=== PATIENT | female | born 1955 | race Caucasian/White ===

== ENCOUNTER 2018-03-28 12:03 | Emergency (ER) | payer BC, MEDICARE ==
[2018-03-28] MEDS ORDERED: SODIUM CHLORIDE 0.9% 1,000 ML IV STA (12:38)
[2018-03-28] MEDS ORDERED: LORazepam 2 MG/ML INJ IV STA (12:38)
[2018-03-28] MEDS ORDERED: IPRATROPIUM-ALBUTEROL 3 ML NEB INHALATION STA (12:39)
[2018-03-28] MEDS ORDERED: DEXAMETHASONE SOD PHOSPHATE 10 MG/ML 1 ML VIAL IV STA (12:39)
--- NOTE | 2018-03-28 13:08 | ED ---
General Adult HPI - General Chief complaint: Anxiety Stated complaint: TEMO, poss panic attack Time Seen by Provider: 03/28/18 12:17 Source: patient, RN notes reviewed, old records reviewed Mode of arrival: ambulatory Limitations: no limitations - History of Present Illness Initial comments: This is a 63-year-old female for evaluation today. Patient resents ER for evaluation of shortness of breath, inability to catch her breath. Patient does her from complex medical history including DVTs heart disease. No recent travel history no. Patient has been taking medications as prescribed has been taking Xarelto as prescribed. Patient denies any fever. Denies any significant chest pain or leg pain - Related Data Home Medications Medication Instructions Recorded Confirmed metFORMIN HCL 500 mg PO BID 01/07/16 07/24/16 Lisinopril [Zestril] 10 mg PO DAILY 07/24/16 07/24/16 [place]-3 Fatty Acids [[place]-3] 1,000 mg PO DAILY 07/24/16 07/24/16 Ubidecarenone [Co Q-10] 100 mg PO DAILY 07/24/16 07/24/16 sitaGLIPtin [Januvia] 100 mg PO DAILY 07/24/16 07/24/16 Previous Rx's Medication Instructions Recorded Apixaban [Eliquis] 10 mg PO DIRECTED #60 tab 07/28/16 Allergies Allergy/AdvReac Type Severity Reaction Status Date / Time Iodinated Contrast- Oral and Allergy Rash/Hives Verified 03/28/18 12:14 IV Dye Milk Containing Products AdvReac Nausea & Verified 03/28/18 12:14 [Dairy] Vomiting Review of Systems ROS Statement: Those systems with pertinent positive or pertinent negative responses have been documented in the HPI. ROS Other: All systems not noted in ROS Statement are negative. Past Medical History Past Medical History: Asthma, Diabetes Mellitus Additional Past Medical History / Comment(s): pulmonary embolism in 12/2015 and the patient was treated with 6 moths of Eliquis, morbid obesity, DM History of Any Multi-Drug Resistant Organisms: None Reported Past Surgical History: No Surgical Hx Reported Past Anesthesia/Blood Transfusion Reactions: No Reported Reaction Past Psychological History: Anxiety, Depression Smoking Status: Never smoker Past Alcohol Use History: Occasional Past Drug Use History: Marijuana - Past Family History Mother Additional Family Medical History / Comment(s): CANCER WITH METS NOT SURE WHICH ONE Father Family Medical History: Pneumonia Additional Family Medical History / Comment(s): CANCER General Exam Limitations: no limitations General appearance: alert, in no apparent distress, anxious Head exam: Present: atraumatic, normocephalic, normal inspection Eye exam: Present: normal appearance, PERRL, EOMI. Absent: scleral icterus, conjunctival injection, periorbital swelling ENT exam: Present: normal exam, mucous membranes moist Neck exam: Present: normal inspection. Absent: tenderness, meningismus, lymphadenopathy Respiratory exam: Present: normal lung sounds bilaterally. Absent: respiratory distress, wheezes, rales, rhonchi, stridor Cardiovascular Exam: Present: regular rate, normal rhythm, normal heart sounds. Absent: systolic murmur, diastolic murmur, rubs, gallop, clicks GI/Abdominal exam: Present: soft, normal bowel sounds. Absent: distended, tenderness, guarding, rebound, rigid Extremities exam: Present: normal inspection, full ROM, normal capillary refill. Absent: tenderness, pedal edema, joint swelling, calf tenderness Back exam: Present: normal inspection Neurological exam: Present: alert, oriented X3, CN II-XII intact Psychiatric exam: Present: normal affect, normal mood Skin exam: Present: warm, dry, intact, normal color. Absent: rash Course Vital Signs 03/28/18 03/28/18 03/28/18 12:08 12:29 12:30 Temperature 98.4 F Pulse Rate 85 Respiratory 18 26 H 26 H Rate Blood Pressure 156/76 O2 Sat by Pulse 98 97 Oximetry 03/28/18 03/28/18 12:50 12:59 Temperature Pulse Rate 64 67 Respiratory Rate Blood Pressure O2 Sat by Pulse Oximetry - Reevaluation(s) Reevaluation #1: 03/28/18 14:24 Patient is asymptomatic throughout ER stay, no pain. X-rays normal, informed her results and feeling better EKG Findings - EKG Comments: EKG Findings:: EKG shows sinus rhythm rate is is, [place] 194, QRS 90, QTc 418 Medical Decision Making - Medical Decision Making 53 female the ER with mild anxiety attack. Normal oxygen throughout ER stay, patient can be discharged home - Lab Data Result diagrams: 03/28/18 13:20 03/28/18 13:20 Lab Results 08/05/18 08/05/18 08/05/18 Range/Units 13:20 13:20 13:20 WBC 7.5 (3.8-10.6) k/uL RBC 4.78 (3.80-5.40) m/uL Hgb 13.8 (11.4-16.0) gm/dL Hct 42.0 (34.0-46.0) % MCV 87.8 (80.0-100.0) fL MCH 28.9 (25.0-35.0) pg MCHC 32.9 (31.0-37.0) g/dL RDW 13.2 (11.5-15.5) % Plt Count 136 L (150-450) k/uL Neutrophils % 64 % Lymphocytes % 27 % Monocytes % 5 % Eosinophils % 2 % Basophils % 0 % Neutrophils # 4.9 (1.3-7.7) k/uL Lymphocytes # 2.0 (1.0-4.8) k/uL Monocytes # 0.4 (0-1.0) k/uL Eosinophils # 0.2 (0-0.7) k/uL Basophils # 0.0 (0-0.2) k/uL PT (9.0-12.0) sec INR (<1.2) APTT (22.0-30.0) sec Sodium 140 (137-145) mmol/L Potassium 4.9 (3.5-5.1) mmol/L Chloride 110 H (98-107) mmol/L Carbon Dioxide 19 L (22-30) mmol/L Anion Gap 11 mmol/L BUN 18 H (7-17) mg/dL Creatinine 0.75 (0.52-1.04) mg/dL Est GFR (CKD-EPI)AfAm >90 (>60 ml/min/1.73 sqM) Est GFR (CKD-EPI)NonAf 84 (>60 ml/min/1.73 sqM) Glucose 225 H (74-99) mg/dL Calcium 9.7 (8.4-10.2) mg/dL Magnesium 1.5 L (1.6-2.3) mg/dL Total Bilirubin 0.6 (0.2-1.3) mg/dL AST 21 (14-36) U/L ALT 32 (9-52) U/L Alkaline Phosphatase 87 (38-126) U/L Total Creatine Kinase 75 (30-135) U/L CK-MB (CK-2) 0.7 (0.0-2.4) ng/mL CK-MB (CK-2) Rel Index 0.9 Troponin I <0.012 (0.000-0.034) ng/mL NT-Pro-B Natriuret Pep pg/mL Total Protein 6.9 (6.3-8.2) g/dL Albumin 4.1 (3.5-5.0) g/dL 03/28/18 03/28/18 Range/Units 13:20 13:20 WBC (3.8-10.6) k/uL RBC (3.80-5.40) m/uL Hgb (11.4-16.0) gm/dL Hct (34.0-46.0) % MCV (80.0-100.0) fL MCH (25.0-35.0) pg MCHC (31.0-37.0) g/dL RDW (11.5-15.5) % Plt Count (150-450) k/uL Neutrophils % % Lymphocytes % % Monocytes % % Eosinophils % % Basophils % % Neutrophils # (1.3-7.7) k/uL Lymphocytes # (1.0-4.8) k/uL Monocytes # (0-1.0) k/uL Eosinophils # (0-0.7) k/uL Basophils # (0-0.2) k/uL PT 10.2 (9.0-12.0) sec INR 1.0 (<1.2) APTT 23.4 (22.0-30.0) sec Sodium (137-145) mmol/L Potassium (3.5-5.1) mmol/L Chloride (98-107) mmol/L Carbon Dioxide (22-30) mmol/L Anion Gap mmol/L BUN (7-17) mg/dL Creatinine (0.52-1.04) mg/dL Est GFR (CKD-EPI)AfAm (>60 ml/min/1.73 sqM) Est GFR (CKD-EPI)NonAf (>60 ml/min/1.73 sqM) Glucose (74-99) mg/dL Calcium (8.4-10.2) mg/dL Magnesium (1.6-2.3) mg/dL Total Bilirubin (0.2-1.3) mg/dL AST (14-36) U/L ALT (9-52) U/L Alkaline Phosphatase (38-126) U/L Total Creatine Kinase (30-135) U/L CK-MB (CK-2) (0.0-2.4) ng/mL CK-MB (CK-2) Rel Index Troponin I (0.000-0.034) ng/mL NT-Pro-B Natriuret Pep 69 pg/mL Total Protein (6.3-8.2) g/dL Albumin (3.5-5.0) g/dL - Radiology Data Radiology results: report reviewed (Chest x-rays negative for acute disease), image reviewed Disposition Clinical Impression: Acute anxiety, Panic attack, Shortness of breath Disposition: HOME SELF-CARE Instructions: Generalized Anxiety Disorder (ED) Is patient prescribed a controlled substance at d/c from ED?: No Referrals: Jaclyn Renteria DO [Primary Care Provider] - 1-2 days
[2018-03-28 13:36] LABS: Basophils % (A) 0 %; Eosinophils # (A) 0.2 k/uL (0-0.7); Eosinophils % (A) 2 %; HGB 13.8 gm/dL (11.4-16.0); Lymphocytes % (A) 27 %; MCH 28.9 pg (25.0-35.0); MCHC 32.9 g/dL (31.0-37.0); MCV 87.8 fL (80.0-100.0); Mean Platelet Volume 8.3; Monocytes # (A) 0.4 k/uL (0-1.0); Monocytes % (A) 5 %; Neutrophils # (A) 4.9 k/uL (1.3-7.7); Neutrophils % (A) 64 %; Platelet Count 136 k/uL (150-450); RBC 4.78 m/uL (3.80-5.40); RDW 13.2 % (11.5-15.5); WBC 7.5 k/uL (3.8-10.6)
[2018-03-28 13:45] LABS: ALT 32 U/L (9-52); AST 21 U/L (14-36); Albumin 4.1 g/dL (3.5-5.0); Alkaline Phosphatase 87 U/L (38-126); Anion Gap 11 mmol/L; Blood Urea Nitrogen 18 mg/dL (7-17); Calcium 9.7 mg/dL (8.4-10.2); Carbon Dioxide 19 mmol/L (22-30); Chloride 110 mmol/L (98-107); Glucose 225 mg/dL (74-99); Magnesium 1.5 mg/dL (1.6-2.3); Partial Thromboplastin Time 23.4 sec (22.0-30.0); Potassium 4.9 mmol/L (3.5-5.1); Prothrombin Time 10.2 sec (9.0-12.0); Sodium 140 mmol/L (137-145); Total Bilirubin 0.6 mg/dL (0.2-1.3); Total Protein 6.9 g/dL (6.3-8.2)
[2018-03-28 14:00] LABS: Creatine Kinase 75 U/L (30-135)
[2018-03-28 14:13] LABS: Creatine Kinase MB 0.7 ng/mL (0.0-2.4); Troponin I <0.012 ng/mL (0.000-0.034)
--- NOTE | 2018-03-28 14:17 | XR ---
EXAMINATION TYPE: XR chest 2V DATE OF EXAM: 03/28/2018 COMPARISON: 07/24/2016 HISTORY: 63-year-old female with chest pain TECHNIQUE: PA and lateral views FINDINGS: Heart is normal size. Aorta and pulmonary vasculature within normal limits. There is mild to moderate diffuse interstitial prominence. No consolidation or pleural effusion. IMPRESSION: Chronic changes, possible underlying bronchitis or chronic asthma. No focal infiltrate.
[2018-03-28] MEDS ORDERED: MAGNESIUM OXIDE 400 MG TAB PO STA (14:23)
[2018-03-28 14:41] VITALS: BP 140/61; PULSE 62; RESP 20; TEMP 97.8
== END 2018-03-28 14:35 | disposition home or self-care (01) ==
LOC: EC 12:03
DX: F41.0 Panic disorder [episodic paroxysmal anxiety] (principal); R06.02 Shortness of breath; E11.9 Type 2 diabetes mellitus without complications; E66.01 Morbid (severe) obesity due to excess calories; Z68.43 Body mass index [BMI] 50.0-59.9, adult; Z86.711 Personal history of pulmonary embolism; Z86.718 Personal history of other venous thrombosis and embolism; Z79.84 Long term (current) use of oral hypoglycemic drugs; Z79.899 Other long term (current) drug therapy; Z91.011 Allergy to milk products; Z91.041 Radiographic dye allergy status
CPT/HCPCS: 36415; 94640; 93005; 83880; 80053; 82550; 82553; 83735; 84484; 85025; 85610; 85730; 71046; 99284; 96374; 96375; 96361; J2060; J1100

== ENCOUNTER 2018-12-26 14:49 | Inpatient (IN) | payer MEDICARE ==
[2018-12-26] MEDS ORDERED: ASPIRIN 81 MG PO STA (15:02)
[2018-12-26] MEDS ORDERED: NITROGLYCERIN SL TABS 0.4 MG TAB SUBLINGUAL STA (15:02)
[2018-12-26] MEDS ORDERED: NITROGLYCERIN OINT 1 INCH/GM PACKET TOPICAL STA (15:02)
--- NOTE | 2018-12-26 15:05 | ED ---
General Adult HPI - General Chief complaint: Chest Pain Stated complaint: Chest pressure Time Seen by Provider: 12/26/18 14:50 Source: patient, RN notes reviewed Mode of arrival: ambulatory Limitations: no limitations - History of Present Illness Initial comments: This is a 63-year-old female who presents emergency department with past medical history significant for diabetes. Patient states about 1:00 she started experiencing some chest pain she states radiates up into her jaw and into her back. Patient states she had this once before but it resolved after 6 hours and it wasn't as significant as it was today. Patient states she also was very n auseated with these pains. Patient states the pain continues currently. Patient states she has had a stress test but can't member when it was. Patient denies ever having a catheterization patient denies any recent fever chills or cough. Patient denies any abdominal pain. Patient denies any vomiting diarrhea per patient denies being lightheaded or dizzy. Patient denies any palpitations. Patient denies any swelling to the legs or calf tenderness. - Related Data Home Medications Medication Instructions Recorded Confirmed metFORMIN HCL 500 mg PO BID 01/07/16 12/26/18 Lisinopril [Zestril] 10 mg PO DAILY 07/24/16 12/26/18 sitaGLIPtin [Januvia] 100 mg PO DAILY 07/24/16 12/26/18 Apixaban [Eliquis] 5 mg PO BID 12/26/18 12/26/18 Magnesium Oxide [Mag-Ox] 400 mg PO DAILY 12/26/18 12/26/18 Allergies Allergy/AdvReac Type Severity Reaction Status Date / Time Iodinated Contrast- Oral and Allergy Rash/Hives Verified 03/28/18 12:14 IV Dye Milk Containing Products AdvReac Nausea & Verified 03/28/18 12:14 [Dairy] Vomiting nickel AdvReac Rash/Hives Verified 12/26/18 15:57 Review of Systems ROS Statement: Those systems with pertinent positive or pertinent negative responses have been documented in the HPI. ROS Other: All systems not noted in ROS Statement are negative. Past Medical History Past Medical History: Asthma, Diabetes Mellitus Additional Past Medical History / Comment(s): pulmonary embolism in 12/2015 and the patient was treated with 6 moths of Eliquis, morbid obesity, DM History of Any Multi-Drug Resistant Organisms: None Reported Past Surgical History: No Surgical Hx Reported Past Anesthesia/Blood Transfusion Reactions: No Reported Reaction Past Psychological History: Anxiety, Depression Smoking Status: Never smoker Past Alcohol Use History: Occasional Past Drug Use History: Marijuana - Past Family History Mother Additional Family Medical History / Comment(s): CANCER WITH METS NOT SURE WHICH ONE Father Family Medical History: Pneumonia Additional Family Medical History / Comment(s): CANCER General Exam - General Exam Comments Initial Comments: GENERAL: Patient is well-developed and well-nourished. Patient is nontoxic and well- hydrated and is in mild distress. ENT: Neck is soft and supple. No significant lymphadenopathy is noted. Oropharynx is clear. Moist mucous membranes. Neck has full range of motion without eliciting any pain. EYES: The sclera were anicteric and conjunctiva were pink and moist. Extraocular movements were intact and pupils were equal round and reactive to light. Eyelids were unremarkable. PULMONARY: Unlabored respirations. Good breath sounds bilaterally. No audible rales rhonchi or wheezing was noted. CARDIOVASCULAR: There is a regular rate and rhythm without any murmurs gallops or rubs. ABDOMEN: Soft and nontender with normal bowel sounds. No palpable organomegaly was noted. There is no palpable pulsatile mass. SKIN: Skin is clear with no lesions or rashes and otherwise unremarkable. NEUROLOGIC: Patient is alert and oriented x3. Cranial nerves II through XII are grossly intact. Motor and sensory are also intact. Normal speech, volume and content. Symmetrical smile. Cerebellar exam grossly intact. MUSCULOSKELETAL: Normal extremities with adequate strength and full range of motion. No lower extremity swelling or edema. No calf tenderness. LYMPHATICS: No significant lymphadenopathy is noted PSYCHIATRIC: Normal psychiatric evaluation. Limitations: no limitations Course Vital Signs 12/26/18 12/26/18 14:50 16:00 Temperature 98.3 F Pulse Rate 76 56 L Respiratory 18 18 Rate Blood Pressure 199/87 168/61 O2 Sat by Pulse 97 99 Oximetry Medical Decision Making - Medical Decision Making EKG shows normal sinus rhythm at 62 bpm WA interval 288 QRSs 84 QT interval 412 QTC is 418. Patient's EKG shows no ST segment elevation or depression. Chest x-ray shows no acute abnormality Patient had elevated once it started the patient heparin. An image the patient unstable angina. I spoke with his physician they agree to admit the patient admitted the patient I consulted cardiology. I also continued heparin and aspirin and Nitropaste on the floor. - Lab Data Result diagrams: 12/26/18 15:41 12/26/18 15:41 Lab Results 12/26/18 12/26/18 12/26/18 Range/Units 15:41 15:41 15:41 WBC 5.7 (3.8-10.6) k/uL RBC 4.57 (3.80-5.40) m/uL Hgb 13.2 (11.4-16.0) gm/dL Hct 40.5 (34.0-46.0) % MCV 88.6 (80.0-100.0) fL MCH 28.8 (25.0-35.0) pg MCHC 32.5 (31.0-37.0) g/dL RDW 13.9 (11.5-15.5) % Plt Count 137 L (150-450) k/uL Neutrophils % 72 % Lymphocytes % 20 % Monocytes % 4 % Eosinophils % 2 % Basophils % 1 % Neutrophils # 4.1 (1.3-7.7) k/uL Lymphocytes # 1.1 (1.0-4.8) k/uL Monocytes # 0.2 (0-1.0) k/uL Eosinophils # 0.1 (0-0.7) k/uL Basophils # 0.0 (0-0.2) k/uL PT (9.0-12.0) sec INR (<1.2) APTT (22.0-30.0) sec Sodium 138 (137-145) mmol/L Potassium 4.9 (3.5-5.1) mmol/L Chloride 107 (98-107) mmol/L Carbon Dioxide 25 (22-30) mmol/L Anion Gap 6 mmol/L BUN 16 (7-17) mg/dL Creatinine 0.79 (0.52-1.04) mg/dL Est GFR (CKD-EPI)AfAm >90 (>60 ml/min/1.73 sqM) Est GFR (CKD-EPI)NonAf 80 (>60 ml/min/1.73 sqM) Glucose 251 H (74-99) mg/dL Calcium 9.3 (8.4-10.2) mg/dL Magnesium 1.4 L (1.6-2.3) mg/dL Total Bilirubin 0.8 (0.2-1.3) mg/dL AST 28 (14-36) U/L ALT 42 (9-52) U/L Alkaline Phosphatase 72 (38-126) U/L Troponin I (0.000-0.034) ng/mL NT-Pro-B Natriuret Pep 241 pg/mL Total Protein 6.4 (6.3-8.2) g/dL Albumin 3.7 (3.5-5.0) g/dL 12/26/18 12/26/18 Range/Units 15:41 15:41 WBC (3.8-10.6) k/uL RBC (3.80-5.40) m/uL Hgb (11.4-16.0) gm/dL Hct (34.0-46.0) % MCV (80.0-100.0) fL MCH (25.0-35.0) pg MCHC (31.0-37.0) g/dL RDW (11.5-15.5) % Plt Count (150-450) k/uL Neutrophils % % Lymphocytes % % Monocytes % % Eosinophils % % Basophils % % Neutrophils # (1.3-7.7) k/uL Lymphocytes # (1.0-4.8) k/uL Monocytes # (0-1.0) k/uL Eosinophils # (0-0.7) k/uL Basophils # (0-0.2) k/uL PT 10.2 (9.0-12.0) sec INR 0.9 (<1.2) APTT 24.1 (22.0-30.0) sec Sodium (137-145) mmol/L Potassium (3.5-5.1) mmol/L Chloride (98-107) mmol/L Carbon Dioxide (22-30) mmol/L Anion Gap mmol/L BUN (7-17) mg/dL Creatinine (0.52-1.04) mg/dL Est GFR (CKD-EPI)AfAm (>60 ml/min/1.73 sqM) Est GFR (CKD-EPI)NonAf (>60 ml/min/1.73 sqM) Glucose (74-99) mg/dL Calcium (8.4-10.2) mg/dL Magnesium (1.6-2.3) mg/dL Total Bilirubin (0.2-1.3) mg/dL AST (14-36) U/L ALT (9-52) U/L Alkaline Phosphatase (38-126) U/L Troponin I 0.063 H* (0.000-0.034) ng/mL NT-Pro-B Natriuret Pep pg/mL Total Protein (6.3-8.2) g/dL Albumin (3.5-5.0) g/dL Critical Care Time Critical Care Time: Yes Total Critical Care Time: 35 Disposition Clinical Impression: Unstable angina pectoris Disposition: ADMITTED IP TO THIS HOSP Referrals: None,Stated [Primary Care Provider] - 1-2 days Time of Disposition: 16:51
[2018-12-26 16:03] LABS: Basophils % (A) 1 %; Eosinophils # (A) 0.1 k/uL (0-0.7); Eosinophils % (A) 2 %; HCT 40.5 % (34.0-46.0); HGB 13.2 gm/dL (11.4-16.0); Lymphocytes # (A) 1.1 k/uL (1.0-4.8); Lymphocytes % (A) 20 %; MCH 28.8 pg (25.0-35.0); MCHC 32.5 g/dL (31.0-37.0); MCV 88.6 fL (80.0-100.0); Mean Platelet Volume 9.2; Monocytes # (A) 0.2 k/uL (0-1.0); Monocytes % (A) 4 %; Neutrophils # (A) 4.1 k/uL (1.3-7.7); Neutrophils % (A) 72 %; Platelet Count 137 k/uL (150-450); RBC 4.57 m/uL (3.80-5.40); RDW 13.9 % (11.5-15.5); WBC 5.7 k/uL (3.8-10.6)
[2018-12-26 16:12] LABS: ALT 42 U/L (9-52); AST 28 U/L (14-36); Albumin 3.7 g/dL (3.5-5.0); Alkaline Phosphatase 72 U/L (38-126); Anion Gap 6 mmol/L; Blood Urea Nitrogen 16 mg/dL (7-17); Calcium 9.3 mg/dL (8.4-10.2); Carbon Dioxide 25 mmol/L (22-30); Chloride 107 mmol/L (98-107); Glucose 251 mg/dL (74-99); INR 0.9 (<1.2); Magnesium 1.4 mg/dL (1.6-2.3); Partial Thromboplastin Time 24.1 sec (22.0-30.0); Potassium 4.9 mmol/L (3.5-5.1); Prothrombin Time 10.2 sec (9.0-12.0); Sodium 138 mmol/L (137-145); Total Bilirubin 0.8 mg/dL (0.2-1.3); Total Protein 6.4 g/dL (6.3-8.2)
--- NOTE | 2018-12-26 16:17 | XR ---
EXAMINATION TYPE: XR chest 2V DATE OF EXAM: 12/26/2018 COMPARISON: 03/28/2018 HISTORY: Chest pressure TECHNIQUE: Frontal and lateral views of the chest are obtained. FINDINGS: Heart and mediastinum are normal. Lungs are clear. Diaphragm is normal. Bony thorax is int act. IMPRESSION: Normal chest. No change.
[2018-12-26] MEDS ORDERED: HEPARIN SODIUM,PORCINE 5,000 UNIT/ML 1 ML VIAL IV ONE ×2 (16:50→23:30)
[2018-12-26] MEDS ORDERED: NITROGLYCERIN SL TABS 0.4 MG TAB SUBLINGUAL PRN (16:52)
[2018-12-26] MEDS ORDERED: HEPARIN SOD,PORK IN 0.45% NACL 25,000 UNIT in 0.45% NACL 1 250ML.BAG IV SCH (17:00)
--- NOTE | 2018-12-26 18:01 | P.HPIM ---
History of Present Illness H&P Date: 12/26/18 Patient is a 63-year-old male with a past medical history of diabetes mellitus, asthma, and history of multiple PEs (on Eliquis) presents to the ED for chest and back pain. The pain started at 1 pm today as she was working in her garage. She reports it started suddenly in her back, pressure-like, 7/10, w/ no alleviating or exacerbating factors. The pain radiated to her chest and jaw which she described as a deep pressure/throbbing sensation. She had associated SOB, nausea, and diaphoresis. Denied vomiting. She notes she has never had pain like this before. She further denied fever, chills, cough, abdominal pain, or diarrhea. She further denied leg pain, or swelling. The patient notes that she previously had an episode similar to this though it resolved after 6 hours. She underwent an extensive evaluation in the ED with troponin elevated at 0.063, EKG showing normal sinus rhythm at 62 bpm, with T-wave inversion in leads III and V1, platelets 137, BNP 241, chest x-ray unremarkable, and creatinine 0.79. The patient subsequently being admitted to the medicine service for further odalis gement. Review of Systems Pertinent positives and negatives as discussed in HPI, a complete review of systems was performed and all other systems are negative. Past Medical History Past Medical History: Asthma, Diabetes Mellitus Additional Past Medical History / Comment(s): pulmonary embolism in 12/2015 and the patient was treated with 6 moths of Eliquis, morbid obesity, DM History of Any Multi-Drug Resistant Organisms: None Reported Past Surgical History: No Surgical Hx Reported Past Anesthesia/Blood Transfusion Reactions: No Reported Reaction Past Psychological History: Anxiety, Depression Smoking Status: Never smoker Past Alcohol Use History: Occasional Past Drug Use History: Marijuana - Past Family History Mother Additional Family Medical History / Comment(s): CANCER WITH METS NOT SURE WHICH ONE Father Family Medical History: Pneumonia Additional Family Medical History / Comment(s): CANCER Medications and Allergies Home Medications Medication Instructions Recorded Confirmed Type metFORMIN HCL 500 mg PO BID 01/07/16 12/26/18 History Lisinopril [Zestril] 10 mg PO DAILY 07/24/16 12/26/18 History sitaGLIPtin [Januvia] 100 mg PO DAILY 07/24/16 12/26/18 History Apixaban [Eliquis] 5 mg PO BID 12/26/18 12/26/18 History Magnesium Oxide [Mag-Ox] 400 mg PO DAILY 12/26/18 12/26/18 History Allergies Allergy/AdvReac Type Severity Reaction Status Date / Time Iodinated Contrast- Oral and Allergy Rash/Hives Verified 03/28/18 12:14 IV Dye Milk Containing Products AdvReac Nausea & Verified 03/28/18 12:14 [Dairy] Vomiting nickel AdvReac Rash/Hives Verified 12/26/18 15:57 Physical Exam Vitals: Vital Signs Temp Pulse Resp BP Pulse Ox 12/26/18 17:00 98.0 F 62 18 164/82 99 12/26/18 16:00 56 L 18 168/61 99 12/26/18 14:50 98.3 F 76 18 199/87 97 Intake and Output 12/26/18 12/26/18 12/26/18 06:59 14:59 22:59 Other: Weight 140.614 kg General: non toxic, no distress, appears at stated age, morbidly obese Derm: no unusual rashes/lesions no unusual ecchymoses, warm, dry Head: atraumatic, normocephalic, symmetric Eyes: EOMI, no lid lag, anicteric sclera, pupils equal round reactive to light ENT: Nose and ears atraumatic, no thrush, no pharyngeal erythema Neck: No thyromegaly, no cervical lymphadenopathy, trachea midline, supple Mouth: no lip lesion, mucus membranes moist Cardiovascular: S1S2 reg, no murmur, positive posterior tibial pulse bilateral, no edema, capillary refill less than 2 seconds Lungs: CTA bilateral, no rhonchi, no rales , no accessory muscle use Abdominal: soft, nontender to palpation, no guarding, no appreciable organomegaly, normal bowel sounds Ext: no gross muscle atrophy, muscle strength 5 out of 5 in all 4 extremities grossly, no contractures, Neuro: CN II-XI grossly intact, light touch intact all 4 extremities, finger to nose within normal limits, Psych: Alert, oriented, appropriate affect Results CBC & Chem 7: 12/26/18 15:41 12/26/18 15:41 Labs: Abnormal Lab Results - Last 24 Hours (Table) 05/05/19 05/05/19 05/05/19 Range/Units 15:41 15:41 15:41 Plt Count 137 L (150-450) k/uL Glucose 251 H (74-99) mg/dL Magnesium 1.4 L (1.6-2.3) mg/dL Troponin I 0.063 H* (0.000-0.034) ng/mL Assessment and Plan Plan: NSTEMI -Cardiology consult -Obtain CT angiogram of chest to rule out dissection prior to heparin infusion -Cardiac monitoring -Trend troponins and EKG -Nitro paste when necessary -Obtain lipid panel -Supplemental oxygen Thrombocythemia -Monitor CBC for now Diabetes mellitus -Insulin sliding scale with blood glucose monitoring Hypertension -Resume home medications History of PEs -Hold Eliquis while patient is on the heparin infusion DVT prophylaxis -Heparin infusion The patient is admitted with an anticipated less than 2 midnight stay for evaluation of chest pain. CODE STATUS: Full Code Discussed with: Patient Anticipated discharge date: 12/27/[address]: Home A total of 35 minutes was spent on the care of this complex patient more than 50% of the time was spent in counseling and care coordination.
[2018-12-26 18:28] LABS: Glucose,Whole Blood 235 mg/dL (75-99)
[2018-12-26] MEDS ORDERED: LISINOPRIL 10 MG TAB PO STA (18:44)
[2018-12-26] MEDS ORDERED: LABETALOL 200 MG TAB PO STA (18:51)
[2018-12-26] MEDS ORDERED: methylPREDNISolone SOD SUCCI 125 MG/2 ML VIAL IV STA (18:55)
[2018-12-26] MEDS ORDERED: diphenhydrAMINE 50 MG/ML 1 ML VIAL IVP STA (18:55)
[2018-12-26] MEDS ORDERED: FAMOTIDINE 20 MG TAB PO STA (18:55)
[2018-12-26] MEDS: MAGNESIUM SULFATE-D5W PMX 1 GM in DEXTROSE/WATER 1 100ML.BAG IVPB SCH ×3 (19:09→22:24)
[2018-12-26] MEDS: NITROGLYCERIN OINT 1 INCH/GM PACKET TOPICAL SCH (19:10)
[2018-12-26] MEDS: ATORVASTATIN 80 MG TAB PO SCH (19:11)
[2018-12-26 20:06] LABS: Glucose,Whole Blood 205 mg/dL (75-99)
--- NOTE | 2018-12-26 20:44 | CT ---
EXAMINATION TYPE: CT angio chest DATE OF EXAM: 12/26/2018 8:37 PM COMPARISON: July 25, 2016 HISTORY: CHEST/BACK PAIN CT DLP: 852.5 mGycm Automated exposure control for dose reduction was used. CONTRAST: CTA scan of the thorax is performed with IV Contrast, patient injected with 100 mL of Isovue 370, pul monary embolism protocol. There are 3-D post processed images.. FINDINGS: The lungs are clear of infiltrate. There is no pleural effusion or pneumothorax. Heart appears normal . There is no pericardial effusion. There is some fatty infiltration of the liver. There are no hilar masses. There is no mediastinal adenopathy. There is normal contrast opacification of the pulmonary arteries. There are no filling defects. The bony thorax is intact. IMPRESSION: NEGATIVE EXAM. NO EVIDENCE OF PULMONARY EMBOLISM. THERE IS CLEARING OF THE MULTIPLE BILATERAL PULMONA RY EMBOLI COMPARED TO OLD EXAM.
[2018-12-26] MEDS: INSULIN ASPART (NovoLOG) 100 UNIT/ML VIAL SQ SCH (21:00)
[2018-12-26] MEDS ORDERED: HEPARIN SODIUM,PORCINE 5,000 UNIT/ML 1 ML VIAL IV PRN (23:30)
[2018-12-27] MEDS: NITROGLYCERIN OINT 1 INCH/GM PACKET TOPICAL SCH ×4 (00:17→17:34)
[2018-12-27] MEDS: HEPARIN SOD,PORK IN 0.45% NACL 25,000 UNIT in 0.45% NACL 1 250ML.BAG IV SCH (00:37)
[2018-12-27 06:25] LABS: Glucose,Whole Blood 391 mg/dL (75-99)
[2018-12-27] MEDS: INSULIN ASPART (NovoLOG) 100 UNIT/ML VIAL SQ SCH ×4 (06:33→22:18)
[2018-12-27 07:50] LABS: HGB 13.5 gm/dL (11.4-16.0); MCH 28.8 pg (25.0-35.0); MCHC 31.4 g/dL (31.0-37.0); MCV 91.5 fL (80.0-100.0); Mean Platelet Volume 9.1; Platelet Count 127 k/uL (150-450); RDW 13.3 % (11.5-15.5); WBC 5.6 k/uL (3.8-10.6)
--- NOTE | 2018-12-27 08:24 | P.CRDCN ---
History of Present Illness Consult date: 12/27/18 Requesting physician: Bashir Palacios Consult reason: chest pain Chief complaint: Chest pain History of present illness: Is a 63-year-old female with history of hypertension, diabetes, border line hyperlipidemia, although she is diabetic she is untreated for her cholesterol, she also has history of pulmonary embolism on 2 different occasions, she takes Eliquis 5 mg one tablet by mouth twice a day. She is a nonsmoker, no family history of premature coronary artery disease, she is significantly overweight. Patient presents to the hospital on this occasion with symptoms of pressure between her shoulder blades that radiated through to her chest, positive associated mild diaphoresis and nausea. She had 1 episode about a week and a half ago, and just prior to coming to the hospital on this occasion she again had another episode. Her blood pressure on arrival here was 199/87 with a heart rate in the 70s, 97% on room air. Blood pressure this morning 155/70 with a heart rate in the 60s, 95% on room air. White blood cell count 5.6, hemoglobin 13.5, platelet count 127. Sodium 138, potassium 4.9, BUN 16 and creatinine 0.7. Initial troponin 0.063, subsequent troponin 3.3 and 4.3. Chest x-ray on admission normal. EKG shows normal sinus rhythm with nonspecific ST-T wave changes noted in the inferior leads. Subsequent EKG performed this morning showed normal sinus rhythm with progression of changes in the inferior leads. At the time of my examination this morning she is currently chest pain-free. Past Medical History Past Medical History: Asthma, Diabetes Mellitus, Renal Disease Additional Past Medical History / Comment(s): pulmonary embolism in 12/2015 and the patient was treated with 6 moths of Eliquis, morbid obesity, DM History of Any Multi-Drug Resistant Organisms: None Reported Past Surgical History: No Surgical Hx Reported Additional Past Surgical History / Comment(s): basal cell carcinoma removed from face and a polyp removed from rectum Past Anesthesia/Blood Transfusion Reactions: No Reported Reaction Past Psychological History: Anxiety, Depression Smoking Status: Never smoker Past Alcohol Use History: Occasional Past Drug Use History: Marijuana Additional Drug Use History / Comment(s): has been over a year since the pt has used marijuana - Past Family History Mother Additional Family Medical History / Comment(s): CANCER WITH METS NOT SURE WHICH ONE Father Family Medical History: Pneumonia Additional Family Medical History / Comment(s): CANCER Medications and Allergies Home Medications Medication Instructions Recorded Confirmed Type metFORMIN HCL 500 mg PO BID 01/07/16 12/26/18 History Lisinopril [Zestril] 10 mg PO DAILY 07/24/16 12/26/18 History sitaGLIPtin [Januvia] 100 mg PO DAILY 07/24/16 12/26/18 History Apixaban [Eliquis] 5 mg PO BID 12/26/18 12/26/18 History Magnesium Oxide [Mag-Ox] 400 mg PO DAILY 12/26/18 12/26/18 History Allergies Allergy/AdvReac Type Severity Reaction Status Date / Time Iodinated Contrast- Oral and Allergy Rash/Hives Verified 03/28/18 12:14 IV Dye Milk Containing Products AdvReac Nausea & Verified 03/28/18 12:14 [Dairy] Vomiting nickel AdvReac Rash/Hives Verified 12/26/18 15:57 Physical Exam Vitals: Vital Signs Temp Pulse Pulse Resp BP BP Pulse Ox 12/27/18 03:05 98.0 F 65 16 157/70 95 12/26/18 23:40 98.3 F 61 16 143/66 95 12/26/18 20:50 98.3 F 62 16 160/70 99 12/26/18 18:30 98.1 F 63 16 196/97 99 12/26/18 17:00 98.0 F 62 18 164/82 99 12/26/18 16:00 56 L 18 168/61 99 12/26/18 14:50 98.3 F 76 18 199/87 97 Intake and Output 12/26/18 12/27/18 12/27/18 22:59 06:59 14:59 Other: Voiding Method Toilet # Voids 1 1 Weight 136 kg PHYSICAL EXAMINATION: GENERAL: 63-year-old female in no acute distress at the time of my examination HEENT: Head is atraumatic, normocephalic. Pupils equal, round. Sclera anicteric. Conjunctiva are clear. Mucous membranes of the mouth are moist. Neck is supple. There is no elevated jugular venous pressure. No Carotid bruit is heard. HEART EXAMINATION: Heart S1, S2 normal. No murmur or gallop heard. CHEST EXAMINATION: Lungs are clear to auscultation and precussion. No chest wall tenderness is noted on palpation or with deep breathing. ABDOMEN: Soft, obese, nontender. Bowel sounds are heard. No organomegaly noted. EXTREMITIES: 2+ peripheral pulses with no evidence of peripheral edema and no calf tenderness noted. NEUROLOGIC patient is awake, alert and oriented X 3 . . Results 12/27/18 07:10 12/26/18 15:41 Cardiac Enzymes 12/26/18 12/26/18 12/26/18 Range/Units 15:41 15:41 21:57 AST 28 (14-36) U/L Troponin I 0.063 H* 3.330 H* (0.000-0.034) ng/mL 12/27/18 Range/Units 03:50 AST (14-36) U/L Troponin I 4.380 H* (0.000-0.034) ng/mL Coagulation 12/26/18 12/27/18 Range/Units 15:41 07:10 PT 10.2 (9.0-12.0) sec APTT 24.1 48.9 H (22.0-30.0) sec CBC 12/26/18 12/27/18 Range/Units 15:41 07:10 WBC 5.7 5.6 (3.8-10.6) k/uL RBC 4.57 4.70 (3.80-5.40) m/uL Hgb 13.2 13.5 (11.4-16.0) gm/dL Hct 40.5 43.0 (34.0-46.0) % Plt Count 137 L 127 L (150-450) k/uL Comprehensive Metabolic Panel 12/26/18 Range/Units 15:41 Sodium 138 (137-145) mmol/L Potassium 4.9 (3.5-5.1) mmol/L Chloride 107 (98-107) mmol/L Carbon Dioxide 25 (22-30) mmol/L BUN 16 (7-17) mg/dL Creatinine 0.79 (0.52-1.04) mg/dL Glucose 251 H (74-99) mg/dL Calcium 9.3 (8.4-10.2) mg/dL AST 28 (14-36) U/L ALT 42 (9-52) U/L Alkaline Phosphatase 72 (38-126) U/L Total Protein 6.4 (6.3-8.2) g/dL Albumin 3.7 (3.5-5.0) g/dL Current Medications Generic Name Dose Route Start Last Admin Trade Name Aga PRN Reason Stop Dose Admin Aspirin 325 mg 12/27/18 09:00 Aspirin PO DAILY [facility] Atorvastatin Calcium 80 mg 12/26/18 18:15 12/26/18 19:11 Lipitor PO 80 mg DAILY OZZY Administration Heparin Sodium (Porcine) 0 unit 12/26/18 23:30 Heparin IV PER PROTOCOL PRN Low PTT Protocol Heparin Sodium/Sodium Chloride 250 mls @ 10 mls/hr 12/26/18 23:30 12/27/18 00:37 25,000 unit/ Sodium Chloride IV 1,000 units/hr .Q24H OZZY 10 mls/hr Administration Protocol Insulin Aspart 0 unit 12/26/18 21:00 12/27/18 06:33 Novolog SQ 7 unit ACHS OZZY Administration Protocol Lisinopril 10 mg 12/27/18 09:00 Zestril PO DAILY [facility] Nitroglycerin 1 inch 12/26/18 18:00 12/27/18 06:33 Nitro-Bid Oint TOPICAL 1 inch Q6HR OZZY Administration Nitroglycerin 0.4 mg 12/26/18 16:52 Nitrostat SUBLINGUAL Q5M PRN Chest Pain Intake and Output 12/26/18 12/27/18 12/27/18 22:59 06:59 14:59 Other: Voiding Method Toilet # Voids 1 1 Weight 136 kg 12/27/18 07:10 12/26/18 15:41 EKG Interpretations (text) EKG shows normal sinus rhythm with nonspecific ST-T wave changes noted in the inferior leads Assessment and Plan Plan: Assessment and plan #1 symptoms of scapula discomfort radiating through the chest with associated diaphoresis and nausea. EKG shows normal sinus rhythm with nonspecific ST-T wave changes noted in the inferior leads, troponin 0.06, 3.3, 4.3. Clinical picture suggestive of non-Q-wave AK. CTA of the chest negative for pulmonary embolism. #2 hypertension #3 hyperlipidemia untreated #4 diabetes #5 history of PE Plan We will obtain an echo cardiogram with Doppler study. Continue aspirin, Lipitor 80, IV heparin, lisinopril, Nitropaste, patient is been advised to undergo cardiac catheterization, the risks and benefits were explained to the patient in detail and she is willing to proceed. Patient does have an ALLERGY to IVP dye. Further recommendations will be based on these findings and patient's clinical course. DNP note has been reviewed, I agree with a documented findings and plan of care. Patient was seen and examined.
[2018-12-27 09:05] LABS: Anion Gap 8 mmol/L; Blood Urea Nitrogen 18 mg/dL (7-17); Calcium 9.5 mg/dL (8.4-10.2); Carbon Dioxide 21 mmol/L (22-30); Chloride 110 mmol/L (98-107); Cholesterol 226 mg/dL (<200); Glucose 364 mg/dL (74-99); HDL Cholesterol 78 mg/dL (40-60); LDL Cholesterol,Calculated 133 mg/dL (0-99); Potassium 5.2 mmol/L (3.5-5.1); Sodium 139 mmol/L (137-145); Triglycerides 77 mg/dL (<150)
[2018-12-27] MEDS: ATORVASTATIN 80 MG TAB PO SCH (09:09)
[2018-12-27] MEDS: ASPIRIN 325 MG TAB PO SCH (09:09)
[2018-12-27] MEDS: LISINOPRIL 10 MG TAB PO SCH (09:10)
[2018-12-27] MEDS ORDERED: NITROGLYCERIN SL TABS 0.4 MG TAB SUBLINGUAL PRN (10:46)
[2018-12-27] MEDS ORDERED: ASPIRIN 325 MG TAB PO STA (10:46)
[2018-12-27] MEDS ORDERED: ALPRAZolam 0.5 MG TAB PO PRN (10:46)
[2018-12-27] MEDS ORDERED: ATORVASTATIN 80 MG TAB PO STA (10:46)
[2018-12-27] MEDS ORDERED: ALPRAZolam 0.25 MG TAB PO PRN (10:46)
[2018-12-27] MEDS ORDERED: SODIUM CHLORIDE 0.9% 1,000 ML in EMPTY BAG 1 BAG IV ONE (10:46)
[2018-12-27] MEDS ORDERED: SODIUM POLYSTYRENE SULFONATE 15 GM/60 ML BOTTLE PO STA (10:47)
--- NOTE | 2018-12-27 10:54 | P.PN ---
Subjective Progress Note Date: 12/27/18 Patient is a 63-year-old male with a past medical history of diabetes mellitus, asthma, and history of multiple PEs (on Eliquis) presented to the ED for chest and back pain. The pain started at 1 pm on day of presentation as she was working in her garage. She reported it started suddenly in her back, pressure- like, 7/10, w/ no alleviating or exacerbating factors. The pain radiated to her chest and jaw which she described as a deep pressure/throbbing sensation. She had associated SOB, nausea, and diaphoresis. Denied vomiting. She notes she had never had pain like this before. She further denied fever, chills, cough, abdominal pain, or diarrhea. She further denied leg pain, or swelling. She underwent an extensive evaluation in the ED with troponin elevated at 0.063, EKG showing normal sinus rhythm at 62 bpm, with T-wave inversion in leads III and V1, platelets 137, BNP 241, chest x-ray unremarkable, and creatinine 0.79. The patient subsequently being admitted to the medicine service for further management. She underwent a Chest CTA which was negative for dissection or PE. The patient's subsequent troponins were 3.330 and 4.380. Cardiology was consulted and recommended a cardiac catheterization. She was seen and examined at the bedside on 12/27/2018. She notes that her chest and back pain have resolved overnight and she feels as though she is back to her baseline. She is denying any additional complaints. Denying shortness of breath, nausea, diaphoresis, fever, chills, cough. Objective - Vital Signs Vital signs: Vital Signs Temp 98.3 F 12/27/18 08:00 Pulse 61 12/27/18 08:00 Resp 18 12/27/18 08:00 BP 155/69 12/27/18 08:00 Pulse Ox 95 12/27/18 08:00 Intake & Output 12/26/18 12/27/18 12/27/18 18:59 06:59 18:59 Weight 140.614 kg 136 kg Other: Voiding Method Toilet # Voids 1 - Exam General: Non-toxic, in no acute distress, appears stated age, morbidly obese HEENT: NC/AT, anicteric sclerae, moist conjunctiva, no lid-lag, PERRLA Cardiovascular: S1/S2 wnl, no murmurs, rubs, or gallops Lungs: Clear to auscultation, normal respiratory effort, no accessory muscle use Abdominal: Soft, non-tender, non-distended, no guarding, rebound, or rigidity Skin: Warm, dry Extremities: No edema or contractures Psychiatric: Alert and oriented to person, place and time, appropriate affect Neuro: CN II-XII grossly intact, Strength 5/5 in all 4 extremities, Speech intact, Sensation to light touch grossly intact throughout - Labs CBC & Chem 7: 12/27/18 07:10 12/27/18 07:10 Labs: Abnormal Lab Results - Last 24 Hours (Table) 12/26/18 12/26/18 12/26/18 Range/Units 15:41 15:41 15:41 Plt Count 137 L (150-450) k/uL APTT (22.0-30.0) sec Potassium (3.5-5.1) mmol/L Chloride (98-107) mmol/L Carbon Dioxide (22-30) mmol/L BUN (7-17) mg/dL Glucose 251 H (74-99) mg/dL POC Glucose (mg/dL) (75-99) mg/dL Magnesium 1.4 L (1.6-2.3) mg/dL Troponin I 0.063 H* (0.000-0.034) ng/mL Cholesterol (<200) mg/dL LDL Cholesterol, Calc (0-99) mg/dL HDL Cholesterol (40-60) mg/dL 12/26/18 12/26/18 12/26/18 Range/Units 18:27 20:04 21:57 Plt Count (150-450) k/uL APTT (22.0-30.0) sec Potassium (3.5-5.1) mmol/L Chloride (98-107) mmol/L Carbon Dioxide (22-30) mmol/L BUN (7-17) mg/dL Glucose (74-99) mg/dL POC Glucose (mg/dL) 235 H 205 H (75-99) mg/dL Magnesium (1.6-2.3) mg/dL Troponin I 3.330 H* (0.000-0.034) ng/mL Cholesterol (<200) mg/dL LDL Cholesterol, Calc (0-99) mg/dL HDL Cholesterol (40-60) mg/dL 12/27/18 12/27/18 12/27/18 Range/Units 03:50 06:24 07:10 Plt Count (150-450) k/uL APTT (22.0-30.0) sec Potassium 5.2 H (3.5-5.1) mmol/L Chloride 110 H (98-107) mmol/L Carbon Dioxide 21 L (22-30) mmol/L BUN 18 H (7-17) mg/dL Glucose 364 H (74-99) mg/dL POC Glucose (mg/dL) 391 H (75-99) mg/dL Magnesium (1.6-2.3) mg/dL Troponin I 4.380 H* (0.000-0.034) ng/mL Cholesterol 226 H (<200) mg/dL LDL Cholesterol, Calc 133 H (0-99) mg/dL HDL Cholesterol 78 H (40-60) mg/dL 12/27/18 12/27/18 Range/Units 07:10 07:10 Plt Count 127 L (150-450) k/uL APTT 48.9 H (22.0-30.0) sec Potassium (3.5-5.1) mmol/L Chloride (98-107) mmol/L Carbon Dioxide (22-30) mmol/L BUN (7-17) mg/dL Glucose (74-99) mg/dL POC Glucose (mg/dL) (75-99) mg/dL Magnesium (1.6-2.3) mg/dL Troponin I (0.000-0.034) ng/mL Cholesterol (<200) mg/dL LDL Cholesterol, Calc (0-99) mg/dL HDL Cholesterol (40-60) mg/dL Assessment and Plan Plan: NSTEMI -Cardiology recommendations appreciated -Cardiac monitoring -Patient will likely be scheduled for cardiac catheterization -Nitro paste when necessary -Supplemental oxygen -Heparin infusion -Continue with Lipitor and aspirin -Echocardiogram pending Thrombocytopenia -Monitor CBC for now Hyperkalemia -Administer kayexalate and Calcium gluconate -Monitor BMP Diabetes mellitus -Insulin sliding scale with blood glucose monitoring Hypertension -Resume home medications History of PEs -Hold Eliquis while patient is on the heparin infusion DVT prophylaxis -Heparin Infusion Discussed with: Patient Anticipated discharge date: 12/28/[address]: Home A total of 30 minutes was spent on the care of this complex patient more than 50% of the time was spent in counseling and care coordination.
[2018-12-27] MEDS ORDERED: CALCIUM GLUCONATE 1 GM in SODIUM CHLORIDE 0.9% 100 ML IVPB ONE (11:30)
[2018-12-27 11:34] LABS: Glucose,Whole Blood 441 mg/dL (75-99)
[2018-12-27] MEDS ORDERED: VERAPAMIL 2.5 MG/ML 2 ML AMP ONE (12:25)
[2018-12-27] MEDS ORDERED: diphenhydrAMINE 50 MG/ML 1 ML VIAL ONE (12:25)
[2018-12-27] MEDS ORDERED: LIDOCAINE 1% INJ 10MG/ML (20 ML MDV) ONE (12:25)
[2018-12-27] MEDS ORDERED: methylPREDNISolone SOD SUCCI 125 MG/2 ML VIAL ONE (12:25)
[2018-12-27] MEDS ORDERED: methylPREDNISolone SOD SUCCI 125 MG/2 ML VIAL IV STA (12:35)
--- NOTE | 2018-12-27 12:38 | ECHOF ---
Referral Reason:chest pain MEASUREMENTS -------- HEIGHT: 162.6 cm WEIGHT: 136.1 kg BP: IVSd: 1.3 cm (0.6 - 1.1) LVIDd: 4.2 cm (3.9 - 5.3) LVPWd: 1.1 cm (0.6 - 1.1) IVSs: 1.8 cm LVIDs: 2.5 cm LVPWs: 1.6 cm LA Diam: 4.0 cm (2.7 - 3.8) RVIDd: 2.7 cm (< 3.3) LAESV Index (A-L): 22.68 ml/m Ao Diam: 3.0 cm (2.0 - 3.7) LA Diam: 4.6 cm (2.7 - 3.8) AV Cusp: 1.6 cm (1.5 - 2.6) EPSS: 0.3 cm MV E Austyn: 0.54 m/s MV DecT: 247 ms MV A Austyn: 0.73 m/s MV E/A Ratio: 0.75 RAP: 5.00 mmHg RVSP: 11.25 mmHg MV EF SLOPE: 62.53 mm/s (70 - 150) MV EXCURSION: 17.72 mm (> 18.000) FINDINGS -------- Sinus rhythm. This was a techncally difficult study with suboptimal views, , Lumason utilized for enhancement of im ages. The left ventricular size is normal. There is mild concentric left ventricular hypertrophy. Overa ll left ventricular systolic function is low-normal with, an EF between 50 - 55 %. The right ventricle is normal in size. The left atrial size is normal. The right atrial size is normal. 5.0mg OF Lumason UTLIZED: 2 OR MORE WALL SEGMENTS NOT VISUALIZED. The aortic valve is trileaflet, and appears structurally normal. No aortic stenosis or regurgitation. Mild mitral annular calcification present. Mild mitral regurgitation is present. Mild tricuspid regurgitation present. There is no evidence of pulmonary hypertension. The right v entricular systolic pressure, as measured by Doppler, is 11.25mmHg. There is no pulmonic regurgitation present. The aortic root size is normal. IVC Not well visulized. There is no pericardial effusion. CONCLUSIONS -------- 1. This was a techncally difficult study with suboptimal views, , Lumason utilized for enhancement of images. 2. The left ventricular size is normal. 3. There is mild concentric left ventricular hypertrophy. 4. Overall left ventricular systolic function is low-normal with, an EF between 50 - 55 %. 5. The right ventricle is normal in size. 6. The left atrial size is normal. 7. The right atrial size is normal. 8. 5.0mg OF Lumason UTLIZED: 2 OR MORE WALL SEGMENTS NOT VISUALIZED. 9. Interatrial Septum not well visulized. 10. The aortic valve is trileaflet, and appears structurally normal. No aortic stenosis or regurgitat ion. 11. Mild mitral annular calcification present. 12. Mild mitral regurgitation is present. 13. Mild tricuspid regurgitation present. 14. There is no evidence of pulmonary hypertension. 15. The right ventricular systolic pressure, as measured by Doppler, is 11.25mmHg. 16. There is no pulmonic regurgitation present. 17. The aortic root size is normal. 18. IVC Not well visulized. 19. There is no pericardial effusion. [employer]: Sybil Chavez RDCS
[2018-12-27] MEDS ORDERED: IV FLUID CONTINUATION 1,000 ML IV ONE (12:40)
[2018-12-27] MEDS ORDERED: methylPREDNISolone SOD SUCCI 125 MG/2 ML VIAL IV ONE (12:52)
[2018-12-27] MEDS ORDERED: diphenhydrAMINE 50 MG/ML 1 ML VIAL IVP ONE (12:52)
[2018-12-27] MEDS ORDERED: MIDAZOLAM (PF) 2 MG/2 ML VIAL IV ONE (13:05)
[2018-12-27] MEDS ORDERED: LIDOCAINE 1% INJ 10MG/ML (20 ML MDV) SQ ONE (13:07)
[2018-12-27] MEDS ORDERED: HEPARIN SODIUM 1,000 UN/ML (10ML VL) ONE (13:08)
[2018-12-27] MEDS: VERAPAMIL SYRINGE (5 MG/10 ML) INTRAARTER ONE ×2 (13:08→13:23)
[2018-12-27] MEDS ORDERED: HEPARIN SODIUM 1,000 UN/ML (10ML VL) IV ONE (13:10)
[2018-12-27] MEDS ORDERED: fentaNYL (PF) 50 MCG/ML 2 ML AMP ONE (13:14)
[2018-12-27] MEDS ORDERED: fentaNYL (PF) 50 MCG/ML 2 ML AMP IV ONE (13:15)
[2018-12-27] MEDS ORDERED: IOPAMIDOL-370 125ML BTL INJ ONE (13:28)
[2018-12-27] MEDS ORDERED: RX INFO: IV CONTRAST WAS GIVEN 1 EACH MISC MISCELLANE PRN (13:35)
[2018-12-27] MEDS ORDERED: SODIUM CHLORIDE 0.9% 1,000 ML IV SCH (13:45)
--- NOTE | 2018-12-27 14:08 | CC ---
CARDIAC CATHETERIZATION REPORT DATE OF SERVICE: 12/27/2018. PERFORMING PHYSICIAN: Luis Greer MD, Roller Operator. PROCEDURE PERFORMED: 1. Selective right and left coronary angiogram. 2. Left heart catheterization. INDICATION: This is a pleasant 63-year-old female patient with a past medical history significant for history of DVT, as well as diabetes, hypertension, and dyslipidemia, who presented to the hospital with chest discomfort and ruled in for acute non ST elevation myocardial infarction. Because of that, a heart catheterization was advised. APPROACH: Right radial artery. COMPLICATION: None. LEVEL OF SEDATION: Moderate with sedation length of 18 minutes. PROCEDURE DESCRIPTION: After obtaining an informed consent, the patient was brought to the cardiac laborer egg producing farm. The right radial artery was cannulated using micropuncture technique and a micropuncture wire passed easily. Then I placed a 6-Turkmen sheath in the right radial artery. After that, I did selective right and left coronary angiogram using JR4 and JL3.5 catheters. Left heart catheterization was performed using the JR4 catheter which flipped into the LV then I did pullback across the aortic valve. The procedure was completed without any complication. SELECTIVE CORONARY ANGIOGRAM: 1. The right coronary artery is a large caliber vessel and it is a dominant vessel. The ostial right has disease appeared to be in the range of 30%. The mid right has a long tubular lesion up to about 70%. The right coronary artery distally bifurcates into PDA and PLV branch. The PLV branch, which is a large caliber vessel, has a lesion appeared to be in the range of 70% to 80%. 2. The left main is calcified left main with distal lesion, appears to be in the range of 50%. The left main bifurcates into the left circumflex and left anterior descending artery. 3. The left circumflex is a medium to large caliber vessel. It is a nondominant vessel. The proximal circumflex has a hazy lesion, appeared to be in the range of 80%. This is by the bifurcation of medium-size obtuse marginal branch which has a lesion appeared to be in the range of 50% in its ostium. 4. The LAD, the proximal LAD appeared to have a lesion in the range of 80%. The LAD proximally gives rise into the first diagonal branch which is a medium caliber vessel with severe disease in the proximal portion. The mid LAD has another lesion, appeared to be in the range of 50%. The LAD distally appeared to be angiographically normal. HEMODYNAMICS: The left ventricular end-diastolic pressure was about 16 mmHg without gradient across the aortic valve. CONCLUSION: 1. Calcified right and left coronary systems. 2. Severe triple-vessel coronary artery disease as described above. POSTPROCEDURE MANAGEMENT: Giving the above anatomy with a long tubular lesion as well as lesion involving the left main as well as a history of diabetes, I did recommend to evaluate the patient for surgical revascularization with coronary artery bypass grafting. Having say that common point consult surgeon to see and evaluate the patient for that. Meanwhile, we will follow up on the echocardiogram which was performed earlier today. We will follow up with her carotid duplex study as well. MMODL / IJN: [id number] /
[2018-12-27] MEDS: diphenhydrAMINE 25 MG CAP PO SCH ×3 (14:42→22:16)
[2018-12-27 16:43] LABS: Glucose,Whole Blood 413 mg/dL (75-99)
[2018-12-27] MEDS: predniSONE 10 MG TAB PO SCH ×2 (17:34→22:16)
--- NOTE | 2018-12-27 18:24 | US ---
EXAMINATION TYPE: US carotid duplex BILAT DATE OF EXAM: 12/27/2018 COMPARISON: NONE CLINICAL HISTORY: 63-year-old female preop CABG. Diabetes. TECHNIQUE: Carotid duplex ultrasound examination. Indirect Doppler criteria was utilized. FINDINGS: EXAM MEASUREMENTS: RIGHT: Peak Systolic Velocity (PSV) cm/sec ----- Right CCA: 77.3 ----- Right ICA: 112.4 ----- Right ECA: 118.5 ICA/CCA ratio: 1.5 RIGHT: End Diastole cm/sec ----- Right CCA: 9.2 ----- Right ICA: 17.1 ----- Right ECA: 2.1 LEFT: Peak Systolic Velocity (PSV) cm/sec ----- Left CCA: 71.2 ----- Left ICA: 91.9 ----- Left ECA: 162.8 ICA/CCA ratio: 1.3 LEFT: End Diastole cm/sec ----- Left CCA: 9.2 ----- Left ICA: 22.6 ----- Left ECA: 0.0 VERTEBRALS (direction of flow): Right Vertebral: Antegrade Left Vertebral: Antegrade Rhythm: Normal Activity Assistant notes: Intimal thickening seen bilaterally. Elevated velocity obtained left ECA. No signi ficant stenosis seen. IMPRESSION: No hemodynamically significant stenosis appreciated in either internal carotid artery. Criteria for Assigning % of Stenosis / Diameter reduction (Estimation based on the indirect measurements of the internal carotid artery velocities (ICA PSV). 1. Normal (no stenosis)=ICA PSV < 125 cm/s: ratio < 2.0: ICA EDV<40 cm/s. 2. Less than 50% stenosis=ICA PSV < 125 cm/s: ratio < 2.0: ICA EDV<40 cm/s. 3. 50 to 69% stenosis=ICA PSV of 125 to 230 cm/s: ration 2.0 ? 4.0: ICA EDV 40-100 cm/s. 4. Greater than 70% stenosis to near occlusion= ICA PSV > 230 cm/s: ratio > 4.0: ICA EDV > 100 cm/s. 5. Near occlusion= ICA PSV velocities may be low or undetectable: variable ratio and ICA EDV. 6. Total occlusion=unable to detect flow.
[2018-12-27 18:40] LABS: Hemoglobin A1C 9.1 % (4.0-6.0)
[2018-12-27 19:59] LABS: Appearance,Urine Clear (Clear); Bilirubin,Urine Negative (Negative); Blood,Urine Negative (Negative); Color,Urine Light Yellow; Glucose,Urine (UA) 4+ (Negative); Ketones,Urine Negative (Negative); Leukocyte Esterase,Urine Negative (Negative); Nitrite,Urine Negative (Negative); PH, Urine 5.5 (5.0-8.0); Protein,Urine Negative (Negative); Urobilinogen,Urine <2.0 mg/dL (<2.0)
[2018-12-27 20:05] LABS: Specific Gravity,Urine 1.048 (1.001-1.035)
[2018-12-27 20:49] LABS: Glucose,Whole Blood 404 mg/dL (75-99)
[2018-12-27] MEDS ORDERED: INSULIN ASPART (NovoLOG) 100 UNIT/ML VIAL SQ ONE (21:15)
[2018-12-27] MEDS ORDERED: INSULIN DETEMIR (LEVEMIR) 100 UNIT/ML SYR SQ SCH (22:00)
[2018-12-27] MEDS: METOPROLOL TARTRATE 12.5 MG TAB PO SCH (22:16)
[2018-12-27 22:17] LABS: Glucose,Whole Blood 358 mg/dL (75-99)
[2018-12-28] MEDS: NITROGLYCERIN OINT 1 INCH/GM PACKET TOPICAL SCH ×5 (00:35→23:08)
[2018-12-28 00:37] LABS: Glucose,Whole Blood 378 mg/dL (75-99)
[2018-12-28 03:34] LABS: Glucose,Whole Blood 323 mg/dL (75-99)
[2018-12-28] MEDS ORDERED: INSULIN ASPART (NovoLOG) 100 UNIT/ML VIAL SQ ONE (03:38)
[2018-12-28 05:59] LABS: Glucose,Whole Blood 281 mg/dL (75-99)
[2018-12-28] MEDS: INSULIN ASPART (NovoLOG) 100 UNIT/ML VIAL SQ SCH ×2 (06:31→12:31)
[2018-12-28 06:38] LABS: HCT 37.7 % (34.0-46.0); HGB 11.9 gm/dL (11.4-16.0); MCH 28.2 pg (25.0-35.0); MCHC 31.5 g/dL (31.0-37.0); MCV 89.7 fL (80.0-100.0); Mean Platelet Volume 9.4; Platelet Count 141 k/uL (150-450); RDW 13.8 % (11.5-15.5); WBC 11.5 k/uL (3.8-10.6)
[2018-12-28 07:08] LABS: Calcium 9.2 mg/dL (8.4-10.2)
[2018-12-28] MEDS: HEPARIN SOD,PORK IN 0.45% NACL 25,000 UNIT in 0.45% NACL 1 250ML.BAG IV SCH ×2 (09:18→09:48)
[2018-12-28] MEDS: METOPROLOL TARTRATE 12.5 MG TAB PO SCH ×2 (09:45→20:49)
[2018-12-28] MEDS: LISINOPRIL 10 MG TAB PO SCH (09:46)
[2018-12-28] MEDS: ASPIRIN 325 MG TAB PO SCH (09:46)
[2018-12-28] MEDS: ATORVASTATIN 80 MG TAB PO SCH (09:46)
[2018-12-28] MEDS: predniSONE 10 MG TAB PO SCH ×3 (09:46→20:50)
[2018-12-28] MEDS: diphenhydrAMINE 25 MG CAP PO SCH ×3 (09:46→20:50)
--- NOTE | 2018-12-28 10:59 | P.PN ---
Subjective Progress Note Date: 12/28/18 Patient is a 63-year-old male with a past medical history of diabetes mellitus, asthma, and history of multiple PEs (on Eliquis) presented to the ED for chest and back pain. The pain started at 1 pm on day of presentation as she was working in her garage. She reported it started suddenly in her back, pressure- like, 7/10, w/ no alleviating or exacerbating factors. The pain radiated to her chest and jaw which she described as a deep pressure/throbbing sensation. She had associated SOB, nausea, and diaphoresis. Denied vomiting. She notes she had never had pain like this before. She further denied fever, chills, cough, abdominal pain, or diarrhea. She further denied leg pain, or swelling. She underwent an extensive evaluation in the ED with troponin elevated at 0.063, EKG showing normal sinus rhythm at 62 bpm, with T-wave inversion in leads III and V1, platelets 137, BNP 241, chest x-ray unremarkable, and creatinine 0.79. The patient subsequently being admitted to the medicine service for further management. She underwent a Chest CTA which was negative for dissection or PE. The patient's subsequent troponins were 3.330 and 4.380. Cardiology was consulted and recommended a cardiac catheterization which revealed severe triple-vessel coronary artery disease. The patient was recommended for surgical revascularization. She was seen and examined at the bedside on 12/28/2018. She continues to be chest pain free and asymptomatic. She spoke with the Cardiothoracic surgeon and will move forward with the CABG. She is otherwise denying any active complaints including chest pain, fever, chills, cough, nausea, vomiting, or abdominal pain. Objective - Vital Signs Vital signs: Vital Signs Temp 98.3 F 12/28/18 08:45 Pulse 55 L 12/28/18 08:45 Resp 16 12/28/18 08:45 BP 154/67 12/28/18 08:45 Pulse Ox 97 12/28/18 08:45 Intake & Output 12/27/18 12/28/18 12/28/18 18:59 06:59 18:59 Intake Total 510 250 240 Balance 510 250 240 Weight 134.5 kg 134.5 kg Intake: IV 150 Intake, IV Titration 250 Amount Heparin Sod,Pork in 0.45% 250 NaCl 25,000 unit In 0.45 % NaCl 1 250ml.bag @ 10 mls/hr IV .Q24H OZZY Rx#: [id number] Oral 360 240 Other: # Voids 1 1 - Exam General: Non-toxic, in no acute distress, appears stated age, morbidly obese HEENT: NC/AT, anicteric sclerae, moist conjunctiva, no lid-lag, PERRLA, oropharynx clear Cardiovascular: S1/S2 wnl, no murmurs, rubs, or gallops Lungs: Clear to auscultation, normal respiratory effort, no accessory muscle use Abdominal: Soft, non-tender, non-distended, no guarding, rebound, or rigidity Skin: Warm, dry Extremities: No edema or contractures Psychiatric: Alert and oriented to person, place and time, appropriate affect Neuro: CN II-XII grossly intact, Strength 5/5 in all 4 extremities, Speech intact, Sensation to light touch grossly intact throughout - Labs CBC & Chem 7: 12/28/18 06:18 12/28/18 06:18 Labs: Abnormal Lab Results - Last 24 Hours (Table) 12/27/18 12/27/18 12/27/18 Range/Units 07:10 11:32 16:41 WBC (3.8-10.6) k/uL Plt Count (150-450) k/uL Chloride (98-107) mmol/L BUN (7-17) mg/dL Glucose (74-99) mg/dL POC Glucose (mg/dL) 441 H 413 H (75-99) mg/dL Hemoglobin A1c 9.1 H (4.0-6.0) % Ur Specific [place] (1.001-1.035) Urine Glucose (UA) (Negative) 12/27/18 12/27/18 12/27/18 Range/Units 17:50 20:28 22:15 WBC (3.8-10.6) k/uL Plt Count (150-450) k/uL Chloride (98-107) mmol/L BUN (7-17) mg/dL Glucose (74-99) mg/dL POC Glucose (mg/dL) 404 H 358 H (75-99) mg/dL Hemoglobin A1c (4.0-6.0) % Ur Specific [place] 1.048 H (1.001-1.035) Urine Glucose (UA) 4+ H (Negative) 12/28/18 12/28/18 12/28/18 Range/Units 00:36 03:31 05:58 WBC (3.8-10.6) k/uL Plt Count (150-450) k/uL Chloride (98-107) mmol/L BUN (7-17) mg/dL Glucose (74-99) mg/dL POC Glucose (mg/dL) 378 H 323 H 281 H (75-99) mg/dL Hemoglobin A1c (4.0-6.0) % Ur Specific [place] (1.001-1.035) Urine Glucose (UA) (Negative) 12/28/18 12/28/18 Range/Units 06:18 06:18 WBC 11.5 H (3.8-10.6) k/uL Plt Count 141 L (150-450) k/uL Chloride 109 H (98-107) mmol/L BUN 22 H (7-17) mg/dL Glucose 267 H (74-99) mg/dL POC Glucose (mg/dL) (75-99) mg/dL Hemoglobin A1c (4.0-6.0) % Ur Specific [place] (1.001-1.035) Urine Glucose (UA) (Negative) Microbiology - Last 24 Hours (Table) 12/27/18 17:50 Urine Culture - Preliminary Urine,Clean Catch 12/27/18 16:24 Nasal Screen MRSA/MSSA - Preliminary Nasal Swab Assessment and Plan Plan: NSTEMI s/p cardiac cath showing severe triple vessel disease -Cardiology recommendations appreciated -Patient will be scheduled for CABG -Nitro paste when necessary -Supplemental oxygen -Heparin infusion -Continue with Lipitor and aspirin Thrombocytopenia, stable -Monitor CBC for now Hyperkalemia, resolved Hypomagnasemia, resolved Diabetes mellitus -Insulin sliding scale with blood glucose monitoring Hypertension -Resume home medications History of PEs -Hold Eliquis while patient is on the heparin infusion DVT prophylaxis -Heparin Infusion Discussed with: Patient Anticipated discharge date: 01/04/[address]: Home A total of 30 minutes was spent on the care of this complex patient more than 50% of the time was spent in counseling and care coordination.
[2018-12-28 12:25] LABS: Glucose,Whole Blood 309 mg/dL (75-99)
--- NOTE | 2018-12-28 12:30 | P.PN ---
Subjective Progress Note Date: 12/28/18 This is a 63-year-old female with history of hypertension, diabetes, borderline hyperlipidemia, although she is diabetic she is untreated for her cholesterol, she also has history of pulmonary embolism on 2 different occasions, she takes Eliquis 5 mg one tablet by mouth twice a day. She is a no nsmoker, no family history of premature coronary artery disease, she is significantly overweight. Patient presents to the hospital on this occasion with symptoms of pressure between her shoulder blades that radiated through to her chest, positive associated mild diaphoresis and nausea. She had 1 episode about a week and a half ago, and just prior to coming to the hospital on this occasion she again had another episode. Her blood pressure on arrival here was 199/87 with a heart rate in the 70s, 97% on room air. Blood pressure this morning 155/70 with a heart rate in the 60s, 95% on room air. White blood cell count 5.6, hemoglobin 13.5, platelet count 127. Sodium 138, potassium 4.9, BUN 16 and creatinine 0.7. Initial troponin 0.063, subsequent troponin 3.3 and 4.3. Chest x-ray on admission normal. EKG shows normal sinus rhythm with nonspecific ST-T wave changes noted in the inferior leads. Subsequent EKG performed this morning showed normal sinus rhythm with progression of changes in the inferior leads. At the time of my examination this morning she is currently chest pain-free. 12/28/2018 Patient did undergo a cardiac catheterization yesterday which revealed heavily calcified right and left coronary systems, severe triple-vessel coronary artery disease. Patient was referred for coronary artery bypass grafting surgery. She was seen and examined this morning, feels well, denies any further episodes of chest discomfort. Blood pressure this morning 150/60 with a heart rate in the 50s, 97% on room air. White blood cell count 11.5, hemoglobin 11.9, platelet count 141. TSH is normal magnesium 2.0, sodium 140, potassium 4.0, BUN 22 and creatinine 0.8. Objective - Vital Signs Vital signs: Vital Signs Temp 98.3 F 12/28/18 08:45 Pulse 55 L 12/28/18 08:45 Resp 16 12/28/18 08:45 BP 154/67 12/28/18 08:45 Pulse Ox 97 05/07/19 08:45 Intake & Output 12/27/18 12/28/18 12/28/18 18:59 06:59 18:59 Intake Total 510 250 240 Balance 510 250 240 Weight 134.5 kg 134.5 kg Intake: IV 150 Intake, IV Titration 250 Amount Heparin Sod,Pork in 0.45% 250 NaCl 25,000 unit In 0.45 % NaCl 1 250ml.bag @ 10 mls/hr IV .Q24H OZZY Rx#: [id number] Oral 360 240 Other: # Voids 1 1 - Exam PHYSICAL EXAMINATION: GENERAL: 63-year-old female in no acute distress at the time of my examination HEENT: Head is atraumatic, normocephalic. Pupils equal, round. Sclera anicteric. Conjunctiva are clear. Mucous membranes of the mouth are moist. Neck is supple. There is no elevated jugular venous pressure. No Carotid bruit is heard. HEART EXAMINATION: Heart S1, S2 normal. No murmur or gallop heard. CHEST EXAMINATION: Lungs are clear to auscultation and precussion. No chest wall tenderness is noted on palpation or with deep breathing. ABDOMEN: Soft, obese, nontender. Bowel sounds are heard. No organomegaly noted. EXTREMITIES: 2+ peripheral pulses with no evidence of peripheral edema and no calf tenderness noted. Right radial site clean and dry, no evidence of hematoma, good distal pulse, small amount of ecchymosis NEUROLOGIC patient is awake, alert and oriented X 3 . - Labs CBC & Chem 7: 12/28/18 06:18 12/28/18 06:18 Labs: Abnormal Lab Results - Last 24 Hours (Table) 12/27/18 12/27/18 12/27/18 Range/Units 07:10 16:41 17:50 WBC (3.8-10.6) k/uL Plt Count (150-450) k/uL Chloride (98-107) mmol/L BUN (7-17) mg/dL Glucose (74-99) mg/dL POC Glucose (mg/dL) 413 H (75-99) mg/dL Hemoglobin A1c 9.1 H (4.0-6.0) % Ur Specific [place] 1.048 H (1.001-1.035) Urine Glucose (UA) 4+ H (Negative) 12/27/18 12/27/18 12/28/18 Range/Units 20:28 22:15 00:36 WBC (3.8-10.6) k/uL Plt Count (150-450) k/uL Chloride (98-107) mmol/L BUN (7-17) mg/dL Glucose (74-99) mg/dL POC Glucose (mg/dL) 404 H 358 H 378 H (75-99) mg/dL Hemoglobin A1c (4.0-6.0) % Ur Specific [place] (1.001-1.035) Urine Glucose (UA) (Negative) 12/28/18 12/28/18 12/28/18 Range/Units 03:31 05:58 06:18 WBC 11.5 H (3.8-10.6) k/uL Plt Count 141 L (150-450) k/uL Chloride (98-107) mmol/L BUN (7-17) mg/dL Glucose (74-99) mg/dL POC Glucose (mg/dL) 323 H 281 H (75-99) mg/dL Hemoglobin A1c (4.0-6.0) % Ur Specific [place] (1.001-1.035) Urine Glucose (UA) (Negative) 12/28/18 12/28/18 Range/Units 06:18 12:19 WBC (3.8-10.6) k/uL Plt Count (150-450) k/uL Chloride 109 H (98-107) mmol/L BUN 22 H (7-17) mg/dL Glucose 267 H (74-99) mg/dL POC Glucose (mg/dL) 309 H (75-99) mg/dL Hemoglobin A1c (4.0-6.0) % Ur Specific [place] (1.001-1.035) Urine Glucose (UA) (Negative) Microbiology - Last 24 Hours (Table) 12/27/18 17:50 Urine Culture - Preliminary Urine,Clean Catch 12/27/18 16:24 Nasal Screen MRSA/MSSA - Preliminary Nasal Swab Assessment and Plan Plan: Assessment and plan #1 symptoms of scapula discomfort radiating through the chest with associated diaphoresis and nausea. EKG shows normal sinus rhythm with nonspecific ST-T wave changes noted in the inferior leads, troponin 0.06, 3.3, 4.3. Clinical picture suggestive of non-Q-wave CA. CTA of the chest negative for pulmonary embolism. #2 hypertension #3 hyperlipidemia untreated #4 diabetes #5 history of PE Plan Patient did undergo cardiac catheterization which revealed severe triple-vessel coronary artery disease and she is recommended to undergo coronary artery bypass grafting surgery. An echocardiogram with Doppler study was performed which revealed an ejection fraction of 50-55%. We will start the patient on IV heparin today. Patient will be seen by cardiothoracic surgery and scheduled for bypass surgery. Further recommendations to follow. DNP note has been reviewed, I agree with a documented findings and plan of care. Patient was seen and examined.
[2018-12-28] MEDS ORDERED: INSULIN REGULAR BOLUS (FROM DRIP BAG) IV ONE (13:23)
--- NOTE | 2018-12-28 13:41 | P.GSCN ---
History of Present Illness Consult date: 12/28/18 Reason for Consult: Symptomatic severe triple-vessel coronary artery disease. Requesting physician: Luis Greer History of present illness: This is a 63-year-old female patient who is followed on an outpatient basis by Dr. Jaclyn Renteria. She has a past medical history significant for bilateral pulmonary embolism and is on Eliquis, hyperlipidemia untreated, asthma, diabetes mellitus type 2, history of urinary stress incontinence, skin cancer, osteoarthritis, anxiety, gastroesophageal reflux disease, and morbid obesity with a BMI of 50.9 kg/m. Recently, the patient has had complaints of shortness of breath, chest pain radiating to her jaw, nausea and diaphoresis. Yesterday while moving some boxes around the house she developed the above-mentioned symptoms and presented to the emergency department here at [facility]. She denies any emesis, fever, chills, presyncope, syncope or palpitations. The patient also reports that she has been having these type of symptoms on and off for the last couple of months. In the emergency department her labs demonstrated a platelet count of 137, random blood glucose 251, magnesium 1.4, and elevated troponins as high as 4.380. A chest CTA was complet ed which demonstrated no evidence of pulmonary embolism. A 12-lead EKG was completed which showed normal sinus rhythm with a nonspecific ST abnormality and a heart rate of 62 BPM. Due to the patient's presenting symptoms and elevated troponins Dr. Greer from [facility] was consulted. A 2-D echocardiogram was completed which showed her to have an overall left ventricular systolic function low normal with an ejection fraction between 50 and 55%, mild mitral valve regurgitation and mild tricuspid valve regurgitation. For further evaluation the patient underwent a cardiac catheterization which demonstrated her right coronary artery to be a large dominant vessel, a 30% right ostial stenosis, a 70-80% stenosis to her PLV branch, a 50% stenosis to her left main coronary artery, and 80% stenosis to her proximal circumflex coronary artery a 50% stenosis to her obtuse marginal coronary artery, and 80% stenosis to her proximal left anterior descending coronary artery and a 50% stenosis to her mid left anterior descending coronary artery. Post cardiac catheterization a consult was placed to Dr. William Bowers from cardiothoracic surgery to evaluate the patient and give recommendations on myocardial revascularization surgery. Review of Systems A 14 point review of systems was completed and was negative except as mentioned in HPI. Past Medical History Past Medical History: Asthma, Cancer (Basal cell carcinoma to her left face), Diabetes Mellitus, Hyperlipidemia, Osteoarthritis (OA), Pulmonary Embolus (PE), Renal Disease Additional Past Medical History / Comment(s): pulmonary embolism in 12/2015 and the patient was treated with 6 moths of Eliquis, morbid obesity, DM History of Any Multi-Drug Resistant Organisms: None Reported Additional Past Surgical History / Comment(s): basal cell carcinoma removed from face and a polyp removed from rectum Past Anesthesia/Blood Transfusion Reactions: No Reported Reaction Past Psychological History: Anxiety, Depression Smoking Status: Never smoker Past Alcohol Use History: Occasional Past Drug Use History: Marijuana Additional Drug Use History / Comment(s): has been over a year since the pt has used marijuana - Past Family History Mother Additional Family Medical History / Comment(s): CANCER WITH METS NOT SURE WHICH ONE Father Family Medical History: Cancer (Lung cancer), Pneumonia Additional Family Medical History / Comment(s): CANCER Medications and Allergies Home Medications Medication Instructions Recorded Confirmed Type metFORMIN HCL 500 mg PO BID 01/07/16 12/26/18 History Lisinopril [Zestril] 10 mg PO DAILY 07/24/16 12/26/18 History sitaGLIPtin [Januvia] 100 mg PO DAILY 07/24/16 12/26/18 History Apixaban [Eliquis] 5 mg PO BID 12/26/18 12/26/18 History Magnesium Oxide [Mag-Ox] 400 mg PO DAILY 12/26/18 12/26/18 History Allergies Allergy/AdvReac Type Severity Reaction Status Date / Time Iodinated Contrast- Oral and Allergy Rash/Hives Verified 03/28/18 12:14 IV Dye Milk Containing Products AdvReac Nausea & Verified 03/28/18 12:14 [Dairy] Vomiting nickel AdvReac Rash/Hives Verified 12/26/18 15:57 Surgical - Exam Vital Signs Temp Pulse Resp BP Pulse Ox 98.3 F 76 18 199/87 97 12/26/18 14:50 12/26/18 14:50 12/26/18 14:50 12/26/18 14:50 12/26/18 14:50 - General well developed, well nourished, no distress, no pain, obese - Eyes PERRL, normal ocular movement - ENT normal pinna, normal nares, normal mucosa, no hearing loss, no congestion, poor skilled nursing - Neck Neck is supple, no lymphadenopathy. no masses, no bruits, trachea midline, no venous distension - Respiratory Lung sounds essentially clear throughout. Respirations are symmetrical and nonlabored. Oxygen saturation is 95% on room air. No wheezing or rhonchi. - Cardiovascular Regular rhythm and rate. S1 and S2 present, negative for S3, gallop or murmur. No edema present. - Abdomen Abdomen is soft, nontender and nondistended. Active bowel sounds all 4 abdominal quadrants. No guarding or rigidity. No organomegaly. Obese. - Genitourinary deferred - Rectum Deferred - Integumentary no rash, no growths, no abnormal pigmentation - Neurologic normal coordination, normal sensation - Musculoskeletal normal gait, normal posture - Psychiatric oriented to time, oriented to person, oriented to place, speech is normal, memory intact Results - Labs 12/28/18 06:18 12/28/18 06:18 Abnormal Lab Results - Last 24 Hours (Table) 12/27/18 12/27/18 12/27/18 Range/Units 07:10 07:10 07:10 WBC (3.8-10.6) k/uL Plt Count 127 L (150-450) k/uL APTT (22.0-30.0) sec Potassium 5.2 H (3.5-5.1) mmol/L Chloride 110 H (98-107) mmol/L Carbon Dioxide 21 L (22-30) mmol/L BUN 18 H (7-17) mg/dL Glucose 364 H (74-99) mg/dL POC Glucose (mg/dL) (75-99) mg/dL Hemoglobin A1c 9.1 H (4.0-6.0) % Cholesterol 226 H (<200) mg/dL LDL Cholesterol, Calc 133 H (0-99) mg/dL HDL Cholesterol 78 H (40-60) mg/dL Ur Specific [place] (1.001-1.035) Urine Glucose (UA) (Negative) 12/27/18 12/27/18 12/27/18 Range/Units 07:10 11:32 16:41 WBC (3.8-10.6) k/uL Plt Count (150-450) k/uL APTT 48.9 H (22.0-30.0) sec Potassium (3.5-5.1) mmol/L Chloride (98-107) mmol/L Carbon Dioxide (22-30) mmol/L BUN (7-17) mg/dL Glucose (74-99) mg/dL POC Glucose (mg/dL) 441 H 413 H (75-99) mg/dL Hemoglobin A1c (4.0-6.0) % Cholesterol (<200) mg/dL LDL Cholesterol, Calc (0-99) mg/dL HDL Cholesterol (40-60) mg/dL Ur Specific [place] (1.001-1.035) Urine Glucose (UA) (Negative) 12/27/18 12/27/18 12/27/18 Range/Units 17:50 20:28 22:15 WBC (3.8-10.6) k/uL Plt Count (150-450) k/uL APTT (22.0-30.0) sec Potassium (3.5-5.1) mmol/L Chloride (98-107) mmol/L Carbon Dioxide (22-30) mmol/L BUN (7-17) mg/dL Glucose (74-99) mg/dL POC Glucose (mg/dL) 404 H 358 H (75-99) mg/dL Hemoglobin A1c (4.0-6.0) % Cholesterol (<200) mg/dL LDL Cholesterol, Calc (0-99) mg/dL HDL Cholesterol (40-60) mg/dL Ur Specific [place] 1.048 H (1.001-1.035) Urine Glucose (UA) 4+ H (Negative) 12/28/18 12/28/18 12/28/18 Range/Units 00:36 03:31 05:58 WBC (3.8-10.6) k/uL Plt Count (150-450) k/uL APTT (22.0-30.0) sec Potassium (3.5-5.1) mmol/L Chloride (98-107) mmol/L Carbon Dioxide (22-30) mmol/L BUN (7-17) mg/dL Glucose (74-99) mg/dL POC Glucose (mg/dL) 378 H 323 H 281 H (75-99) mg/dL Hemoglobin A1c (4.0-6.0) % Cholesterol (<200) mg/dL LDL Cholesterol, Calc (0-99) mg/dL HDL Cholesterol (40-60) mg/dL Ur Specific [place] (1.001-1.035) Urine Glucose (UA) (Negative) 12/28/18 Range/Units 06:18 WBC 11.5 H (3.8-10.6) k/uL Plt Count 141 L (150-450) k/uL APTT (22.0-30.0) sec Potassium (3.5-5.1) mmol/L Chloride (98-107) mmol/L Carbon Dioxide (22-30) mmol/L BUN (7-17) mg/dL Glucose (74-99) mg/dL POC Glucose (mg/dL) (75-99) mg/dL Hemoglobin A1c (4.0-6.0) % Cholesterol (<200) mg/dL LDL Cholesterol, Calc (0-99) mg/dL HDL Cholesterol (40-60) mg/dL Ur Specific [place] (1.001-1.035) Urine Glucose (UA) (Negative) Microbiology - Last 24 Hours (Table) 12/27/18 17:50 Urine Culture - Preliminary Urine,Clean Catch 12/27/18 16:24 Nasal Screen MRSA/MSSA - Preliminary Nasal Swab Diabetes panel 12/27/18 12/27/18 Range/Units 07:10 07:10 Sodium 139 (137-145) mmol/L Potassium 5.2 H (3.5-5.1) mmol/L Chloride 110 H (98-107) mmol/L Carbon Dioxide 21 L (22-30) mmol/L BUN 18 H (7-17) mg/dL Creatinine 0.77 (0.52-1.04) mg/dL Glucose 364 H (74-99) mg/dL Hemoglobin A1c 9.1 H (4.0-6.0) % Calcium 9.5 (8.4-10.2) mg/dL Triglycerides 77 (<150) mg/dL HDL Cholesterol 78 H (40-60) mg/dL Calcium panel 12/27/18 Range/Units 07:10 Calcium 9.5 (8.4-10.2) mg/dL Pituitary panel 12/27/18 Range/Units 07:10 Sodium 139 (137-145) mmol/L Potassium 5.2 H (3.5-5.1) mmol/L Chloride 110 H (98-107) mmol/L Carbon Dioxide 21 L (22-30) mmol/L BUN 18 H (7-17) mg/dL Creatinine 0.77 (0.52-1.04) mg/dL Glucose 364 H (74-99) mg/dL Calcium 9.5 (8.4-10.2) mg/dL Adrenal panel 12/27/18 Range/Units 07:10 Sodium 139 (137-145) mmol/L Potassium 5.2 H (3.5-5.1) mmol/L Chloride 110 H (98-107) mmol/L Carbon Dioxide 21 L (22-30) mmol/L BUN 18 H (7-17) mg/dL Creatinine 0.77 (0.52-1.04) mg/dL Glucose 364 H (74-99) mg/dL Calcium 9.5 (8.4-10.2) mg/dL - Imaging Chest x-ray: report reviewed, image reviewed CT scan - chest: report reviewed, image reviewed (CTA of the chest results reviewed) Additional studies: Heart catheterization results and 2-D echocardiogram results reviewed. Assessment and Plan Assessment: 1. Non-Q-wave myocardial infarction this admission. 2. Severe triple-vessel coronary artery disease. 3. Hyperlipidemia untreated. 4. Hypertension 5. History of bilateral pulmonary embolism on [facility], last PE 2 years ago 6. Uncontrolled diabetes mellitus type 2 with preop Hgb A1c 9.1%. 7. Osteoarthritis 8. History of basal cell skin cancer to her left face.. 9. Gastroesophageal reflux disease. 10. History of urinary stress incontinence. 11. Asthma. 12. Morbid obesity. 13. Anxiety. Plan: The patient was seen and examined. Her chart and diagnostics were reviewed. Our recommendation is for coronary artery bypass graft surgery this admission. The usual perioperative course was discussed in detail with the patient, risks and benefits were reviewed, all questions were answered and the patient consented to surgery. Preoperative testing was initiated. Timing of surgery to be determined based on testing results. We will perform a 5 minute walk test and calculate her STS risk score once all of her preoperative testing has been obtained. Continue to maximize her medical therapy with aspirin, statin, ALIZA inhibitor and beta kaycee. Medical management of her other comorbidities per primary care service and cardiology. More recommendations to follow based on her clinical course. Thank you Dr. Greer for this consult and we look forward to working with him in the care of your patient. Time with Patient: Greater than 30
[2018-12-28] MEDS: INSULIN REGULAR 100 UNIT in SODIUM CHLORIDE 0.9% 100 ML IV SCH ×2 (14:15→23:15)
[2018-12-28 14:51] LABS: Glucose,Whole Blood 302 mg/dL (75-99)
[2018-12-28 15:27] LABS: Glucose,Whole Blood 226 mg/dL (75-99)
[2018-12-28 17:10] LABS: Glucose,Whole Blood 138 mg/dL (75-99)
[2018-12-28] MEDS ORDERED: INSULIN ASPART (NovoLOG) 100 UNIT/ML VIAL SQ SCH (17:30)
[2018-12-28 19:33] LABS: Glucose,Whole Blood 197 mg/dL (75-99)
[2018-12-28 21:23] LABS: Glucose,Whole Blood 155 mg/dL (75-99)
[2018-12-28 23:13] LABS: Glucose,Whole Blood 266 mg/dL (75-99)
[2018-12-29 01:33] LABS: Glucose,Whole Blood 106 mg/dL (75-99)
[2018-12-29 02:29] LABS: Glucose,Whole Blood 107 mg/dL (75-99)
[2018-12-29 03:39] LABS: Glucose,Whole Blood 127 mg/dL (75-99)
[2018-12-29 04:39] LABS: Glucose,Whole Blood 154 mg/dL (75-99)
[2018-12-29] MEDS: NITROGLYCERIN OINT 1 INCH/GM PACKET TOPICAL SCH ×4 (06:03→23:54)
[2018-12-29 06:20] LABS: Glucose,Whole Blood 144 mg/dL (75-99)
[2018-12-29] MEDS ORDERED: INSULIN ASPART (NovoLOG) 100 UNIT/ML VIAL SQ SCH (07:30)
[2018-12-29] MEDS: ASPIRIN 325 MG TAB PO SCH (07:59)
[2018-12-29] MEDS: diphenhydrAMINE 25 MG CAP PO SCH ×3 (07:59→21:41)
[2018-12-29] MEDS: predniSONE 10 MG TAB PO SCH ×3 (07:59→21:41)
[2018-12-29] MEDS: ATORVASTATIN 80 MG TAB PO SCH (07:59)
[2018-12-29] MEDS: METOPROLOL TARTRATE 12.5 MG TAB PO SCH ×2 (07:59→21:41)
[2018-12-29] MEDS: LISINOPRIL 10 MG TAB PO SCH (07:59)
--- NOTE | 2018-12-29 08:40 | P.PN ---
Subjective Progress Note Date: 12/29/18 Patient is a 63-year-old male with a past medical history of diabetes mellitus, asthma, and history of multiple PEs (on Eliquis) presented to the ED for chest and back pain. The pain started at 1 pm on day of presentation as she was working in her garage. She reported it started suddenly in her back, pressure- like, 7/10, w/ no alleviating or exacerbating factors. The pain radiated to her chest and jaw which she described as a deep pressure/throbbing sensation. She had associated SOB, nausea, and diaphoresis. Denied vomiting. She notes she had never had pain like this before. She further denied fever, chills, cough, abdominal pain, or diarrhea. She further denied leg pain, or swelling. She underwent an extensive evaluation in the ED with troponin elevated at 0.063, EKG showing normal sinus rhythm at 62 bpm, with T-wave inversion in leads III and V1, platelets 137, BNP 241, chest x-ray unremarkable, and creatinine 0.79. The patient subsequently being admitted to the medicine service for further management. She underwent a Chest CTA which was negative for dissection or PE. The patient's subsequent troponins were 3.330 and 4.380. Cardiology was consulted and recommended a cardiac catheterization which revealed severe triple-vessel coronary artery disease. The patient was recommended for surgical revascularization. She was seen and examined at the bedside on 12/29. She continues to be asymptomatic. Denied chest pain, SOB, nausea, vomiting, diarphoresis, fever, chills, or cough. Objective - Vital Signs Vital signs: Vital Signs Temp 97.6 F 12/29/18 04:00 Pulse 55 L 12/29/18 04:00 Resp 18 12/29/18 04:00 BP 145/64 12/29/18 04:00 Pulse Ox 97 12/29/18 04:00 Intake & Output 12/28/18 12/29/18 12/29/18 18:59 06:59 18:59 Intake Total 1035.138 130.980 Balance 1035.138 130.980 Weight 134.5 kg 137.6 kg Intake: IV 80 0.9 80 Intake, IV Titration 315.138 50.980 Amount Heparin Sod,Pork in 0.45% 68.667 NaCl 25,000 unit In 0.45 % NaCl 1 250ml.bag @ 10 mls/hr IV .Q24H [facility] Rx#: [id number] Heparin Sod,Pork in 0.45% 40 NaCl 25,000 unit In 0.45 % NaCl 1 250ml.bag @ 7.11 UNITS/KG/HR 9.998 mls/hr IV .Q24H [facility] Rx#: [id number] Insulin Regular 100 unit 56.471 50.980 In Sodium Chloride 0.9% 100 ml @ Titrate IV .Q0M [facility] Rx#:[id number] Sodium Chloride 0.9% 1, 150 000 ml @ 75 mls/hr IV . [id number] [facility] Rx#:[id number] Oral 720 Other: Voiding Method Toilet # Voids 1 1 # Bowel Movements 0 - Exam General: Non-toxic, in no acute distress, appears stated age, morbidly obese HEENT: NC/AT, anicteric sclerae, moist conjunctiva, no lid-lag, PERRLA, oropharynx clear Cardiovascular: S1/S2 wnl, no murmurs, rubs, or gallops Lungs: Clear to auscultation, normal respiratory effort, no accessory muscle use Abdominal: Soft, non-tender, non-distended, no guarding, rebound, or rigidity Skin: Warm, dry Extremities: No edema or contractures Psychiatric: Alert and oriented to person, place and time, appropriate affect Neuro: CN II-XII grossly intact, Strength 5/5 in all 4 extremities, Speech intact, Sensation to light touch grossly intact throughout - Labs CBC & Chem 7: 12/28/18 06:18 12/28/18 06:18 Labs: Abnormal Lab Results - Last 24 Hours (Table) 12/28/18 12/28/18 12/28/18 Range/Units 12:19 14:49 15:25 APTT (22.0-30.0) sec POC Glucose (mg/dL) 309 H 302 H 226 H (75-99) mg/dL 12/28/18 12/28/18 12/28/18 Range/Units 17:06 19:30 21:22 APTT (22.0-30.0) sec POC Glucose (mg/dL) 138 H 197 H 155 H (75-99) mg/dL 05/07/19 05/07/19 05/08/19 Range/Units 22:52 23:11 01:31 APTT 61.0 H (22.0-30.0) sec POC Glucose (mg/dL) 266 H 106 H (75-99) mg/dL 12/29/18 12/29/18 12/29/18 Range/Units 02:27 03:37 04:28 APTT (22.0-30.0) sec POC Glucose (mg/dL) 107 H 127 H 154 H (75-99) mg/dL 12/29/18 12/29/18 Range/Units 06:15 06:19 APTT 62.6 H (22.0-30.0) sec POC Glucose (mg/dL) 144 H (75-99) mg/dL Microbiology - Last 24 Hours (Table) 12/27/18 16:24 Nasal Screen MRSA/MSSA - Final Nasal Swab 12/27/18 17:50 Urine Culture - Preliminary Urine,Clean Catch Assessment and Plan Plan: NSTEMI s/p cardiac cath showing severe triple vessel disease -Cardiology recommendations appreciated -Patient will be scheduled for CABG -Nitro paste when necessary -Supplemental oxygen -Heparin infusion -Continue with Lipitor and aspirin Thrombocytopenia, stable -Monitor CBC for now Hyperkalemia, resolved Hypomagnasemia, resolved Diabetes mellitus -Insulin sliding scale with blood glucose monitoring -Insulin drip discontinued Hypertension -Resume home medications History of PEs -Hold Eliquis while patient is on the heparin infusion DVT prophylaxis -Heparin Infusion Discussed with: Patient Anticipated discharge date: 01/04/[address]: Home A total of 30 minutes was spent on the care of this complex patient more than 50% of the time was spent in counseling and care coordination.
--- NOTE | 2018-12-29 08:57 | P.PN ---
Subjective Progress Note Date: 12/29/18 Principal diagnosis: Non-Q-wave myocardial infarction this admission, severe triple-vessel coronary artery disease, hyperlipidemia untreated, hypertension, history of bilateral pul monary embolism on Eliquis, uncontrolled diabetes mellitus type 2 with a preoperative hemoglobin A1c of 9.1%, osteoarthritis, history of basal cell skin cancer to her left face, GERD, history of urinary stress incontinence, asthma, morbid obesity and anxiety. This is a 63-year-old female patient who presented to the emergency department here at [facility] after having complaints of shortness of breath, chest pain radiating to her jaw, nausea and diaphoresis. She was noted to have elevated troponins as high as 4.380 and was subsequently seen by Dr. Greer from cardiology associates. A 2-D echocardiogram was completed which showed her to have an overall left ventricular systolic function low normal with an ejection fraction between 50 and 55%, mild mitral valve regurgitation and mild tricuspid valve regurgitation. For further evaluation the patient underwent a cardiac catheterization which demonstrated her right coronary artery to be a large dominant vessel, a 30% right ostial stenosis, a 70-80% stenosis to her PLV branch, a 50% stenosis to her left main coronary artery, and 80% stenosis to her proximal circumflex coronary artery a 50% stenosis to her obtuse marginal coronary artery, and 80% stenosis to her proximal left anterior descending coronary artery and a 50% stenosis to her mid left anterior descending coronary artery. Post cardiac catheterization a consult was placed to Dr. William Bowers from cardiothoracic surgery to evaluate the patient and give recommendations on myocardial revascularization surgery. Currently the patient is laying in bed eating her breakfast. She denies any further complaints of shortness of breath or chest pain. Denies any nausea. She remains on heparin drip. Preoperative teaching was reinforced with the patient. Remote telemetry showing normal sinus rhythm heart rate 73. A bedside FEV1 was completed which demonstrated a predicted value of 87%. She is achieving 1500 mL on her incentive spirometry. Objective - Vital Signs Vital signs: Vital Signs Temp 97.6 F 12/29/18 04:00 Pulse 55 L 12/29/18 04:00 Resp 18 12/29/18 04:00 BP 145/64 12/29/18 04:00 Pulse Ox 97 12/29/18 04:00 Intake & Output 12/28/18 12/29/18 12/29/18 18:59 06:59 18:59 Intake Total 1035.138 130.980 Balance 1035.138 130.980 Weight 134.5 kg 137.6 kg Intake: IV 80 0.9 80 Intake, IV Titration 315.138 50.980 Amount Heparin Sod,Pork in 0.45% 68.667 NaCl 25,000 unit In 0.45 % NaCl 1 250ml.bag @ 10 mls/hr IV .Q24H [facility] Rx#: [id number] Heparin Sod,Pork in 0.45% 40 NaCl 25,000 unit In 0.45 % NaCl 1 250ml.bag @ 7.11 UNITS/KG/HR 9.998 mls/hr IV .Q24H [facility] Rx#: [id number] Insulin Regular 100 unit 56.471 50.980 In Sodium Chloride 0.9% 100 ml @ Titrate IV .Q0M [facility] Rx#:[id number] Sodium Chloride 0.9% 1, 150 000 ml @ 75 mls/hr IV . [id number] [facility] Rx#:[id number] Oral 720 Other: Voiding Method Toilet # Voids 1 1 # Bowel Movements 0 - Constitutional General appearance: Present: cooperative, morbidly obese, no acute distress - Respiratory Details: Lung sounds essentially clear throughout. Respirations are symmetrical and nonlabored. Oxygen saturation are 98% on room air. Achieving 1500 mL on her incentive spirometry. A bedside FEV1 was completed which showed a predicted value of 87%. - Cardiovascular Details: Regular rhythm and rate. S1 and S2 present, negative for S3, gallop or murmur. Remote telemetry showing normal sinus rhythm heart rate 62. No edema present. Sequential compression devices in place for bilateral lower extremities. Heparin drip remains in place per protocol. - Gastrointestinal Gastrointestinal Comment(s): Abdomen is soft, nontender and nondistended. Active bowel sounds all 4 abdominal quadrants. Obese. No guarding or rigidity. Tolerating oral intake. - Genitourinary Genitourinary Comment(s): Voiding clear arturo urine. - Integumentary Integumentary Comment(s): Skin is warm and dry. No clubbing or cyanosis is present. No rash or abnormal pigmentation is present. - Neurologic Neurologic: Present: CNII-XII intact - Musculoskeletal Musculoskeletal: Present: gait normal, strength equal bilaterally - Psychiatric Psychiatric: Present: A&O x's 3, appropriate affect, intact judgment & insight - Allied health notes Allied health notes reviewed: nursing - Labs CBC & Chem 7: 12/28/18 06:18 12/28/18 06:18 Labs: Abnormal Lab Results - Last 24 Hours (Table) 12/28/18 12/28/18 12/28/18 Range/Units 12:19 14:49 15:25 APTT (22.0-30.0) sec POC Glucose (mg/dL) 309 H 302 H 226 H (75-99) mg/dL 12/28/18 12/28/18 12/28/18 Range/Units 17:06 19:30 21:22 APTT (22.0-30.0) sec POC Glucose (mg/dL) 138 H 197 H 155 H (75-99) mg/dL 12/28/18 12/28/18 12/29/18 Range/Units 22:52 23:11 01:31 APTT 61.0 H (22.0-30.0) sec POC Glucose (mg/dL) 266 H 106 H (75-99) mg/dL 12/29/18 12/29/18 12/29/18 Range/Units 02:27 03:37 04:28 APTT (22.0-30.0) sec POC Glucose (mg/dL) 107 H 127 H 154 H (75-99) mg/dL 12/29/18 12/29/18 Range/Units 06:15 06:19 APTT 62.6 H (22.0-30.0) sec POC Glucose (mg/dL) 144 H (75-99) mg/dL Microbiology - Last 24 Hours (Table) 12/27/18 16:24 Nasal Screen MRSA/MSSA - Final Nasal Swab 12/27/18 17:50 Urine Culture - Preliminary Urine,Clean Catch Assessment and Plan Assessment: 1. Non-Q-wave myocardial infarction this admission. 2. Severe triple-vessel coronary artery disease. 3. Hyperlipidemia untreated. 4. Hypertension 5. History of bilateral pulmonary embolism on Eliquis, last PE 2 years ago 6. Uncontrolled diabetes mellitus type 2 with preop Hgb A1c 9.1%. 7. Osteoarthritis 8. History of basal cell skin cancer to her left face.. 9. Gastroesophageal reflux disease. 10. History of urinary stress incontinence. 11. Asthma. 12. Morbid obesity. 13. Anxiety. Plan: 1. Continue aspirin, statin, lisinopril, and beta kaycee. 2. She is scheduled for urgent myocardial revascularization with left internal mammary artery, endovascular vein harvest, possible left radial artery harvest, sternal plating, intraoperative transesophageal echocardiogram and epi-aortic ultrasound to be completed by Dr. Bowers on 01/03/2019. This was discussed with Dr. Greer and with the patient and all are in agreement. 3. Encourage incentive spirometry use every hour while awake. 4. Will continue to monitor labs. 5. Continue supportive care. Continue preoperative teaching. 6. Medical management per Dr. Greer, Dr. Palacios. 7. We will obtain a 5 m walk test and calculate a STS risk score. 8. More recommendations to follow based on patient's clinical course. Time with Patient: Greater than 30
[2018-12-29 10:11] LABS: HCT 40.6 % (34.0-46.0); HGB 13.1 gm/dL (11.4-16.0); MCH 28.9 pg (25.0-35.0); MCHC 32.2 g/dL (31.0-37.0); MCV 89.8 fL (80.0-100.0); Mean Platelet Volume 9.7; Platelet Count 182 k/uL (150-450); RBC 4.53 m/uL (3.80-5.40); RDW 13.7 % (11.5-15.5); WBC 17.8 k/uL (3.8-10.6)
[2018-12-29 11:51] LABS: Glucose,Whole Blood 284 mg/dL (75-99)
[2018-12-29] MEDS ORDERED: INSULIN REGULAR BOLUS (FROM DRIP BAG) IV ONE (12:59)
--- NOTE | 2018-12-29 13:06 | P.PN ---
Subjective Progress Note Date: 12/29/18 This is a 63-year-old female with history of hypertension, diabetes, borderline hyperlipidemia, although she is diabetic she is untreated for her cholesterol, she also has history of pulmonary embolism on 2 different occasions, she takes Eliquis 5 mg one tablet by mouth twice a day. She is a no nsmoker, no family history of premature coronary artery disease, she is significantly overweight. Patient presents to the hospital on this occasion with symptoms of pressure between her shoulder blades that radiated through to her chest, positive associated mild diaphoresis and nausea. She had 1 episode about a week and a half ago, and just prior to coming to the hospital on this occasion she again had another episode. Her blood pressure on arrival here was 199/87 with a heart rate in the 70s, 97% on room air. Blood pressure this morning 155/70 with a heart rate in the 60s, 95% on room air. White blood cell count 5.6, hemoglobin 13.5, platelet count 127. Sodium 138, potassium 4.9, BUN 16 and creatinine 0.7. Initial troponin 0.063, subsequent troponin 3.3 and 4.3. Chest x-ray on admission normal. EKG shows normal sinus rhythm with nonspecific ST-T wave changes noted in the inferior leads. Subsequent EKG performed this morning showed normal sinus rhythm with progression of changes in the inferior leads. At the time of my examination this morning she is currently chest pain-free. 12/28/2018 Patient did undergo a cardiac catheterization yesterday which revealed heavily calcified right and left coronary systems, severe triple-vessel coronary artery disease. Patient was referred for coronary artery bypass grafting surgery. She was seen and examined this morning, feels well, denies any further episodes of chest discomfort. Blood pressure this morning 150/60 with a heart rate in the 50s, 97% on room air. White blood cell count 11.5, hemoglobin 11.9, platelet count 141. TSH is normal magnesium 2.0, sodium 140, potassium 4.0, BUN 22 and creatinine 0.8. 12/29/2018 Patient was seen and examined this morning, she's been up ambulating in the hallway, denies any shortness of breath, no chest discomfort. Blood pressure 126/70 with a heart rate of 50, 96% on room air. Objective - Vital Signs Vital signs: Vital Signs Temp 97.7 F 12/29/18 11:26 Pulse 50 L 12/29/18 11:26 Resp 18 12/29/18 11:26 BP 144/71 12/29/18 11:26 Pulse Ox 96 12/29/18 11:26 Intake & Output 12/28/18 12/29/18 12/29/18 18:59 06:59 18:59 Intake Total 1035.138 130.980 240 Balance 1035.138 130.980 240 Weight 134.5 kg 137.6 kg Intake: IV 80 0.9 80 Intake, IV Titration 315.138 50.980 Amount Heparin Sod,Pork in 0.45% 68.667 NaCl 25,000 unit In 0.45 % NaCl 1 250ml.bag @ 10 mls/hr IV .Q24H [facility] Rx#: [id number] Heparin Sod,Pork in 0.45% 40 NaCl 25,000 unit In 0.45 % NaCl 1 250ml.bag @ 7.11 UNITS/KG/HR 9.998 mls/hr IV .Q24H [facility] Rx#: [id number] Insulin Regular 100 unit 56.471 50.980 In Sodium Chloride 0.9% 100 ml @ Titrate IV .Q0M [facility] Rx#:[id number] Sodium Chloride 0.9% 1, 150 000 ml @ 75 mls/hr IV . [id number] [facility] Rx#:[id number] Oral 720 240 Other: Voiding Method Toilet # Voids 1 1 # Bowel Movements 0 - Exam PHYSICAL EXAMINATION: GENERAL: 63-year-old female in no acute distress at the time of my examination HEENT: Head is atraumatic, normocephalic. Pupils equal, round. Sclera anicteric. Conjunctiva are clear. Mucous membranes of the mouth are moist. Neck is supple. There is no elevated jugular venous pressure. No Carotid bruit is heard. HEART EXAMINATION: Heart S1, S2 normal. No murmur or gallop heard. CHEST EXAMINATION: Lungs are clear to auscultation and precussion. No chest wall tenderness is noted on palpation or with deep breathing. ABDOMEN: Soft, obese, nontender. Bowel sounds are heard. No organomegaly noted. EXTREMITIES: 2+ peripheral pulses with no evidence of peripheral edema and no calf tenderness noted. Right radial site clean and dry, no evidence of hematoma, good distal pulse, small amount of ecchymosis NEUROLOGIC patient is awake, alert and oriented X 3 . - Labs CBC & Chem 7: 12/29/18 09:28 12/28/18 06:18 Labs: Abnormal Lab Results - Last 24 Hours (Table) 12/28/18 12/28/18 12/28/18 Range/Units 14:49 15:25 17:06 WBC (3.8-10.6) k/uL APTT (22.0-30.0) sec POC Glucose (mg/dL) 302 H 226 H 138 H (75-99) mg/dL 12/28/18 12/28/18 12/28/18 Range/Units 19:30 21:22 22:52 WBC (3.8-10.6) k/uL APTT 61.0 H (22.0-30.0) sec POC Glucose (mg/dL) 197 H 155 H (75-99) mg/dL 12/28/18 12/29/18 12/29/18 Range/Units 23:11 01:31 02:27 WBC (3.8-10.6) k/uL APTT (22.0-30.0) sec POC Glucose (mg/dL) 266 H 106 H 107 H (75-99) mg/dL 12/29/18 12/29/18 12/29/18 Range/Units 03:37 04:28 06:15 WBC (3.8-10.6) k/uL APTT 62.6 H (22.0-30.0) sec POC Glucose (mg/dL) 127 H 154 H (75-99) mg/dL 12/29/18 12/29/18 12/29/18 Range/Units 06:19 09:28 11:50 WBC 17.8 H (3.8-10.6) k/uL APTT (22.0-30.0) sec POC Glucose (mg/dL) 144 H 284 H (75-99) mg/dL Microbiology - Last 24 Hours (Table) 12/27/18 17:50 Urine Culture - Final Urine,Clean Catch 12/27/18 16:24 Nasal Screen MRSA/MSSA - Final Nasal Swab Assessment and Plan Plan: Assessment and plan #1 symptoms of scapula discomfort radiating through the chest with associated diaphoresis and nausea. EKG shows normal sinus rhythm with nonspecific ST-T wave changes noted in the inferior leads, troponin 0.06, 3.3, 4.3. Clinical picture suggestive of non-Q-wave AK. CTA of the chest negative for pulmonary embolism. #2 hypertension #3 hyperlipidemia untreated #4 diabetes #5 history of PE Plan Patient did undergo cardiac catheterization which revealed severe triple-vessel coronary artery disease and she is recommended to undergo coronary artery bypass grafting surgery. An echocardiogram with Doppler study was performed which revealed an ejection fraction of 50-55%. We will continue the patient on her IV heparin. She is tentatively scheduled for coronary artery bypass grafting surgery on Thursday. DNP note has been reviewed, I agree with a documented findings and plan of care. Patient was seen and examined.
[2018-12-29] MEDS: INSULIN REGULAR 100 UNIT in SODIUM CHLORIDE 0.9% 100 ML IV SCH ×2 (13:22→21:46)
--- NOTE | 2018-12-29 13:23 | P.VSCSTY ---
Greater Saphenous Vein Mapping This is bilateral lower extremity greater saphenous vein mapping. Date of service 12/27/2018 Vein quality and ultrasound appearance no endoluminal thrombus or wall changes are seen. The right leg from below mid thigh down is mostly too small to use.. Vein size groin right 11.9 x 9.3 groin left 9.4 x 8.5 High thigh right 5.4 x 4.6 high thigh left 6.8 x 6.7 Mid thigh right 2.7 x 3.4 mid thigh left 4.8 x 4.2 Above-knee right 1.7 x 2.1 above- knee left 6.5 x 6.5 Below knee right small below- knee left 4.2 x 4.0 Mid calf right 2.1 x 2.1 mid calf left 1.9 x 1.9 Ankle right 2.6 x 1.8 ankle left 3.2 x 2.6 Impression some usable greater saphenous vein on the right thigh and most of the left leg is usable..
[2018-12-29 14:21] LABS: Glucose,Whole Blood 301 mg/dL (75-99)
[2018-12-29 14:56] LABS: Glucose,Whole Blood 292 mg/dL (75-99)
[2018-12-29 15:32] LABS: Glucose,Whole Blood 254 mg/dL (75-99)
[2018-12-29 16:00] LABS: Glucose,Whole Blood 204 mg/dL (75-99)
[2018-12-29] MEDS: INSULIN ASPART (NovoLOG) 100 UNIT/ML VIAL SQ SCH (17:23)
[2018-12-29 18:07] LABS: Glucose,Whole Blood 133 mg/dL (75-99)
[2018-12-29 19:52] LABS: Glucose,Whole Blood 226 mg/dL (75-99)
[2018-12-29 21:23] LABS: Glucose,Whole Blood 216 mg/dL (75-99)
[2018-12-30 00:02] LABS: Glucose,Whole Blood 132 mg/dL (75-99)
[2018-12-30] MEDS: HEPARIN SOD,PORK IN 0.45% NACL 25,000 UNIT in 0.45% NACL 1 250ML.BAG IV SCH ×2 (01:40→07:21)
[2018-12-30 01:59] LABS: Glucose,Whole Blood 160 mg/dL (75-99)
[2018-12-30 04:11] LABS: Glucose,Whole Blood 135 mg/dL (75-99)
[2018-12-30] MEDS: NITROGLYCERIN OINT 1 INCH/GM PACKET TOPICAL SCH ×4 (06:06→22:55)
[2018-12-30 06:11] LABS: Glucose,Whole Blood 152 mg/dL (75-99)
[2018-12-30] MEDS: INSULIN ASPART (NovoLOG) 100 UNIT/ML VIAL SQ SCH ×5 (07:21→21:48)
[2018-12-30 08:01] LABS: Glucose,Whole Blood 157 mg/dL (75-99)
[2018-12-30 09:05] LABS: Glucose,Whole Blood 187 mg/dL (75-99)
[2018-12-30] MEDS: LISINOPRIL 10 MG TAB PO SCH (09:19)
[2018-12-30] MEDS: ASPIRIN 325 MG TAB PO SCH (09:19)
[2018-12-30] MEDS: METOPROLOL TARTRATE 12.5 MG TAB PO SCH ×2 (09:19→20:05)
[2018-12-30] MEDS: ATORVASTATIN 80 MG TAB PO SCH (09:19)
[2018-12-30] MEDS: diphenhydrAMINE 25 MG CAP PO SCH ×3 (09:19→21:48)
[2018-12-30 10:31] LABS: Glucose,Whole Blood 148 mg/dL (75-99)
[2018-12-30 11:47] LABS: Glucose,Whole Blood 109 mg/dL (75-99)
[2018-12-30 12:12] LABS: Anion Gap 4 mmol/L; Blood Urea Nitrogen 20 mg/dL (7-17); Calcium 8.8 mg/dL (8.4-10.2); Carbon Dioxide 24 mmol/L (22-30); Chloride 112 mmol/L (98-107); Glucose 141 mg/dL (74-99); Potassium 4.2 mmol/L (3.5-5.1); Sodium 140 mmol/L (137-145)
--- NOTE | 2018-12-30 12:42 | P.PN ---
Subjective Progress Note Date: 12/30/18 Principal diagnosis: Non-ST elevation PR Patient is a 63-year-old male with a past medical history of diabetes mellitus, asthma, and history of multiple PEs (on Eliquis) presented to the ED for chest and back pain. The pain started at 1 pm on day of presentation as she was worki ng in her garage. She reported it started suddenly in her back, pressure-like, 7/10, w/ no alleviating or exacerbating factors. The pain radiated to her chest and jaw which she described as a deep pressure/throbbing sensation. She had associated SOB, nausea, and diaphoresis. Denied vomiting. She notes she had never had pain like this before. She further denied fever, chills, cough, abdominal pain, or diarrhea. She further denied leg pain, or swelling. She underwent an extensive evaluation in the ED with troponin elevated at 0.063, EKG showing normal sinus rhythm at 62 bpm, with T-wave inversion in leads III and V1, platelets 137, BNP 241, chest x-ray unremarkable, and creatinine 0.79. The patient subsequently being admitted to the medicine service for further management. She underwent a Chest CTA which was negative for dissection or PE. The patient's subsequent troponins were 3.330 and 4.380. Cardiology was consulted and recommended a cardiac catheterization which revealed severe tr iple-vessel coronary artery disease. The patient was recommended for CABG tentatively scheduled for Thursday. Patient was seen and examined. No acute events overnight. Continues to be on a heparin drip. Patient with no complaints this morning. She denies any chest pain, shortness of breath or palpitations. No nausea or vomiting. No fever or chills. Objective - Vital Signs Vital signs: Vital Signs Temp 98 F 12/30/18 08:00 Pulse 55 L 12/30/18 08:00 Resp 16 12/30/18 08:00 BP 152/82 12/30/18 08:00 Pulse Ox 97 12/30/18 08:00 Intake & Output 12/29/18 12/30/18 12/30/18 18:59 06:59 18:59 Intake Total 770.992 44.109 197.825 Balance 770.992 44.109 197.825 Weight 139.7 kg Intake: Intake, IV Titration 50.992 44.109 17.825 Amount Insulin Regular 100 unit 50.992 44.109 17.825 In Sodium Chloride 0.9% 100 ml @ Titrate IV .Q0M [facility] Rx#:[id number] Oral 720 180 Other: Voiding Method Toilet # Voids 1 3 0 # Bowel Movements 0 - Exam General: [non toxic], [morbid obesity], [appears at stated age] Derm: [warm], [dry] Head: [atraumatic], [normocephalic], [symmetric] Eyes: [EOMI], [no lid lag], [anicteric sclera] Mouth: [no lip lesion], [mucus membranes moist] Cardiovascular: [S1S2 reg], [no murmur], [positive posterior tibial pulse bilateral], Lungs: [CTA bilateral], [no rhonchi, no rales] , [no accessory muscle use] Abdominal: [soft], [ nontender to palpation], [no guarding], [no appreciable organomegaly] Ext: [no gross muscle atrophy], [no edema], [no contractures] Neuro: [no focal neuro deficits] Psych: [Alert], [oriented], [appropriate affect] - Labs CBC & Chem 7: 12/29/18 09:28 12/30/18 05:53 Labs: Abnormal Lab Results - Last 24 Hours (Table) 12/29/18 12/29/18 12/29/18 Range/Units 11:50 14:19 14:54 APTT (22.0-30.0) sec POC Glucose (mg/dL) 284 H 301 H 292 H (75-99) mg/dL Troponin I (0.000-0.034) ng/mL 12/29/18 12/29/18 12/29/18 Range/Units 15:29 15:59 18:05 APTT (22.0-30.0) sec POC Glucose (mg/dL) 254 H 204 H 133 H (75-99) mg/dL Troponin I (0.000-0.034) ng/mL 12/29/18 12/29/18 12/29/18 Range/Units 19:51 21:21 23:59 APTT (22.0-30.0) sec POC Glucose (mg/dL) 226 H 216 H 132 H (75-99) mg/dL Troponin I (0.000-0.034) ng/mL 12/30/18 12/30/18 12/30/18 Range/Units 01:57 04:09 05:53 APTT 65.0 H (22.0-30.0) sec POC Glucose (mg/dL) 160 H 135 H (75-99) mg/dL Troponin I (0.000-0.034) ng/mL 12/30/18 12/30/18 12/30/18 Range/Units 05:53 06:00 07:42 APTT (22.0-30.0) sec POC Glucose (mg/dL) 152 H 157 H (75-99) mg/dL Troponin I 0.641 H* (0.000-0.034) ng/mL 12/30/18 12/30/18 Range/Units 09:03 10:29 APTT (22.0-30.0) sec POC Glucose (mg/dL) 187 H 148 H (75-99) mg/dL Troponin I (0.000-0.034) ng/mL Microbiology - Last 24 Hours (Table) 12/27/18 17:50 Urine Culture - Final Urine,Clean Catch Assessment and Plan Assessment: Assessment and Plan Non-ST elevation PR Hypertension Hyperlipidemia Diabetes mellitus Morbid obesity History PE Troponin 0.063, 3.33, 4.38, 0.641 with EKG showing normal sinus rhythm. Chest x -ray negative. Chest CT shows no PE. Echocardiogram shows EF 50-55% with mild LVH. Cardiac catheterization shows mid RCA 70%, PLV 70-80%, left main 50%, circumflex 80%, LAD 80%. Plan: Plans for CABG tentatively on Thursday. Continue aspirin and Lipitor. Continue heparin drip. Continue metoprolol. Nitrostat as needed for chest pain. Telemetry monitoring. Follow cardiology and CT surgery recommendations. BP 152/82. Plan: Continue lisinopril and metoprolol. Monitor vitals, adjust medications as necessary. Lipid panel shows total cholesterol 226, LDL 133. Plan: Continue Lipitor. Rxoqx-ud-hoai glucose 148. A1c 9.1. Plan: NovoLog 13 units 3 times a day. Discontinue insulin drip and start sliding scale. Regular Accu-Cheks. Hypoglycemic precautions. BMI 52.9. His risk factor for CAD. Plan: Structured weight loss program. Not seen on CTA chest. Plan: Continue heparin drip. Patient admitted for non-ST elevation PR. Cardiology and cardiothoracic surgery on board. Plans for CABG possibly on Thursday.
--- NOTE | 2018-12-30 14:24 | P.PN ---
Subjective Progress Note Date: 12/30/18 Principal diagnosis: Severe triple vessel coronary artery disease with 50% left main coronary artery stenosis, non-STEMI. Previous medical history of hypertension, hyperlipidemia, bilateral pulmonary embolism on chronic Eliquis for anticoagulation, uncontrolled type 2 diabetes mellitus with preoperative hemoglobin A1c 9.1%, morbid obesity, osteoarthritis, basal cell skin cancer, GERD, asthma with preoperative FEV1 87% of predicted, anxiety. The patient is currently sitting up in bed in no acute distress. Denies any chest pain. Remains on IV heparin. No new questions at this time. Objective - Vital Signs Vital signs: Vital Signs Temp 97.7 F 12/30/18 12:00 Pulse 50 L 12/30/18 12:00 Resp 20 12/30/18 12:00 BP 145/73 12/30/18 12:00 Pulse Ox 98 12/30/18 12:00 Intake & Output 12/29/18 12/30/18 12/30/18 18:59 06:59 18:59 Intake Total 770.992 44.109 202.575 Balance 770.992 44.109 202.575 Weight 139.7 kg Intake: Intake, IV Titration 50.992 44.109 22.575 Amount Insulin Regular 100 unit 50.992 44.109 22.575 In Sodium Chloride 0.9% 100 ml @ Titrate IV .Q0M OZZY Rx#:[id number] Oral 720 180 Other: Voiding Method Toilet Toilet # Voids 1 3 0 # Bowel Movements 0 - Constitutional General appearance: Present: cooperative, morbidly obese, no acute distress - Respiratory Details: Lungs sounds clear but diminished bilaterally. Respirations even, nonlabored. Currently on room air with oxygen saturation 98%. Able to achieve 1500 mL on her incentive spirometry. Strong cough. - Cardiovascular Details: S1, S2 present. Slow but regular rate and rhythm, sinus bradycardia on telemetry. Palpable peripheral pulses bilaterally. No edema present. No calf pain or tenderness noted. SCDs present. - Gastrointestinal Gastrointestinal Comment(s): Abdomen soft, nontender, nondistended, obese. Active bowel sounds 4 quadrants. Tolerating diet. - Genitourinary Genitourinary Comment(s): Continues to void clear, yellow urine. - Integumentary Integumentary Comment(s): Skin is warm and dry with evidence of good perfusion. - Neurologic Neurologic: Present: CNII-XII intact - Musculoskeletal Musculoskeletal: Present: gait normal, strength equal bilaterally - Psychiatric Psychiatric: Present: A&O x's 3, appropriate affect, intact judgment & insight - Allied health notes Allied health notes reviewed: nursing - Labs CBC & Chem 7: 12/29/18 09:28 12/30/18 05:53 Labs: Abnormal Lab Results - Last 24 Hours (Table) 12/29/18 12/29/18 12/29/18 Range/Units 14:19 14:54 15:29 APTT (22.0-30.0) sec Chloride (98-107) mmol/L BUN (7-17) mg/dL Glucose (74-99) mg/dL POC Glucose (mg/dL) 301 H 292 H 254 H (75-99) mg/dL Troponin I (0.000-0.034) ng/mL 12/29/18 12/29/18 12/29/18 Range/Units 15:59 18:05 19:51 APTT (22.0-30.0) sec Chloride (98-107) mmol/L BUN (7-17) mg/dL Glucose (74-99) mg/dL POC Glucose (mg/dL) 204 H 133 H 226 H (75-99) mg/dL Troponin I (0.000-0.034) ng/mL 12/29/18 12/29/18 12/30/18 Range/Units 21:21 23:59 01:57 APTT (22.0-30.0) sec Chloride (98-107) mmol/L BUN (7-17) mg/dL Glucose (74-99) mg/dL POC Glucose (mg/dL) 216 H 132 H 160 H (75-99) mg/dL Troponin I (0.000-0.034) ng/mL 12/30/18 12/30/18 12/30/18 Range/Units 04:09 05:53 05:53 APTT 65.0 H (22.0-30.0) sec Chloride (98-107) mmol/L BUN (7-17) mg/dL Glucose (74-99) mg/dL POC Glucose (mg/dL) 135 H (75-99) mg/dL Troponin I 0.641 H* (0.000-0.034) ng/mL 12/30/18 12/30/18 12/30/18 Range/Units 05:53 06:00 07:42 APTT (22.0-30.0) sec Chloride 112 H (98-107) mmol/L BUN 20 H (7-17) mg/dL Glucose 141 H (74-99) mg/dL POC Glucose (mg/dL) 152 H 157 H (75-99) mg/dL Troponin I (0.000-0.034) ng/mL 12/30/18 12/30/18 12/30/18 Range/Units 09:03 10:29 11:47 APTT (22.0-30.0) sec Chloride (98-107) mmol/L BUN (7-17) mg/dL Glucose (74-99) mg/dL POC Glucose (mg/dL) 187 H 148 H 109 H (75-99) mg/dL Troponin I (0.000-0.034) ng/mL Microbiology - Last 24 Hours (Table) 12/27/18 17:50 Urine Culture - Final Urine,Clean Catch - Imaging and Cardiology Chest x-ray: report reviewed, image reviewed Carotid duplex, vein mapping, radial artery mapping reviewed Assessment and Plan Assessment: 1. Severe triple-vessel coronary artery disease with 50% left main stenosis 2. Non-STEMI 3. Hypertension 4. Hyperlipidemia 5. Uncontrolled type 2 diabetes mellitus with preoperative hemoglobin A1c 9.1%. 6. History of bilateral pulmonary embolisms on chronic Eliquis for anticoagulation, last PE 2 years ago 7. Morbid obesity 8. Osteoarthritis 9. Basal cell skin cancer 10. GERD 11. Asthma with preoperative FEV1 87% of predicted 12. Anxiety Plan: 1. Continue aspirin, statin, ALIZA inhibitor, beta kaycee therapy. 2. Continue IV heparin, nitro ointment. 3. Discontinue prednisone. Insulin management per primary care service. 4. Increase activity ambulate as tolerated. 5. Encourage incentive spirometry use. 6. Our plan is for urgent coronary artery bypass surgery with the left internal mammary artery, endovascular vein harvest, possible left radial artery harvest, sternal plating, and intraoperative transesophageal echocardiogram by Dr. Bowers on 01/03/2019. 7. Continue preoperative teaching, continue supportive care. 8. Her recommendations to follow. Time with Patient: Greater than 30
--- NOTE | 2018-12-30 14:35 | P.PN ---
Subjective Progress Note Date: 12/30/18 This is a 63-year-old female with history of hypertension, diabetes, borderline hyperlipidemia, although she is diabetic she is untreated for her cholesterol, she also has history of pulmonary embolism on 2 different occasions, she takes Eliquis 5 mg one tablet by mouth twice a day. She is a no nsmoker, no family history of premature coronary artery disease, she is significantly overweight. Patient presents to the hospital on this occasion with symptoms of pressure between her shoulder blades that radiated through to her chest, positive associated mild diaphoresis and nausea. She had 1 episode about a week and a half ago, and just prior to coming to the hospital on this occasion she again had another episode. Her blood pressure on arrival here was 199/87 with a heart rate in the 70s, 97% on room air. Blood pressure this morning 155/70 with a heart rate in the 60s, 95% on room air. White blood cell count 5.6, hemoglobin 13.5, platelet count 127. Sodium 138, potassium 4.9, BUN 16 and creatinine 0.7. Initial troponin 0.063, subsequent troponin 3.3 and 4.3. Chest x-ray on admission normal. EKG shows normal sinus rhythm with nonspecific ST-T wave changes noted in the inferior leads. Subsequent EKG performed this morning showed normal sinus rhythm with progression of changes in the inferior leads. At the time of my examination this morning she is currently chest pain-free. 12/28/2018 Patient did undergo a cardiac catheterization yesterday which revealed heavily calcified right and left coronary systems, severe triple-vessel coronary artery disease. Patient was referred for coronary artery bypass grafting surgery. She was seen and examined this morning, feels well, denies any further episodes of chest discomfort. Blood pressure this morning 150/60 with a heart rate in the 50s, 97% on room air. White blood cell count 11.5, hemoglobin 11.9, platelet count 141. TSH is normal magnesium 2.0, sodium 140, potassium 4.0, BUN 22 and creatinine 0.8. 12/29/2018 Patient was seen and examined this morning, she's been up ambulating in the hallway, denies any shortness of breath, no chest discomfort. Blood pressure 126/70 with a heart rate of 50, 96% on room air. 12/30/2018 Patient was seen and examined this morning, up ambulating in the hallway without any difficulty. Breathing is stable, no chest discomfort. Hemodynamically she is stable. At this point in time she is scheduled to undergo coronary bypass grafting surgery on Thursday. Objective - Vital Signs Vital signs: Vital Signs Temp 97.7 F 12/30/18 12:00 Pulse 50 L 12/30/18 12:00 Resp 20 12/30/18 12:00 BP 145/73 12/30/18 12:00 Pulse Ox 98 12/30/18 12:00 Intake & Output 12/29/18 12/30/18 12/30/18 18:59 06:59 18:59 Intake Total 770.992 44.109 202.575 Balance 770.992 44.109 202.575 Weight 139.7 kg Intake: Intake, IV Titration 50.992 44.109 22.575 Amount Insulin Regular 100 unit 50.992 44.109 22.575 In Sodium Chloride 0.9% 100 ml @ Titrate IV .Q0M OZZY Rx#:[id number] Oral 720 180 Other: Voiding Method Toilet Toilet # Voids 1 3 0 # Bowel Movements 0 - Exam PHYSICAL EXAMINATION: GENERAL: 63-year-old female in no acute distress at the time of my examination HEENT: Head is atraumatic, normocephalic. Pupils equal, round. Sclera anicteric. Conjunctiva are clear. Mucous membranes of the mouth are moist. Neck is supple. There is no elevated jugular venous pressure. No Carotid bruit is heard. HEART EXAMINATION: Heart S1, S2 normal. No murmur or gallop heard. CHEST EXAMINATION: Lungs are clear to auscultation and precussion. No chest wall tenderness is noted on palpation or with deep breathing. ABDOMEN: Soft, obese, nontender. Bowel sounds are heard. No organomegaly noted. EXTREMITIES: 2+ peripheral pulses with no evidence of peripheral edema and no calf tenderness noted. Right radial site clean and dry, no evidence of hematoma, good distal pulse, small amount of ecchymosis NEUROLOGIC patient is awake, alert and oriented X 3 . - Labs CBC & Chem 7: 12/29/18 09:28 12/30/18 05:53 Labs: Abnormal Lab Results - Last 24 Hours (Table) 12/29/18 12/29/18 12/29/18 Range/Units 14:54 15:29 15:59 APTT (22.0-30.0) sec Chloride (98-107) mmol/L BUN (7-17) mg/dL Glucose (74-99) mg/dL POC Glucose (mg/dL) 292 H 254 H 204 H (75-99) mg/dL Troponin I (0.000-0.034) ng/mL 12/29/18 12/29/18 12/29/18 Range/Units 18:05 19:51 21:21 APTT (22.0-30.0) sec Chloride (98-107) mmol/L BUN (7-17) mg/dL Glucose (74-99) mg/dL POC Glucose (mg/dL) 133 H 226 H 216 H (75-99) mg/dL Troponin I (0.000-0.034) ng/mL 12/29/18 12/30/18 12/30/18 Range/Units 23:59 01:57 04:09 APTT (22.0-30.0) sec Chloride (98-107) mmol/L BUN (7-17) mg/dL Glucose (74-99) mg/dL POC Glucose (mg/dL) 132 H 160 H 135 H (75-99) mg/dL Troponin I (0.000-0.034) ng/mL 12/30/18 12/30/18 12/30/18 Range/Units 05:53 05:53 05:53 APTT 65.0 H (22.0-30.0) sec Chloride 112 H (98-107) mmol/L BUN 20 H (7-17) mg/dL Glucose 141 H (74-99) mg/dL POC Glucose (mg/dL) (75-99) mg/dL Troponin I 0.641 H* (0.000-0.034) ng/mL 12/30/18 12/30/18 12/30/18 Range/Units 06:00 07:42 09:03 APTT (22.0-30.0) sec Chloride (98-107) mmol/L BUN (7-17) mg/dL Glucose (74-99) mg/dL POC Glucose (mg/dL) 152 H 157 H 187 H (75-99) mg/dL Troponin I (0.000-0.034) ng/mL 12/30/18 12/30/18 Range/Units 10:29 11:47 APTT (22.0-30.0) sec Chloride (98-107) mmol/L BUN (7-17) mg/dL Glucose (74-99) mg/dL POC Glucose (mg/dL) 148 H 109 H (75-99) mg/dL Troponin I (0.000-0.034) ng/mL Microbiology - Last 24 Hours (Table) 12/27/18 17:50 Urine Culture - Final Urine,Clean Catch Assessment and Plan Plan: Assessment and plan #1 symptoms of scapula discomfort radiating through the chest with associated diaphoresis and nausea. EKG shows normal sinus rhythm with nonspecific ST-T wave changes noted in the inferior leads, troponin 0.06, 3.3, 4.3. Clinical picture suggestive of non-Q-wave NV. CTA of the chest negative for pulmonary embolism. #2 hypertension #3 hyperlipidemia untreated #4 diabetes #5 history of PE Plan Patient did undergo cardiac catheterization which revealed severe triple-vessel coronary artery disease and she is recommended to undergo coronary artery bypass grafting surgery. An echocardiogram with Doppler study was performed which revealed an ejection fraction of 50-55%. We will continue the patient on her IV heparin. She is tentatively scheduled for coronary artery bypass grafting surgery on Thursday. DNP note has been reviewed, I agree with a documented findings and plan of care. Patient was seen and examined.
[2018-12-30 16:56] LABS: Glucose,Whole Blood 184 mg/dL (75-99)
[2018-12-30 17:59] LABS: Basophils % (A) 0 %; Eosinophils # (A) 0.1 k/uL (0-0.7); Eosinophils % (A) 1 %; HCT 37.8 % (34.0-46.0); Lymphocytes # (A) 1.2 k/uL (1.0-4.8); Lymphocytes % (A) 14 %; MCH 29.4 pg (25.0-35.0); MCHC 31.7 g/dL (31.0-37.0); MCV 92.8 fL (80.0-100.0); Mean Platelet Volume 11.7; Monocytes # (A) 0.4 k/uL (0-1.0); Monocytes % (A) 5 %; Neutrophils # (A) 6.6 k/uL (1.3-7.7); Neutrophils % (A) 79 %; Platelet Count 106 k/uL (150-450); RBC 4.07 m/uL (3.80-5.40); RDW 13.9 % (11.5-15.5); WBC 8.3 k/uL (3.8-10.6)
[2018-12-30 20:30] LABS: Glucose,Whole Blood 133 mg/dL (75-99)
[2018-12-31] MEDS: HEPARIN SOD,PORK IN 0.45% NACL 25,000 UNIT in 0.45% NACL 1 250ML.BAG IV SCH ×2 (00:42→19:40)
[2018-12-31 06:22] LABS: Glucose,Whole Blood 107 mg/dL (75-99)
[2018-12-31] MEDS: INSULIN ASPART (NovoLOG) 100 UNIT/ML VIAL SQ SCH ×7 (06:23→21:39)
[2018-12-31] MEDS: NITROGLYCERIN OINT 1 INCH/GM PACKET TOPICAL SCH ×4 (06:33→23:33)
[2018-12-31 07:53] LABS: Basophils % (A) 0 %; Eosinophils # (A) 0.2 k/uL (0-0.7); Eosinophils % (A) 2 %; HCT 40.8 % (34.0-46.0); HGB 12.9 gm/dL (11.4-16.0); Lymphocytes % (A) 36 %; MCH 29.2 pg (25.0-35.0); MCHC 31.6 g/dL (31.0-37.0); MCV 92.3 fL (80.0-100.0); Mean Platelet Volume 9.3; Monocytes # (A) 0.4 k/uL (0-1.0); Monocytes % (A) 5 %; Neutrophils # (A) 4.7 k/uL (1.3-7.7); Neutrophils % (A) 56 %; Platelet Count 123 k/uL (150-450); RBC 4.42 m/uL (3.80-5.40); RDW 13.8 % (11.5-15.5); WBC 8.3 k/uL (3.8-10.6)
[2018-12-31 08:21] LABS: Calcium 8.7 mg/dL (8.4-10.2); Potassium 3.9 mmol/L (3.5-5.1)
[2018-12-31] MEDS: ATORVASTATIN 80 MG TAB PO SCH (09:10)
[2018-12-31] MEDS: diphenhydrAMINE 25 MG CAP PO SCH ×3 (09:10→21:39)
[2018-12-31] MEDS: LISINOPRIL 10 MG TAB PO SCH (09:10)
[2018-12-31] MEDS: ASPIRIN 325 MG TAB PO SCH (09:10)
[2018-12-31] MEDS: METOPROLOL TARTRATE 12.5 MG TAB PO SCH ×2 (09:10→21:39)
[2018-12-31 11:20] LABS: Glucose,Whole Blood 162 mg/dL (75-99)
[2018-12-31] MEDS ORDERED: MD COMMUNICATION TO PHARMACY 1 EACH MISC PO ONE (12:05)
--- NOTE | 2018-12-31 13:45 | P.PN ---
Subjective Progress Note Date: 12/31/18 Principal diagnosis: Severe coronary artery disease This is a pleasant 63-year-old female patient with diabetes, hypertension, dyslipidemia, who presented to the hospital with chest discomfort and ruled in for acute non-ST patient myocardial infarction. She underwent a heart ca theterization which revealed severe triple-vessel coronary artery disease. The plan is to proceed with coronary artery that is grafting this coming Thursday. On follow-up with the patient today, 12/31/2018, she is asymptomatic from the cardiovascular standpoint of view. Hemodynamically she is stable beside uncontrolled blood pressure. Objective - Vital Signs Vital signs: Vital Signs Temp 97.8 F 12/31/18 12:00 Pulse 56 L 12/31/18 12:00 Resp 17 12/31/18 12:00 BP 165/74 12/31/18 12:00 Pulse Ox 98 12/31/18 12:00 Intake & Output 12/30/18 12/31/18 12/31/18 18:59 06:59 18:59 Intake Total 267.819 3820.421 220 Output Total 0 Balance 824.539 2745.421 220 Weight 132.8 kg Intake: IV 110 0.9 110 Intake, IV Titration 22.575 243.421 Amount Heparin Sod,Pork in 0.45% 243.421 NaCl 25,000 unit In 0.45 % NaCl 1 250ml.bag @ 10 mls/hr IV .Q24H OZZY Rx#: [id number] Insulin Regular 100 unit 22.575 In Sodium Chloride 0.9% 100 ml @ Titrate IV .Q0M OZZY Rx#:[id number] Oral 360 1000 220 Output: Stool 0 Other: Voiding Method Toilet Toilet # Voids 0 2 # Bowel Movements 0 - Constitutional General appearance: Present: no acute distress - Respiratory Respiratory: bilateral: CTA - Cardiovascular Rhythm: regular Heart sounds: normal: S1, S2 - Labs CBC & Chem 7: 12/31/18 07:23 12/31/18 07:23 Labs: Abnormal Lab Results - Last 24 Hours (Table) 12/30/18 12/30/18 12/30/18 Range/Units 05:53 16:52 20:29 Plt Count 106 L (150-450) k/uL APTT (22.0-30.0) sec Chloride (98-107) mmol/L Carbon Dioxide (22-30) mmol/L BUN (7-17) mg/dL Glucose (74-99) mg/dL POC Glucose (mg/dL) 184 H 133 H (75-99) mg/dL 12/31/18 12/31/18 12/31/18 Range/Units 06:21 07:23 07:23 Plt Count 123 L (150-450) k/uL APTT (22.0-30.0) sec Chloride 113 H (98-107) mmol/L Carbon Dioxide 21 L (22-30) mmol/L BUN 20 H (7-17) mg/dL Glucose 117 H (74-99) mg/dL POC Glucose (mg/dL) 107 H (75-99) mg/dL 12/31/18 12/31/18 Range/Units 07:23 11:19 Plt Count (150-450) k/uL APTT 70.6 H (22.0-30.0) sec Chloride (98-107) mmol/L Carbon Dioxide (22-30) mmol/L BUN (7-17) mg/dL Glucose (74-99) mg/dL POC Glucose (mg/dL) 162 H (75-99) mg/dL Assessment and Plan Assessment: Assessment #1 acute non-ST elevation myocardial infarction #2 severe triple-vessel coronary artery disease Plan #1 the patient is going to undergo coronary artery bypass grafting this coming Thursday #2 follow-up with the patient
--- NOTE | 2018-12-31 15:51 | P.PN ---
Subjective Progress Note Date: 12/31/18 Principal diagnosis: Non-ST elevation HI, hypertension 63-year-old female with diabetes type 2, asthma, multiple PEs on [place] prior to admission presented with chest pain the patient was noted to have a non-ST elevation HI G status post cardiac catheterization which revealed severe triple- vessel coronary artery disease awaiting CABG Seen by me 12/31/18 denies chest pain or shortness of breath Objective - Vital Signs Vital signs: Vital Signs Temp 97.8 F 12/31/18 12:00 Pulse 56 L 12/31/18 12:00 Resp 17 12/31/18 12:00 BP 165/74 12/31/18 12:00 Pulse Ox 98 12/31/18 12:00 Intake & Output 12/30/18 12/31/18 12/31/18 18:59 06:59 18:59 Intake Total 513.083 2756.421 580 Output Total 0 Balance 673.755 8766.421 580 Weight 132.8 kg Intake: IV 110 0.9 110 Intake, IV Titration 22.575 243.421 Amount Heparin Sod,Pork in 0.45% 243.421 NaCl 25,000 unit In 0.45 % NaCl 1 250ml.bag @ 10 mls/hr IV .Q24H OZZY Rx#: [id number] Insulin Regular 100 unit 22.575 In Sodium Chloride 0.9% 100 ml @ Titrate IV .Q0M OZZY Rx#:[id number] Oral 360 1000 580 Output: Stool 0 Other: Voiding Method Toilet Toilet # Voids 0 2 # Bowel Movements 0 - Constitutional General appearance: Present: no acute distress - EENT Eyes: Present: PERRLA - Respiratory Respiratory: bilateral: CTA - Cardiovascular Rhythm: regular - Gastrointestinal General gastrointestinal: Present: normal bowel sounds, soft - Neurologic Neurologic: Present: CNII-XII intact - Musculoskeletal Musculoskeletal: Present: strength equal bilaterally - Psychiatric Psychiatric: Present: A&O x's 3 - Labs CBC & Chem 7: 12/31/18 07:23 12/31/18 07:23 Labs: Abnormal Lab Results - Last 24 Hours (Table) 12/30/18 12/30/18 12/30/18 Range/Units 05:53 16:52 20:29 Plt Count 106 L (150-450) k/uL APTT (22.0-30.0) sec Chloride (98-107) mmol/L Carbon Dioxide (22-30) mmol/L BUN (7-17) mg/dL Glucose (74-99) mg/dL POC Glucose (mg/dL) 184 H 133 H (75-99) mg/dL 12/31/18 12/31/18 12/31/18 Range/Units 06:21 07:23 07:23 Plt Count 123 L (150-450) k/uL APTT (22.0-30.0) sec Chloride 113 H (98-107) mmol/L Carbon Dioxide 21 L (22-30) mmol/L BUN 20 H (7-17) mg/dL Glucose 117 H (74-99) mg/dL POC Glucose (mg/dL) 107 H (75-99) mg/dL 12/31/18 12/31/18 Range/Units 07:23 11:19 Plt Count (150-450) k/uL APTT 70.6 H (22.0-30.0) sec Chloride (98-107) mmol/L Carbon Dioxide (22-30) mmol/L BUN (7-17) mg/dL Glucose (74-99) mg/dL POC Glucose (mg/dL) 162 H (75-99) mg/dL Assessment and Plan Assessment: Severe triple vessel disease Uncontrolled hypertension Non-ST elevation HI Multiple PTTs Plan: Continue heparin drip CABG likely Thursday Optimize blood pressure control We'll need to resume and requested discharge Optimize blood sugar control A1c 9.1 at admission
[2018-12-31 16:22] LABS: Glucose,Whole Blood 114 mg/dL (75-99)
--- NOTE | 2018-12-31 17:19 | P.CNPUL ---
History of Present Illness Consult date: 12/31/18 Requesting physician: William Bowers Reason for consult: dyspnea Chief complaint: Severe triple-vessel coronary artery disease History of present illness: This is a 63-year-old white female patient with past medical history significant for diabetes mellitus type 2, morbid obesity, hypertension, h yperlipidemia, previous history of pulmonary embolisms for which patient is on Eliquis, anxiety, depression, lifetime nonsmoker, who came into the hospital on 12/26/2018 with complaints of chest pain radiating into her jaw and into her back, associated with nausea. EKG showed normal sinus rhythm with nonspecific ST abnormality. CT chest showed no evidence of PE, with clearing of the multiple bilateral pulmonary emboli compared to old exam. Patient had elevation of troponins, rising from 0.063, to 0.330, to 4.380, and down to 0.641. Chest x-ray showed normal chest. Patient underwent heart catheterization on 12/27/2018 showing severe triple-vessel coronary artery disease with mid RCA lesion of 70%, [place] of 70-80%, left main of 50%, LAD had a lesion of 80% in the proximal portion. Echocardiogram showed mild concentric left ventricular hypertrophy with low normal EF of 50-55%, no aortic stenosis or regurgitation, mild mitral regurgitation, mild tricuspid regurgitation, right ventricular systolic pressure of 11.25 mmHg. Carotid Doppler showed no hemodynamically significant stenosis. Patient was evaluated by cardiothoracic surgery and coronary artery bypass surgery was recommended. Patient is a lifetime nonsmoker, does have history of bronchial asthma, not on any maintenance inhalers. Preop FEV1 was 87% of predicted, and were consulted in regards to pulmonary management for the upcoming bypass surgery Review of Systems All systems: negative Constitutional: Denies chills, Denies fever Eyes: denies blurred vision, denies pain Ears, nose, mouth and throat: Denies headache, Denies sore throat Cardiovascular: Reports chest pain, Denies shortness of breath Respiratory: Denies cough Gastrointestinal: Denies abdominal pain, Denies diarrhea, Denies nausea, Denies vomiting Genitourinary: Denies dysuria, Denies hematuria Musculoskeletal: Denies myalgias Integumentary: Denies pruritus, Denies rash Neurological: Denies numbness, Denies weakness Psychiatric: Denies anxiety, Denies depression Endocrine: Denies fatigue, Denies weight change Past Medical History Past Medical History: Asthma, Cancer (Basal cell carcinoma to her left face), Diabetes Mellitus, Hyperlipidemia, Osteoarthritis (OA), Pulmonary Embolus (PE), Renal Disease Additional Past Medical History / Comment(s): pulmonary embolism in 12/2015 and the patient was treated with 6 moths of Eliquis, morbid obesity, DM History of Any Multi-Drug Resistant Organisms: None Reported Past Surgical History: No Surgical Hx Reported Additional Past Surgical History / Comment(s): basal cell carcinoma removed from face and a polyp removed from rectum Past Anesthesia/Blood Transfusion Reactions: No Reported Reaction Past Psychological History: Anxiety, Depression Smoking Status: Never smoker Past Alcohol Use History: Occasional Past Drug Use History: Marijuana Additional Drug Use History / Comment(s): has been over a year since the pt has used marijuana - Past Family History Mother Additional Family Medical History / Comment(s): CANCER WITH METS NOT SURE WHICH ONE Father Family Medical History: Cancer (Lung cancer), Pneumonia Additional Family Medical History / Comment(s): CANCER Medications and Allergies Home Medications Medication Instructions Recorded Confirmed Type metFORMIN HCL 500 mg PO BID 01/07/16 12/26/18 History Lisinopril [Zestril] 10 mg PO DAILY 07/24/16 12/26/18 History sitaGLIPtin [Januvia] 100 mg PO DAILY 07/24/16 12/26/18 History Apixaban [Eliquis] 5 mg PO BID 12/26/18 12/26/18 History Magnesium Oxide [Mag-Ox] 400 mg PO DAILY 12/26/18 12/26/18 History Allergies Allergy/AdvReac Type Severity Reaction Status Date / Time Iodinated Contrast- Oral and Allergy Rash/Hives Verified 03/28/18 12:14 IV Dye Milk Containing Products AdvReac Nausea & Verified 03/28/18 12:14 [Dairy] Vomiting nickel AdvReac Rash/Hives Verified 12/26/18 15:57 Physical Exam Vitals: Vital Signs Temp Pulse Resp BP Pulse Ox 12/31/18 12:00 97.8 F 56 L 17 165/74 98 12/31/18 08:00 97.9 F 57 L 18 146/65 98 12/31/18 04:00 98.3 F 65 17 169/59 98 12/30/18 23:18 60 17 12/30/18 23:14 98 F 60 17 149/59 95 12/30/18 20:00 97.7 F 60 17 149/67 98 12/30/18 16:00 16 12/30/18 15:48 98.1 F 56 L 16 136/57 97 Intake and Output 12/31/18 12/31/18 12/31/18 06:59 14:59 22:59 Intake Total 1353.421 580 Balance 1353.421 580 Intake: IV 110 0.9 110 Intake, IV Titration 243.421 Amount Heparin Sod,Pork in 0.45% 243.421 NaCl 25,000 unit In 0.45 % NaCl 1 250ml.bag @ 10 mls/hr IV .Q24H [facility] Rx#: [id number] Oral 1000 580 Other: Voiding Method Toilet # Voids 2 Weight 132.8 kg GENERAL EXAM: Alert, pleasant, 63-year-old all obese white female, comfortable in no apparent distress. HEAD: Normocephalic/atraumatic. EYES: Normal reaction of pupils, equal size. Conjunctiva pink, sclera white. NOSE: Clear with pink turbinates. THROAT: No erythema or exudates. NECK: No masses, no JVD, no thyroid enlargement, no adenopathy. CHEST: No chest wall deformity. Symmetrical expansion. LUNGS: Equal air entry with no crackles, wheeze, rhonchi or dullness. Diminished breath sounds at the bases CVS: Regular rate and rhythm, normal S1 and S2, no gallops, no murmurs, no rubs ABDOMEN: Soft, nontender. No hepatosplenomegaly, normal bowel sounds, no guarding or rigidity. EXTREMITIES: No clubbing, no edema, no cyanosis, 2+ pulses and upper and lower extremities. MUSCULOSKELETAL: Muscle strength and tone normal. SPINE: No scoliosis or deformity SKIN: No rashes CENTRAL NERVOUS SYSTEM: Alert and oriented -3. No focal deficits, tone is normal in all 4 extremities. PSYCHIATRIC: Alert and oriented -3. Appropriate affect. Intact judgment and insight. Results - Laboratory Findings CBC and BMP: 12/31/18 07:23 12/31/18 07:23 PT/INR, D-dimer PT 10.2 sec (9.0-12.0) 12/26/18 15:41 INR 0.9 (<1.2) 12/26/18 15:41 Abnormal lab findings: Abnormal Labs 12/26/18 12/26/18 12/26/18 15:41 15:41 15:41 WBC Plt Count 137 L APTT Potassium Chloride Carbon Dioxide BUN Glucose 251 H POC Glucose (mg/dL) Hemoglobin A1c Magnesium 1.4 L Troponin I 0.063 H* Cholesterol LDL Cholesterol, Calc HDL Cholesterol Ur Specific Regan Urine Glucose (UA) 12/26/18 12/26/18 12/26/18 18:27 20:04 21:57 WBC Plt Count APTT Potassium Chloride Carbon Dioxide BUN Glucose POC Glucose (mg/dL) 235 H 205 H Hemoglobin A1c Magnesium Troponin I 3.330 H* Cholesterol LDL Cholesterol, Calc HDL Cholesterol Ur Specific Regan Urine Glucose (UA) 12/27/18 12/27/18 12/27/18 03:50 06:24 07:10 WBC Plt Count APTT Potassium 5.2 H Chloride 110 H Carbon Dioxide 21 L BUN 18 H Glucose 364 H POC Glucose (mg/dL) 391 H Hemoglobin A1c Magnesium Troponin I 4.380 H* Cholesterol 226 H LDL Cholesterol, Calc 133 H HDL Cholesterol 78 H Ur Specific Regan Urine Glucose (UA) 12/27/18 12/27/18 12/27/18 07:10 07:10 07:10 WBC Plt Count 127 L APTT 48.9 H Potassium Chloride Carbon Dioxide BUN Glucose POC Glucose (mg/dL) Hemoglobin A1c 9.1 H Magnesium Troponin I Cholesterol LDL Cholesterol, Calc HDL Cholesterol Ur Specific Regan Urine Glucose (UA) 12/27/18 12/27/18 12/27/18 11:32 16:41 17:50 WBC Plt Count APTT Potassium Chloride Carbon Dioxide BUN Glucose POC Glucose (mg/dL) 441 H 413 H Hemoglobin A1c Magnesium Troponin I Cholesterol LDL Cholesterol, Calc HDL Cholesterol Ur Specific Regan 1.048 H Urine Glucose (UA) 4+ H 12/27/18 12/27/18 12/28/18 20:28 22:15 00:36 WBC Plt Count APTT Potassium Chloride Carbon Dioxide BUN Glucose POC Glucose (mg/dL) 404 H 358 H 378 H Hemoglobin A1c Magnesium Troponin I Cholesterol LDL Cholesterol, Calc HDL Cholesterol Ur Specific [place] Urine Glucose (UA) 12/28/18 12/28/18 12/28/18 03:31 05:58 06:18 WBC 11.5 H Plt Count 141 L APTT Potassium Chloride Carbon Dioxide BUN Glucose POC Glucose (mg/dL) 323 H 281 H Hemoglobin A1c Magnesium Troponin I Cholesterol LDL Cholesterol, Calc HDL Cholesterol Ur Specific Reg[place] Urine Glucose (UA) 12/28/18 12/28/18 12/28/18 06:18 12:19 14:49 WBC Plt Count APTT Potassium Chloride 109 H Carbon Dioxide BUN 22 H Glucose 267 H POC Glucose (mg/dL) 309 H 302 H Hemoglobin A1c Magnesium Troponin I Cholesterol LDL Cholesterol, Calc HDL Cholesterol Ur Specific Reg[place] Urine Glucose (UA) 12/28/18 12/28/18 12/28/18 15:25 17:06 19:30 WBC Plt Count APTT Potassium Chloride Carbon Dioxide BUN Glucose POC Glucose (mg/dL) 226 H 138 H 197 H Hemoglobin A1c Magnesium Troponin I Cholesterol LDL Cholesterol, Calc HDL Cholesterol Ur Specific Reg[place] Urine Glucose (UA) 12/28/18 12/28/18 12/28/18 21:22 22:52 23:11 WBC Plt Count APTT 61.0 H Potassium Chloride Carbon Dioxide BUN Glucose POC Glucose (mg/dL) 155 H 266 H Hemoglobin A1c Magnesium Troponin I Cholesterol LDL Cholesterol, Calc HDL Cholesterol Ur Specific Reg[place] Urine Glucose (UA) 12/29/18 12/29/18 12/29/18 01:31 02:27 03:37 WBC Plt Count APTT Potassium Chloride Carbon Dioxide BUN Glucose POC Glucose (mg/dL) 106 H 107 H 127 H Hemoglobin A1c Magnesium Troponin I Cholesterol LDL Cholesterol, Calc HDL Cholesterol Ur Specific [place] Urine Glucose (UA) 12/29/18 12/29/18 12/29/18 04:28 06:15 06:19 WBC Plt Count APTT 62.6 H Potassium Chloride Carbon Dioxide BUN Glucose POC Glucose (mg/dL) 154 H 144 H Hemoglobin A1c Magnesium Troponin I Cholesterol LDL Cholesterol, Calc HDL Cholesterol Ur Specific Reg[place] Urine Glucose (UA) 12/29/18 12/29/18 12/29/18 09:28 11:50 14:19 WBC 17.8 H Plt Count APTT Potassium Chloride Carbon Dioxide BUN Glucose POC Glucose (mg/dL) 284 H 301 H Hemoglobin A1c Magnesium Troponin I Cholesterol LDL Cholesterol, Calc HDL Cholesterol Ur Specific Reg[place] Urine Glucose (UA) 12/29/18 12/29/18 12/29/18 14:54 15:29 15:59 WBC Plt Count APTT Potassium Chloride Carbon Dioxide BUN Glucose POC Glucose (mg/dL) 292 H 254 H 204 H Hemoglobin A1c Magnesium Troponin I Cholesterol LDL Cholesterol, Calc HDL Cholesterol Ur Specific [place] Urine Glucose (UA) 12/29/18 12/29/18 12/29/18 18:05 19:51 21:21 WBC Plt Count APTT Potassium Chloride Carbon Dioxide BUN Glucose POC Glucose (mg/dL) 133 H 226 H 216 H Hemoglobin A1c Magnesium Troponin I Cholesterol LDL Cholesterol, Calc HDL Cholesterol Ur Specific [place] Urine Glucose (UA) 12/29/18 12/30/18 12/30/18 23:59 01:57 04:09 WBC Plt Count APTT Potassium Chloride Carbon Dioxide BUN Glucose POC Glucose (mg/dL) 132 H 160 H 135 H Hemoglobin A1c Magnesium Troponin I Cholesterol LDL Cholesterol, Calc HDL Cholesterol Ur Specific [place] Urine Glucose (UA) 12/30/18 12/30/18 12/30/18 05:53 05:53 05:53 WBC Plt Count 106 L APTT 65.0 H Potassium Chloride Carbon Dioxide BUN Glucose POC Glucose (mg/dL) Hemoglobin A1c Magnesium Troponin I 0.641 H* Cholesterol LDL Cholesterol, Calc HDL Cholesterol Ur Specific Reg[place] Urine Glucose (UA) 12/30/18 12/30/18 12/30/18 05:53 06:00 07:42 WBC Plt Count APTT Potassium Chloride 112 H Carbon Dioxide BUN 20 H Glucose 141 H POC Glucose (mg/dL) 152 H 157 H Hemoglobin A1c Magnesium Troponin I Cholesterol LDL Cholesterol, Calc HDL Cholesterol Ur Specific [place] Urine Glucose (UA) 12/30/18 12/30/18 12/30/18 09:03 10:29 11:47 WBC Plt Count APTT Potassium Chloride Carbon Dioxide BUN Glucose POC Glucose (mg/dL) 187 H 148 H 109 H Hemoglobin A1c Magnesium Troponin I Cholesterol LDL Cholesterol, Calc HDL Cholesterol Ur Specific Reg[place] Urine Glucose (UA) 12/30/18 12/30/18 12/31/18 16:52 20:29 06:21 WBC Plt Count APTT Potassium Chloride Carbon Dioxide BUN Glucose POC Glucose (mg/dL) 184 H 133 H 107 H Hemoglobin A1c Magnesium Troponin I Cholesterol LDL Cholesterol, Calc HDL Cholesterol Ur Specific Reg[place] Urine Glucose (UA) 12/31/18 12/31/18 12/31/18 07:23 07:23 07:23 WBC Plt Count 123 L APTT 70.6 H Potassium Chloride 113 H Carbon Dioxide 21 L BUN 20 H Glucose 117 H POC Glucose (mg/dL) Hemoglobin A1c Magnesium Troponin I Cholesterol LDL Cholesterol, Calc HDL Cholesterol Ur Specific Reg[place] Urine Glucose (UA) 12/31/18 11:19 WBC Plt Count APTT Potassium Chloride Carbon Dioxide BUN Glucose POC Glucose (mg/dL) 162 H Hemoglobin A1c Magnesium Troponin I Cholesterol LDL Cholesterol, Calc HDL Cholesterol Ur Specific Regan Urine Glucose (UA) - Diagnostic Findings Chest x-ray: report reviewed, image reviewed CT scan - chest: report reviewed, image reviewed Additional studies: Results the carotid Doppler study, resulting heart catheterization, EKGs, echocardiogram reviewed Assessment and Plan Plan: Assessment: #1. Acute non-ST elevated myocardial infarction #2. Severe triple-vessel coronary artery disease, with 50% left main stenosis, and is scheduled for coronary artery bypass surgery #3. Previous history of pulmonary embolisms, on Eliquis #4. History of chronic bronchial asthma, mild intermittent, currently stable #5. Hypertension #6. Hyperlipidemia #7. Poorly controlled diabetes mellitus type 2 #8. Morbid obesity #9. Anxiety #10. GERD Plan: All diagnostic studies have been reviewed, chest x-ray and CTA chest films have been reviewed with Dr. Cleveland, preop FEV1 87%, patient's asthma is stable. From pulmonary perspective patient is cleared for surgery. I performed a history & physical examination of the patient and discussed their management with my nurse practitioner, Bryanna Bell. I reviewed the nurse practitioner's note and agree with the documented findings and plan of care. Lung sounds are positive for diminished breath sounds. The findings and the impression was discussed with the patient. I attest to the documentation by the nurse practitioner. Time with Patient: Greater than 30
[2018-12-31] MEDS: predniSONE 10 MG TAB PO SCH (20:16)
[2018-12-31 20:55] LABS: Glucose,Whole Blood 188 mg/dL (75-99)
[2019-01-01 06:42] LABS: Glucose,Whole Blood 120 mg/dL (75-99)
[2019-01-01] MEDS: INSULIN ASPART (NovoLOG) 100 UNIT/ML VIAL SQ SCH ×7 (06:51→20:59)
[2019-01-01 06:59] LABS: Basophils % (A) 0 %; Eosinophils # (A) 0.2 k/uL (0-0.7); Eosinophils % (A) 3 %; HCT 37.6 % (34.0-46.0); HGB 12.4 gm/dL (11.4-16.0); Lymphocytes # (A) 2.6 k/uL (1.0-4.8); Lymphocytes % (A) 40 %; MCH 29.8 pg (25.0-35.0); MCHC 32.9 g/dL (31.0-37.0); MCV 90.6 fL (80.0-100.0); Monocytes # (A) 0.4 k/uL (0-1.0); Monocytes % (A) 6 %; Neutrophils # (A) 3.1 k/uL (1.3-7.7); Neutrophils % (A) 49 %; Platelet Count 104 k/uL (150-450); RBC 4.16 m/uL (3.80-5.40); RDW 14.5 % (11.5-15.5); WBC 6.4 k/uL (3.8-10.6)
[2019-01-01 07:18] LABS: Albumin 2.7 g/dL (3.5-5.0); Calcium 8.6 mg/dL (8.4-10.2); Total Bilirubin 0.5 mg/dL (0.2-1.3)
[2019-01-01] MEDS: NITROGLYCERIN OINT 1 INCH/GM PACKET TOPICAL SCH ×3 (07:28→17:30)
[2019-01-01] MEDS: METOPROLOL TARTRATE 12.5 MG TAB PO SCH ×2 (08:45→20:59)
[2019-01-01] MEDS: ATORVASTATIN 80 MG TAB PO SCH (08:45)
[2019-01-01] MEDS: LISINOPRIL 10 MG TAB PO SCH (08:45)
[2019-01-01] MEDS: ASPIRIN 325 MG TAB PO SCH (08:45)
[2019-01-01] MEDS: diphenhydrAMINE 25 MG CAP PO SCH ×3 (08:45→20:59)
--- NOTE | 2019-01-01 11:14 | P.PN ---
Subjective Progress Note Date: 01/01/19 Principal diagnosis: Severe coronary artery disease This is a pleasant 63-year-old female patient with diabetes, hypertension, dyslipidemia, who presented to the hospital with chest discomfort and ruled in for acute non-ST patient myocardial infarction. She underwent a heart ca theterization which revealed severe triple-vessel coronary artery disease. The plan is to proceed with coronary artery that is grafting this coming Thursday. On follow-up with the patient today, 01/01/2019, the patient continues to be asymptomatic. Hemodynamically she continues to be stable. The platelet has been low. I would agree about stopping the heparin IV at this point. Objective - Vital Signs Vital signs: Vital Signs Temp 98.1 F 01/01/19 08:48 Pulse 60 01/01/19 08:48 Resp 16 01/01/19 08:48 BP 130/60 01/01/19 08:48 Pulse Ox 98 01/01/19 08:48 Intake & Output 12/31/18 01/01/19 01/01/19 18:59 06:59 18:59 Intake Total 890 200 236 Output Total 450 0 Balance 440 200 236 Weight 132.5 kg Intake: Intake, IV Titration 250 Amount Heparin Sod,Pork in 0.45% 250 NaCl 25,000 unit In 0.45 % NaCl 1 250ml.bag @ 10 mls/hr IV .Q24H [facility] Rx#: [id number] Oral 640 200 236 Output: Urine 450 Stool 0 Other: Voiding Method Toilet Toilet # Voids 1 - Constitutional General appearance: Present: no acute distress - Respiratory Respiratory: bilateral: CTA - Cardiovascular Rhythm: regular Heart sounds: normal: S1, S2 - Labs CBC & Chem 7: 01/01/19 06:04 01/01/19 06:04 Labs: Abnormal Lab Results - Last 24 Hours (Table) 12/31/18 12/31/18 12/31/18 Range/Units 11: 16:21 20:54 Plt Count (150-450) k/uL APTT (22.0-30.0) sec Chloride (98-107) mmol/L Glucose (74-99) mg/dL POC Glucose (mg/dL) 162 H 114 H 188 H (75-99) mg/dL AST (14-36) U/L ALT (9-52) U/L Total Protein (6.3-8.2) g/dL Albumin (3.5-5.0) g/dL 01/01/19 01/01/19 01/01/19 Range/Units 06:04 06:04 06:04 Plt Count 104 L (150-450) k/uL APTT 64.4 H (22.0-30.0) sec Chloride 112 H (98-107) mmol/L Glucose 128 H (74-99) mg/dL POC Glucose (mg/dL) (75-99) mg/dL AST 40 H (14-36) U/L ALT 132 H (9-52) U/L Total Protein 5.0 L (6.3-8.2) g/dL Albumin 2.7 L (3.5-5.0) g/dL 01/01/19 Range/Units 06:40 Plt Count (150-450) k/uL APTT (22.0-30.0) sec Chloride (98-107) mmol/L Glucose (74-99) mg/dL POC Glucose (mg/dL) 120 H (75-99) mg/dL AST (14-36) U/L ALT (9-52) U/L Total Protein (6.3-8.2) g/dL Albumin (3.5-5.0) g/dL Assessment and Plan Assessment: Assessment #1 acute non-ST elevation myocardial infarction #2 severe triple-vessel coronary artery disease Plan #1 the patient is going to undergo coronary artery bypass grafting this coming Thursday #2 follow-up with the patient
[2019-01-01 11:26] LABS: Glucose,Whole Blood 161 mg/dL (75-99)
--- NOTE | 2019-01-01 12:32 | P.PN ---
Subjective Progress Note Date: 01/01/19 Principal diagnosis: chest pain Patient is a 63-year-old female to past medical history of diabetes, asthma, and multiple pulmonary emboli (on eloquent) who presented to the emergency department for chest and back pain. In the emergency department she underwent an extensive evaluation. Her troponin was slightly elevated at 0.063, EKG showed some T-wave inversion, platelets were slightly low at 137, and chest x-ray was unremarkable. She was admitted for further management of her acute coronary syndrome. She underwent a CT of the chest which was negative for PE or dissection. Troponin maxed at 4.38. Cardiology saw the patient. She underwent an echocardiogram which showed an ejection fraction of 50-55%. She underwent cardiac cath on 12/27 which showed severe triple vessel coronary artery disease involving the LAD, left circumflex, and RCA. Cardiothoracic surgery was consulted and the plan is for coronary artery bypass grafting on 01/03. Of note hemoglobin A1c is significantly elevated at 9.1. She was also found to have an elevated LDL at 133. Patient seen and examined at bedside. She is currently chest pain-free at rest, no shortness of breath, no nausea. She's on the phone and does not answer additional questions. Objective - Vital Signs Vital signs: Vital Signs Temp 98.1 F 01/01/19 08:48 Pulse 60 01/01/19 08:48 Resp 16 01/01/19 08:48 BP 130/60 01/01/19 08:48 Pulse Ox 98 01/01/19 08:48 Intake & Output 12/31/18 01/01/19 01/01/19 18:59 06:59 18:59 Intake Total 890 200 236 Output Total 450 0 Balance 440 200 236 Weight 132.5 kg Intake: Intake, IV Titration 250 Amount Heparin Sod,Pork in 0.45% 250 NaCl 25,000 unit In 0.45 % NaCl 1 250ml.bag @ 10 mls/hr IV .Q24H [facility] Rx#: [id number] Oral 640 200 236 Output: Urine 450 Stool 0 Other: Voiding Method Toilet Toilet # Voids 1 - Exam General:, Obese, no distress, appears older than stated age Derm: warm, dry Head: atraumatic, normocephalic, symmetric Eyes: EOMI, no lid lag, anicteric sclera Mouth: no lip lesion, mucus membranes moist Cardiovascular: S1S2 reg, no murmur, positive posterior tibial pulse bilateral, Lungs: CTA bilateral, no rhonchi, no rales , no accessory muscle use Abdominal: soft, nontender to palpation, no guarding, no appreciable organomegaly Ext: no gross muscle atrophy, trace edema, no contractures Neuro: CN II-XI grossly intact, no focal neuro deficits Psych: Alert, oriented, appropriate affect - Labs CBC & Chem 7: 01/01/19 06:04 01/01/19 06:04 Labs: Abnormal Lab Results - Last 24 Hours (Table) 12/31/18 12/31/18 01/01/19 Range/Units 16:21 20:54 06:04 Plt Count 104 L (150-450) k/uL APTT (22.0-30.0) sec Chloride (98-107) mmol/L Glucose (74-99) mg/dL POC Glucose (mg/dL) 114 H 188 H (75-99) mg/dL AST (14-36) U/L ALT (9-52) U/L Total Protein (6.3-8.2) g/dL Albumin (3.5-5.0) g/dL 01/01/19 01/01/19 01/01/19 Range/Units 06:04 06:04 06:40 Plt Count (150-450) k/uL APTT 64.4 H (22.0-30.0) sec Chloride 112 H (98-107) mmol/L Glucose 128 H (74-99) mg/dL POC Glucose (mg/dL) 120 H (75-99) mg/dL AST 40 H (14-36) U/L ALT 132 H (9-52) U/L Total Protein 5.0 L (6.3-8.2) g/dL Albumin 2.7 L (3.5-5.0) g/dL 01/01/19 Range/Units 11:25 Plt Count (150-450) k/uL APTT (22.0-30.0) sec Chloride (98-107) mmol/L Glucose (74-99) mg/dL POC Glucose (mg/dL) 161 H (75-99) mg/dL AST (14-36) U/L ALT (9-52) U/L Total Protein (6.3-8.2) g/dL Albumin (3.5-5.0) g/dL Assessment and Plan Assessment: Non-STEMI with severe triple vessel disease -Plan is for coronary artery bypass grafting on 01/03 - Continue with ASA, Metoprolol and statin HTN, improved control - continue with lopressor - follow BP Thrombocytopenia, mild stable -Undetermined cause -Follow CBC HLD - statin therapy Diabetes mellitus type 2 with hyperglycemia -A1c 9.1 -Continue with sliding scale, Accu-Cheks -Will not start long-acting insulin at this point in time as we are preparing for surgery -Anticipate that patient will need long-acting insulin on discharge and she was on Januvia and metformin at home and her A1c is 9.1 and she will be newly status post CABG -volunteer services specialist to see patient Morbid obesity with BMI 50.1 -Outpatient structured weight loss History of multiple pulmonary embolism -hold eliquis due to procedure - on arixtra Hyperkalemia, resolved Hypomagnesemia, resolved DVT prophylaxis: arixtra Discussed with: Patient, cardio, nursing Anticipated discharge: 5-[address]: home with home health vs SNF A total of 40 minutes was spent on the care of this complex patient more than 50% of the time was spent in counseling and care coordination.
--- NOTE | 2019-01-01 15:07 | P.PN ---
Subjective Progress Note Date: 01/01/19 Principal diagnosis: Non-Q-wave myocardial infarction this admission, severe triple-vessel coronary artery disease with a 50% left main coronary artery stenosis, hyperlipidemia unt reated, hypertension, history of bilateral pulmonary embolism on Eliquis, uncontrolled diabetes mellitus type 2 with a preoperative hemoglobin A1c of 9.1%, osteoarthritis, history of basal cell skin cancer to her left face, GERD, history of urinary stress incontinence, asthma, morbid obesity and anxiety. The patient is currently sitting up to the bedside edge. She is in no acute distress. She denies any further complaints of chest pain. Remains on heparin drip. Preoperative teaching reinforced. Objective - Vital Signs Vital signs: Vital Signs Temp 97.8 F 01/01/19 12:35 Pulse 48 L 01/01/19 12:35 Resp 16 01/01/19 12:35 BP 134/62 01/01/19 12:35 Pulse Ox 97 01/01/19 12:35 Intake & Output 12/31/18 01/01/19 01/01/19 18:59 06:59 18:59 Intake Total 890 200 476 Output Total 450 0 Balance 440 200 476 Weight 132.5 kg Intake: Intake, IV Titration 250 Amount Heparin Sod,Pork in 0.45% 250 NaCl 25,000 unit In 0.45 % NaCl 1 250ml.bag @ 10 mls/hr IV .Q24H [facility] Rx#: [id number] Oral 640 200 476 Output: Urine 450 Stool 0 Other: Voiding Method Toilet Toilet # Voids 1 - Constitutional General appearance: Present: cooperative, morbidly obese, no acute distress - Respiratory Details: Lung sounds essentially clear throughout. Respirations are symmetrical and nonlabored. Oxygen saturation are 97% on room air. Achieving 1500 mL on her incentive spirometry. - Cardiovascular Details: Regular rhythm and rate. S1 and S2 present, negative for S3, gallop or murmur. Remote telemetry showing sinus bradycardia heart rate 60. No edema present. Knee-high SARAH hose and sequential compression devices in place to her bilateral lower extremities. - Gastrointestinal Gastrointestinal Comment(s): Abdomen is soft, nontender and nondistended. Obese. Active bowel sounds to all 4 abdominal quadrants. No guarding or rigidity. Tolerating oral intake. - Genitourinary Genitourinary Comment(s): Voiding clear yellow urine. - Integumentary Integumentary Comment(s): Skin is warm and dry. No clubbing or cyanosis is present. No rash or abnormal pigmentation is present. - Neurologic Neurologic: Present: CNII-XII intact - Musculoskeletal Musculoskeletal: Present: gait normal, strength equal bilaterally - Psychiatric Psychiatric: Present: A&O x's 3, appropriate affect, intact judgment & insight - Allied health notes Allied health notes reviewed: nursing - Labs CBC & Chem 7: 01/01/19 06:04 01/01/19 06:04 Labs: Abnormal Lab Results - Last 24 Hours (Table) 12/31/18 12/31/18 01/01/19 Range/Units 16:21 20:54 06:04 Plt Count 104 L (150-450) k/uL APTT (22.0-30.0) sec Chloride (98-107) mmol/L Glucose (74-99) mg/dL POC Glucose (mg/dL) 114 H 188 H (75-99) mg/dL AST (14-36) U/L ALT (9-52) U/L Total Protein (6.3-8.2) g/dL Albumin (3.5-5.0) g/dL 01/01/19 01/01/19 01/01/19 Range/Units 06:04 06:04 06:40 Plt Count (150-450) k/uL APTT 64.4 H (22.0-30.0) sec Chloride 112 H (98-107) mmol/L Glucose 128 H (74-99) mg/dL POC Glucose (mg/dL) 120 H (75-99) mg/dL AST 40 H (14-36) U/L ALT 132 H (9-52) U/L Total Protein 5.0 L (6.3-8.2) g/dL Albumin 2.7 L (3.5-5.0) g/dL 01/01/19 Range/Units 11:25 Plt Count (150-450) k/uL APTT (22.0-30.0) sec Chloride (98-107) mmol/L Glucose (74-99) mg/dL POC Glucose (mg/dL) 161 H (75-99) mg/dL AST (14-36) U/L ALT (9-52) U/L Total Protein (6.3-8.2) g/dL Albumin (3.5-5.0) g/dL Assessment and Plan Assessment: 1. Non-Q-wave myocardial infarction this admission. 2. Severe triple-vessel coronary artery disease. 3. Hyperlipidemia untreated. 4. Hypertension 5. History of bilateral pulmonary embolism on Eliquis, last PE 2 years ago 6. Uncontrolled diabetes mellitus type 2 with preop Hgb A1c 9.1%. 7. Osteoarthritis 8. History of basal cell skin cancer to her left face.. 9. Gastroesophageal reflux disease. 10. History of urinary stress incontinence. 11. Asthma with a preoperative FEV1 87% of predicted value 12. Morbid obesity. 13. Anxiety. Plan: 1. Continue aspirin, statin, ALIZA inhibitor, beta kaycee therapy. 2. Discontinue IV heparin as her platelets are 104 today. Send HIT panel. Arixtra 2.5 mg subcu 2 doses for DVT prophylaxis. 3. Insulin management per primary care service. 4. Increase activity ambulate as tolerated. 5. Encourage incentive spirometry use to an hour while awake. 6. she is scheduled for and urgent coronary artery bypass surgery with the left internal mammary artery, endovascular vein harvest, possible left radial artery harvest, sternal plating, and intraoperative transesophageal echocardiogram by Dr. Bowers on 01/03/2019. 7. Continue preoperative teaching, continue supportive care. 8. More recommendations to follow based on patient's clinical course. Time with Patient: Greater than 30
[2019-01-01] MEDS: FONDAPARINUX 2.5 MG/0.5 ML SYRINGE SQ SCH (16:12)
[2019-01-01 16:24] LABS: Glucose,Whole Blood 188 mg/dL (75-99)
[2019-01-01 20:14] LABS: Glucose,Whole Blood 182 mg/dL (75-99)
[2019-01-02] MEDS: NITROGLYCERIN OINT 1 INCH/GM PACKET TOPICAL SCH ×4 (01:03→16:38)
[2019-01-02 06:19] LABS: Basophils % (A) 0 %; Eosinophils # (A) 0.2 k/uL (0-0.7); Eosinophils % (A) 3 %; HGB 12.2 gm/dL (11.4-16.0); Lymphocytes % (A) 38 %; MCH 29.7 pg (25.0-35.0); MCHC 32.9 g/dL (31.0-37.0); MCV 90.5 fL (80.0-100.0); Mean Platelet Volume 9.9; Monocytes # (A) 0.3 k/uL (0-1.0); Monocytes % (A) 5 %; Neutrophils # (A) 2.7 k/uL (1.3-7.7); Neutrophils % (A) 52 %; Platelet Count 100 k/uL (150-450); RBC 4.09 m/uL (3.80-5.40); RDW 14.5 % (11.5-15.5); WBC 5.2 k/uL (3.8-10.6)
[2019-01-02 06:29] LABS: Albumin 2.7 g/dL (3.5-5.0); Calcium 8.9 mg/dL (8.4-10.2); Magnesium 1.8 mg/dL (1.6-2.3); Potassium 4.3 mmol/L (3.5-5.1); Total Bilirubin 0.7 mg/dL (0.2-1.3); Total Protein 5.1 g/dL (6.3-8.2)
[2019-01-02 06:38] LABS: Partial Thromboplastin Time 23.6 sec (22.0-30.0); Prothrombin Time 10.8 sec (9.0-12.0)
[2019-01-02 06:44] LABS: Glucose,Whole Blood 153 mg/dL (75-99)
[2019-01-02] MEDS: INSULIN ASPART (NovoLOG) 100 UNIT/ML VIAL SQ SCH ×7 (06:58→21:13)
[2019-01-02] MEDS: METOPROLOL TARTRATE 12.5 MG TAB PO SCH ×2 (08:12→21:13)
[2019-01-02] MEDS: FONDAPARINUX 2.5 MG/0.5 ML SYRINGE SQ SCH (08:13)
[2019-01-02] MEDS: LISINOPRIL 10 MG TAB PO SCH (08:13)
[2019-01-02] MEDS: diphenhydrAMINE 25 MG CAP PO SCH ×3 (08:13→21:15)
[2019-01-02] MEDS: ASPIRIN 325 MG TAB PO SCH (08:13)
[2019-01-02] MEDS: ATORVASTATIN 80 MG TAB PO SCH (08:13)
--- NOTE | 2019-01-02 10:36 | P.PN ---
Subjective Progress Note Date: 01/02/19 Principal diagnosis: Non-Q-wave myocardial infarction this admission, severe triple-vessel coronary artery disease with a 50% left main coronary artery stenosis, hyperlipidemia unt reated, hypertension, history of bilateral pulmonary embolism on Eliquis, uncontrolled diabetes mellitus type 2 with a preoperative hemoglobin A1c of 9.1%, osteoarthritis, history of basal cell skin cancer to her left face, GERD, history of urinary stress incontinence, asthma, morbid obesity and anxiety. The patient is currently lying in bed with her head elevated on 3 S cardiac stepdown unit. She is in no acute distress. She denies any further complaints of chest pain or shortness of breath. Heparin drip was discontinued yesterday due to platelet count of 104. Preoperative teaching reinforced. Objective - Vital Signs Vital signs: Vital Signs Temp 98.2 F 01/02/19 08:15 Pulse 62 01/02/19 08:15 Resp 16 01/02/19 08:15 BP 170/53 01/02/19 08:15 Pulse Ox 97 01/02/19 08:15 Intake & Output 01/01/19 01/02/19 01/02/19 18:59 06:59 18:59 Intake Total 476 240 Output Total 0 0 Balance 476 240 Weight 138.3 kg Intake: Oral 476 240 Output: Stool 0 0 Other: Voiding Method Toilet Toilet Toilet # Voids 3 1 - Constitutional General appearance: Present: cooperative, morbidly obese, no acute distress - Respiratory Details: Lung sounds essentially clear throughout. Respirations are symmetrical and nonlabored. Oxygen saturation are 97% on room air. Achieving 1250 mL on her incentive spirometry. - Cardiovascular Details: Regular rhythm and rate. S1 and S2 present, negative for S3, gallop or murmur. Remote telemetry showing sinus bradycardia heart rate 51. No edema present. Knee-high SARAH hose and sequential compression devices in place to bilateral lower extremities. - Gastrointestinal Gastrointestinal Comment(s): Abdomen is soft, nontender and nondistended. Active bowel sounds all 4 quadrants. No guarding or rigidity. No organomegaly. Obese. Tolerating oral intake. - Genitourinary Genitourinary Comment(s): Voiding clear yellow urine. - Integumentary Integumentary Comment(s): Skin is warm and dry. No clubbing or cyanosis is present. No rash or abnormal pigmentation is present. - Neurologic Neurologic: Present: CNII-XII intact - Musculoskeletal Musculoskeletal: Present: gait normal, generalized weakness, strength equal bilaterally - Psychiatric Psychiatric: Present: A&O x's 3, appropriate affect, intact judgment & insight - Allied health notes Allied health notes reviewed: nursing - Labs CBC & Chem 7: 01/02/19 05:51 01/02/19 05:51 Labs: Abnormal Lab Results - Last 24 Hours (Table) 01/01/19 01/01/19 01/01/19 Range/Units 11:25 16:23 20:09 Plt Count (150-450) k/uL Chloride (98-107) mmol/L Glucose (74-99) mg/dL POC Glucose (mg/dL) 161 H 188 H 182 H (75-99) mg/dL ALT (9-52) U/L Total Protein (6.3-8.2) g/dL Albumin (3.5-5.0) g/dL Crossmatch 01/02/19 01/02/19 01/02/19 Range/Units 05:51 05:51 05:51 Plt Count 100 L (150-450) k/uL Chloride 110 H (98-107) mmol/L Glucose 140 H (74-99) mg/dL POC Glucose (mg/dL) (75-99) mg/dL ALT 101 H (9-52) U/L Total Protein 5.1 L (6.3-8.2) g/dL Albumin 2.7 L (3.5-5.0) g/dL Crossmatch See Detail 01/02/19 Range/Units 06:42 Plt Count (150-450) k/uL Chloride (98-107) mmol/L Glucose (74-99) mg/dL POC Glucose (mg/dL) 153 H (75-99) mg/dL ALT (9-52) U/L Total Protein (6.3-8.2) g/dL Albumin (3.5-5.0) g/dL Crossmatch Assessment and Plan Assessment: 1. Non-Q-wave myocardial infarction this admission. 2. Severe triple-vessel coronary artery disease. 3. Hyperlipidemia untreated. 4. Hypertension 5. History of bilateral pulmonary embolism on Eliquis, last PE 2 years ago 6. Uncontrolled diabetes mellitus type 2 with preop Hgb A1c 9.1%. 7. Osteoarthritis 8. History of basal cell skin cancer to her left face.. 9. Gastroesophageal reflux disease. 10. History of urinary stress incontinence. 11. Asthma with a preoperative FEV1 87% of predicted value 12. Morbid obesity. 13. Anxiety. 14. Preoperative thrombocytopenia Plan: 1. Continue aspirin, statin, ALIZA inhibitor, beta kaycee. 2. HIT panel results pending. 3. Insulin management per primary care service. 4. Increase activity ambulate as tolerated. 5. Encourage incentive spirometry use to an hour while awake. 6. She is scheduled for an urgent coronary artery bypass surgery with the left internal mammary artery, endovascular vein harvest, possible left radial artery harvest, sternal plating, and intraoperative transesophageal echocardiogram by Dr. Bowers on 01/03/2019. 7. Continue preoperative teaching, continue supportive care. 8. Nothing by mouth after midnight. 9. Repeat CBC early in the morning to recheck her platelet count. 10. More recommendations to follow based on patient's clinical course. Time with Patient: Greater than 30
--- NOTE | 2019-01-02 10:57 | P.PN ---
Subjective Progress Note Date: 01/02/19 This is a 63-year-old female with history of hypertension, diabetes, borderline hyperlipidemia, although she is diabetic she is untreated for her cholesterol, she also has history of pulmonary embolism on 2 different occasions, she takes Eliquis 5 mg one tablet by mouth twice a day. She is a no nsmoker, no family history of premature coronary artery disease, she is significantly overweight. Patient presents to the hospital on this occasion with symptoms of pressure between her shoulder blades that radiated through to her chest, positive associated mild diaphoresis and nausea. She had 1 episode about a week and a half ago, and just prior to coming to the hospital on this occasion she again had another episode. Her blood pressure on arrival here was 199/87 with a heart rate in the 70s, 97% on room air. Blood pressure this morning 155/70 with a heart rate in the 60s, 95% on room air. White blood cell count 5.6, hemoglobin 13.5, platelet count 127. Sodium 138, potassium 4.9, BUN 16 and creatinine 0.7. Initial troponin 0.063, subsequent troponin 3.3 and 4.3. Chest x-ray on admission normal. EKG shows normal sinus rhythm with nonspecific ST-T wave changes noted in the inferior leads. Subsequent EKG performed this morning showed normal sinus rhythm with progression of changes in the inferior leads. At the time of my examination this morning she is currently chest pain-free. 12/28/2018 Patient did undergo a cardiac catheterization yesterday which revealed heavily calcified right and left coronary systems, severe triple-vessel coronary artery disease. Patient was referred for coronary artery bypass grafting surgery. She was seen and examined this morning, feels well, denies any further episodes of chest discomfort. Blood pressure this morning 150/60 with a heart rate in the 50s, 97% on room air. White blood cell count 11.5, hemoglobin 11.9, platelet count 141. TSH is normal magnesium 2.0, sodium 140, potassium 4.0, BUN 22 and creatinine 0.8. 12/29/2018 Patient was seen and examined this morning, she's been up ambulating in the hallway, denies any shortness of breath, no chest discomfort. Blood pressure 126/70 with a heart rate of 50, 96% on room air. 12/30/2018 Patient was seen and examined this morning, up ambulating in the hallway without any difficulty. Breathing is stable, no chest discomfort. Hemodynamically she is stable. At this point in time she is scheduled to undergo coronary bypass grafting surgery on Thursday. 01/02/2019 Patient was seen and examined this morning, she is doing well overall. Ambulating in the hallway without any difficulty. Hemodynamically she is stable. Scheduled for coronary bypass grafting surgery tomorrow Objective - Vital Signs Vital signs: Vital Signs Temp 98.2 F 01/02/19 08:15 Pulse 62 01/02/19 08:15 Resp 16 01/02/19 08:15 BP 170/53 01/02/19 08:15 Pulse Ox 97 01/02/19 08:15 Intake & Output 01/01/19 01/02/19 01/02/19 18:59 06:59 18:59 Intake Total 476 240 Output Total 0 0 Balance 476 240 Weight 138.3 kg Intake: Oral 476 240 Output: Stool 0 0 Other: Voiding Method Toilet Toilet Toilet # Voids 3 1 - Exam PHYSICAL EXAMINATION: GENERAL: 63-year-old female in no acute distress at the time of my examination HEENT: Head is atraumatic, normocephalic. Pupils equal, round. Sclera anicteric. Conjunctiva are clear. Mucous membranes of the mouth are moist. Neck is supple. There is no elevated jugular venous pressure. No Carotid bruit is heard. HEART EXAMINATION: Heart S1, S2 normal. No murmur or gallop heard. CHEST EXAMINATION: Lungs are clear to auscultation and precussion. No chest wall tenderness is noted on palpation or with deep breathing. ABDOMEN: Soft, obese, nontender. Bowel sounds are heard. No organomegaly noted. EXTREMITIES: 2+ peripheral pulses with no evidence of peripheral edema and no calf tenderness noted. Right radial site clean and dry, no evidence of h ematoma, good distal pulse, small amount of ecchymosis NEUROLOGIC patient is awake, alert and oriented X 3 . - Labs CBC & Chem 7: 01/02/19 05:51 01/02/19 05:51 Labs: Abnormal Lab Results - Last 24 Hours (Table) 01/01/19 01/01/19 01/01/19 Range/Units 11:25 16:23 20:09 Plt Count (150-450) k/uL Chloride (98-107) mmol/L Glucose (74-99) mg/dL POC Glucose (mg/dL) 161 H 188 H 182 H (75-99) mg/dL ALT (9-52) U/L Total Protein (6.3-8.2) g/dL Albumin (3.5-5.0) g/dL Crossmatch 01/02/19 01/02/19 01/02/19 Range/Units 05:51 05:51 05:51 Plt Count 100 L (150-450) k/uL Chloride 110 H (98-107) mmol/L Glucose 140 H (74-99) mg/dL POC Glucose (mg/dL) (75-99) mg/dL ALT 101 H (9-52) U/L Total Protein 5.1 L (6.3-8.2) g/dL Albumin 2.7 L (3.5-5.0) g/dL Crossmatch See Detail 01/02/19 Range/Units 06:42 Plt Count (150-450) k/uL Chloride (98-107) mmol/L Glucose (74-99) mg/dL POC Glucose (mg/dL) 153 H (75-99) mg/dL ALT (9-52) U/L Total Protein (6.3-8.2) g/dL Albumin (3.5-5.0) g/dL Crossmatch Assessment and Plan Plan: Assessment and plan #1 symptoms of scapula discomfort radiating through the chest with associated diaphoresis and nausea. EKG shows normal sinus rhythm with nonspecific ST-T wave changes noted in the inferior leads, troponin 0.06, 3.3, 4.3. Clinical picture suggestive of non-Q-wave [place]. CTA of the chest negative for pulmonary embolism. #2 hypertension #3 hyperlipidemia untreated #4 diabetes #5 history of PE Plan Patient did undergo cardiac catheterization which revealed severe triple-vessel coronary artery disease and she is recommended to undergo coronary artery bypass grafting surgery. An echocardiogram with Doppler study was performed which revealed an ejection fraction of 50-55%. We will continue the patient on her IV heparin. She is tentatively scheduled for coronary artery bypass grafting surgery on Thursday. DNP note has been reviewed, I agree with a documented findings and plan of care. Patient was seen and examined.
[2019-01-02 11:08] LABS: Glucose,Whole Blood 195 mg/dL (75-99)
[2019-01-02] MEDS ORDERED: hydrALAZINE HCL 20 MG/ML 1 ML VIAL IVP STA (11:40)
[2019-01-02 16:06] LABS: Glucose,Whole Blood 209 mg/dL (75-99)
--- NOTE | 2019-01-02 20:51 | P.PN ---
Subjective Progress Note Date: 01/02/19 Principal diagnosis: chest pain Patient is a 63-year-old female to past medical history of diabetes, asthma, and multiple pulmonary emboli (on eloquent) who presented to the emergency department for chest and back pain. In the emergency department she underwent an extensive evaluation. Her troponin was slightly elevated at 0.063, EKG showed some T-wave inversion, platelets were slightly low at 137, and chest x-ray was unremarkable. She was admitted for further management of her acute coronary syndrome. She underwent a CT of the chest which was negative for PE or dissection. Troponin maxed at 4.38. Cardiology saw the patient. She underwent an echocardiogram which showed an ejection fraction of 50-55%. She underwent cardiac cath on 12/27 which showed severe triple vessel coronary artery disease involving the LAD, left circumflex, and RCA. Cardiothoracic surgery was consulted and the plan is for coronary artery bypass grafting on 01/03. Of note hemoglobin A1c is significantly elevated at 9.1. She was also found to have an elevated LDL at 133. Patient seen and examined at bedside. Still chest pain free, feeling slightly anxious about surgery, no shortness of breath, no constipation or diarrhea. Had a long discussion regarding her she will an A1c being 9 and likely need for long-acting insulin at discharge. She is willing to do this with help from community educator for further information. All questions answered best my ability. Objective - Vital Signs Vital signs: Vital Signs Temp 98.1 F 01/02/19 16:24 Pulse 60 01/02/19 16:24 Resp 16 01/02/19 16:24 BP 181/78 01/02/19 16:24 Pulse Ox 97 01/02/19 16:24 Intake & Output 01/02/19 01/02/19 01/03/19 06:59 18:59 06:59 Intake Total 820 Output Total 750 Balance 70 Weight 138.3 kg Intake: Oral 820 Output: Urine 750 Stool 0 Other: Voiding Method Toilet Toilet # Voids 1 - Exam General:, Obese, no distress, appears older than stated age Derm: warm, dry Mouth: no lip lesion, mucus membranes moist Cardiovascular: S1S2 reg, no murmur, positive posterior tibial pulse bilateral, Lungs: CTA bilateral, no rhonchi, no rales , no accessory muscle use Abdominal: soft, nontender to palpation, no guarding, no appreciable organomegaly Ext: no gross muscle atrophy, trace edema, no contractures Neuro: CN II-XI grossly intact, no focal neuro deficits Psych: Alert, oriented, appropriate affect - Labs CBC & Chem 7: 01/02/19 05:51 01/02/19 05:51 Labs: Abnormal Lab Results - Last 24 Hours (Table) 01/02/19 01/02/19 01/02/19 Range/Units 05:51 05:51 05:51 Plt Count 100 L (150-450) k/uL Chloride 110 H (98-107) mmol/L Glucose 140 H (74-99) mg/dL POC Glucose (mg/dL) (75-99) mg/dL ALT 101 H (9-52) U/L Total Protein 5.1 L (6.3-8.2) g/dL Albumin 2.7 L (3.5-5.0) g/dL Crossmatch See Detail 01/02/19 01/02/19 01/02/19 Range/Units 06:42 11:07 16:05 Plt Count (150-450) k/uL Chloride (98-107) mmol/L Glucose (74-99) mg/dL POC Glucose (mg/dL) 153 H 195 H 209 H (75-99) mg/dL ALT (9-52) U/L Total Protein (6.3-8.2) g/dL Albumin (3.5-5.0) g/dL Crossmatch Assessment and Plan Assessment: Non-STEMI with severe triple vessel disease -Plan is for coronary artery bypass grafting on 01/03 - Continue with ASA, Metoprolol and statin Diabetes mellitus type 2 with hyperglycemia -A1c 9.1 -Continue with sliding scale, Accu-Cheks - hold off on long-acting insulin at this point in time as we are preparing for surgery -Anticipate that patient will need long-acting insulin on discharge and she was on Januvia and metformin at home and her A1c is 9.1 and she will be newly status post CABG -certified diabetes educator to see patient HTN, improved control - continue with lopressor - follow BP Thrombocytopenia, mild stable -Undetermined cause -Follow CBC HLD - statin therapy Diabetes mellitus type 2 with hyperglycemia -A1c 9.1 -Continue with sliding scale, Accu-Cheks -Will not start long-acting insulin at this point in time as we are preparing for surgery -Anticipate that patient will need long-acting insulin on discharge and she was on Januvia and metformin at home and her A1c is 9.1 and she will be newly status post CABG -certified diabetes educator to see patient Morbid obesity with BMI 50.1 -Outpatient structured weight loss History of multiple pulmonary embolism -hold eliquis due to procedure, will need to resume after procedure - on arixtra Hyperkalemia, resolved Hypomagnesemia, resolved DVT prophylaxis: arixtra Discussed with: Patient, nursing Anticipated discharge: 5-[address]: home with home health vs SNF A total of 25 minutes was spent on the care of this complex patient more than 50% of the time was spent in counseling and care coordination.
[2019-01-02 20:53] LABS: Glucose,Whole Blood 145 mg/dL (75-99)
[2019-01-03] MEDS: NITROGLYCERIN OINT 1 INCH/GM PACKET TOPICAL SCH
[2019-01-03 04:16] LABS: Basophils % (A) 0 %; Eosinophils # (A) 0.3 k/uL (0-0.7); Eosinophils % (A) 4 %; HCT 41.2 % (34.0-46.0); HGB 12.9 gm/dL (11.4-16.0); Lymphocytes # (A) 2.1 k/uL (1.0-4.8); Lymphocytes % (A) 30 %; MCH 28.4 pg (25.0-35.0); MCHC 31.3 g/dL (31.0-37.0); MCV 90.6 fL (80.0-100.0); Mean Platelet Volume 9.4; Monocytes # (A) 0.4 k/uL (0-1.0); Monocytes % (A) 6 %; Neutrophils % (A) 58 %; Platelet Count 128 k/uL (150-450); RBC 4.54 m/uL (3.80-5.40); WBC 6.9 k/uL (3.8-10.6)
[2019-01-03 04:21] LABS: Anion Gap 6 mmol/L; Blood Urea Nitrogen 13 mg/dL (7-17); Calcium 9.5 mg/dL (8.4-10.2); Carbon Dioxide 24 mmol/L (22-30); Chloride 109 mmol/L (98-107); Glucose 131 mg/dL (74-99); Potassium 4.3 mmol/L (3.5-5.1); Sodium 139 mmol/L (137-145)
[2019-01-03] MEDS ORDERED: PROPOFOL 1,000 MG in EMPTY BAG 1 BAG IV PRN (05:00)
[2019-01-03] MEDS ORDERED: PROTAMINE SULFATE 250 MG in EMPTY BAG 1 BAG IV ONE (05:00)
[2019-01-03] MEDS ORDERED: PAPAVERINE 360 MG in SODIUM CHLORIDE 0.9% 90 ML IV ONE ×2 (05:00→10:06)
[2019-01-03] MEDS ORDERED: NITROGLYCERIN-D5W PMX 25 MG/250 ML BTL IV ONE (05:00)
[2019-01-03] MEDS ORDERED: HEPARIN SODIUM 1,000 UN/ML (10ML VL) IV ONE (05:00)
[2019-01-03] MEDS ORDERED: METOPROLOL TARTRATE 12.5 MG TAB PO ONE (05:00)
[2019-01-03] MEDS ORDERED: ceFAZolin 2,000 MG in SODIUM CHLORIDE 0.9% 30 ML IVPB ONE (05:00)
[2019-01-03] MEDS ORDERED: TRANEXAMIC ACID 2,000 MG in SODIUM CHLORIDE 0.9% 80 ML IV ONE ×2 (05:00→06:00)
[2019-01-03] MEDS ORDERED: SODIUM BICARB 8.4% 50 ML SYR (1 MEQ/ML) IV ONE (05:00)
[2019-01-03] MEDS ORDERED: DEXTROSE 5% IN WATER 1,000 ML with POTASSIUM CHLORIDE 25 MEQ, SODIUM CHLORIDE 2.5MEQ/ML... IV SCH ×6 (05:00)
[2019-01-03] MEDS ORDERED: ATORVASTATIN 10 MG TAB PO ONE (05:00)
[2019-01-03] MEDS ORDERED: PROTAMINE SULFATE 10 MG/ML 25 ML VIAL IV ONE (05:00)
[2019-01-03] MEDS ORDERED: HEPARIN SODIUM,PORCINE 5,000 UNIT in SODIUM CHLORIDE 0.9% 500 ML 500 ML IV ONE (05:00)
[2019-01-03] MEDS ORDERED: ALBUMIN HUMAN 25% 50 ML in EMPTY BAG 1 BAG IVPB ONE (05:00)
[2019-01-03] MEDS ORDERED: ALBUMIN HUMAN 5% 500 ML in EMPTY BAG 1 BAG IVPB ONE ×6 (05:00)
[2019-01-03] MEDS ORDERED: CALCIUM CHLORIDE 100 MG/ML 10 ML SYRINGE IVP ONE (05:00)
[2019-01-03] MEDS ORDERED: ceFAZolin 3 GM in SODIUM CHLORIDE 0.9% 30 ML IVPB ONE (05:00)
[2019-01-03] MEDS ORDERED: NOREPINEPHRINE 4 MG in SODIUM CHLORIDE 0.9% 250 ML IV SCH (05:00)
[2019-01-03] MEDS ORDERED: ceFAZolin 1,000 MG in SODIUM CHLORIDE 0.9% IRRIGATIO 1,000 ML IRRIGATION ONE (05:00)
[2019-01-03] MEDS ORDERED: PHENYLEPHRINE 40 MG in SODIUM CHLORIDE 0.9% 250 ML IV ONE (05:00)
[2019-01-03] MEDS ORDERED: DILTIAZEM 125 MG in SODIUM CHLORIDE 0.9% 100 ML IV SCH (05:00)
[2019-01-03] MEDS ORDERED: MAGNESIUM SULFATE SYG 4.06 MEQ/ML SYRINGE IV ONE (05:00)
[2019-01-03] MEDS ORDERED: MANNITOL 25% 12.5 GM/50 ML VIAL IV ONE ×2 (05:00)
[2019-01-03] MEDS ORDERED: DEXTROSE 5% IN WATER 1,000 ML with POTASSIUM CHLORIDE 110 MEQ, MAGNESIUM SULFATE 16 MEQ... IV SCH ×5 (05:00)
[2019-01-03] MEDS ORDERED: LACTATED RINGERS 1,000 ML IV SCH (05:00)
[2019-01-03] MEDS ORDERED: CHLORHEXIDINE GLUCONATE 15 ML CUP MUCOUS MEM ONE (05:00)
[2019-01-03] MEDS ORDERED: ASPIRIN 325 MG TAB PO ONE (05:00)
[2019-01-03] MEDS ORDERED: BIVALIRUDIN 250 MG in SODIUM CHLORIDE 0.9% 50 ML IV SCH (06:00)
[2019-01-03] MEDS ORDERED: SODIUM CITRATE 10 GM/250 ML ML MISCELLANE ONE (06:16)
[2019-01-03] MEDS ORDERED: LACTATED RINGERS 1,000 ML IV ONE (06:27)
[2019-01-03] MEDS ORDERED: SODIUM CITRATE IV ONE (06:30)
[2019-01-03] MEDS ORDERED: fentaNYL (PF) 50 MCG/ML 2 ML AMP ONE (07:36)
[2019-01-03] MEDS ORDERED: SODIUM CHLORIDE 0.9% 250 ML BAG ONE (07:36)
[2019-01-03] MEDS ORDERED: ELECTROLYTE-R (PH 7.4) 1,000 ML IV.SOLN IV ONE (07:36)
[2019-01-03] MEDS ORDERED: SUCCINYLCHOLINE CHLORIDE 100 MG/5 ML SYR IV ONE (07:36)
[2019-01-03] MEDS ORDERED: ALBUMIN HUMAN 5% (25gm) 500 ML VIAL IVPB ONE (07:36)
[2019-01-03] MEDS ORDERED: TRANEXAMIC ACID 1,000 MG/10 ML VIAL ONE (07:36)
[2019-01-03] MEDS ORDERED: PROPOFOL 10 MG/ML 20 ML VIAL IV ONE (07:36)
[2019-01-03] MEDS ORDERED: LIDOCAINE 1% INJ 10MG/ML (20 ML MDV) ONE (07:36)
[2019-01-03] MEDS ORDERED: LACTATED RINGERS 1,000 ML BAG IV ONE (07:36)
[2019-01-03] MEDS ORDERED: MIDAZOLAM 2 MG/2 ML VIAL ONE (07:36)
[2019-01-03] MEDS ORDERED: MAGNESIUM SULFATE 4 MEQ/ML 10ML VIAL ONE (07:36)
[2019-01-03] MEDS ORDERED: VECURONIUM 10 MG VIAL IV ONE (07:36)
[2019-01-03] MEDS ORDERED: fentaNYL (PF) 50 MCG/ML 50 ML VIAL ONE (07:36)
[2019-01-03 08:45] LABS: ABG Base Excess -0.2 mmol/L; ABG HCO3 24 mmol/L (21-25); ABG PCO2 38 mmHg (35-45); ABG PH 7.41 (7.35-7.45); ABG PO2 258 mmHg (83-108); ABG Potassium Whole Blood 4.5 mmol/L (3.4-4.5); ABG Sodium Whole Blood 139 mmol/L (135-146); ABG TCO2 26 mmol/L (19-24)
[2019-01-03] MEDS ORDERED: ceFAZolin 1,000 MG in SODIUM CHLORIDE 0.9% 1,000 ML IRRIGATION ONE (10:06)
[2019-01-03 11:04] LABS: ABG Base Excess -0.5 mmol/L; ABG HCO3 25 mmol/L (21-25); ABG Oxygen Saturation 99.3 % (94-97); ABG PCO2 43 mmHg (35-45); ABG PH 7.38 (7.35-7.45); ABG PO2 123 mmHg (83-108); ABG Potassium Whole Blood 3.6 mmol/L (3.4-4.5); ABG Sodium Whole Blood 140 mmol/L (135-146); ABG TCO2 26 mmol/L (19-24)
[2019-01-03 11:45] LABS: ABG Base Excess -1.6 mmol/L; ABG HCO3 23 mmol/L (21-25); ABG PCO2 35 mmHg (35-45); ABG PH 7.42 (7.35-7.45); ABG Potassium Whole Blood 3.5 mmol/L (3.4-4.5); ABG Sodium Whole Blood 136 mmol/L (135-146); ABG TCO2 24 mmol/L (19-24)
[2019-01-03] MEDS ORDERED: PHENYLEPHRINE 10 MG/ML VIAL IV ONE (12:10)
[2019-01-03 12:17] LABS: ABG Base Excess 0.1 mmol/L; ABG HCO3 25 mmol/L (21-25); ABG PCO2 41 mmHg (35-45); ABG PO2 352 mmHg (83-108); ABG Potassium Whole Blood 4.7 mmol/L (3.4-4.5); ABG Sodium Whole Blood 137 mmol/L (135-146); ABG TCO2 26 mmol/L (19-24)
[2019-01-03 12:50] LABS: ABG Base Excess 0.1 mmol/L; ABG HCO3 25 mmol/L (21-25); ABG PCO2 42 mmHg (35-45); ABG PH 7.38 (7.35-7.45); ABG PO2 314 mmHg (83-108); ABG Potassium Whole Blood 4.5 mmol/L (3.4-4.5); ABG Sodium Whole Blood 137 mmol/L (135-146); ABG TCO2 27 mmol/L (19-24)
[2019-01-03 13:28] LABS: ABG Base Excess 0.2 mmol/L; ABG HCO3 25 mmol/L (21-25); ABG PCO2 42 mmHg (35-45); ABG PH 7.39 (7.35-7.45); ABG PO2 381 mmHg (83-108); ABG Potassium Whole Blood 4.4 mmol/L (3.4-4.5); ABG Sodium Whole Blood 137 mmol/L (135-146); ABG TCO2 26 mmol/L (19-24)
[2019-01-03 14:30] LABS: ABG Base Excess -2.4 mmol/L; ABG HCO3 23 mmol/L (21-25); ABG Oxygen Saturation 99.8 % (94-97); ABG PCO2 42 mmHg (35-45); ABG PH 7.35 (7.35-7.45); ABG PO2 155 mmHg (83-108); ABG Sodium Whole Blood 139 mmol/L (135-146); ABG TCO2 24 mmol/L (19-24)
[2019-01-03 15:00] LABS: ABG Base Excess -2.1 mmol/L; ABG HCO3 23 mmol/L (21-25); ABG Oxygen Saturation 98.8 % (94-97); ABG PCO2 41 mmHg (35-45); ABG PH 7.36 (7.35-7.45); ABG PO2 107 mmHg (83-108); ABG Sodium Whole Blood 139 mmol/L (135-146); ABG TCO2 25 mmol/L (19-24)
[2019-01-03 15:11] LABS: ABG PO2 >420 mmHg (83-108)
[2019-01-03] MEDS ORDERED: Potassium Replacement Protocol 1 EACH MISC MISCELLANE PRN (15:36)
[2019-01-03] MEDS ORDERED: Magnesium Replacement Protocol 1 EACH MISC MISCELLANE PRN (15:36)
[2019-01-03] MEDS ORDERED: ONDANSETRON 4 MG/2 ML VIAL IVP PRN (15:36)
[2019-01-03] MEDS ORDERED: BENZOCAINE/MENTHOL LOZENG 1 EACH LOZENGE MUCOUS MEM PRN (15:36)
[2019-01-03] MEDS ORDERED: Phosphorus Replacement Protoco 1 EACH MISC MISCELLANE PRN (15:36)
[2019-01-03] MEDS ORDERED: IPRATROPIUM-ALBUTEROL 3 ML NEB INHALATION PRN (15:36)
[2019-01-03] MEDS ORDERED: CALCIUM GLUCONATE 2 GM in SODIUM CHLORIDE 0.9% 100 ML IVPB PRN (15:36)
[2019-01-03] MEDS: NITROGLYCERIN-D5W PMX 50 MG in DEXTROSE/WATER 1 250ML.BAG IV SCH (16:15)
[2019-01-03 16:33] LABS: Glucose,Whole Blood 109 mg/dL (75-99)
[2019-01-03] MEDS: IPRATROPIUM-ALBUTEROL 3 ML NEB INHALATION SCH ×3 (16:38→19:45)
[2019-01-03] MEDS: ALBUMIN HUMAN 5% 250 ML in EMPTY BAG 1 BAG IVPB PRN ×2 (16:50→17:20)
[2019-01-03 16:57] LABS: Ionized Calcium 5.1 mg/dL (4.5-5.3)
[2019-01-03 16:57] LABS: ABG Base Excess -2.5 mmol/L; ABG HCO3 23 mmol/L (21-25); ABG PCO2 44 mmHg (35-45); ABG PH 7.34 (7.35-7.45); ABG PO2 >400 mmHg (83-108); ABG TCO2 25 mmol/L (19-24)
--- NOTE | 2019-01-03 17:04 | XR ---
EXAMINATION TYPE: XR chest 1V portable DATE OF EXAM: 01/03/2019 COMPARISON: 12/26/2018 HISTORY: Postop cardiac surgery TECHNIQUE: Single frontal view of the chest is obtained. FINDINGS: There is endotracheal tube with the tip 2.5 cm from the maryan. Lungs are clear of consoli dation. There is right jugular catheter with the tip in the main pulmonary artery. There is a. Nas[place] stric tube with the distal tip in the gastric fundus. There are drains over the heart. There is no he art failure. IMPRESSION: Limited exam. No pulmonary consolidation or heart failure.
[2019-01-03 17:05] LABS: ALT 56 U/L (9-52); AST 38 U/L (14-36); Albumin 2.9 g/dL (3.5-5.0); Alkaline Phosphatase 33 U/L (38-126); Anion Gap 3 mmol/L; Blood Urea Nitrogen 12 mg/dL (7-17); Calcium 8.5 mg/dL (8.4-10.2); Carbon Dioxide 24 mmol/L (22-30); Chloride 111 mmol/L (98-107); Glucose 103 mg/dL (74-99); Magnesium 2.5 mg/dL (1.6-2.3); Potassium 4.8 mmol/L (3.5-5.1); Sodium 138 mmol/L (137-145); Total Bilirubin 0.8 mg/dL (0.2-1.3); Total Protein 4.6 g/dL (6.3-8.2)
[2019-01-03 17:11] LABS: Basophils % (A) 0 %; Eosinophils # (A) 0.1 k/uL (0-0.7); Eosinophils % (A) 2 %; HCT 27.4 % (34.0-46.0); Lymphocytes # (A) 0.7 k/uL (1.0-4.8); Lymphocytes % (A) 14 %; MCH 28.3 pg (25.0-35.0); MCHC 30.9 g/dL (31.0-37.0); MCV 91.5 fL (80.0-100.0); Mean Platelet Volume 10.3; Monocytes # (A) 0.4 k/uL (0-1.0); Monocytes % (A) 7 %; Neutrophils % (A) 76 %; RBC 2.99 m/uL (3.80-5.40); RDW 14.2 % (11.5-15.5); WBC 5.3 k/uL (3.8-10.6)
[2019-01-03 17:12] LABS: HGB 8.5 gm/dL (11.4-16.0); Platelet Count 64 k/uL (150-450)
[2019-01-03 17:16] LABS: Partial Thromboplastin Time 81.9 sec (22.0-30.0)
[2019-01-03 17:22] LABS: INR 5.8 (<1.2)
[2019-01-03 17:25] LABS: Glucose,Whole Blood 115 mg/dL (75-99)
[2019-01-03] MEDS: LACTATED RINGERS 1,000 ML IV SCH (17:28)
[2019-01-03] MEDS: DEXMEDETOMIDINE/0.9% NACL(PMX) 400 MCG in EMPTY BAG 1 BAG IV SCH ×2 (17:31→21:54)
[2019-01-03 18:21] LABS: ABG Base Excess -4.6 mmol/L; ABG HCO3 22 mmol/L (21-25); ABG Oxygen Saturation 65.6 % (94-97); ABG PCO2 45 mmHg (35-45); ABG TCO2 23 mmol/L (19-24)
[2019-01-03] MEDS: ALBUMIN HUMAN 5% 250 ML in EMPTY BAG 1 BAG IVPB ONE ×2 (18:25→18:49)
[2019-01-03 18:26] LABS: ABG PO2 37 mmHg (83-108)
[2019-01-03] MEDS: ceFAZolin 3 GM in SODIUM CHLORIDE 0.9% 100 ML IVPB SCH ×2 (18:31→23:44)
[2019-01-03 18:45] LABS: Glucose,Whole Blood 162 mg/dL (75-99)
[2019-01-03] MEDS ORDERED: ALBUMIN HUMAN 5% 250 ML in EMPTY BAG 1 BAG IVPB ONE (18:48)
[2019-01-03] MEDS: CLEVIDIPINE BUTYRATE 25 MG in EMPTY BAG 1 BAG IV SCH (18:59)
[2019-01-03] MEDS: SODIUM CITRATE 250 ML IV SCH ×2 (19:01→19:02)
[2019-01-03] MEDS: ACETAMINOPHEN IV (For NPO) 1,000 MG in EMPTY BAG 1 BAG IVPB SCH ×2 (19:18→23:44)
--- NOTE | 2019-01-03 19:23 | P.PN ---
Subjective Progress Note Date: 01/03/19 (delayed charting seen at 1600) Principal diagnosis: chest pain Patient is a 63-year-old female to past medical history of diabetes, asthma, and multiple pulmonary emboli (on eliquis) who presented to the emergency department for chest and back pain. In the emergency department she underwent an extensive evaluation. Her troponin was slightly elevated at 0.063, EKG showed some T-wave inversion, platelets were slightly low at 137, and chest x-ray was unremarkable. She was admitted for further management of her acute coronary syndrome. She underwent a CT of the chest which was negative for PE or dissection. Troponin maxed at 4.38. Cardiology saw the patient. She underwent an echocardiogram which showed an ejection fraction of 50-55%. She underwent cardiac cath on 12/27 which showed severe triple vessel coronary artery disease involving the LAD, left circumflex, and RCA. Cardiothoracic surgery was consulted. Of note hemoglobin A1c is significantly elevated at 9.1. She was also found to have an elevated LDL at 133. On 01/03 she underwent triple vessel bypass with ROLDAN to LAD, SVG to OM1, and SVG to PDA. Patient seen and examined at bedside. Sedated on vent, no family present at bedside. Patient tolerated procedure without any acute events per nursing Objective - Vital Signs Vital signs: Vital Signs Temp 95 F L 01/03/19 18:40 Pulse 62 01/03/19 19:00 Resp 21 01/03/19 19:00 BP 161/70 01/03/19 06:31 Pulse Ox 99 01/03/19 19:00 Intake & Output 01/03/19 01/03/19 01/04/19 06:59 18:59 06:59 Intake Total 100 22.025 Output Total 0 1950 Balance 100 -1927.975 Weight 136.9 kg Intake: IV 100 4 Intake, IV Titration 18.025 Amount Dexmedetomidine/0.9% NaCl 18.025 (Pmx) 400 mcg In Empty Bag 1 bag @ Titrate IV . Q0M [facility] Rx#:[id number] Output: Urine 450 Stool 0 Estimated Blood Loss 1500 Other: Voiding Method Toilet # Voids 1 ABP, PAP, CO, CI - Last Documented Arterial Blood Pressure 141/66 Pulmonary Artery Pressure 35/22 Cardiac Output 4.6 Cardiac Index 2.0 - Exam General: Obese, no distress, non toxic, appears older than stated age Derm: Midline dressing in place without soak throughwarm, dry Mouth: no lip lesion, ET tube in place, lips dry with cracking Neck: supple, no thyroid enlargement Eyes: pupils pinpoint, no scleral edema, no lid lesions Cardiovascular: S1S2 reg, no murmur, positive posterior tibial pulse bilateral, Lungs: CTA bilateral, no rhonchi, no rales , no accessory muscle use, on vent, b/l CT, medicastinal tube, pacemaker wires Abdominal: soft, nontender to palpation, no guarding, no appreciable organomegaly Ext: b/l LE ALIZA wraps, no gross muscle atrophy, trace edema, no contractures Neuro: CN II-XI grossly intact, no focal neuro deficits Psych: Alert, oriented, appropriate affect - Labs CBC & Chem 7: 01/03/19 16:28 01/03/19 16:28 Labs: Abnormal Lab Results - Last 24 Hours (Table) 01/02/19 01/02/19 01/03/19 Range/Units 05:51 20:52 03:48 RBC (3.80-5.40) m/uL Hgb (11.4-16.0) gm/dL Hct (34.0-46.0) % MCHC (31.0-37.0) g/dL Plt Count 128 L (150-450) k/uL Lymphocytes # (1.0-4.8) k/uL PT (9.0-12.0) sec INR (<1.2) APTT (22.0-30.0) sec ABG pH (7.35-7.45) ABG pO2 (83-108) mmHg ABG Total CO2 (19-24) mmol/L ABG O2 Saturation (94-97) % ABG Hematocrit (34.0-46.0) % ABG Potassium (3.4-4.5) mmol/L ABG Ionized Calcium (4.5-5.3) mg/dL ABG Glucose (75-99) mg/dL Hemoglobin (11.4-16.0) gm/dL Chloride (98-107) mmol/L Glucose (74-99) mg/dL POC Glucose (mg/dL) 145 H (75-99) mg/dL Magnesium (1.6-2.3) mg/dL AST (14-36) U/L ALT (9-52) U/L Alkaline Phosphatase (38-126) U/L Total Protein (6.3-8.2) g/dL Albumin (3.5-5.0) g/dL Arterial Blood Potassium (3.4-4.5) mmol/L Arterial Blood Glucose (75-99) mg/dL Crossmatch See Detail 01/03/19 01/03/19 01/03/19 Range/Units 03:48 08:45 11:05 RBC (3.80-5.40) m/uL Hgb (11.4-16.0) gm/dL Hct (34.0-46.0) % MCHC (31.0-37.0) g/dL Plt Count (150-450) k/uL Lymphocytes # (1.0-4.8) k/uL PT (9.0-12.0) sec INR (<1.2) APTT (22.0-30.0) sec ABG pH (7.35-7.45) ABG pO2 258 H 123 H (83-108) mmHg ABG Total CO2 26 H 26 H (19-24) mmol/L ABG O2 Saturation 100.0 H 99.3 H (94-97) % ABG Hematocrit (34.0-46.0) % ABG Potassium (3.4-4.5) mmol/L ABG Ionized Calcium (4.5-5.3) mg/dL ABG Glucose 170 H 144 H (75-99) mg/dL Hemoglobin (11.4-16.0) gm/dL Chloride 109 H (98-107) mmol/L Glucose 131 H (74-99) mg/dL POC Glucose (mg/dL) (75-99) mg/dL Magnesium (1.6-2.3) mg/dL AST (14-36) U/L ALT (9-52) U/L Alkaline Phosphatase (38-126) U/L Total Protein (6.3-8.2) g/dL Albumin (3.5-5.0) g/dL Arterial Blood Potassium (3.4-4.5) mmol/L Arterial Blood Glucose 170 H 144 H (75-99) mg/dL Crossmatch 01/03/19 01/03/19 01/03/19 Range/Units 11:05 11:45 12:51 RBC (3.80-5.40) m/uL Hgb (11.4-16.0) gm/dL Hct (34.0-46.0) % MCHC (31.0-37.0) g/dL Plt Count (150-450) k/uL Lymphocytes # (1.0-4.8) k/uL PT (9.0-12.0) sec INR (<1.2) APTT (22.0-30.0) sec ABG pH (7.35-7.45) ABG pO2 >420 H 352 H 314 H (83-108) mmHg ABG Total CO2 26 H 27 H (19-24) mmol/L ABG O2 Saturation 100.0 H 100.0 H 100.0 H (94-97) % ABG Hematocrit 27 L 25 L 25 L (34.0-46.0) % ABG Potassium 4.7 H (3.4-4.5) mmol/L ABG Ionized Calcium 4.2 L (4.5-5.3) mg/dL ABG Glucose 110 H 190 H 183 H (75-99) mg/dL Hemoglobin 8.8 L 8.0 L 8.1 L (11.4-16.0) gm/dL Chloride (98-107) mmol/L Glucose (74-99) mg/dL POC Glucose (mg/dL) (75-99) mg/dL Magnesium (1.6-2.3) mg/dL AST (14-36) U/L ALT (9-52) U/L Alkaline Phosphatase (38-126) U/L Total Protein (6.3-8.2) g/dL Albumin (3.5-5.0) g/dL Arterial Blood Potassium 4.7 H (3.4-4.5) mmol/L Arterial Blood Glucose 110 H 190 H 183 H (75-99) mg/dL Crossmatch 01/03/19 01/03/19 01/03/19 Range/Units 13:29 14:30 15:00 RBC (3.80-5.40) m/uL Hgb (11.4-16.0) gm/dL Hct (34.0-46.0) % MCHC (31.0-37.0) g/dL Plt Count (150-450) k/uL Lymphocytes # (1.0-4.8) k/uL PT (9.0-12.0) sec INR (<1.2) APTT (22.0-30.0) sec ABG pH (7.35-7.45) ABG pO2 381 H 155 H (83-108) mmHg ABG Total CO2 26 H 25 H (19-24) mmol/L ABG O2 Saturation 100.0 H 99.8 H 98.8 H (94-97) % ABG Hematocrit 24 L 22 L 26 L (34.0-46.0) % ABG Potassium (3.4-4.5) mmol/L ABG Ionized Calcium 4.4 L (4.5-5.3) mg/dL ABG Glucose 210 H 142 H 117 H (75-99) mg/dL Hemoglobin 7.9 L 7.3 L 8.5 L (11.4-16.0) gm/dL Chloride (98-107) mmol/L Glucose (74-99) mg/dL POC Glucose (mg/dL) (75-99) mg/dL Magnesium (1.6-2.3) mg/dL AST (14-36) U/L ALT (9-52) U/L Alkaline Phosphatase (38-126) U/L Total Protein (6.3-8.2) g/dL Albumin (3.5-5.0) g/dL Arterial Blood Potassium (3.4-4.5) mmol/L Arterial Blood Glucose 210 H 142 H 117 H (75-99) mg/dL Crossmatch 01/03/19 01/03/19 01/03/19 Range/Units 16:28 16:28 16:28 RBC 2.99 L (3.80-5.40) m/uL Hgb 8.5 L D (11.4-16.0) gm/dL Hct 27.4 L (34.0-46.0) % MCHC 30.9 L (31.0-37.0) g/dL Plt Count 64 L (150-450) k/uL Lymphocytes # 0.7 L (1.0-4.8) k/uL PT 56.0 H (9.0-12.0) sec INR 5.8 H* (<1.2) APTT 81.9 H (22.0-30.0) sec ABG pH (7.35-7.45) ABG pO2 (83-108) mmHg ABG Total CO2 (19-24) mmol/L ABG O2 Saturation (94-97) % ABG Hematocrit (34.0-46.0) % ABG Potassium (3.4-4.5) mmol/L ABG Ionized Calcium (4.5-5.3) mg/dL ABG Glucose (75-99) mg/dL Hemoglobin (11.4-16.0) gm/dL Chloride 111 H (98-107) mmol/L Glucose 103 H (74-99) mg/dL POC Glucose (mg/dL) (75-99) mg/dL Magnesium 2.5 H (1.6-2.3) mg/dL AST 38 H (14-36) U/L ALT 56 H (9-52) U/L Alkaline Phosphatase 33 L (38-126) U/L Total Protein 4.6 L (6.3-8.2) g/dL Albumin 2.9 L (3.5-5.0) g/dL Arterial Blood Potassium (3.4-4.5) mmol/L Arterial Blood Glucose (75-99) mg/dL Crossmatch 01/03/19 01/03/19 01/03/19 Range/Units 16:32 16:57 17:19 RBC (3.80-5.40) m/uL Hgb (11.4-16.0) gm/dL Hct (34.0-46.0) % MCHC (31.0-37.0) g/dL Plt Count (150-450) k/uL Lymphocytes # (1.0-4.8) k/uL PT (9.0-12.0) sec INR (<1.2) APTT (22.0-30.0) sec ABG pH 7.34 L (7.35-7.45) ABG pO2 >400 H (83-108) mmHg ABG Total CO2 25 H (19-24) mmol/L ABG O2 Saturation 100.0 H (94-97) % ABG Hematocrit (34.0-46.0) % ABG Potassium (3.4-4.5) mmol/L ABG Ionized Calcium (4.5-5.3) mg/dL ABG Glucose (75-99) mg/dL Hemoglobin (11.4-16.0) gm/dL Chloride (98-107) mmol/L Glucose (74-99) mg/dL POC Glucose (mg/dL) 109 H 115 H (75-99) mg/dL Magnesium (1.6-2.3) mg/dL AST (14-36) U/L ALT (9-52) U/L Alkaline Phosphatase (38-126) U/L Total Protein (6.3-8.2) g/dL Albumin (3.5-5.0) g/dL Arterial Blood Potassium (3.4-4.5) mmol/L Arterial Blood Glucose (75-99) mg/dL Crossmatch 01/03/19 01/03/19 Range/Units 18:21 18:42 RBC (3.80-5.40) m/uL Hgb (11.4-16.0) gm/dL Hct (34.0-46.0) % MCHC (31.0-37.0) g/dL Plt Count (150-450) k/uL Lymphocytes # (1.0-4.8) k/uL PT (9.0-12.0) sec INR (<1.2) APTT (22.0-30.0) sec ABG pH 7.30 L (7.35-7.45) ABG pO2 37 L* (83-108) mmHg ABG Total CO2 (19-24) mmol/L ABG O2 Saturation 65.6 L (94-97) % ABG Hematocrit (34.0-46.0) % ABG Potassium (3.4-4.5) mmol/L ABG Ionized Calcium (4.5-5.3) mg/dL ABG Glucose (75-99) mg/dL Hemoglobin (11.4-16.0) gm/dL Chloride (98-107) mmol/L Glucose (74-99) mg/dL POC Glucose (mg/dL) 162 H (75-99) mg/dL Magnesium (1.6-2.3) mg/dL AST (14-36) U/L ALT (9-52) U/L Alkaline Phosphatase (38-126) U/L Total Protein (6.3-8.2) g/dL Albumin (3.5-5.0) g/dL Arterial Blood Potassium (3.4-4.5) mmol/L Arterial Blood Glucose (75-99) mg/dL Crossmatch Assessment and Plan Assessment: Non-STEMI with severe triple vessel disease s/p CABG - management per CVT - currently on vent - Continue with ASA, plavix, statin - Precede, nitro gtt, albumin Diabetes mellitus type 2 with hyperglycemia -A1c 9.1 -likely will need insulin gtt, follow blood sugars closely -Anticipate that patient will need long-acting insulin on discharge and she was on Januvia and metformin at home and her A1c is 9.1 and she will be newly status post CABG -outreach educator to see patient Acute blood loss anemia, and anticipate outcome of surgery - follow HgB closely - transfuse as needed HTN, improved control - off all meds at this time post-op - follow BP Thrombocytopenia, mild stable -Undetermined cause, HIT AB negative -Follow CBC HLD - statin therapy Morbid obesity with BMI 50.1 -Outpatient structured weight loss History of multiple pulmonary embolism -hold eliquis due to procedure now with low plt at 64 - on arixtra Hyperkalemia, resolved Hypomagnesemia, resolved DVT prophylaxis: arixtra Discussed with: Patient, nursing, Christopher Lucas NP Anticipated discharge: 3-[address]: home with home health vs SNF A total of 30 minutes was spent on the care of this complex patient more than 5 0% of the time was spent in counseling and care coordination.
[2019-01-03] MEDS: MILRINONE-D5W PMX 20 MG in DEXTROSE/WATER 1 100ML.BAG IV SCH (20:16)
[2019-01-03 20:18] LABS: Glucose,Whole Blood 205 mg/dL (75-99)
[2019-01-03] MEDS: CLOPIDOGREL 75 MG TAB PO SCH (20:19)
[2019-01-03] MEDS: INSULIN REGULAR 100 UNIT in SODIUM CHLORIDE 0.9% 100 ML IV SCH (20:36)
[2019-01-03 20:43] LABS: Basophils % (A) 0 %; Eosinophils # (A) 0.1 k/uL (0-0.7); Eosinophils % (A) 1 %; HCT 27.4 % (34.0-46.0); HGB 8.5 gm/dL (11.4-16.0); Lymphocytes # (A) 0.6 k/uL (1.0-4.8); Lymphocytes % (A) 11 %; MCH 28.6 pg (25.0-35.0); MCV 92.3 fL (80.0-100.0); Mean Platelet Volume 10.3; Monocytes # (A) 0.2 k/uL (0-1.0); Monocytes % (A) 4 %; Neutrophils # (A) 4.2 k/uL (1.3-7.7); Neutrophils % (A) 83 %; RBC 2.97 m/uL (3.80-5.40); RDW 14.3 % (11.5-15.5); WBC 5.1 k/uL (3.8-10.6)
[2019-01-03 20:44] LABS: Platelet Count 59 k/uL (150-450)
[2019-01-03 21:16] LABS: Glucose,Whole Blood 205 mg/dL (75-99)
[2019-01-03 21:21] LABS: ABG Base Excess -4.7 mmol/L; ABG HCO3 21 mmol/L (21-25); ABG Oxygen Saturation 99.1 % (94-97); ABG PCO2 39 mmHg (35-45); ABG PH 7.34 (7.35-7.45); ABG PO2 134 mmHg (83-108); ABG TCO2 22 mmol/L (19-24)
[2019-01-03] MEDS: FONDAPARINUX 2.5 MG/0.5 ML SYRINGE SQ SCH (21:45)
[2019-01-03 22:19] LABS: Glucose,Whole Blood 194 mg/dL (75-99)
[2019-01-03 23:17] LABS: Glucose,Whole Blood 175 mg/dL (75-99)
--- NOTE | 2019-01-03 23:41 | PCN ---
PROCEDURE NOTE DATE OF PROCEDURE: 01/03/2019 SURGEON: Dr. William Bowers. PROCEDURE: Intraoperative graft flow measurements using the [employer] system. INDICATION FOR THE PROCEDURE: Patient is a 63-year-old lady who underwent quadruple coronary artery bypass grafting, and the graft flow measurement is performed for advanced quality engineer of the constructed graft. After completing all distal and proximal anastomoses and after weaning from cardiopulmonary bypass with good hemodynamics, a 5 mm probe was selected and the flow into the vein going sequentially to the 2 distal tributaries of the right coronary artery was measured. The flow was 67 mL/minute, pulsatility index of 3.2, and diastolic filling of 55%, showing excellent graft. The flow into the vein graft going to the obtuse marginal artery was 34 mL/minute, pulsatility index of 4.1 and diastolic filling of 40%, showing a good functioning graft. The flow into the left internal mammary artery to the left anterior descending artery was 43 mL/minute, pulsatility index of 1.9, diastolic filling of 65%, showing an excellent graft. With that, procedure was terminated. MMODL / IJN: [id number] /
--- NOTE | 2019-01-04 00:05 | OP ---
OPERATIVE REPORT DATE OF SURGERY: 01/03/2019. SURGEON: Dr. William Bowers. ASSISTANTS: 1. MICKIE Schneider. 2. Kamari Blancas. PREOPERATIVE DIAGNOSES: 1. Triple-vessel coronary artery disease with pyk-XE-myncgemzi myocardial infarction, preserved left ventricular function. 2. Morbid obesity. 3. Hyperlipidemia. 4. Hypertension. 5. Diabetes mellitus. 6. History of pulmonary embolism. 7. Clinical suspicion of HIT. POSTOPERATIVE DIAGNOSES: 1. Triple-vessel coronary artery disease with rlz-TV-vvgxtxv-elevation myocardial infarction, preserved left ventricular function. 2. Morbid obesity. 3. Hyperlipidemia. 4. Hypertension. 5. Diabetes mellitus. 6. History of pulmonary embolism. 7. Clinical suspicion of HIT. PROCEDURES: 1. Quadruple coronary artery bypass grafting using the left internal mammary artery to the left anterior descending artery, reverse saphenous vein graft from the aorta to the first obtuse marginal artery, reverse saphenous vein graft from the aorta to the posterior descending artery in a pkel-qe-rokw fashion, then to the left ventricular branch of the right coronary artery in an end-to-side fashion. 2. Endoscopic harvesting of the left greater saphenous vein. 3. Sternal plating using the [employer] system along with [place] cables. 4. Transesophageal echocardiogram and epiaortic scanning. 5. Graft flow measurements using the [employer] system. INDICATION FOR SURGERY: Patient is a 63-year-old lady with the above comorbidities who presented with chest pain, was ruled in for loj-BK-mcysxgunl myocardial infarction. Cardiac catheterization showed significant triple-vessel coronary artery disease with left main disease. Patient was kept in the hospital until her surgery. She was on heparin for around 4 days and there was a gradual drop in her platelets. Unfortunately the HIT testing would not be available for several days. For that reason, we are proceeding today with coronary artery bypass grafting using alternative anticoagulation with bivalirudin (Angiomax). The SDS risk was discussed with her. She understood it and agreed to proceed. PROCEDURE DESCRIPTION: With the patient in supine position, right internal jugular [place]-Meg catheter and right radial arterial line were placed. The patient had normal PA pressure and her cardiac index was 2.3. Her PA pressure was 36/17. Subsequently she received 3 grams of cefazolin intravenously. A Arellano catheter was inserted. The chest, abdomen and both lower extremities and the left upper extremity were prepped and draped using ChloraPrep. Ioban was used to cover the skin. Transesophageal echocardiogram confirmed the preoperative finding of preserved systolic function, moderate left ventricular hypertrophy, and no significant valvular abnormalities. Midline sternotomy was performed and the patient had a very thick subcutaneous layer. The bone was mildly osteoporotic. The left hemisternum was elevated and the left internal mammary artery was harvested in a somewhat skeletonized fashion. She was left connected, as that was a case where we were going to be using an alternative strategy to heparin. The left pleura was intentionally opened in this process and was drained with a 19-[place] Oswald drain. The right pleura remained grossly intact. In the same setting, the left greater saphenous vein was harvested endoscopically from groin to above ankle level. The branches were tied. The leg incisions were closed over a drain. Mediastinal fat was transected between 2 ties and epiaortic scanning revealed no protruding atheroma in the ascending aorta. Pericardium was opened in an inverted T- fashion and a pericardial cradle was created. Findings included normal soft aorta and normal-sized heart. The patient was loaded with 1 mg/kg of bivalirudin and we started the drip at 2.5 mg/kg per hour. The ACT was around 450. After placement of respective pledgeted pursestrings, we proceeded with aortic cannulation using a 21-[place] Soft flow cannula and venous cannulation using a dual-stage cannula in the right atrial appendage. Antegrade as well as retrograde cardioplegia catheters were placed. No cardiotomy suckers were used, but everything was sucked into the [employer] system that was anticoagulated with sodium citrate. Cardiopulmonary bypass was initiated. With the heart empty and beating, we looked at the target and it appeared that the PDA, the left ventricular branch of the right coronary artery, the first obtuse marginal artery and the left anterior descending artery were suitable for bypass. The aorta was clamped, and during aortic clamping myocardial protection was achieved with initial dose of antegrade cold blood cardioplegia followed by a dose of retrograde cold blood cardioplegia. All subsequent doses were given retrograde at 15- minute intervals. To mention that every time we gave a dose we flushed the retrograde cardioplegia system with cardioplegia without blood. The first distal anastomosis was in a segment of vein and the 1.75 mm thin- walled left ventricular branch of the right coronary artery using Prolene 7-0 in continuous fashion. That same vein was anastomosed in a lelh-pq-zvmw fashion, thang- shaped, to the 1.25 mm thin-walled posterior descending artery using Prolene 7-0 in continuous fashion. We did not use any blood to flush any of the veins or the graft at any point. The third distal anastomosis was between another segment of vein and the 1.5 mm thin- walled proximal aspect of the first obtuse marginal artery using Prolene 7-0 in continuous fashion. At this point I clipped the mammary artery distally and transected it. It had an excellent pulsatile flow in it and was around 1.75 mm in diameter. It was anastomosed as the fourth and last distal anastomosis to the distal aspect of the LAD, which was around 1.25 mm in diameter, thin-walled, using Prolene 7-0 in continuous fashion. Satisfied with the distal anastomosis, rewarming was started as we punched out 2 buttons of the ascending aorta and performed the 2 proximal anastomoses of the 2 vein grafts. De-airing maneuvers were done before we unclamped the aorta. At this point the bivalirudin infusion was stopped. After a period of reperfusion, we were able to wean off cardiopulmonary bypass without the need of any inotropic or vasopressor support. SETH showed good left ventricular function. Two Oswald drains were placed, one substernal and one in the posterior pericardium. Decannulation followed and the venous cannulation site required reinforcement with a running 4-0 Prolene. Hemostasis was reasonable. Pericardial fat was approximated and covered the graft to the right side. In view of the patient's obesity, there was no way to pass temporary wires through her subcutaneous layer to emerge. After ensuring adequate hemostasis, despite an ACT of about 300 and with good hemodynamics, we proceeded to closing the sternum after interposing Fibrillar between the sternal edges. We used figure-of-8 titanium cables, as the patient has NICKEL ALLERGY, for the manubrium reinforced by a V plate with four 16 mm screws, and we used two blunt [place] titanium cables for the body of the sternum, reinforced by a ladder plate from [employer] with 14 screws. Thorough irrigation with cefazolin was performed before we closed the fascia for the lower part, starting with 2 interrupted figure-of- eight, then a running suture and some interrupted suture for the subcutaneous tissue and then external layers and the rest in layers. Skin glue was applied. Patient did not receive any blood bank product. She received around 600 mL of Cell Saver blood. She was transferred to the ICU in stable condition with a cardiac index of 2.2, normal EKG, PA pressure of 27/12, mean artery pressure of 68 on low-dose nitroglycerin. MMODL / IJN: [id number] / [facility]
[2019-01-04 00:06] LABS: Glucose,Whole Blood 155 mg/dL (75-99)
[2019-01-04 01:06] LABS: Glucose,Whole Blood 164 mg/dL (75-99)
[2019-01-04 02:26] LABS: Glucose,Whole Blood 131 mg/dL (75-99)
[2019-01-04 03:08] LABS: Glucose,Whole Blood 114 mg/dL (75-99)
[2019-01-04] MEDS: DEXMEDETOMIDINE/0.9% NACL(PMX) 400 MCG in EMPTY BAG 1 BAG IV SCH (03:13)
[2019-01-04 04:21] LABS: Glucose,Whole Blood 135 mg/dL (75-99)
[2019-01-04] MEDS: NITROGLYCERIN-D5W PMX 50 MG in DEXTROSE/WATER 1 250ML.BAG IV SCH (04:23)
[2019-01-04] MEDS: CLEVIDIPINE BUTYRATE 25 MG in EMPTY BAG 1 BAG IV SCH (04:23)
[2019-01-04 04:24] LABS: Basophils % (A) 0 %; Eosinophils # (A) 0.1 k/uL (0-0.7); Eosinophils % (A) 1 %; HCT 27.5 % (34.0-46.0); HGB 9.2 gm/dL (11.4-16.0); Lymphocytes # (A) 0.7 k/uL (1.0-4.8); Lymphocytes % (A) 14 %; MCHC 33.4 g/dL (31.0-37.0); Mean Platelet Volume 11.4; Monocytes # (A) 0.4 k/uL (0-1.0); Monocytes % (A) 7 %; Neutrophils # (A) 4.3 k/uL (1.3-7.7); Neutrophils % (A) 78 %; RBC 3.06 m/uL (3.80-5.40); RDW 14.2 % (11.5-15.5); WBC 5.5 k/uL (3.8-10.6)
[2019-01-04 04:25] LABS: Platelet Count 55 k/uL (150-450)
[2019-01-04 04:33] LABS: INR 1.2 (<1.2); Partial Thromboplastin Time 31.7 sec (22.0-30.0); Prothrombin Time 12.1 sec (9.0-12.0)
[2019-01-04 04:49] LABS: Ionized Calcium 5.1 mg/dL (4.5-5.3)
[2019-01-04 04:56] LABS: ALT 55 U/L (9-52); AST 51 U/L (14-36); Albumin 3.5 g/dL (3.5-5.0); Alkaline Phosphatase 36 U/L (38-126); Anion Gap 4 mmol/L; Blood Urea Nitrogen 12 mg/dL (7-17); Calcium 8.7 mg/dL (8.4-10.2); Carbon Dioxide 23 mmol/L (22-30); Chloride 111 mmol/L (98-107); Glucose 111 mg/dL (74-99); Magnesium 2.2 mg/dL (1.6-2.3); Potassium 4.8 mmol/L (3.5-5.1); Sodium 138 mmol/L (137-145); Total Bilirubin 0.9 mg/dL (0.2-1.3)
[2019-01-04 05:24] LABS: Glucose,Whole Blood 121 mg/dL (75-99)
[2019-01-04] MEDS ORDERED: HYDROcodone/APAP 5-325MG 1 EACH TAB PO PRN (05:59)
[2019-01-04 06:12] LABS: Glucose,Whole Blood 121 mg/dL (75-99)
[2019-01-04] MEDS: ALBUMIN HUMAN 5% 250 ML in EMPTY BAG 1 BAG IVPB PRN ×2 (06:20→06:29)
[2019-01-04] MEDS: IPRATROPIUM-ALBUTEROL 3 ML NEB INHALATION SCH ×4 (07:02→21:08)
--- NOTE | 2019-01-04 07:14 | XR ---
EXAMINATION TYPE: XR chest 1V portable DATE OF EXAM: 01/04/2019 Comparison: 01/03/2019 Clinical History: 63-year-old female Post Operative Cardiac Surgery Findings: Median sternotomy wires and plate and screw fixation is demonstrated. Mediastinal drains. Left basila r chest tube. Post-CABG clips in the mediastinum. Right IJ Allen-Meg catheter with tip at the distal main pulmonary outflow tract. Interval extubation and removal of NG tube. Heart borderline enlarged. Mild diffuse interstitial prominence. Patchy bibasilar densities and trace left effusion. No appreciable pneumothorax. Impression: Correlate for mild pulmonary vascular congestion. Trace left effusion with patchy bibasilar atelectas is.
[2019-01-04 07:16] LABS: Glucose,Whole Blood 99 mg/dL (75-99)
--- NOTE | 2019-01-04 08:13 | PN ---
PROGRESS NOTE DATE OF SERVICE: January 04, 2019 This is a patient who is 63 years of age. The patient is postop day #1 status post 4- vessel bypass grafting done by Dr. Bowers. The patient was successfully extubated 5 hours after leaving the operating room or within that 6 hour window that we are trying to achieve. She is currently on 4 L of nasal cannula. The patient is doing relatively well. No major complaints. She is a little lethargic and sleepy. She does have pain in the chest area from the recent surgery. Other than that, she has had a pretty much uneventful night. The patient was seen in consultation by my partner on December 31 and they did not see the patient subsequent to that in anticipation of the patient having surgery yesterday. Current vital signs include a temperature which is 97, heart rate which is 67 beats per minute, respiratory rate 17, blood pressure 105/69, and saturation of 100% on 4 L. She appears in no acute distress. She is a little lethargic and sleepy. She does arouse. HEENT: Examination is grossly unremarkable. Nasal O2 noted. NECK: Supple. Full range of motion. No adenopathy. CARDIOVASCULAR: Examination reveals a regular rhythm and rate. Heart sounds are distant. LUNGS: Reveal a few scattered rhonchi. No wheezes or crackles. She does not take deep breaths. ABDOMEN: Obese. Bowel sounds are not noted. EXTREMITIES: Are intact. No edema. SKIN: Without rash. NEUROLOGIC: Examination is brief but nonfocal. Labs are reviewed. White count 5.5, hemoglobin 9.2, hematocrit 27.5, platelet count is 55,000. PT 12.1, INR 1.2, PTT 31.7. Sodium 138, potassium 4.8, chloride 111, CO2 is 23. BUN and creatinine were 12 and 0.63. AST 51, ALT 55, alkaline phosphatase 36. Total protein 5. A chest x-ray from this morning shows postsurgical changes. In addition, mediastinal and pleural drains are noted. PA catheter is noted. The patient has underlying cardiomegaly and some mild interstitial edema. There may be small effusions and some basilar atelectasis. Microbiology is all currently negative. Labs have been reviewed. Medications are reviewed. ASSESSMENT: 1. Postoperative day #1, status post 4-vessel bypass grafting. 2. Routine postoperative ventilator management, resolved. 3. Acute ydf-DZ-xarghxl elevation myocardial infarction. 4. Previous history of pulmonary embolism, on Eliquis. 5. History of chronic bronchial asthma, which is mild intermittent. 6. History of benign essential hypertension. 7. Hyperlipidemia. 8. Poorly controlled diabetes mellitus. 9. Morbid obesity. 10.Anxiety. 11.Gastroesophageal reflux disease. PLAN: Despite our concerns, the patient did well postsurgically and was extubated within the 6-hour window. She is currently on O2 at 4 L. She is a little lethargic and sleepy but does arouse appropriately. We will continue with deep breathing coughing clearing of secretions and hourly use of the incentive spirometer. We will also titrate oxygen down as long as her saturations remain good. Additional recommendations and suggestions are forthcoming. Prognosis is guarded. MMODL / IJN: [id number] /
[2019-01-04] MEDS: HYDROcodone/APAP 5-325MG 1 EACH TAB PO PRN ×4 (08:27→21:09)
[2019-01-04] MEDS: PANTOPRAZOLE 40 MG TABLET PO SCH (08:30)
[2019-01-04] MEDS: ceFAZolin 3 GM in SODIUM CHLORIDE 0.9% 100 ML IVPB SCH ×3 (08:31→22:49)
[2019-01-04] MEDS: ATORVASTATIN 40 MG TAB PO SCH (08:31)
[2019-01-04] MEDS: MILRINONE-D5W PMX 20 MG in DEXTROSE/WATER 1 100ML.BAG IV SCH ×2 (08:31→19:32)
[2019-01-04] MEDS: METOPROLOL TARTRATE 12.5 MG TAB PO SCH ×2 (08:32→21:10)
[2019-01-04] MEDS: CLOPIDOGREL 75 MG TAB PO SCH (08:32)
--- NOTE | 2019-01-04 08:37 | PN ---
PROGRESS NOTE Mrs. Lua is a 63-year-old female who underwent coronary artery bypass grafting yesterday by Dr. Bowers. She presented with [id number] elevation myocardial infarction, received ROLDAN to LAD, saphenous vein graft to the first obtuse marginal branch, saphenous vein graft to the PDA and a PLV. She is extubated, sitting up in the chair, feeling well. Her breathing has been stable. She is denying any dizziness or palpitation. She is on low-dose Primacor. Hemodynamically otherwise, she is stable. She continues to be at this time on aspirin once a day, Lipitor 40 mg daily, Plavix 75 mg daily, metoprolol tartrate 12.5 mg twice a day in addition to the Milrinone. PHYSICAL EXAMINATION: Blood pressure running in the 90s to 100 with the heart rate in the 50s. LUNGS: A few crackles at the bases. HEART: Regular rate and rhythm. S1, S2. No S3. No rub appreciated. ABDOMEN: Soft, obese, nontender. EXTREMITIES: No significant edema. LAB DATA: Lab data revealed BUN and creatinine 12 and 0.63. Hemoglobin of 9.2. Her chest x-ray revealed mild congestion. IMPRESSION: 1. Status post coronary artery bypass grafting. 2. History of hypertension. 3. Hyperlipidemia. 4. Diabetes mellitus. 5. Prior history of pulmonary embolism. RECOMMENDATION: From the cardiac standpoint, will continue present therapy. Will wean the IV Milrinone. Continue incentive spirometry. Increase her level activity and depending on her progress, further recommendation will be made. MMODL / IJN: [id number] /
[2019-01-04] MEDS: ASPIRIN 81 MG PO SCH (08:40)
[2019-01-04] MEDS ORDERED: BISACODYL 10 MG SUPP RECTAL PRN (09:00)
[2019-01-04] MEDS ORDERED: CLOPIDOGREL 75 MG TAB PO SCH (09:00)
[2019-01-04] MEDS ORDERED: MAGNESIUM HYDROXIDE 2,400 MG/10 ML CUP PO PRN (09:00)
[2019-01-04] MEDS ORDERED: PANTOPRAZOLE 40 MG/10 ML VIAL IVP SCH (09:00)
[2019-01-04] MEDS ORDERED: ASPIRIN 81 MG PO SCH (09:00)
[2019-01-04] MEDS ORDERED: ASPIRIN 325 MG TAB PO SCH (09:00)
[2019-01-04] MEDS ORDERED: FONDAPARINUX 2.5 MG/0.5 ML SYRINGE SQ SCH (09:00)
[2019-01-04] MEDS ORDERED: FUROSEMIDE 10 MG/ML 2 ML VIAL IV STA (09:13)
[2019-01-04 09:18] LABS: Glucose,Whole Blood 129 mg/dL (75-99)
--- NOTE | 2019-01-04 09:54 | P.PN ---
Subjective Progress Note Date: 01/04/19 Principal diagnosis: Non-Q-wave myocardial infarction this admission, severe triple-vessel coronary artery disease with a 50% left main coronary artery stenosis, preserved left debbie tricular function, hyperlipidemia untreated, hypertension, history of bilateral pulmonary embolism on Eliquis, uncontrolled diabetes mellitus type 2 with a preoperative hemoglobin A1c of 9.1%, osteoarthritis, history of basal cell skin cancer to her left face, GERD, history of urinary stress incontinence, asthma, morbid obesity and anxiety. POD #1 quadruple coronary artery bypass grafting using the left internal mammary artery to the left anterior descending coronary artery, a reverse greater s aphenous vein graft from the aorta to the first obtuse marginal coronary artery, a reverse greater saphenous vein graft from the aorta to the posterior descending coronary artery in a [id number] fashion, then the left ventricular branch to the right coronary artery in an end-to-side fashion. Endoscopic harvesting of the left greater saphenous vein. Sternal plating using the [employer] system along with the [employer] cables. Intraoperative transesophageal echocardiogram, epi-aortic scanning and graft flow measurements using the [facility] system. Postoperative acute blood loss anemia, an expected outcome due to cardiopulmonary bypass and hemodilution. Postoperative thrombocytopenia, an expected outcome due to her preoperative thrombocytopenia. Patient is currently sitting up to the bedside chair in the intensive care unit. She is in no acute distress. She is complaining of surgical type pain rating her pain 6 out of 10 on the pain scale to her chest tube insertion sites. Denies any complaints of shortness of breath. Remains hemodynamically stable although she is currently on Primacor drip at 0.2 mcg/kg/m. She was successfully extubated within 6 hours postoperatively and is currently on 2 L nasal cannula with oxygen saturations 97%. Achieving 500 mL on her incentive spirometry with much encouragement. Right IJ Cordis with Prospect-Meg catheter in place, current cardiac output 4.4, cardia 1.9, PA pressures 28/13, CVP 9 mmHg. Objective - Vital Signs Vital signs: Vital Signs Temp 95 F L 01/03/19 18:40 Pulse 60 01/04/19 07:23 Resp 17 01/04/19 07:00 BP 80/34 01/04/19 07:00 Pulse Ox 100 01/04/19 07:00 Intake & Output 01/03/19 01/04/19 01/04/19 18:59 06:59 18:59 Intake Total 636.920 0314.157 164.333 Output Total 2312 1389 40 Balance -1860.885 2272.157 124.333 Weight 147 kg Intake: IV 122 1578 59 0.9 170 ACETAMINOPHEN IV (For NPO 100 ) 1,000 mg In Empty Bag 1 bag @ 400 mls/hr IVPB Q6HR [facility] Rx#:[id number] Albumin Human 25% 50 ml 500 In Empty Bag 1 bag @ 100 mls/hr IVPB ONCE ONE Rx#: [id number] LR 100 600 50 NS Pressure Bag 18 108 9 ceFAZolin 3 gm In Sodium 100 Chloride 0.9% 100 ml @ 100 mls/hr IVPB Q8HR [facility] Rx#:[id number] Intake, IV Titration 768.025 688.157 105.333 Amount ACETAMINOPHEN IV (For NPO 100 ) 1,000 mg In Empty Bag 1 bag @ 400 mls/hr IVPB Q6HR [facility] Rx#:[id number] Albumin Human 5% 250 ml 750 250 In Empty Bag 1 bag @ 250 mls/hr IVPB ONCE ONE Rx#: [id number] Dexmedetomidine/0.9% NaCl 18.025 203.074 (Pmx) 400 mcg In Empty Bag 1 bag @ Titrate IV . Q0M [facility] Rx#:[id number] Insulin Regular 100 unit 35.083 5.333 In Sodium Chloride 0.9% 100 ml @ Titrate IV .Q0M [facility] Rx#:[id number] Milrinone-D5w Pmx 20 mg 100 In Dextrose/Water 1 100ml .bag @ 0.2 MCG/KG/MIN 8. 214 mls/hr IV .[id number] [facility] Rx#:[id number] ceFAZolin 3 gm In Sodium 100 Chloride 0.9% 100 ml @ 100 mls/hr IVPB Q8HR [facility] Rx#:[id number] Oral 150 Output: Chest Tube Drainage 362 404 20 Chest Tube Left 186 102 10 Mediastinal Chest Tube Right Pleural/ 176 302 10 Mediastinal Drainage 25 Left Lower Calf 25 Urine 450 960 20 Estimated Blood Loss 1500 Other: Voiding Method Indwelling Catheter Indwelling Catheter # Voids 70 120 ABP, PAP, CO, CI - Last Documented Arterial Blood Pressure 79/30 Pulmonary Artery Pressure 18/7 Cardiac Output 4.4 Cardiac Index 1.9 - Constitutional General appearance: Present: cooperative, morbidly obese, no acute distress - Respiratory Details: Lung sounds diminished bilateral bases. Respirations are symmetrical and nonlabored. Oxygen saturation are 97% on 2 L nasal cannula. Achieving 500 mL on her incentive spirometry. Mediastinal and right pleural chest tubes in place to low continuous wall suction -20 cm H2O. No air leak is present. Draining thin serosanguineous drainage. Mediastinal chest tubes drained 70 mL output in the last 8 hours, 300 mL output since surgery. Right pleural chest tube drained 150 mL output in the last 8 hours, 490 mL output since surgery. - Cardiovascular Details: Regular rhythm and rate. S1 and S2 present, negative for S3, gallop or murmur. Sternum is stable. Bedside telemetry showing sinus bradycardia heart rate 58. Heart hugger is in place and she is demonstrating appropriate use. Surgical chest binder in place. Knee-high SARAH hose and sequential compression devices in place to bilateral lower extremities. Right IJ Cordis with Prospect-Meg catheter in place. Cardiac output 4.4, cardiac index 1.9, PA pressures 28/13, CVP 9 mmHg. Primacor at 0.2 mcg/kg/m. Right radial arterial line in place and functioning. - Gastrointestinal Gastrointestinal Comment(s): Abdomen is soft, nontender and nondistended. Hypoactive bowel sounds all 4 abdominal quadrants. Obese. No guarding or rigidity. No organomegaly. Tolerating oral intake. - Genitourinary Genitourinary Comment(s): Arellano catheter for accurate I&O. Draining clear yellow urine. 830 mL output in the last 8 hours. - Integumentary Integumentary Comment(s): Skin is warm and dry. No clubbing or cyanosis is present. Midline sternal incision is clean, dry and approximated. Sternal dressing is clean, dry and intact. Left lower extremity EVH site is clean, dry and approximated. No drainage or redness is present. - Neurologic Neurologic: Present: CNII-XII intact - Musculoskeletal Musculoskeletal: Present: gait normal, generalized weakness, strength equal bilaterally - Psychiatric Psychiatric: Present: A&O x's 3, appropriate affect, intact judgment & insight - Allied health notes Allied health notes reviewed: nursing - Labs CBC & Chem 7: 01/04/19 04:00 01/04/19 04:00 Labs: Abnormal Lab Results - Last 24 Hours (Table) 01/02/19 01/03/19 01/03/19 Range/Units 05:51 08:45 11:05 RBC (3.80-5.40) m/uL Hgb (11.4-16.0) gm/dL Hct (34.0-46.0) % MCHC (31.0-37.0) g/dL Plt Count (150-450) k/uL Lymphocytes # (1.0-4.8) k/uL PT (9.0-12.0) sec INR (<1.2) APTT (22.0-30.0) sec ABG pH (7.35-7.45) ABG pO2 258 H 123 H (83-108) mmHg ABG Total CO2 26 H 26 H (19-24) mmol/L ABG O2 Saturation 100.0 H 99.3 H (94-97) % ABG Hematocrit (34.0-46.0) % ABG Potassium (3.4-4.5) mmol/L ABG Ionized Calcium (4.5-5.3) mg/dL ABG Glucose 170 H 144 H (75-99) mg/dL Hemoglobin (11.4-16.0) gm/dL Chloride (98-107) mmol/L Glucose (74-99) mg/dL POC Glucose (mg/dL) (75-99) mg/dL Magnesium (1.6-2.3) mg/dL AST (14-36) U/L ALT (9-52) U/L Alkaline Phosphatase (38-126) U/L Total Protein (6.3-8.2) g/dL Albumin (3.5-5.0) g/dL Arterial Blood Potassium (3.4-4.5) mmol/L Arterial Blood Glucose 170 H 144 H (75-99) mg/dL Crossmatch See Detail 01/03/19 01/03/19 01/03/19 Range/Units 11:05 11:45 12:51 RBC (3.80-5.40) m/uL Hgb (11.4-16.0) gm/dL Hct (34.0-46.0) % MCHC (31.0-37.0) g/dL Plt Count (150-450) k/uL Lymphocytes # (1.0-4.8) k/uL PT (9.0-12.0) sec INR (<1.2) APTT (22.0-30.0) sec ABG pH (7.35-7.45) ABG pO2 >420 H 352 H 314 H (83-108) mmHg ABG Total CO2 26 H 27 H (19-24) mmol/L ABG O2 Saturation 100.0 H 100.0 H 100.0 H (94-97) % ABG Hematocrit 27 L 25 L 25 L (34.0-46.0) % ABG Potassium 4.7 H (3.4-4.5) mmol/L ABG Ionized Calcium 4.2 L (4.5-5.3) mg/dL ABG Glucose 110 H 190 H 183 H (75-99) mg/dL Hemoglobin 8.8 L 8.0 L 8.1 L (11.4-16.0) gm/dL Chloride (98-107) mmol/L Glucose (74-99) mg/dL POC Glucose (mg/dL) (75-99) mg/dL Magnesium (1.6-2.3) mg/dL AST (14-36) U/L ALT (9-52) U/L Alkaline Phosphatase (38-126) U/L Total Protein (6.3-8.2) g/dL Albumin (3.5-5.0) g/dL Arterial Blood Potassium 4.7 H (3.4-4.5) mmol/L Arterial Blood Glucose 110 H 190 H 183 H (75-99) mg/dL Crossmatch 01/03/19 01/03/19 01/03/19 Range/Units 13:29 14:30 15:00 RBC (3.80-5.40) m/uL Hgb (11.4-16.0) gm/dL Hct (34.0-46.0) % MCHC (31.0-37.0) g/dL Plt Count (150-450) k/uL Lymphocytes # (1.0-4.8) k/uL PT (9.0-12.0) sec INR (<1.2) APTT (22.0-30.0) sec ABG pH (7.35-7.45) ABG pO2 381 H 155 H (83-108) mmHg ABG Total CO2 26 H 25 H (19-24) mmol/L ABG O2 Saturation 100.0 H 99.8 H 98.8 H (94-97) % ABG Hematocrit 24 L 22 L 26 L (34.0-46.0) % ABG Potassium (3.4-4.5) mmol/L ABG Ionized Calcium 4.4 L (4.5-5.3) mg/dL ABG Glucose 210 H 142 H 117 H (75-99) mg/dL Hemoglobin 7.9 L 7.3 L 8.5 L (11.4-16.0) gm/dL Chloride (98-107) mmol/L Glucose (74-99) mg/dL POC Glucose (mg/dL) (75-99) mg/dL Magnesium (1.6-2.3) mg/dL AST (14-36) U/L ALT (9-52) U/L Alkaline Phosphatase (38-126) U/L Total Protein (6.3-8.2) g/dL Albumin (3.5-5.0) g/dL Arterial Blood Potassium (3.4-4.5) mmol/L Arterial Blood Glucose 210 H 142 H 117 H (75-99) mg/dL Crossmatch 01/03/19 01/03/19 01/03/19 Range/Units 16:28 16:28 16:28 RBC 2.99 L (3.80-5.40) m/uL Hgb 8.5 L D (11.4-16.0) gm/dL Hct 27.4 L (34.0-46.0) % MCHC 30.9 L (31.0-37.0) g/dL Plt Count 64 L (150-450) k/uL Lymphocytes # 0.7 L (1.0-4.8) k/uL PT 56.0 H (9.0-12.0) sec INR 5.8 H* (<1.2) APTT 81.9 H (22.0-30.0) sec ABG pH (7.35-7.45) ABG pO2 (83-108) mmHg ABG Total CO2 (19-24) mmol/L ABG O2 Saturation (94-97) % ABG Hematocrit (34.0-46.0) % ABG Potassium (3.4-4.5) mmol/L ABG Ionized Calcium (4.5-5.3) mg/dL ABG Glucose (75-99) mg/dL Hemoglobin (11.4-16.0) gm/dL Chloride 111 H (98-107) mmol/L Glucose 103 H (74-99) mg/dL POC Glucose (mg/dL) (75-99) mg/dL Magnesium 2.5 H (1.6-2.3) mg/dL AST 38 H (14-36) U/L ALT 56 H (9-52) U/L Alkaline Phosphatase 33 L (38-126) U/L Total Protein 4.6 L (6.3-8.2) g/dL Albumin 2.9 L (3.5-5.0) g/dL Arterial Blood Potassium (3.4-4.5) mmol/L Arterial Blood Glucose (75-99) mg/dL Crossmatch 01/03/19 01/03/19 01/03/19 Range/Units 16:32 16:57 17:19 RBC (3.80-5.40) m/uL Hgb (11.4-16.0) gm/dL Hct (34.0-46.0) % MCHC (31.0-37.0) g/dL Plt Count (150-450) k/uL Lymphocytes # (1.0-4.8) k/uL PT (9.0-12.0) sec INR (<1.2) APTT (22.0-30.0) sec ABG pH 7.34 L (7.35-7.45) ABG pO2 >400 H (83-108) mmHg ABG Total CO2 25 H (19-24) mmol/L ABG O2 Saturation 100.0 H (94-97) % ABG Hematocrit (34.0-46.0) % ABG Potassium (3.4-4.5) mmol/L ABG Ionized Calcium (4.5-5.3) mg/dL ABG Glucose (75-99) mg/dL Hemoglobin (11.4-16.0) gm/dL Chloride (98-107) mmol/L Glucose (74-99) mg/dL POC Glucose (mg/dL) 109 H 115 H (75-99) mg/dL Magnesium (1.6-2.3) mg/dL AST (14-36) U/L ALT (9-52) U/L Alkaline Phosphatase (38-126) U/L Total Protein (6.3-8.2) g/dL Albumin (3.5-5.0) g/dL Arterial Blood Potassium (3.4-4.5) mmol/L Arterial Blood Glucose (75-99) mg/dL Crossmatch 01/03/19 01/03/19 01/03/19 Range/Units 18:21 18:42 20:04 RBC (3.80-5.40) m/uL Hgb (11.4-16.0) gm/dL Hct (34.0-46.0) % MCHC (31.0-37.0) g/dL Plt Count (150-450) k/uL Lymphocytes # (1.0-4.8) k/uL PT (9.0-12.0) sec INR (<1.2) APTT (22.0-30.0) sec ABG pH 7.30 L (7.35-7.45) ABG pO2 37 L* (83-108) mmHg ABG Total CO2 (19-24) mmol/L ABG O2 Saturation 65.6 L (94-97) % ABG Hematocrit (34.0-46.0) % ABG Potassium (3.4-4.5) mmol/L ABG Ionized Calcium (4.5-5.3) mg/dL ABG Glucose (75-99) mg/dL Hemoglobin (11.4-16.0) gm/dL Chloride (98-107) mmol/L Glucose (74-99) mg/dL POC Glucose (mg/dL) 162 H 205 H (75-99) mg/dL Magnesium (1.6-2.3) mg/dL AST (14-36) U/L ALT (9-52) U/L Alkaline Phosphatase (38-126) U/L Total Protein (6.3-8.2) g/dL Albumin (3.5-5.0) g/dL Arterial Blood Potassium (3.4-4.5) mmol/L Arterial Blood Glucose (75-99) mg/dL Crossmatch 01/03/19 01/03/1901/03/19 Range/Units 20:05 21:03 21:21 RBC 2.97 L (3.80-5.40) m/uL Hgb 8.5 L (11.4-16.0) gm/dL Hct 27.4 L (34.0-46.0) % MCHC (31.0-37.0) g/dL Plt Count 59 L (150-450) k/uL Lymphocytes # 0.6 L (1.0-4.8) k/uL PT (9.0-12.0) sec INR (<1.2) APTT (22.0-30.0) sec ABG pH 7.34 L (7.35-7.45) ABG pO2 134 H (83-108) mmHg ABG Total CO2 (19-24) mmol/L ABG O2 Saturation 99.1 H (94-97) % ABG Hematocrit (34.0-46.0) % ABG Potassium (3.4-4.5) mmol/L ABG Ionized Calcium (4.5-5.3) mg/dL ABG Glucose (75-99) mg/dL Hemoglobin (11.4-16.0) gm/dL Chloride (98-107) mmol/L Glucose (74-99) mg/dL POC Glucose (mg/dL) 205 H (75-99) mg/dL Magnesium (1.6-2.3) mg/dL AST (14-36) U/L ALT (9-52) U/L Alkaline Phosphatase (38-126) U/L Total Protein (6.3-8.2) g/dL Albumin (3.5-5.0) g/dL Arterial Blood Potassium (3.4-4.5) mmol/L Arterial Blood Glucose (75-99) mg/dL Crossmatch 01/03/19 01/03/19 01/04/19 Range/Units 22:04 23:02 00:02 RBC (3.80-5.40) m/uL Hgb (11.4-16.0) gm/dL Hct (34.0-46.0) % MCHC (31.0-37.0) g/dL Plt Count (150-450) k/uL Lymphocytes # (1.0-4.8) k/uL PT (9.0-12.0) sec INR (<1.2) APTT (22.0-30.0) sec ABG pH (7.35-7.45) ABG pO2 (83-108) mmHg ABG Total CO2 (19-24) mmol/L ABG O2 Saturation (94-97) % ABG Hematocrit (34.0-46.0) % ABG Potassium (3.4-4.5) mmol/L ABG Ionized Calcium (4.5-5.3) mg/dL ABG Glucose (75-99) mg/dL Hemoglobin (11.4-16.0) gm/dL Chloride (98-107) mmol/L Glucose (74-99) mg/dL POC Glucose (mg/dL) 194 H 175 H 155 H (75-99) mg/dL Magnesium (1.6-2.3) mg/dL AST (14-36) U/L ALT (9-52) U/L Alkaline Phosphatase (38-126) U/L Total Protein (6.3-8.2) g/dL Albumin (3.5-5.0) g/dL Arterial Blood Potassium (3.4-4.5) mmol/L Arterial Blood Glucose (75-99) mg/dL Crossmatch 01/04/19 01/04/19 01/04/19 Range/Units 01:03 02:13 02:54 RBC (3.80-5.40) m/uL Hgb (11.4-16.0) gm/dL Hct (34.0-46.0) % MCHC (31.0-37.0) g/dL Plt Count (150-450) k/uL Lymphocytes # (1.0-4.8) k/uL PT (9.0-12.0) sec INR (<1.2) APTT (22.0-30.0) sec ABG pH (7.35-7.45) ABG pO2 (83-108) mmHg ABG Total CO2 (19-24) mmol/L ABG O2 Saturation (94-97) % ABG Hematocrit (34.0-46.0) % ABG Potassium (3.4-4.5) mmol/L ABG Ionized Calcium (4.5-5.3) mg/dL ABG Glucose (75-99) mg/dL Hemoglobin (11.4-16.0) gm/dL Chloride (98-107) mmol/L Glucose (74-99) mg/dL POC Glucose (mg/dL) 164 H 131 H 114 H (75-99) mg/dL Magnesium (1.6-2.3) mg/dL AST (14-36) U/L ALT (9-52) U/L Alkaline Phosphatase (38-126) U/L Total Protein (6.3-8.2) g/dL Albumin (3.5-5.0) g/dL Arterial Blood Potassium (3.4-4.5) mmol/L Arterial Blood Glucose (75-99) mg/dL Crossmatch 01/04/19 01/04/19 01/04/19 Range/Units 04:00 04:00 04:00 RBC 3.06 L (3.80-5.40) m/uL Hgb 9.2 L (11.4-16.0) gm/dL Hct 27.5 L (34.0-46.0) % MCHC (31.0-37.0) g/dL Plt Count 55 L (150-450) k/uL Lymphocytes # 0.7 L (1.0-4.8) k/uL PT 12.1 H (9.0-12.0) sec INR 1.2 H (<1.2) APTT 31.7 H (22.0-30.0) sec ABG pH (7.35-7.45) ABG pO2 (83-108) mmHg ABG Total CO2 (19-24) mmol/L ABG O2 Saturation (94-97) % ABG Hematocrit (34.0-46.0) % ABG Potassium (3.4-4.5) mmol/L ABG Ionized Calcium (4.5-5.3) mg/dL ABG Glucose (75-99) mg/dL Hemoglobin (11.4-16.0) gm/dL Chloride 111 H (98-107) mmol/L Glucose 111 H (74-99) mg/dL POC Glucose (mg/dL) (75-99) mg/dL Magnesium (1.6-2.3) mg/dL AST 51 H (14-36) U/L ALT 55 H (9-52) U/L Alkaline Phosphatase 36 L (38-126) U/L Total Protein 5.0 L (6.3-8.2) g/dL Albumin (3.5-5.0) g/dL Arterial Blood Potassium (3.4-4.5) mmol/L Arterial Blood Glucose (75-99) mg/dL Crossmatch 01/04/19 01/04/19 01/04/19 Range/Units 04:17 05:08 06:10 RBC (3.80-5.40) m/uL Hgb (11.4-16.0) gm/dL Hct (34.0-46.0) % MCHC (31.0-37.0) g/dL Plt Count (150-450) k/uL Lymphocytes # (1.0-4.8) k/uL PT (9.0-12.0) sec INR (<1.2) APTT (22.0-30.0) sec ABG pH (7.35-7.45) ABG pO2 (83-108) mmHg ABG Total CO2 (19-24) mmol/L ABG O2 Saturation (94-97) % ABG Hematocrit (34.0-46.0) % ABG Potassium (3.4-4.5) mmol/L ABG Ionized Calcium (4.5-5.3) mg/dL ABG Glucose (75-99) mg/dL Hemoglobin (11.4-16.0) gm/dL Chloride (98-107) mmol/L Glucose (74-99) mg/dL POC Glucose (mg/dL) 135 H 121 H 121 H (75-99) mg/dL Magnesium (1.6-2.3) mg/dL AST (14-36) U/L ALT (9-52) U/L Alkaline Phosphatase (38-126) U/L Total Protein (6.3-8.2) g/dL Albumin (3.5-5.0) g/dL Arterial Blood Potassium (3.4-4.5) mmol/L Arterial Blood Glucose (75-99) mg/dL Crossmatch 01/04/19 Range/Units 09:15 RBC (3.80-5.40) m/uL Hgb (11.4-16.0) gm/dL Hct (34.0-46.0) % MCHC (31.0-37.0) g/dL Plt Count (150-450) k/uL Lymphocytes # (1.0-4.8) k/uL PT (9.0-12.0) sec INR (<1.2) APTT (22.0-30.0) sec ABG pH (7.35-7.45) ABG pO2 (83-108) mmHg ABG Total CO2 (19-24) mmol/L ABG O2 Saturation (94-97) % ABG Hematocrit (34.0-46.0) % ABG Potassium (3.4-4.5) mmol/L ABG Ionized Calcium (4.5-5.3) mg/dL ABG Glucose (75-99) mg/dL Hemoglobin (11.4-16.0) gm/dL Chloride (98-107) mmol/L Glucose (74-99) mg/dL POC Glucose (mg/dL) 129 H (75-99) mg/dL Magnesium (1.6-2.3) mg/dL AST (14-36) U/L ALT (9-52) U/L Alkaline Phosphatase (38-126) U/L Total Protein (6.3-8.2) g/dL Albumin (3.5-5.0) g/dL Arterial Blood Potassium (3.4-4.5) mmol/L Arterial Blood Glucose (75-99) mg/dL Crossmatch - Imaging and Cardiology Chest x-ray: report reviewed, image reviewed Assessment and Plan Assessment: 1. Severe triple-vessel coronary artery disease, with preserved LV function, status post quadruple coronary artery bypass grafting 2. Non-Q-wave myocardial infarction this admission. 3. Hyperlipidemia untreated. 4. Hypertension 5. History of bilateral pulmonary embolism on Eliquis, last PE 2 years ago 6. Uncontrolled diabetes mellitus type 2 with preop Hgb A1c 9.1%. 7. Osteoarthritis 8. History of basal cell skin cancer to her left face.. 9. Gastroesophageal reflux disease. 10. History of urinary stress incontinence. 11. Asthma with a preoperative FEV1 87% of predicted value 12. Morbid obesity. 13. Anxiety. 14. Preoperative thrombocytopenia 15. Postoperative acute blood loss anemia, an expected outcome due to cardiopulmonary bypass and hemodilution Plan: 1. Continue low dose aspirin, statin, Plavix, and beta kaycee. Will increase beta kaycee therapy as tolerated. 2. Discontinue nitroglycerin drip. 3. Wean O2 as tolerated. Encourage incentive spirometry use 10 times every hour while awake. 4. Will monitor daily labs, x-rays. Electrolyte replacement per protocol. No transfusion. 5. Pain control with current medication regimen. No Toradol at this time due to her platelet count of 55. 6. Insulin management per primary care service 7. Increase activity, ambulate as tolerated. PT/OT/cardiac rehab consulted. 8. Bronchodilators per pulmonology. 9. Arixtra 2.5 mg subcu daily. 10. GI/DVT prophylaxis. 11. We will add Zestril 2.5 mg by mouth daily at noon for afterload reduction. 12. Lasix 20 mg IV 1 now. 13. Continue Primacor drip at 0.2 mcg/kg/m. 14. More recommendations to follow based on patient's progress. Time with Patient: Greater than 30
[2019-01-04 10:12] LABS: Glucose,Whole Blood 143 mg/dL (75-99)
--- NOTE | 2019-01-04 11:12 | P.PN ---
Subjective Progress Note Date: 01/04/19 Principal diagnosis: chest pain Patient is a 63-year-old female to past medical history of diabetes, asthma, and multiple pulmonary emboli (on eliquis) who presented to the emergency department for chest and back pain. In the emergency department she underwent an extensive evaluation. Her troponin was slightly elevated at 0.063, EKG showed some T-wave inversion, platelets were slightly low at 137, and chest x-ray was unremarkable. She was admitted for further management of her acute coronary syndrome. She underwent a CT of the chest which was negative for PE or dissection. Troponin maxed at 4.38. Cardiology saw the patient. She underwent an echocardiogram which showed an ejection fraction of 50-55%. She underwent cardiac cath on 12/27 which showed severe triple vessel coronary artery disease involving the LAD, left circumflex, and RCA. Cardiothoracic surgery was consulted. Of note hemoglobin A1c is significantly elevated at 9.1. She was also found to have an elevated LDL at 133. On 01/03 she underwent triple vessel bypass with ROLDAN to LAD, SVG to OM1, and SVG to PDA. Extubated on 01/03. Patient seen and examined at bedside. Awake and sitting in chair. Was x-rayed last evening. No acute concerns per nursing. Patient reports she's having some panic attack and anxiety issues. She would like some help with that. Pain is currently 8 out of 10. She denies any nausea. She is not feeling lightheaded. She does feel slightly short of breath. No bowel movement today. Sugars have been good. Objective - Vital Signs Vital signs: Vital Signs Temp 95 F L 01/03/19 18:40 Pulse 60 01/04/19 07:23 Resp 17 01/04/19 07:00 BP 80/34 01/04/19 07:00 Pulse Ox 100 01/04/19 07:00 Intake & Output 01/03/19 01/04/19 01/04/19 18:59 06:59 18:59 Intake Total 722.522 7261.157 164.333 Output Total 2312 1389 40 Balance -8794.882 8280.157 124.333 Weight 147 kg Intake: IV 122 1578 59 0.9 170 ACETAMINOPHEN IV (For NPO 100 ) 1,000 mg In Empty Bag 1 bag @ 400 mls/hr IVPB Q6HR [facility] Rx#:[id number] Albumin Human 25% 50 ml 500 In Empty Bag 1 bag @ 100 mls/hr IVPB ONCE ONE Rx#: [id number] LR 100 600 50 NS Pressure Bag 18 108 9 ceFAZolin 3 gm In Sodium 100 Chloride 0.9% 100 ml @ 100 mls/hr IVPB Q8HR [facility] Rx#:[id number] Intake, IV Titration 768.025 688.157 105.333 Amount ACETAMINOPHEN IV (For NPO 100 ) 1,000 mg In Empty Bag 1 bag @ 400 mls/hr IVPB Q6HR [facility] Rx#:[id number] Albumin Human 5% 250 ml 750 250 In Empty Bag 1 bag @ 250 mls/hr IVPB ONCE ONE Rx#: [id number] Dexmedetomidine/0.9% NaCl 18.025 203.074 (Pmx) 400 mcg In Empty Bag 1 bag @ Titrate IV . Q0M [facility] Rx#:[id number] Insulin Regular 100 unit 35.083 5.333 In Sodium Chloride 0.9% 100 ml @ Titrate IV .Q0M [facility] Rx#:[id number] Milrinone-D5w Pmx 20 mg 100 In Dextrose/Water 1 100ml .bag @ 0.2 MCG/KG/MIN 8. 214 mls/hr IV .[id number] [facility] Rx#:[id number] ceFAZolin 3 gm In Sodium 100 Chloride 0.9% 100 ml @ 100 mls/hr IVPB Q8HR [facility] Rx#:[id number] Oral 150 Output: Chest Tube Drainage 362 404 20 Chest Tube Left 186 102 10 Mediastinal Chest Tube Right Pleural/ 176 302 10 Mediastinal Drainage 25 Left Lower Calf 25 Urine 450 960 20 Estimated Blood Loss 1500 Other: Voiding Method Indwelling Catheter Indwelling Catheter # Voids 70 120 ABP, PAP, CO, CI - Last Documented Arterial Blood Pressure 79/30 Pulmonary Artery Pressure 18/7 Cardiac Output 4.4 Cardiac Index 1.9 - Exam General: Obese, mild distress, non toxic, appears older than stated age Derm: Midline dressing in place without soak through, multiple areas of ecchymosis, warm, dry Mouth: no lip lesion, mucums membranes moist Neck: supple, no thyroid enlargement Eyes: EOMI, no scleral edema, no lid lesions Cardiovascular: S1S2 reg, no murmur, positive posterior tibial pulse bilateral, Lungs: decrease be b/l bilateral, no rhonchi, no rales , no accessory muscle use, on vent, b/l CT, medicastinal tube, pacemaker wires Abdominal: soft, nontender to palpation, no guarding, no appreciable organomegaly Ext: b/l LE ALIZA wraps, no gross muscle atrophy, trace edema, no contractures Neuro: CN II-XI grossly intact, no focal neuro deficits Psych: Alert, oriented, appropriate affect - Labs CBC & Chem 7: 01/04/19 04:00 01/04/19 04:00 Labs: Abnormal Lab Results - Last 24 Hours (Table) 01/02/19 01/03/19 01/03/19 Range/Units 05:51 08:45 11:05 RBC (3.80-5.40) m/uL Hgb (11.4-16.0) gm/dL Hct (34.0-46.0) % MCHC (31.0-37.0) g/dL Plt Count (150-450) k/uL Lymphocytes # (1.0-4.8) k/uL PT (9.0-12.0) sec INR (<1.2) APTT (22.0-30.0) sec ABG pH (7.35-7.45) ABG pO2 258 H 123 H (83-108) mmHg ABG Total CO2 26 H 26 H (19-24) mmol/L ABG O2 Saturation 100.0 H 99.3 H (94-97) % ABG Hematocrit (34.0-46.0) % ABG Potassium (3.4-4.5) mmol/L ABG Ionized Calcium (4.5-5.3) mg/dL ABG Glucose 170 H 144 H (75-99) mg/dL Hemoglobin (11.4-16.0) gm/dL Chloride (98-107) mmol/L Glucose (74-99) mg/dL POC Glucose (mg/dL) (75-99) mg/dL Magnesium (1.6-2.3) mg/dL AST (14-36) U/L ALT (9-52) U/L Alkaline Phosphatase (38-126) U/L Total Protein (6.3-8.2) g/dL Albumin (3.5-5.0) g/dL Arterial Blood Potassium (3.4-4.5) mmol/L Arterial Blood Glucose 170 H 144 H (75-99) mg/dL Crossmatch See Detail 01/03/19 01/03/19 01/03/19 Range/Units 11:05 11:45 12:51 RBC (3.80-5.40) m/uL Hgb (11.4-16.0) gm/dL Hct (34.0-46.0) % MCHC (31.0-37.0) g/dL Plt Count (150-450) k/uL Lymphocytes # (1.0-4.8) k/uL PT (9.0-12.0) sec INR (<1.2) APTT (22.0-30.0) sec ABG pH (7.35-7.45) ABG pO2 >420 H 352 H 314 H (83-108) mmHg ABG Total CO2 26 H 27 H (19-24) mmol/L ABG O2 Saturation 100.0 H 100.0 H 100.0 H (94-97) % ABG Hematocrit 27 L 25 L 25 L (34.0-46.0) % ABG Potassium 4.7 H (3.4-4.5) mmol/L ABG Ionized Calcium 4.2 L (4.5-5.3) mg/dL ABG Glucose 110 H 190 H 183 H (75-99) mg/dL Hemoglobin 8.8 L 8.0 L 8.1 L (11.4-16.0) gm/dL Chloride (98-107) mmol/L Glucose (74-99) mg/dL POC Glucose (mg/dL) (75-99) mg/dL Magnesium (1.6-2.3) mg/dL AST (14-36) U/L ALT (9-52) U/L Alkaline Phosphatase (38-126) U/L Total Protein (6.3-8.2) g/dL Albumin (3.5-5.0) g/dL Arterial Blood Potassium 4.7 H (3.4-4.5) mmol/L Arterial Blood Glucose 110 H 190 H 183 H (75-99) mg/dL Crossmatch 01/03/19 01/03/19 01/03/19 Range/Units 13:29 14:30 15:00 RBC (3.80-5.40) m/uL Hgb (11.4-16.0) gm/dL Hct (34.0-46.0) % MCHC (31.0-37.0) g/dL Plt Count (150-450) k/uL Lymphocytes # (1.0-4.8) k/uL PT (9.0-12.0) sec INR (<1.2) APTT (22.0-30.0) sec ABG pH (7.35-7.45) ABG pO2 381 H 155 H (83-108) mmHg ABG Total CO2 26 H 25 H (19-24) mmol/L ABG O2 Saturation 100.0 H 99.8 H 98.8 H (94-97) % ABG Hematocrit 24 L 22 L 26 L (34.0-46.0) % ABG Potassium (3.4-4.5) mmol/L ABG Ionized Calcium 4.4 L (4.5-5.3) mg/dL ABG Glucose 210 H 142 H 117 H (75-99) mg/dL Hemoglobin 7.9 L 7.3 L 8.5 L (11.4-16.0) gm/dL Chloride (98-107) mmol/L Glucose (74-99) mg/dL POC Glucose (mg/dL) (75-99) mg/dL Magnesium (1.6-2.3) mg/dL AST (14-36) U/L ALT (9-52) U/L Alkaline Phosphatase (38-126) U/L Total Protein (6.3-8.2) g/dL Albumin (3.5-5.0) g/dL Arterial Blood Potassium (3.4-4.5) mmol/L Arterial Blood Glucose 210 H 142 H 117 H (75-99) mg/dL Crossmatch 01/03/19 01/03/19 01/03/19 Range/Units 16:28 16:28 16:28 RBC 2.99 L (3.80-5.40) m/uL Hgb 8.5 L D (11.4-16.0) gm/dL Hct 27.4 L (34.0-46.0) % MCHC 30.9 L (31.0-37.0) g/dL Plt Count 64 L (150-450) k/uL Lymphocytes # 0.7 L (1.0-4.8) k/uL PT 56.0 H (9.0-12.0) sec INR 5.8 H* (<1.2) APTT 81.9 H (22.0-30.0) sec ABG pH (7.35-7.45) ABG pO2 (83-108) mmHg ABG Total CO2 (19-24) mmol/L ABG O2 Saturation (94-97) % ABG Hematocrit (34.0-46.0) % ABG Potassium (3.4-4.5) mmol/L ABG Ionized Calcium (4.5-5.3) mg/dL ABG Glucose (75-99) mg/dL Hemoglobin (11.4-16.0) gm/dL Chloride 111 H (98-107) mmol/L Glucose 103 H (74-99) mg/dL POC Glucose (mg/dL) (75-99) mg/dL Magnesium 2.5 H (1.6-2.3) mg/dL AST 38 H (14-36) U/L ALT 56 H (9-52) U/L Alkaline Phosphatase 33 L (38-126) U/L Total Protein 4.6 L (6.3-8.2) g/dL Albumin 2.9 L (3.5-5.0) g/dL Arterial Blood Potassium (3.4-4.5) mmol/L Arterial Blood Glucose (75-99) mg/dL Crossmatch 01/03/19 01/03/19 01/03/19 Range/Units 16:32 16:57 17:19 RBC (3.80-5.40) m/uL Hgb (11.4-16.0) gm/dL Hct (34.0-46.0) % MCHC (31.0-37.0) g/dL Plt Count (150-450) k/uL Lymphocytes # (1.0-4.8) k/uL PT (9.0-12.0) sec INR (<1.2) APTT (22.0-30.0) sec ABG pH 7.34 L (7.35-7.45) ABG pO2 >400 H (83-108) mmHg ABG Total CO2 25 H (19-24) mmol/L ABG O2 Saturation 100.0 H (94-97) % ABG Hematocrit (34.0-46.0) % ABG Potassium (3.4-4.5) mmol/L ABG Ionized Calcium (4.5-5.3) mg/dL ABG Glucose (75-99) mg/dL Hemoglobin (11.4-16.0) gm/dL Chloride (98-107) mmol/L Glucose (74-99) mg/dL POC Glucose (mg/dL) 109 H 115 H (75-99) mg/dL Magnesium (1.6-2.3) mg/dL AST (14-36) U/L ALT (9-52) U/L Alkaline Phosphatase (38-126) U/L Total Protein (6.3-8.2) g/dL Albumin (3.5-5.0) g/dL Arterial Blood Potassium (3.4-4.5) mmol/L Arterial Blood Glucose (75-99) mg/dL Crossmatch 01/03/19 01/03/19 01/03/19 Range/Units 18:21 18:42 20:04 RBC (3.80-5.40) m/uL Hgb (11.4-16.0) gm/dL Hct (34.0-46.0) % MCHC (31.0-37.0) g/dL Plt Count (150-450) k/uL Lymphocytes # (1.0-4.8) k/uL PT (9.0-12.0) sec INR (<1.2) APTT (22.0-30.0) sec ABG pH 7.30 L (7.35-7.45) ABG pO2 37 L* (83-108) mmHg ABG Total CO2 (19-24) mmol/L ABG O2 Saturation 65.6 L (94-97) % ABG Hematocrit (34.0-46.0) % ABG Potassium (3.4-4.5) mmol/L ABG Ionized Calcium (4.5-5.3) mg/dL ABG Glucose (75-99) mg/dL Hemoglobin (11.4-16.0) gm/dL Chloride (98-107) mmol/L Glucose (74-99) mg/dL POC Glucose (mg/dL) 162 H 205 H (75-99) mg/dL Magnesium (1.6-2.3) mg/dL AST (14-36) U/L ALT (9-52) U/L Alkaline Phosphatase (38-126) U/L Total Protein (6.3-8.2) g/dL Albumin (3.5-5.0) g/dL Arterial Blood Potassium (3.4-4.5) mmol/L Arterial Blood Glucose (75-99) mg/dL Crossmatch 01/03/19 01/03/19 01/03/19 Range/Units 20:05 21:03 21:21 RBC 2.97 L (3.80-5.40) m/uL Hgb 8.5 L (11.4-16.0) gm/dL Hct 27.4 L (34.0-46.0) % MCHC (31.0-37.0) g/dL Plt Count 59 L (150-450) k/uL Lymphocytes # 0.6 L (1.0-4.8) k/uL PT (9.0-12.0) sec INR (<1.2) APTT (22.0-30.0) sec ABG pH 7.34 L (7.35-7.45) ABG pO2 134 H (83-108) mmHg ABG Total CO2 (19-24) mmol/L ABG O2 Saturation 99.1 H (94-97) % ABG Hematocrit (34.0-46.0) % ABG Potassium (3.4-4.5) mmol/L ABG Ionized Calcium (4.5-5.3) mg/dL ABG Glucose (75-99) mg/dL Hemoglobin (11.4-16.0) gm/dL Chloride (98-107) mmol/L Glucose (74-99) mg/dL POC Glucose (mg/dL) 205 H (75-99) mg/dL Magnesium (1.6-2.3) mg/dL AST (14-36) U/L ALT (9-52) U/L Alkaline Phosphatase (38-126) U/L Total Protein (6.3-8.2) g/dL Albumin (3.5-5.0) g/dL Arterial Blood Potassium (3.4-4.5) mmol/L Arterial Blood Glucose (75-99) mg/dL Crossmatch 01/03/19 01/03/19 01/04/19 Range/Units 22:04 23:02 00:02 RBC (3.80-5.40) m/uL Hgb (11.4-16.0) gm/dL Hct (34.0-46.0) % MCHC (31.0-37.0) g/dL Plt Count (150-450) k/uL Lymphocytes # (1.0-4.8) k/uL PT (9.0-12.0) sec INR (<1.2) APTT (22.0-30.0) sec ABG pH (7.35-7.45) ABG pO2 (83-108) mmHg ABG Total CO2 (19-24) mmol/L ABG O2 Saturation (94-97) % ABG Hematocrit (34.0-46.0) % ABG Potassium (3.4-4.5) mmol/L ABG Ionized Calcium (4.5-5.3) mg/dL ABG Glucose (75-99) mg/dL Hemoglobin (11.4-16.0) gm/dL Chloride (98-107) mmol/L Glucose (74-99) mg/dL POC Glucose (mg/dL) 194 H 175 H 155 H (75-99) mg/dL Magnesium (1.6-2.3) mg/dL AST (14-36) U/L ALT (9-52) U/L Alkaline Phosphatase (38-126) U/L Total Protein (6.3-8.2) g/dL Albumin (3.5-5.0) g/dL Arterial Blood Potassium (3.4-4.5) mmol/L Arterial Blood Glucose (75-99) mg/dL Crossmatch 01/04/19 01/04/19 01/04/19 Range/Units 01:03 02:13 02:54 RBC (3.80-5.40) m/uL Hgb (11.4-16.0) gm/dL Hct (34.0-46.0) % MCHC (31.0-37.0) g/dL Plt Count (150-450) k/uL Lymphocytes # (1.0-4.8) k/uL PT (9.0-12.0) sec INR (<1.2) APTT (22.0-30.0) sec ABG pH (7.35-7.45) ABG pO2 (83-108) mmHg ABG Total CO2 (19-24) mmol/L ABG O2 Saturation (94-97) % ABG Hematocrit (34.0-46.0) % ABG Potassium (3.4-4.5) mmol/L ABG Ionized Calcium (4.5-5.3) mg/dL ABG Glucose (75-99) mg/dL Hemoglobin (11.4-16.0) gm/dL Chloride (98-107) mmol/L Glucose (74-99) mg/dL POC Glucose (mg/dL) 164 H 131 H 114 H (75-99) mg/dL Magnesium (1.6-2.3) mg/dL AST (14-36) U/L ALT (9-52) U/L Alkaline Phosphatase (38-126) U/L Total Protein (6.3-8.2) g/dL Albumin (3.5-5.0) g/dL Arterial Blood Potassium (3.4-4.5) mmol/L Arterial Blood Glucose (75-99) mg/dL Crossmatch 01/04/19 01/04/19 01/04/19 Range/Units 04:00 04:00 04:00 RBC 3.06 L (3.80-5.40) m/uL Hgb 9.2 L (11.4-16.0) gm/dL Hct 27.5 L (34.0-46.0) % MCHC (31.0-37.0) g/dL Plt Count 55 L (150-450) k/uL Lymphocytes # 0.7 L (1.0-4.8) k/uL PT 12.1 H (9.0-12.0) sec INR 1.2 H (<1.2) APTT 31.7 H (22.0-30.0) sec ABG pH (7.35-7.45) ABG pO2 (83-108) mmHg ABG Total CO2 (19-24) mmol/L ABG O2 Saturation (94-97) % ABG Hematocrit (34.0-46.0) % ABG Potassium (3.4-4.5) mmol/L ABG Ionized Calcium (4.5-5.3) mg/dL ABG Glucose (75-99) mg/dL Hemoglobin (11.4-16.0) gm/dL Chloride 111 H (98-107) mmol/L Glucose 111 H (74-99) mg/dL POC Glucose (mg/dL) (75-99) mg/dL Magnesium (1.6-2.3) mg/dL AST 51 H (14-36) U/L ALT 55 H (9-52) U/L Alkaline Phosphatase 36 L (38-126) U/L Total Protein 5.0 L (6.3-8.2) g/dL Albumin (3.5-5.0) g/dL Arterial Blood Potassium (3.4-4.5) mmol/L Arterial Blood Glucose (75-99) mg/dL Crossmatch 01/04/19 01/04/19 01/04/19 Range/Units 04:17 05:08 06:10 RBC (3.80-5.40) m/uL Hgb (11.4-16.0) gm/dL Hct (34.0-46.0) % MCHC (31.0-37.0) g/dL Plt Count (150-450) k/uL Lymphocytes # (1.0-4.8) k/uL PT (9.0-12.0) sec INR (<1.2) APTT (22.0-30.0) sec ABG pH (7.35-7.45) ABG pO2 (83-108) mmHg ABG Total CO2 (19-24) mmol/L ABG O2 Saturation (94-97) % ABG Hematocrit (34.0-46.0) % ABG Potassium (3.4-4.5) mmol/L ABG Ionized Calcium (4.5-5.3) mg/dL ABG Glucose (75-99) mg/dL Hemoglobin (11.4-16.0) gm/dL Chloride (98-107) mmol/L Glucose (74-99) mg/dL POC Glucose (mg/dL) 135 H 121 H 121 H (75-99) mg/dL Magnesium (1.6-2.3) mg/dL AST (14-36) U/L ALT (9-52) U/L Alkaline Phosphatase (38-126) U/L Total Protein (6.3-8.2) g/dL Albumin (3.5-5.0) g/dL Arterial Blood Potassium (3.4-4.5) mmol/L Arterial Blood Glucose (75-99) mg/dL Crossmatch 01/04/19 Range/Units 09:15 RBC (3.80-5.40) m/uL Hgb (11.4-16.0) gm/dL Hct (34.0-46.0) % MCHC (31.0-37.0) g/dL Plt Count (150-450) k/uL Lymphocytes # (1.0-4.8) k/uL PT (9.0-12.0) sec INR (<1.2) APTT (22.0-30.0) sec ABG pH (7.35-7.45) ABG pO2 (83-108) mmHg ABG Total CO2 (19-24) mmol/L ABG O2 Saturation (94-97) % ABG Hematocrit (34.0-46.0) % ABG Potassium (3.4-4.5) mmol/L ABG Ionized Calcium (4.5-5.3) mg/dL ABG Glucose (75-99) mg/dL Hemoglobin (11.4-16.0) gm/dL Chloride (98-107) mmol/L Glucose (74-99) mg/dL POC Glucose (mg/dL) 129 H (75-99) mg/dL Magnesium (1.6-2.3) mg/dL AST (14-36) U/L ALT (9-52) U/L Alkaline Phosphatase (38-126) U/L Total Protein (6.3-8.2) g/dL Albumin (3.5-5.0) g/dL Arterial Blood Potassium (3.4-4.5) mmol/L Arterial Blood Glucose (75-99) mg/dL Crossmatch Assessment and Plan Assessment: Acute blood loss anemia, an anticipated outcome of surgery - follow HgB closely - transfuse as needed Thrombocytopenia -Undetermined cause, HIT AB negative -Follow CBC Transaminitis - mild suspect transient - repeat in AM - no additional testing at this time. If continued to elevated then liver US and hepatitis profile, may be secondary to statin Non-STEMI with severe triple vessel disease s/p triple vessel CABG - management per CVT - Continue with ASA, plavix, statin - Precede, nitro gtt, albumin Diabetes mellitus type 2 with hyperglycemia -A1c 9.1 -On insulin today, plan to transition off in AM. -Anticipate that patient will need long-acting insulin on discharge and she was on Januvia and metformin at home and her A1c is 9.1 and she will be newly status post CABG -early childhood educator aide consult HTN, improved control - Lopressor and lisinopril resumed by CT surgery - follow BP HLD - statin therapy Morbid obesity with BMI 50.1 -Outpatient structured weight loss History of multiple pulmonary embolism -hold eliquis due to procedure now with low plt at 64 - on arixtra Hyperkalemia, resolved Hypomagnesemia, resolved DVT prophylaxis: arixtra Discussed with: Patient, nursing, Christopher Lucas, [employer] ADMINISTRATOR Anticipated discharge: 3-[address]: home with home health vs SNF A total of 30 minutes was spent on the care of this complex patient more than 50% of the time was spent in counseling and care coordination.
[2019-01-04] MEDS: ALPRAZolam 0.5 MG TAB PO PRN ×2 (11:20→22:03)
[2019-01-04 11:30] LABS: Glucose,Whole Blood 160 mg/dL (75-99)
[2019-01-04] MEDS: LISINOPRIL 2.5 MG TAB PO SCH (12:33)
[2019-01-04] MEDS: LACTATED RINGERS 1,000 ML IV SCH (12:36)
[2019-01-04 13:12] LABS: Glucose,Whole Blood 156 mg/dL (75-99)
[2019-01-04 14:15] LABS: Glucose,Whole Blood 138 mg/dL (75-99)
[2019-01-04 17:14] LABS: Glucose,Whole Blood 145 mg/dL (75-99)
[2019-01-04 20:57] LABS: Glucose,Whole Blood 146 mg/dL (75-99)
[2019-01-04] MEDS: SENNOSIDES-DOCUSATE SODIUM 1 EACH TAB PO SCH (21:10)
[2019-01-04] MEDS: FONDAPARINUX 2.5 MG/0.5 ML SYRINGE SQ SCH (21:10)
[2019-01-04] MEDS: INSULIN REGULAR 100 UNIT in SODIUM CHLORIDE 0.9% 100 ML IV SCH (22:04)
[2019-01-04 22:15] LABS: Glucose,Whole Blood 171 mg/dL (75-99)
[2019-01-05 04:09] LABS: Glucose,Whole Blood 159 mg/dL (75-99)
[2019-01-05 04:09] LABS: Glucose,Whole Blood 187 mg/dL (75-99)
[2019-01-05 04:36] LABS: Glucose,Whole Blood 163 mg/dL (75-99)
[2019-01-05 04:55] LABS: Basophils % (A) 0 %; Eosinophils % (A) 0 %; HCT 29.1 % (34.0-46.0); Lymphocytes # (A) 1.1 k/uL (1.0-4.8); Lymphocytes % (A) 9 %; MCH 28.6 pg (25.0-35.0); MCHC 31.1 g/dL (31.0-37.0); MCV 91.8 fL (80.0-100.0); Mean Platelet Volume 10.4; Monocytes # (A) 0.7 k/uL (0-1.0); Monocytes % (A) 6 %; Neutrophils # (A) 10.2 k/uL (1.3-7.7); Neutrophils % (A) 83 %; RBC 3.17 m/uL (3.80-5.40); RDW 14.3 % (11.5-15.5); WBC 12.2 k/uL (3.8-10.6)
[2019-01-05 05:40] LABS: Albumin 3.5 g/dL (3.5-5.0); Total Bilirubin 0.9 mg/dL (0.2-1.3); Total Protein 5.3 g/dL (6.3-8.2)
[2019-01-05 06:05] LABS: Glucose,Whole Blood 128 mg/dL (75-99)
[2019-01-05] MEDS: HYDROcodone/APAP 5-325MG 1 EACH TAB PO PRN ×3 (06:47→21:27)
[2019-01-05] MEDS: PANTOPRAZOLE 40 MG TABLET PO SCH (06:47)
--- NOTE | 2019-01-05 08:04 | XR ---
EXAMINATION TYPE: XR chest 1V portable DATE OF EXAM: 01/05/2019 CLINICAL HISTORY: Difficulty breathing progress study. Post open cardiac surgery. TECHNIQUE: Single AP portable upright view of the chest is obtained. COMPARISON: Chest x-ray from one day earlier and older studies. FINDINGS: There is stable right internal jugular [place]-Meg catheter. There are 2 mediastinal drainag e tubes and left basilar chest tube redemonstrated. Overlying sternal wires and mediastinal clips are again seen. There is persistent cardiomegaly with small bilateral pleural effusions and associated bibasilar atel ectasis and/or infiltrate with central vascular congestion. No pneumothorax is seen bilaterally. Osse ous structures are intact. Somewhat low lung volumes redemonstrated. IMPRESSION: Overall stable findings, cardiomegaly with central vascular congestion and small bilate ral pleural effusions with associated compressive atelectasis. Correlate for CHF exacerbation advised .
[2019-01-05 08:09] LABS: Platelet Count 90 k/uL (150-450)
[2019-01-05 08:10] LABS: Glucose,Whole Blood 117 mg/dL (75-99)
[2019-01-05] MEDS: IPRATROPIUM-ALBUTEROL 3 ML NEB INHALATION SCH ×4 (08:13→20:13)
--- NOTE | 2019-01-05 09:14 | PN ---
PROGRESS NOTE Mrs. Lua is a 63-year-old female status post coronary artery bypass grafting. She is complaining of chest soreness this morning. Otherwise, she has mild dyspnea. No chest pain. Hemodynamically, she is stable. She is in sinus mechanism. The drainage through the chest tube is minimal. She continues to be on low-dose Milrinone. Otherwise, she is on aspirin once a day, Lipitor 40 mg daily, lisinopril 2.5 mg daily, metoprolol tartrate 12.5 mg twice a day. PHYSICAL EXAMINATION: Blood pressure 123/60 with the heart rate in the 80s. Her PA systolic pressure is 30. LUNGS: With mild crackles at the bases. HEART: Regular rate and rhythm. S1, S2. No S3. No rub. ABDOMEN: Soft, nontender. EXTREMITIES: No significant edema. Chest x-ray shows small effusion bilaterally. IMPRESSION: 1. Status post coronary artery bypass grafting. 2. Chest wall tenderness related to the surgical incision. 3. History of hypertension. 4. Hyperlipidemia. 5. Diabetes mellitus. 6. Prior history of pulmonary embolism. RECOMMENDATION: We will continue present therapy. Hopefully we will stop the IV Milrinone today, remove the [place]-Meg, increase the level of activity, continue incentive spirometry and depending on her progress, further recommendation will be made. MMODL / IJN: [id number] /
--- NOTE | 2019-01-05 09:21 | P.PN ---
Subjective Progress Note Date: 01/05/19 Patient is a 63-year-old female to past medical history of diabetes, asthma, and multiple pulmonary emboli (on eliquis) who presented to the emergency department for chest and back pain. In the emergency department she underwent an extensive evaluation. Her troponin was slightly elevated at 0.063, EKG showed some T-wave inversion, platelets were slightly low at 137, and chest x-ray was unremarkable. She was admitted for further management of her acute coronary syndrome. She underwent a CT of the chest which was negative for PE or dissection. Troponin maxed at 4.38. Cardiology saw the patient. She underwent an echocardiogram which showed an ejection fraction of 50-55%. She underwent cardiac cath on 12/27 which showed severe triple vessel coronary artery disease involving the LAD, left circumflex, and RCA. Cardiothoracic surgery was consulted. Of note hemoglobin A1c is significantly elevated at 9.1. She was also found to have an elevated LDL at 133. On 01/03 she underwent triple vessel bypass with ROLDAN to LAD, SVG to OM1, and SVG to PDA. Extubated on 01/03. 01/05/2019: Patient is up in chair, has minimal chest pain, no shortness of breath, no nausea no vomiting. She states that she has not had a bowel movement yet and she is hungry and asking for food. No nausea no vomiting or abdominal pain. Objective - Vital Signs Vital signs: Vital Signs Temp 97.6 F 01/05/19 00:00 Pulse 74 01/05/19 08:26 Resp 20 01/05/19 07:00 BP 123/69 01/05/19 07:00 Pulse Ox 97 01/05/19 07:00 Intake & Output 01/04/19 01/05/19 01/05/19 18:59 06:59 18:59 Intake Total 8674.049 3914.304 Output Total 1140 810 Balance 259.712 428.304 Weight 147 kg 148 kg Intake: IV 848 829 LR 540 645 NS Pressure Bag 108 84 ceFAZolin 3 gm In Sodium 200 100 Chloride 0.9% 100 ml @ 100 mls/hr IVPB Q8HR [facility] Rx#:[id number] Intake, IV Titration 181.712 109.304 Amount Insulin Regular 100 unit 34.208 66.317 In Sodium Chloride 0.9% 100 ml @ Titrate IV .Q0M [facility] Rx#:[id number] Milrinone-D5w Pmx 20 mg 147.504 42.987 In Dextrose/Water 1 100ml .bag @ 0.2 MCG/KG/MIN 8. 214 mls/hr IV .[id number] [facility] Rx#:[id number] Oral 370 300 Output: Chest Tube Drainage 160 280 Chest Tube Left 50 140 Mediastinal Chest Tube Right Pleural/ 110 140 Mediastinal Drainage 65 Left Lower Calf 65 Urine 980 465 Other: Voiding Method Indwelling Catheter Indwelling Catheter # Voids 40 ABP, PAP, CO, CI - Last Documented Arterial Blood Pressure 152/44 Pulmonary Artery Pressure 30/10 Cardiac Output 6.4 Cardiac Index 2.8 - Exam General: Obese, up in chair not in distress Derm: Midline dressing in place Mouth: no lip lesion Neck: supple, Eyes: EOMI, no scleral edema Cardiovascular: S1S2 reg, no murmur, rubs or gallops Lungs: decreased breath sounds , no rhonchi, no rales , medicastinal tube, pacemaker wires Abdominal: soft, nontender , nondistended no organomegaly Ext: b/l LE wraps, no gross muscle atrophy, trace edema Neuro: CN II-XI grossly intact, no focal neuro deficits Psych: Alert, oriented, appropriate affect - Labs CBC & Chem 7: 01/05/19 04:20 01/05/19 04:20 Labs: Abnormal Lab Results - Last 24 Hours (Table) 01/04/19 01/04/19 01/04/19 Range/Units 09:58 11:26 13:07 WBC (3.8-10.6) k/uL RBC (3.80-5.40) m/uL Hgb (11.4-16.0) gm/dL Hct (34.0-46.0) % Plt Count (150-450) k/uL Neutrophils # (1.3-7.7) k/uL Glucose (74-99) mg/dL POC Glucose (mg/dL) 143 H 160 H 156 H (75-99) mg/dL AST (14-36) U/L Total Protein (6.3-8.2) g/dL 01/04/19 01/04/19 01/04/19 Range/Units 14:12 17:10 20:29 WBC (3.8-10.6) k/uL RBC (3.80-5.40) m/uL Hgb (11.4-16.0) gm/dL Hct (34.0-46.0) % Plt Count (150-450) k/uL Neutrophils # (1.3-7.7) k/uL Glucose (74-99) mg/dL POC Glucose (mg/dL) 138 H 145 H 146 H (75-99) mg/dL AST (14-36) U/L Total Protein (6.3-8.2) g/dL 01/04/19 01/04/19 01/05/19 Range/Units 22:11 23:45 02:07 WBC (3.8-10.6) k/uL RBC (3.80-5.40) m/uL Hgb (11.4-16.0) gm/dL Hct (34.0-46.0) % Plt Count (150-450) k/uL Neutrophils # (1.3-7.7) k/uL Glucose (74-99) mg/dL POC Glucose (mg/dL) 171 H 187 H 159 H (75-99) mg/dL AST (14-36) U/L Total Protein (6.3-8.2) g/dL 01/05/19 01/05/19 01/05/19 Range/Units 04:20 04:20 04:21 WBC 12.2 H (3.8-10.6) k/uL RBC 3.17 L (3.80-5.40) m/uL Hgb 9.0 L (11.4-16.0) gm/dL Hct 29.1 L (34.0-46.0) % Plt Count 90 L D (150-450) k/uL Neutrophils # 10.2 H (1.3-7.7) k/uL Glucose 130 H (74-99) mg/dL POC Glucose (mg/dL) 163 H (75-99) mg/dL AST 42 H (14-36) U/L Total Protein 5.3 L (6.3-8.2) g/dL 01/05/19 01/05/19 Range/Units 06:01 07:55 WBC (3.8-10.6) k/uL RBC (3.80-5.40) m/uL Hgb (11.4-16.0) gm/dL Hct (34.0-46.0) % Plt Count (150-450) k/uL Neutrophils # (1.3-7.7) k/uL Glucose (74-99) mg/dL POC Glucose (mg/dL) 128 H 117 H (75-99) mg/dL AST (14-36) U/L Total Protein (6.3-8.2) g/dL Assessment and Plan Plan: Assessment and Plan Assessment: Acute blood loss anemia, postsurgical - follow HgB , relatively stable hemoglobin 9 today compared to 9.2 yesterday - transfuse as needed no need for transfusion. Thrombocytopenia -Undetermined cause likely reactive, HIT AB negative -Platelets improved, 90 today compared to 55 yesterday Transaminitis - mild transient -Resolving, AST 42/ALP 41 today - Monitor for now Non-STEMI with severe triple vessel disease s/p triple vessel CABG - management per CVT - Continue with ASA, plavix, Lipitor, lisinopril And metoprolol. - Precede, nitro gtt, albumin Diabetes mellitus type 2 with hyperglycemia -A1c 9.1 -On insulin IV, presented transition to subcu today. -Anticipate that she might need long-acting insulin on discharge -educator senior clinical consult HTN, acceptable control -Continue management, monitor. HLD - Lipitor Morbid obesity with BMI 50.1 -Conservative treatment History of multiple pulmonary embolism -holding eliquis with low plt - on arixtra , we will monitor. Hyperkalemia, resolved, K 4 Hypomagnesemia, resolved DVT prophylaxis: arixtra Discussed with: Patient and nursing Anticipated discharge: 3-[address]: home with home health vs SNF
[2019-01-05] MEDS: MILRINONE-D5W PMX 20 MG in DEXTROSE/WATER 1 100ML.BAG IV SCH (09:27)
[2019-01-05] MEDS: METOPROLOL TARTRATE 25 MG TAB PO SCH ×2 (09:43→20:40)
[2019-01-05] MEDS: LISINOPRIL 2.5 MG TAB PO SCH (09:44)
[2019-01-05] MEDS: ATORVASTATIN 40 MG TAB PO SCH (09:44)
[2019-01-05] MEDS: CLOPIDOGREL 75 MG TAB PO SCH (09:44)
[2019-01-05] MEDS ORDERED: ASPIRIN 325 MG TAB PO SCH (09:45)
[2019-01-05] MEDS: ALPRAZolam 0.5 MG TAB PO PRN ×2 (09:51→21:27)
[2019-01-05 10:06] LABS: Glucose,Whole Blood 118 mg/dL (75-99)
[2019-01-05] MEDS ORDERED: FUROSEMIDE 10 MG/ML 2 ML VIAL IV STA (11:01)
--- NOTE | 2019-01-05 11:02 | P.PN ---
Subjective Progress Note Date: 01/05/19 Principal diagnosis: Non-Q-wave myocardial infarction this admission, severe triple-vessel coronary artery disease with a 50% left main coronary artery stenosis, preserved left debbie tricular function, hyperlipidemia untreated, hypertension, history of bilateral pulmonary embolism on Eliquis, uncontrolled diabetes mellitus type 2 with a preoperative hemoglobin A1c of 9.1%, osteoarthritis, history of basal cell skin cancer to her left face, GERD, history of urinary stress incontinence, asthma, morbid obesity and anxiety. POD #2 quadruple coronary artery bypass grafting using the left internal mammary artery to the left anterior descending coronary artery, a reverse greater s aphenous vein graft from the aorta to the first obtuse marginal coronary artery, a reverse greater saphenous vein graft from the aorta to the posterior descending coronary artery in a [id number] fashion, then the left ventricular branch to the right coronary artery in an end-to-side fashion. Endoscopic harvesting of the left greater saphenous vein. Sternal plating using the picsell system along with the [employer] cables. Intraoperative transesophageal echocardiogram, epi-aortic scanning and graft flow measurements using the Desmos system. Postoperative acute blood loss anemia, an expected outcome due to cardiopulmonary bypass and hemodilution. Postoperative thrombocytopenia, an expected outcome due to her preoperative thrombocytopenia. The patient is sitting up to the bedside chair in the intensive care unit. She is in no acute distress. Complaining of surgical type pain and denies any complaints of shortness of breath. He remains hemodynamically stable and is currently on no inotropic or pressor support. Primacor drip has been off since around 6:30 this morning. Right IJ Cordis with [place]-Meg catheter in place. Current cardiac output 6.4, cardiac index 2.7, PA pressures 30/12, CVP 9 mmHg. Remains on 2 L nasal cannula oxygen saturations 98% and she is giving a poor effort on her incentive spirometry and achieving 500 mL. She remains afebrile. Objective - Vital Signs Vital signs: Vital Signs Temp 98.7 F 01/05/19 08:00 Pulse 88 01/05/19 10:00 Resp 20 01/05/19 10:00 BP 147/61 01/05/19 10:00 Pulse Ox 99 01/05/19 10:00 Intake & Output 01/04/19 01/05/19 01/05/19 18:59 06:59 18:59 Intake Total 1205.148 2348.304 106.733 Output Total 1140 810 Balance 259.712 428.304 106.733 Weight 147 kg 148 kg Intake: IV 848 829 LR 540 645 NS Pressure Bag 108 84 ceFAZolin 3 gm In Sodium 200 100 Chloride 0.9% 100 ml @ 100 mls/hr IVPB Q8HR [facility] Rx#:[id number] Intake, IV Titration 181.712 109.304 106.733 Amount Insulin Regular 100 unit 34.208 66.317 6.733 In Sodium Chloride 0.9% 100 ml @ Titrate IV .Q0M [facility] Rx#:[id number] Milrinone-D5w Pmx 20 mg 147.504 42.987 100 In Dextrose/Water 1 100ml .bag @ 0.2 MCG/KG/MIN 8. 214 mls/hr IV .[id number] [facility] Rx#:[id number] Oral 370 300 Output: Chest Tube Drainage 160 280 Chest Tube Left 50 140 Mediastinal Chest Tube Right Pleural/ 110 140 Mediastinal Drainage 65 Left Lower Calf 65 Urine 980 465 Other: Voiding Method Indwelling Catheter Indwelling Catheter Indwelling Catheter # Voids 40 ABP, PAP, CO, CI - Last Documented Arterial Blood Pressure 152/44 Pulmonary Artery Pressure 35/15 Cardiac Output 7.8 Cardiac Index 3.2 - Constitutional General appearance: Present: cooperative, morbidly obese, no acute distress - Respiratory Details: Lung sounds diminished bilateral bases. Respirations are symmetrical and nonlabored. Oxygen saturation 90% on 2 L nasal cannula. Achieving 500 mL on his incentive spirometry. Mediastinal and right pleural chest tubes in place to low continuous wall suction -20 cm H2O. No air leak is present. Draining thin sternal sinus drainage. Right pleural chest tubes with 90 mL output in the last 8 hours, 300 mL output in 24 hours. Mediastinal chest tubes with 70 mL output in the last 8 hours, 190 mL output in the last 24 hours. - Gastrointestinal Gastrointestinal Comment(s): Abdomen is soft, nontender and nondistended. Active bowel sounds to all 4 abdominal quadrants. No guarding or rigidity. Tolerating oral intake. Passing flatus. - Genitourinary Genitourinary Comment(s): Arellano catheter for accurate I&O. Draining clear arturo urine. 425 mL output in the last 8 hours. - Integumentary Integumentary Comment(s): Skin is warm and dry. No clubbing or cyanosis is present. Midline sternal incision is clean, dry and approximated. No drainage or redness present. Gauze dressing is clean, dry and in place. Left lower extremity EVH site is clean, dry and approximated. No drainage or redness present. MARKIE drain in place draining thin serosanguineous drainage. 40 mL output in the last 24 hours. - Neurologic Neurologic: Present: CNII-XII intact - Musculoskeletal Musculoskeletal: Present: gait normal, generalized weakness, strength equal bilaterally - Psychiatric Psychiatric: Present: A&O x's 3, appropriate affect, intact judgment & insight - Allied health notes Allied health notes reviewed: nursing - Labs CBC & Chem 7: 01/05/19 04:20 01/05/19 04:20 Labs: Abnormal Lab Results - Last 24 Hours (Table) 01/04/19 01/04/19 01/04/19 Range/Units 11:26 13:07 14:12 WBC (3.8-10.6) k/uL RBC (3.80-5.40) m/uL Hgb (11.4-16.0) gm/dL Hct (34.0-46.0) % Plt Count (150-450) k/uL Neutrophils # (1.3-7.7) k/uL Glucose (74-99) mg/dL POC Glucose (mg/dL) 160 H 156 H 138 H (75-99) mg/dL AST (14-36) U/L Total Protein (6.3-8.2) g/dL 01/04/19 01/04/19 01/04/19 Range/Units 17:10 20:29 22:11 WBC (3.8-10.6) k/uL RBC (3.80-5.40) m/uL Hgb (11.4-16.0) gm/dL Hct (34.0-46.0) % Plt Count (150-450) k/uL Neutrophils # (1.3-7.7) k/uL Glucose (74-99) mg/dL POC Glucose (mg/dL) 145 H 146 H 171 H (75-99) mg/dL AST (14-36) U/L Total Protein (6.3-8.2) g/dL 01/04/19 01/05/19 01/05/19 Range/Units 23:45 02:07 04:20 WBC 12.2 H (3.8-10.6) k/uL RBC 3.17 L (3.80-5.40) m/uL Hgb 9.0 L (11.4-16.0) gm/dL Hct 29.1 L (34.0-46.0) % Plt Count 90 L D (150-450) k/uL Neutrophils # 10.2 H (1.3-7.7) k/uL Glucose (74-99) mg/dL POC Glucose (mg/dL) 187 H 159 H (75-99) mg/dL AST (14-36) U/L Total Protein (6.3-8.2) g/dL 01/05/19 01/05/19 01/05/19 Range/Units 04:20 04:21 06:01 WBC (3.8-10.6) k/uL RBC (3.80-5.40) m/uL Hgb (11.4-16.0) gm/dL Hct (34.0-46.0) % Plt Count (150-450) k/uL Neutrophils # (1.3-7.7) k/uL Glucose 130 H (74-99) mg/dL POC Glucose (mg/dL) 163 H 128 H (75-99) mg/dL AST 42 H (14-36) U/L Total Protein 5.3 L (6.3-8.2) g/dL 01/05/19 01/05/19 Range/Units 07:55 10:03 WBC (3.8-10.6) k/uL RBC (3.80-5.40) m/uL Hgb (11.4-16.0) gm/dL Hct (34.0-46.0) % Plt Count (150-450) k/uL Neutrophils # (1.3-7.7) k/uL Glucose (74-99) mg/dL POC Glucose (mg/dL) 117 H 118 H (75-99) mg/dL AST (14-36) U/L Total Protein (6.3-8.2) g/dL - Imaging and Cardiology Chest x-ray: report reviewed, image reviewed Assessment and Plan Assessment: 1. Severe triple-vessel coronary artery disease, with preserved LV function, status post quadruple coronary artery bypass grafting 2. Non-Q-wave myocardial infarction this admission. 3. Hyperlipidemia untreated. 4. Hypertension 5. History of bilateral pulmonary embolism on Eliquis, last PE 2 years ago 6. Uncontrolled diabetes mellitus type 2 with preop Hgb A1c 9.1%. 7. Osteoarthritis 8. History of basal cell skin cancer to her left face.. 9. Gastroesophageal reflux disease. 10. History of urinary stress incontinence. 11. Asthma with a preoperative FEV1 87% of predicted value 12. Morbid obesity. 13. Anxiety. 14. Preoperative thrombocytopenia 15. Postoperative acute blood loss anemia, an expected outcome due to cardiopulmonary bypass and hemodilution Plan: 1. Continue aspirin 325 mg by mouth daily, statin, ALIZA inhibitor, Plavix, and beta kaycee. Will increase metoprolol tartrate 25 mg by mouth twice a day 2. Discontinue right IJ Cordis and [place]-Meg catheter. 3. Wean O2 as tolerated. Encourage incentive spirometry use 10 times every hour while awake. 4. Will monitor daily labs, x-rays. Electrolyte replacement per protocol. No transfusion. 5. Pain control with current medication regimen. Will add Toradol. 6. Insulin management per primary care service 7. Increase activity, ambulate as tolerated. PT/OT/cardiac rehab following. 8. Bronchodilators per pulmonology. 9. Continue Arixtra 2.5 mg subcu daily. 10. GI/DVT prophylaxis. 11. Discontinue right pleural and mediastinal chest tubes. Discontinue left leg MARKIE drain. 12. Lasix 20 mg IV 1 now. 13. Discontinue Primacor drip. 14. More recommendations to follow based on patient's progress. Time with Patient: Greater than 30
[2019-01-05] MEDS: KETOROLAC 30 MG/ML 1 ML VIAL IVP SCH ×2 (11:09→17:21)
[2019-01-05 12:19] LABS: Glucose,Whole Blood 146 mg/dL (75-99)
--- NOTE | 2019-01-05 12:20 | PN ---
PROGRESS NOTE DATE OF SERVICE: 01/05/2019 This is a 63-year-old female, postop day #2, she is status post 4-vessel bypass grafting done by Dr. Bowers. She was successfully extubated within the 6 hour window. She is doing reasonably well. She is on O2 two L by nasal cannula. She is getting insulin, but that has been placed on hold. She is also getting lactated Ringer's at 50 mL an hour. She does not do real well on deep breathing, coughing, clearing of secretions and use of incentive spirometry, so I emphasized that with her today. She is still a little sleepy and lethargic, complaining of pain from the surgical site. Other than that, she was stable last night. PHYSICAL EXAMINATION: Current vital signs are reviewed. Temperature is 97.6, heart rate 74, respiratory rate 20, blood pressure 123/69 mean 87, and saturations are 97% on 2 L. Her central venous pressure is 9. She appears in no acute distress. She is somewhat sleepy and lethargic but does arouse and responds appropriately. HEENT: Examination is grossly unremarkable. Mucous membranes are moist. Nasal O2 was noted. NECK: Supple. Full range of motion. No adenopathy or thyromegaly. Neck veins are flat. CARDIOVASCULAR: Examination reveals heart sounds. Heart rate in mid 70s. S1, S2 normal. No murmur. LUNGS: Diminished breath sounds throughout. A few scattered rhonchi and crackles. She is not take deep breaths. ABDOMEN: Soft but obese. Bowel sounds are heard. EXTREMITIES: Intact. No significant edema. SKIN: Without rash. NEUROLOGIC: Examination is brief but nonfocal. Microbiologic studies are negative. LABS: Reviewed. White count 12.2, hemoglobin 9, hematocrit 29.1, platelet count 90,000. Sodium, potassium, chloride, CO2 all normal. Anion gap is 8. BUN and creatinine were 15 and 0.82. Medications are reviewed. Chest x-ray shows bibasilar atelectasis and bilateral pleural effusions. ASSESSMENT: 1. Postoperative day #2, status post 4-vessel bypass grafting. 2. Routine postoperative ventilator management, resolved. 3. Acute non ST-segment elevation myocardial infarction. 4. Previous history of pulmonary embolism, on Eliquis. 5. History of chronic bronchial asthma, which is mild and intermittent and stable. 6. History of benign essential hypertension. 7. Hyperlipidemia. 8. Poorly controlled diabetes mellitus. 9. Morbid obesity. 10.Anxiety. 11.Gastroesophageal reflux disease. PLAN: The patient is really encouraged to be using some incentive spirometer q.1 hour. She is also encouraged to take deep breaths, cough and clear secretions. She is getting O2. She is getting a basic IV. The patient's insulin has been turned off. Chest x- ray is reviewed and shows evidence of by bilateral pleural effusions and bibasilar atelectasis. This is because the patient is not really working on her pulmonary toilet. Additional recommendations and suggestions are forthcoming. Prognosis is guarded. MMODL / IJN: [id number] /
[2019-01-05] MEDS: INSULIN ASPART (NovoLOG) 100 UNIT/ML VIAL SQ SCH ×4 (12:30→20:40)
--- NOTE | 2019-01-05 15:28 | P.ARTDOP ---
Arterial Doppler Bilateral radial artery testing Reason for testing: Preop CABG Date of study: 12/28/2018 Doppler assessment with segmental pressures shows no segmental mental pressure gradients on the left. Digital specimen mammography with radial artery compression shows no significant pressure changes. Imaging shows the left radial to range between 2.4 x 2.7 and 2.6 x 2.9 L Usable left radial artery. Right not assessed due to cath site.
[2019-01-05 17:22] LABS: Glucose,Whole Blood 238 mg/dL (75-99)
[2019-01-05] MEDS: INSULIN NPH 300 UNIT/3 ML VIAL SQ SCH (20:40)
[2019-01-05] MEDS: FONDAPARINUX 2.5 MG/0.5 ML SYRINGE SQ SCH (20:41)
[2019-01-05] MEDS: SENNOSIDES-DOCUSATE SODIUM 1 EACH TAB PO SCH (20:41)
[2019-01-05 21:59] LABS: Glucose,Whole Blood 218 mg/dL (75-99)
[2019-01-06] MEDS: KETOROLAC 30 MG/ML 1 ML VIAL IVP SCH ×2 (00:45→07:31)
[2019-01-06 05:28] LABS: Basophils % (A) 0 %; Eosinophils # (A) 0.2 k/uL (0-0.7); Eosinophils % (A) 2 %; HCT 27.8 % (34.0-46.0); HGB 8.6 gm/dL (11.4-16.0); Hypochromasia Slight; Lymphocytes # (A) 1.5 k/uL (1.0-4.8); Lymphocytes % (A) 20 %; MCHC 31.1 g/dL (31.0-37.0); MCV 93.2 fL (80.0-100.0); Mean Platelet Volume 9.3; Monocytes # (A) 0.4 k/uL (0-1.0); Monocytes % (A) 5 %; Neutrophils # (A) 5.2 k/uL (1.3-7.7); Neutrophils % (A) 71 %; RBC 2.98 m/uL (3.80-5.40); RDW 14.6 % (11.5-15.5); WBC 7.3 k/uL (3.8-10.6)
[2019-01-06 05:40] LABS: Platelet Count 63 k/uL (150-450)
[2019-01-06 05:54] LABS: Albumin 2.8 g/dL (3.5-5.0); Calcium 8.7 mg/dL (8.4-10.2); Potassium 4.2 mmol/L (3.5-5.1); Total Protein 4.8 g/dL (6.3-8.2)
[2019-01-06 07:37] LABS: Glucose,Whole Blood 126 mg/dL (75-99)
[2019-01-06] MEDS: IPRATROPIUM-ALBUTEROL 3 ML NEB INHALATION SCH ×4 (07:58→20:39)
--- NOTE | 2019-01-06 08:09 | XR ---
EXAMINATION TYPE: XR chest 2V DATE OF EXAM: 01/06/2019 COMPARISON: 01/05/2019 HISTORY: 63-year-old female postoperative CABG TECHNIQUE: AP and lateral views FINDINGS: Removal of right IJ [place]-Meg catheter. Heart remains mildly enlarged. Median sternotomy wires and pl ate and screw fixation is redemonstrated. Diffuse interstitial prominence persists with bibasilar opa cities. IMPRESSION: Continued pulmonary vascular congestion with small effusions and adjacent atelectasis and/or consolid ation.
[2019-01-06] MEDS ORDERED: ACETAMINOPHEN TAB 500 MG TAB PO PRN (08:17)
[2019-01-06] MEDS ORDERED: FUROSEMIDE 10 MG/ML 2 ML VIAL IV STA (08:18)
[2019-01-06] MEDS: INSULIN ASPART (NovoLOG) 100 UNIT/ML VIAL SQ SCH ×5 (08:47→21:27)
[2019-01-06] MEDS: METOPROLOL TARTRATE 25 MG TAB PO SCH ×2 (08:49→21:26)
[2019-01-06] MEDS: PANTOPRAZOLE 40 MG TABLET PO SCH (08:50)
[2019-01-06] MEDS: ATORVASTATIN 40 MG TAB PO SCH (08:50)
[2019-01-06] MEDS: CLOPIDOGREL 75 MG TAB PO SCH (08:50)
[2019-01-06] MEDS: ASPIRIN 81 MG PO SCH (08:51)
[2019-01-06] MEDS ORDERED: DEXTROSE 5% IN WATER 100 ML with AMIODARONE 150 MG IV ONE ×4 (10:00→16:30)
[2019-01-06] MEDS ORDERED: AMIODARONE 360 MG in DEXTROSE 5% IN WATER 200 ML IV ONE ×2 (10:10)
--- NOTE | 2019-01-06 10:13 | PN ---
PROGRESS NOTE Mrs. Lua is a 63-year-old female who underwent coronary bypass grafting. She is feeling better today compared with yesterday. Her chest soreness is better. Her breathing is better. She is doing better on the incentive spirometry. She continued be in sinus mechanism. She is on no pressors. She denies any dizziness or palpitation. Hemodynamically, she is stable. She is sitting up in the chair. She continues to be at this time on aspirin once a day, Lipitor 40 mg daily, Plavix 75 mg daily, lisinopril 2.5 mg daily, metoprolol tartrate 25 mg twice a day. PHYSICAL EXAMINATION: Blood pressure 138/70 with a heart rate in 90s. LUNGS: With few crackles at the bases. HEART: Regular rate and rhythm, S1, S2. No S3. No rub appreciated. ABDOMEN: Soft, nontender. EXTREMITIES: No significant edema. LAB DATA: With the BUN and creatinine of 18 and 0.92, potassium 4.2, hemoglobin of 8.6. IMPRESSION: 1. Status post coronary artery bypass grafting, stable. 2. Hyperlipidemia. treated. 3. Hypertension. 4. Diabetes mellitus. RECOMMENDATION: From the cardiac standpoint, she is stable. Will increase her physical activity. Continue incentive spirometry and depending on her progress, further recommendation will be made. MMODL / IJN: [id number] /
--- NOTE | 2019-01-06 10:25 | P.PN ---
Subjective Progress Note Date: 01/06/19 Patient is a 63-year-old female to past medical history of diabetes, asthma, and multiple pulmonary emboli (on eliquis) who presented to the emergency department for chest and back pain. In the emergency department she underwent an extensive evaluation. Her troponin was slightly elevated at 0.063, EKG showed some T-wave inversion, platelets were slightly low at 137, and chest x-ray was unremarkable. She was admitted for further management of her acute coronary syndrome. She underwent a CT of the chest which was negative for PE or dissection. Troponin maxed at 4.38. Cardiology saw the patient. She underwent an echocardiogram which showed an ejection fraction of 50-55%. She underwent cardiac cath on 12/27 which showed severe triple vessel coronary artery disease involving the LAD, left circumflex, and RCA. Cardiothoracic surgery was consulted. Of note hemoglobin A1c is significantly elevated at 9.1. She was also found to have an elevated LDL at 133. On 01/03 she underwent triple vessel bypass with ROLDAN to LAD, SVG to OM1, and SVG to PDA. Extubated on 01/03. 01/05/2019: Patient is up in chair, has minimal chest pain, no shortness of breath, no nausea no vomiting. She states that she has not had a bowel movement yet and she is hungry and asking for food. No nausea no vomiting or abdominal pain. 01/06/2019: Up in chair, converted to atrial fibrillation now heart rate much better. She still has a little bit of shortness of breath and chest pain but significantly i mproved. No nausea no vomiting no abdominal pain no dizziness no loss of consciousness. Objective - Vital Signs Vital signs: Vital Signs Temp 98.8 F 01/06/19 08:00 Pulse 111 H 01/06/19 10:00 Resp 22 01/06/19 10:00 BP 119/68 01/06/19 10:00 Pulse Ox 93 L 01/06/19 10:00 Intake & Output 01/05/19 01/06/19 01/06/19 18:59 06:59 18:59 Intake Total 644.733 200 200 Output Total 555 Balance 89.733 200 200 Weight 145.7 kg Intake: IV 98 LR 80 NS Pressure Bag 18 Intake, IV Titration 106.733 Amount Insulin Regular 100 unit 6.733 In Sodium Chloride 0.9% 100 ml @ Titrate IV .Q0M OZZY Rx#:[id number] Milrinone-D5w Pmx 20 mg 100 In Dextrose/Water 1 100ml .bag @ 0.2 MCG/KG/MIN 8. 214 mls/hr IV .[id number] OZZY Rx#:[id number] Oral 440 200 200 Output: Urine 555 Other: Voiding Method Toilet Toilet Toilet # Voids 1 0 ABP, PAP, CO, CI - Last Documented Arterial Blood Pressure 152/44 Pulmonary Artery Pressure 35/15 Cardiac Output 7.8 Cardiac Index 3.2 - Exam General: Obese, up in chair not in distress Derm: Midline dressing in place Mouth: no lip lesion Neck: supple, no JVD Eyes: EOMI, no scleral edema Cardiovascular: S1S2 reg, no murmur, rubs or gallops Lungs: decreased breath sounds , no rhonchi, no rales Abdominal: soft, nontender , nondistended no organomegaly Ext: b/l LE wraps, no gross muscle atrophy, trace bilateral edema Neuro: CN II-XI grossly intact, no focal neuro deficits Psych: Alert, oriented, appropriate affect - Labs CBC & Chem 7: 01/06/19 04:51 01/06/19 04:51 Labs: Abnormal Lab Results - Last 24 Hours (Table) 01/05/19 01/05/19 01/05/19 Range/Units 12:05 17:19 20:32 RBC (3.80-5.40) m/uL Hgb (11.4-16.0) gm/dL Hct (34.0-46.0) % Plt Count (150-450) k/uL Sodium (137-145) mmol/L Chloride (98-107) mmol/L BUN (7-17) mg/dL Glucose (74-99) mg/dL POC Glucose (mg/dL) 146 H 238 H 218 H (75-99) mg/dL Total Protein (6.3-8.2) g/dL Albumin (3.5-5.0) g/dL 01/06/19 01/06/19 01/06/19 Range/Units 04:51 04:51 07:34 RBC 2.98 L (3.80-5.40) m/uL Hgb 8.6 L (11.4-16.0) gm/dL Hct 27.8 L (34.0-46.0) % Plt Count 63 L (150-450) k/uL Sodium 136 L (137-145) mmol/L Chloride 108 H (98-107) mmol/L BUN 18 H (7-17) mg/dL Glucose 132 H (74-99) mg/dL POC Glucose (mg/dL) 126 H (75-99) mg/dL Total Protein 4.8 L (6.3-8.2) g/dL Albumin 2.8 L (3.5-5.0) g/dL Assessment and Plan Plan: Assessment and Plan Assessment: Acute blood loss anemia, postsurgical - follow HgB , relatively stable hemoglobin 8.6 today compared to 9 yesterday - transfuse as needed no need for transfusion for now, monitor. Thrombocytopenia -Undetermined cause likely reactive, HIT AB negative -Platelets fluctuate, was 19 yesterday today 63, continue to monitor. Transaminitis - mild transient, resolved. Non-STEMI with severe triple vessel disease s/p triple vessel CABG - management per CVT - Continue with ASA, plavix, Lipitor, lisinopril And metoprolol. Diabetes mellitus type 2 with hyperglycemia -A1c 9.1 -Was On insulin IV, now transitioned to subcu -Anticipate that she might need long-acting insulin on discharge -personal development educator consult HTN, acceptable control -Continue management, monitor. HLD - Lipitor Morbid obesity with BMI 50.1 -Conservative treatment History of multiple pulmonary embolism -holding eliquis with low plt - on arixtra , continued monitor. Hyperkalemia, resolved, K 4.2 Hypomagnesemia, resolved Paroxysmal Atrial fibrillation: I better status post amiodarone. Metoprolol was increased yesterday By Cardiothoracic DVT prophylaxis: arixtra Discussed with: Patient and nursing Anticipated discharge: 3-4 days Transfer to cardiac floor Treatment plan discussed with the patient and patient's nurse Anticipated discharge place: Acute or subacute rehab
--- NOTE | 2019-01-06 10:52 | PN ---
PROGRESS NOTE DATE OF SERVICE: 01/06/2019 This is a 63-year-old female who is postop day #3, status post 4-vessel bypass grafting done by Dr. Bowers. She was successfully extubated within the 6 hour window. She is doing reasonably well and actually much better today than yesterday. She is currently on O2 at 2 L and she is not receiving any IV fluids. Yesterday she was somewhat sleepy and lethargic and wasn't really doing well on deep breathing, coughing, clearing of secretions or hourly use of incentive spirometer. Today she is doing much better. Yesterday's chest x-ray showed evidence of both atelectasis and bilateral pleural effusion. I did have a significant discussion with her yesterday about the importance of incentive spirometry. Currently, her vital signs are stable and include a temperature 98.4, heart rate 84, respiratory rate 16, blood pressure 138/78, mean 98 and saturations are 99% on 2 L. She appears in no acute distress. She is much more awake and alert. HEENT: Examination is grossly unremarkable. Nasal O2 noted. NECK: Supple. Full range of motion. No adenopathy, thyromegaly or neck vein distention. CARDIOVASCULAR: Examination reveals regular rhythm and rate. Heart rate in mid 80s. S1, S2 normal. Heart sounds are distant. LUNGS: Reveals a few scattered rhonchi. Some crackles at the bases. Breath sounds are diminished at the bases and there is some dullness at the bases. ABDOMEN: Obese. Bowel sounds are heard. EXTREMITIES: Are intact. No cyanosis, clubbing, or edema. SKIN: Without rash. NEUROLOGIC: Examination is brief but nonfocal. White count 7.3, hemoglobin 8.6, hematocrit 27.8, platelet count 63,000. Sodium 136, potassium 4.2, chloride 108, CO2 is 23, anion gap is 5. BUN and creatinine were 18 and 0.92. Microbiologic studies are negative. Chest x-ray from today shows continued pulmonary vascular congestion with bibasilar atelectasis and effusions bilaterally. Medications are reviewed. ASSESSMENT: 1. Postoperative day #3, status post 4-vessel bypass grafting. 2. Routine postoperative ventilator management, resolved, with extubation within the 6- hour window. 3. Acute non ST-segment elevation myocardial infarction. 4. Previous history of pulmonary embolism, on Eliquis. 5. History of chronic bronchial asthma, which is mild/intermittent and stable. 6. History of benign essential hypertension. 7. Morbid obesity. 8. Hyperlipidemia. 9. Poorly controlled diabetes mellitus. 10.Chronic anxiety. 11.Gastroesophageal reflux disease. PLAN: The patient is doing a bit better today clinically. She looks much more awake and alert. We are going to have her continue with deep breathing, coughing, clearing of secretions and hourly use of incentive spirometer. Her chest x-ray still showing bibasilar atelectasis and small bilateral pleural effusions. Additional recommendations and suggestions are forthcoming. Prognosis is guarded. MMODL / IJN: [id number] /
[2019-01-06 12:07] LABS: Glucose,Whole Blood 233 mg/dL (75-99)
[2019-01-06] MEDS: LISINOPRIL 5 MG TAB PO SCH (14:05)
--- NOTE | 2019-01-06 15:29 | P.PN ---
Subjective Progress Note Date: 01/06/19 Principal diagnosis: Non-Q-wave myocardial infarction this admission, severe triple-vessel coronary artery disease with a 50% left main coronary artery stenosis, preserved left debbie tricular function, hyperlipidemia untreated, hypertension, history of bilateral pulmonary embolism on Eliquis, uncontrolled diabetes mellitus type 2 with a preoperative hemoglobin A1c of 9.1%, osteoarthritis, history of basal cell skin cancer to her left face, GERD, history of urinary stress incontinence, asthma, morbid obesity and anxiety. POD #3 quadruple coronary artery bypass grafting using the left internal mammary artery to the left anterior descending coronary artery, a reverse greater s aphenous vein graft from the aorta to the first obtuse marginal coronary artery, a reverse greater saphenous vein graft from the aorta to the posterior descending coronary artery in a [id number] fashion, then the left ventricular branch to the right coronary artery in an end-to-side fashion. Endoscopic harvesting of the left greater saphenous vein. Sternal plating using the [employer] system along with the [employer] cables. Intraoperative transesophageal echocardiogram, epi-aortic scanning and graft flow measurements using the [employer] system. Postoperative acute blood loss anemia, an expected outcome due to cardiopulmonary bypass and hemodilution. Postoperative thrombocytopenia, an expected outcome due to her preoperative thrombocytopenia. Postoperative paroxysmal atrial fibrillation, an unexpected outcome. The patient is sitting up to the bedside chair in the intensive care unit. She is in no acute distress. She denies any complaints of pain or shortness of breath this time. Remains hemodynamically stable and is currently on no inotropic or pressor support. Oxygen saturation are 97% on room air and she is achieving 750 mL on her incentive spirometry. She remains afebrile. Tolerating oral intake. She reports she ambulated in the intensive care unit already yesterday 3 times with minimal assistance and had her first postoperative day shower. This morning patient went into paroxysmal atrial fibrillation with RVR heart rate 105. Amiodarone drip per protocol initiated. Objective - Vital Signs Vital signs: Vital Signs Temp 98.7 F 01/06/19 12:00 Pulse 115 H 01/06/19 12:00 Resp 18 01/06/19 12:00 BP 106/54 01/06/19 12:00 Pulse Ox 97 01/06/19 12:00 Intake & Output 01/05/19 01/06/19 01/06/19 18:59 06:59 18:59 Intake Total 644.733 200 350 Output Total 555 800 Balance 89.733 200 -450 Weight 145.7 kg Intake: IV 98 LR 80 NS Pressure Bag 18 Intake, IV Titration 106.733 Amount Insulin Regular 100 unit 6.733 In Sodium Chloride 0.9% 100 ml @ Titrate IV .Q0M OZZY Rx#:[id number] Milrinone-D5w Pmx 20 mg 100 In Dextrose/Water 1 100ml .bag @ 0.2 MCG/KG/MIN 8. 214 mls/hr IV .[id number] OZZY Rx#:[id number] Oral 440 200 350 Output: Urine 555 800 Other: Voiding Method Toilet Toilet Toilet # Voids 1 0 ABP, PAP, CO, CI - Last Documented Arterial Blood Pressure 152/44 Pulmonary Artery Pressure 35/15 Cardiac Output 7.8 Cardiac Index 3.2 - Constitutional General appearance: Present: cooperative, morbidly obese, no acute distress - Respiratory Details: Lung sounds diminished bilateral bases. Respirations are symmetrical and nonlabored. Oxygen saturation are 97% on room air. Achieving 750 mL on her incentive spirometry. - Cardiovascular Details: Irregular rhythm and tachycardic rate. S1 and S2 present, negative for S3, gallop or murmur. Sternum is stable. Bedside telemetry showing atrial fibrillation heart rate 105. Heart hugger is in place and she is demonstrating appropriate use. Surgical support binder to her chest in place. Knee-high SARAH hose and sequential compression devices in place to bilateral lower extremities. - Gastrointestinal Gastrointestinal Comment(s): Abdomen is soft, nontender and nondistended. Active bowel sounds all 4 abdominal quadrants. No guarding or rigidity. Obese. Tolerating oral intake. - Genitourinary Genitourinary Comment(s): Voiding clear yellow urine. - Integumentary Integumentary Comment(s): Skin is warm and dry. No clubbing or cyanosis is present. Midline sternal incision is clean, dry and approximated. No drainage or redness present. Gauze dressing is clean, dry and in place. Left lower extremity EVH site is clean, dry and approximated. No drainage or redness present. - Neurologic Neurologic: Present: CNII-XII intact - Musculoskeletal Musculoskeletal: Present: gait normal, generalized weakness, strength equal bilaterally - Psychiatric Psychiatric: Present: A&O x's 3, appropriate affect, intact judgment & insight - Allied health notes Allied health notes reviewed: nursing - Labs CBC & Chem 7: 01/06/19 04:51 01/06/19 04:51 Labs: Abnormal Lab Results - Last 24 Hours (Table) 01/05/19 01/05/19 01/06/19 Range/Units 17:19 20:32 04:51 RBC 2.98 L (3.80-5.40) m/uL Hgb 8.6 L (11.4-16.0) gm/dL Hct 27.8 L (34.0-46.0) % Plt Count 63 L (150-450) k/uL Sodium (137-145) mmol/L Chloride (98-107) mmol/L BUN (7-17) mg/dL Glucose (74-99) mg/dL POC Glucose (mg/dL) 238 H 218 H (75-99) mg/dL Total Protein (6.3-8.2) g/dL Albumin (3.5-5.0) g/dL 01/06/19 01/06/19 01/06/19 Range/Units 04:51 07:34 12:03 RBC (3.80-5.40) m/uL Hgb (11.4-16.0) gm/dL Hct (34.0-46.0) % Plt Count (150-450) k/uL Sodium 136 L (137-145) mmol/L Chloride 108 H (98-107) mmol/L BUN 18 H (7-17) mg/dL Glucose 132 H (74-99) mg/dL POC Glucose (mg/dL) 126 H 233 H (75-99) mg/dL Total Protein 4.8 L (6.3-8.2) g/dL Albumin 2.8 L (3.5-5.0) g/dL - Imaging and Cardiology Chest x-ray: report reviewed, image reviewed Assessment and Plan Assessment: 1. Severe triple-vessel coronary artery disease, with preserved LV function, status post quadruple coronary artery bypass grafting 2. Non-Q-wave myocardial infarction this admission. 3. Hyperlipidemia untreated. 4. Hypertension 5. History of bilateral pulmonary embolism on Eliquis, last PE 2 years ago 6. Uncontrolled diabetes mellitus type 2 with preop Hgb A1c 9.1%. 7. Osteoarthritis 8. History of basal cell skin cancer to her left face.. 9. Gastroesophageal reflux disease. 10. History of urinary stress incontinence. 11. Asthma with a preoperative FEV1 87% of predicted value 12. Morbid obesity. 13. Anxiety. 14. Preoperative thrombocytopenia 15. Postoperative acute blood loss anemia, an expected outcome due to cardiopulmonary bypass and hemodilution 16. Postoperative paroxysmal atrial fibrillation, an unexpected outcome Plan: 1. Continue low-dose aspirin, statin, ALIZA inhibitor, Plavix, and beta kaycee. Will increase metoprolol tartrate as tolerated. 2. Lasix 20 mg IV 1 now. 3. Wean O2 as tolerated. Encourage incentive spirometry use 10 times every hour while awake. 4. Will monitor daily labs, x-rays. Electrolyte replacement per protocol. No transfusion. 5. Pain control with current medication regimen. 6. Insulin management per primary care service 7. Increase activity, ambulate as tolerated. PT/OT/cardiac rehab following. 8. Bronchodilators per pulmonology. 9. Continue Arixtra 2.5 mg subcu daily. 10. GI/DVT prophylaxis. 11. Discontinue right pleural and mediastinal chest tubes. Discontinue left leg MARKIE drain. 12. Increase lisinopril to 5 mg by mouth daily at noon. 13. Transfer orders will be placed for 3 S. cardiac stepdown unit 14. Amiodarone drip per protocol initiated for paroxysmal atrial fibrillation prophylaxis. 15. Discontinue Toradol as platelet count is 63 today. 16. More recommendations to follow based on patient's progress. Time with Patient: Greater than 30
[2019-01-06] MEDS: AMIODARONE 300 MG in DEXTROSE 5% IN WATER 250 ML IV SCH ×2 (16:07)
[2019-01-06 17:21] LABS: Glucose,Whole Blood 331 mg/dL (75-99)
[2019-01-06] MEDS: ALPRAZolam 0.5 MG TAB PO PRN (19:06)
[2019-01-06 20:48] LABS: Glucose,Whole Blood 210 mg/dL (75-99)
[2019-01-06] MEDS: SENNOSIDES-DOCUSATE SODIUM 1 EACH TAB PO SCH (21:26)
[2019-01-06] MEDS: FONDAPARINUX 2.5 MG/0.5 ML SYRINGE SQ SCH (21:26)
[2019-01-06] MEDS: INSULIN NPH 300 UNIT/3 ML VIAL SQ SCH (21:41)
[2019-01-07 01:26] LABS: Glucose,Whole Blood 101 mg/dL (75-99)
[2019-01-07] MEDS: AMIODARONE 300 MG in DEXTROSE 5% IN WATER 250 ML IV SCH ×2 (01:35)
[2019-01-07] MEDS: NITROGLYCERIN OINT 1 INCH/GM PACKET TOPICAL SCH (01:59)
[2019-01-07] MEDS: INSULIN ASPART (NovoLOG) 100 UNIT/ML VIAL SQ SCH ×7 (02:00→17:05)
[2019-01-07] MEDS: diphenhydrAMINE 25 MG CAP PO SCH (02:03)
[2019-01-07] MEDS: ATORVASTATIN 80 MG TAB PO SCH (02:03)
[2019-01-07] MEDS: LISINOPRIL 10 MG TAB PO SCH (02:03)
[2019-01-07] MEDS: ASPIRIN 325 MG TAB PO SCH (02:03)
[2019-01-07] MEDS: METOPROLOL TARTRATE 12.5 MG TAB PO SCH ×2 (02:04→02:05)
[2019-01-07] MEDS: ASPIRIN 81 MG PO SCH ×2 (02:05→08:06)
[2019-01-07 06:11] LABS: Glucose,Whole Blood 78 mg/dL (75-99)
[2019-01-07] MEDS: PANTOPRAZOLE 40 MG TABLET PO SCH (06:41)
[2019-01-07] MEDS: IPRATROPIUM-ALBUTEROL 3 ML NEB INHALATION SCH ×3 (07:16→15:37)
[2019-01-07 07:51] VITALS: RESP 20; TEMP 98.4
[2019-01-07] MEDS: ATORVASTATIN 40 MG TAB PO SCH (08:06)
[2019-01-07] MEDS: LISINOPRIL 5 MG TAB PO SCH (08:06)
[2019-01-07] MEDS: METOPROLOL TARTRATE 25 MG TAB PO SCH (08:06)
[2019-01-07] MEDS: CLOPIDOGREL 75 MG TAB PO SCH (08:06)
--- NOTE | 2019-01-07 08:28 | XR ---
EXAMINATION TYPE: XR chest 2V DATE OF EXAM: 01/07/2019 COMPARISON: 01/06/2019 HISTORY: Status post CABG. Follow-up exam. TECHNIQUE: Frontal and lateral views of the chest are obtained. FINDINGS: Post CABG changes of the chest are again noted. There is improved aeration of the lung bas es with probable trace pleural effusions remaining. Interstitial pulmonary edema has resolved. Cardio mediastinal silhouette is enlarged. No acute osseous pathology. IMPRESSION: Improved aeration of the lungs with probable trace pleural effusions remaining.
[2019-01-07 08:41] LABS: HCT 29.4 % (34.0-46.0); HGB 9.2 gm/dL (11.4-16.0); Hypochromasia Slight; MCH 28.8 pg (25.0-35.0); MCHC 31.1 g/dL (31.0-37.0); MCV 92.6 fL (80.0-100.0); Mean Platelet Volume 9.7; RBC 3.18 m/uL (3.80-5.40); RDW 14.1 % (11.5-15.5); WBC 8.7 k/uL (3.8-10.6)
[2019-01-07 08:45] LABS: Platelet Count 116 k/uL (150-450)
[2019-01-07 08:49] LABS: Calcium 8.8 mg/dL (8.4-10.2)
[2019-01-07] MEDS ORDERED: AMIODARONE 200 MG TAB PO SCH (09:00)
--- NOTE | 2019-01-07 10:04 | P.PN ---
Subjective Progress Note Date: 01/07/19 Patient is a 63-year-old female to past medical history of diabetes, asthma, and multiple pulmonary emboli (on eliquis) who presented to the emergency department for chest and back pain. In the emergency department she underwent an extensive evaluation. Her troponin was slightly elevated at 0.063, EKG showed some T-wave inversion, platelets were slightly low at 137, and chest x-ray was unremarkable. She was admitted for further management of her acute coronary syndrome. She underwent a CT of the chest which was negative for PE or dissection. Troponin maxed at 4.38. Cardiology saw the patient. She underwent an echocardiogram which showed an ejection fraction of 50-55%. She underwent cardiac cath on 12/27 which showed severe triple vessel coronary artery disease involving the LAD, left circumflex, and RCA. Cardiothoracic surgery was consulted. Of note hemoglobin A1c is significantly elevated at 9.1. She was also found to have an elevated LDL at 133. On 01/03 she underwent triple vessel bypass with ROLDAN to LAD, SVG to OM1, and SVG to PDA. Extubated on 01/03. 01/05/2019: Patient is up in chair, has minimal chest pain, no shortness of breath, no nausea no vomiting. She states that she has not had a bowel movement yet and she is hungry and asking for food. No nausea no vomiting or abdominal pain. 01/06/2019: Up in chair, converted to atrial fibrillation now heart rate much better. She still has a little bit of shortness of breath and chest pain but significantly i mproved. No nausea no vomiting no abdominal pain no dizziness no loss of consciousness. 01/07/2019: Feels okay, no chest pain no shortness of breath no nausea no vomiting or abdominal pain. Objective - Vital Signs Vital signs: Vital Signs Temp 98.4 F 01/07/19 07:50 Pulse 73 01/07/19 07:50 Resp 20 01/07/19 07:50 BP 151/75 01/07/19 07:50 Pulse Ox 99 01/07/19 07:50 Intake & Output 01/06/19 01/07/19 01/07/19 18:59 06:59 18:59 Intake Total 350 476.667 118 Output Total 1400 Balance -1050 476.667 118 Weight 144.2 kg Intake: Intake, IV Titration 236.667 Amount Amiodarone 300 mg In 236.667 Dextrose 5% in Water 250 ml @ 0.5 MG/MIN 25 mls/hr IV .Q10H OZZY Rx#: [id number] Oral 350 240 118 Output: Urine 1400 Other: Voiding Method Toilet Toilet # Voids 0 ABP, PAP, CO, CI - Last Documented Arterial Blood Pressure 152/44 Pulmonary Artery Pressure 35/15 Cardiac Output 7.8 Cardiac Index 3.2 - Exam General: Obese, up in chair not in distress Derm: Midline dressing in place Mouth: no lip lesion Neck: supple, no JVD Eyes: EOMI, no scleral edema Cardiovascular: S1S2 reg, no murmur, rubs or gallops Lungs: decreased breath sounds , no rhonchi, no rales no wheezing Abdominal: soft, nontender , nondistended no organomegaly Ext: b/l LE wraps, trace bilateral edema Neuro: CN II-XI grossly intact, no focal neuro deficits Psych: Alert, oriented, appropriate affect - Labs CBC & Chem 7: 01/07/19 06:47 01/07/19 06:47 Labs: Abnormal Lab Results - Last 24 Hours (Table) 01/06/19 01/06/19 01/06/19 Range/Units 12:03 17:18 20:47 RBC (3.80-5.40) m/uL Hgb (11.4-16.0) gm/dL Hct (34.0-46.0) % Plt Count (150-450) k/uL BUN (7-17) mg/dL POC Glucose (mg/dL) 233 H 331 H 210 H (75-99) mg/dL 01/07/19 01/07/19 01/07/19 Range/Units 01:23 06:47 06:47 RBC 3.18 L (3.80-5.40) m/uL Hgb 9.2 L (11.4-16.0) gm/dL Hct 29.4 L (34.0-46.0) % Plt Count 116 L D (150-450) k/uL BUN 20 H (7-17) mg/dL POC Glucose (mg/dL) 101 H (75-99) mg/dL Assessment and Plan Plan: Assessment and Plan Assessment: Acute blood loss anemia, postsurgical - follow HgB , relatively stable hemoglobin stable at 9.2 - transfuse as needed no need for transfusion Thrombocytopenia -Undetermined cause likely reactive, HIT AB negative -Platelets fluctuate, better to 116 Transaminitis - mild transient, resolved. Non-STEMI with severe triple vessel disease s/p triple vessel CABG - management per CVT - Continue with ASA, plavix, Lipitor, lisinopril amiodarone And metoprolol. Diabetes mellitus type 2 with hyperglycemia -A1c 9.1 -Was On insulin IV, now transitioned to subcu -Anticipate that she might need long-acting insulin on discharge -certified breastfeeding educator consult HTN, acceptable control -Continue management, monitor. HLD - Lipitor Morbid obesity with BMI 50.1 -Conservative treatment History of multiple pulmonary embolism -holding eliquis with low plt - on arixtra , continued monitor. Hyperkalemia, resolved, K 4 Hypomagnesemia, resolved Paroxysmal Atrial fibrillation: Metoprolol was increased , on amidarone DVT prophylaxis: arixtra Discussed with: Patient and nursing Anticipated discharge: today to Rehab Transfer to cardiac floor Treatment plan discussed with the patient and patient's nurse Anticipated discharge place: Rehab
[2019-01-07] MEDS ORDERED: FUROSEMIDE 10 MG/ML 2 ML VIAL IV STA (10:46)
--- NOTE | 2019-01-07 10:49 | P.PN ---
Subjective Progress Note Date: 01/07/19 This is a pleasant 63-year-old female patient who is status post coronary artery bypass grafting surgery. Overall this morning, she is feeling tired and weak. She did have chest x-ray done this morning that showed improved aeration of the lungs with probable trace pleural effusions remaining. She's been up ambulating with some complaints of shortness of breath. She does complain of generalized edema. She's been using her incentive spirometer sparingly and currently getting up to a 750 ML's. Laboratory values this morning show hemoglobin 9.2, BUN 20 and creatinine 0.96. She complains of some incisional discomfort she feels is due to tape. She also complains of generalized edema. Objective - Vital Signs Vital signs: Vital Signs Temp 98.4 F 01/07/19 07:50 Pulse 73 01/07/19 07:50 Resp 20 01/07/19 07:50 BP 151/75 01/07/19 07:50 Pulse Ox 99 01/07/19 07:50 Intake & Output 01/06/19 01/07/19 01/07/19 18:59 06:59 18:59 Intake Total 350 476.667 118 Output Total 1400 Balance -1050 476.667 118 Weight 144.2 kg Intake: Intake, IV Titration 236.667 Amount Amiodarone 300 mg In 236.667 Dextrose 5% in Water 250 ml @ 0.5 MG/MIN 25 mls/hr IV .Q10H [facility] Rx#: [id number] Oral 350 240 118 Output: Urine 1400 Other: Voiding Method Toilet Toilet # Voids 0 ABP, PAP, CO, CI - Last Documented Arterial Blood Pressure 152/44 Pulmonary Artery Pressure 35/15 Cardiac Output 7.8 Cardiac Index 3.2 - Exam PHYSICAL EXAMINATION: HEENT: Head is atraumatic, normocephalic. Pupils equal, round. Neck is supple. There is no elevated jugular venous pressure. HEART EXAMINATION: Heart sounds regular, S1 and S2 normal. No murmur or gallop heard. CHEST EXAMINATION: Lungs reveal diminished air entry with few faint crackles in the bases. No chest wall tenderness is noted on palpation or with deep breathing. Midsternal incision with dressing dry and intact. ABDOMEN: Soft, obese, nontender. Bowel sounds are heard. No organomegaly noted. EXTREMITIES: 2+ peripheral pulses with evidence of generalized edema and no calf tenderness noted. NEUROLOGIC patient is awake, alert and oriented x3. . - Labs CBC & Chem 7: 01/07/19 06:47 01/07/19 06:47 Labs: Abnormal Lab Results - Last 24 Hours (Table) 01/06/19 01/06/19 01/06/19 Range/Units 12:03 17:18 20:47 RBC (3.80-5.40) m/uL Hgb (11.4-16.0) gm/dL Hct (34.0-46.0) % Plt Count (150-450) k/uL BUN (7-17) mg/dL POC Glucose (mg/dL) 233 H 331 H 210 H (75-99) mg/dL 01/07/19 01/07/19 01/07/19 Range/Units 01:23 06:47 06:47 RBC 3.18 L (3.80-5.40) m/uL Hgb 9.2 L (11.4-16.0) gm/dL Hct 29.4 L (34.0-46.0) % Plt Count 116 L D (150-450) k/uL BUN 20 H (7-17) mg/dL POC Glucose (mg/dL) 101 H (75-99) mg/dL Assessment and Plan Assessment: #1 CAD, status post coronary artery bypass grafting #2 hyperlipidemia #3 hypertension #4 diabetes mellitus Plan: From cardiology standpoint, medications were reviewed and HE knew the same. Continue to encourage increase physical activity as well as use of incentive spirometer regularly. We will continue to follow the patient provide further recommendations accordingly. ADMITTING REPRESENTATIVE note has been reviewed, I agree with a documented findings and plan of care. Patient was seen and examined.
--- NOTE | 2019-01-07 11:18 | P.PN ---
Subjective Progress Note Date: 01/07/19 Principal diagnosis: Acute non-ST elevated myocardial infarction, severe triple-vessel coronary artery disease, status post coronary artery bypass grafting This is a 63-year-old white female patient with past medical history of diabetes mellitus type 2, morbid obesity, hypertension, hyperlipidemia, history of pulmonary embolisms for which the patient is on Eliquis, anxiety, depression, lifetime nonsmoker, who came into the hospital on 12/26/2018 with complaints of chest pain radiating into her jaw and into her back associated with nausea, patient was diagnosed non-ST elevated myocardial infarction, and a heart catheterization revealed severe triple vessel coronary artery disease. Patient underwent quadruple coronary artery bypass grafting on 01/03/2019, and today is postop day 4. Patient is doing very well, she seen in follow-up on selective care unit, she is sitting up in bed, in no acute distress, no complaints of pain, no shortness of breath. She is hemodynamically stable, she is not on any drips. Room air pulse ox is 97%, her incentive spirometer effort is 750, no fever or chills, she is tolerating oral intake, patient ambulated in the room with assistance and tolerated to be fairly well, she had her first postoperative day shower yesterday. Amiodarone drip was initiated for paroxysmal atrial fibrillation, which she currently remains, with a rate of 92 BPM. Today's chest x-ray has been reviewed, shows improved aeration of the lungs with probable trace pleural effusions. Patient is on Arixtra for anticoagulation, she received a dose of IV Lasix yesterday, and again today. She is on maintenance dose of oral Lasix 20 mg daily. Today's labs have been reviewed, and white blood cell count is 8.7, hemoglobin is 9.2, electrolytes were within normal limits, B1 is 20 and creatinine 0.96. Objective - Vital Signs Vital signs: Vital Signs Temp 98.4 F 01/07/19 07:50 Pulse 73 01/07/19 07:50 Resp 20 01/07/19 07:50 BP 151/75 01/07/19 07:50 Pulse Ox 99 01/07/19 07:50 Intake & Output 01/06/19 01/07/19 01/07/19 18:59 06:59 18:59 Intake Total 350 476.667 118 Output Total 1400 Balance -1050 476.667 118 Weight 144.2 kg Intake: Intake, IV Titration 236.667 Amount Amiodarone 300 mg In 236.667 Dextrose 5% in Water 250 ml @ 0.5 MG/MIN 25 mls/hr IV .Q10H [facility] Rx#: [id number] Oral 350 240 118 Output: Urine 1400 Other: Voiding Method Toilet Toilet # Voids 0 1 ABP, PAP, CO, CI - Last Documented Arterial Blood Pressure 152/44 Pulmonary Artery Pressure 35/15 Cardiac Output 7.8 Cardiac Index 3.2 - Exam GENERAL EXAM: Alert, pleasant, obese 63-year-old white female, on room air, comfortable in no apparent distress. HEAD: Normocephalic/atraumatic. EYES: Normal reaction of pupils, equal size. Conjunctiva pink, sclera white. NOSE: Clear with pink turbinates. THROAT: No erythema or exudates. NECK: No masses, no JVD, no thyroid enlargement, no adenopathy. CHEST: No chest wall deformity. Symmetrical expansion. LUNGS: Equal air entry with no crackles, wheeze, rhonchi or dullness. Diminished breath sounds at the bases CVS: Irregular rate and rhythm, normal S1 and S2, no gallops, no murmurs, no rubs ABDOMEN: Soft, nontender. No hepatosplenomegaly, normal bowel sounds, no guarding or rigidity. EXTREMITIES: No clubbing, no edema, no cyanosis, 2+ pulses and upper and lower extremities. MUSCULOSKELETAL: Muscle strength and tone normal. SPINE: No scoliosis or deformity SKIN: No rashes CENTRAL NERVOUS SYSTEM: Alert and oriented -3. No focal deficits, tone is normal in all 4 extremities. PSYCHIATRIC: Alert and oriented -3. Appropriate affect. Intact judgment and insight. - Labs CBC & Chem 7: 01/07/19 06:47 01/07/19 06:47 Labs: Abnormal Lab Results - Last 24 Hours (Table) 01/06/19 01/06/19 01/06/19 Range/Units 12:03 17:18 20:47 RBC (3.80-5.40) m/uL Hgb (11.4-16.0) gm/dL Hct (34.0-46.0) % Plt Count (150-450) k/uL BUN (7-17) mg/dL POC Glucose (mg/dL) 233 H 331 H 210 H (75-99) mg/dL 01/07/19 01/07/19 01/07/19 Range/Units 01:23 06:47 06:47 RBC 3.18 L (3.80-5.40) m/uL Hgb 9.2 L (11.4-16.0) gm/dL Hct 29.4 L (34.0-46.0) % Plt Count 116 L D (150-450) k/uL BUN 20 H (7-17) mg/dL POC Glucose (mg/dL) 101 H (75-99) mg/dL Assessment and Plan Plan: Assessment: #1. Acute non-ST elevated myocardial infarction #2. Severe triple-vessel coronary artery disease, with 50% left main stenosis, this post 4 vessel coronary artery bypass grafting, postoperative day 4 #3. Previous history of pulmonary embolisms, on Eliquis on an outpatient basis, hemodynamically on Arixtra #4. History of chronic bronchial asthma, mild intermittent, currently stable #5. Hypertension #6. Hyperlipidemia #7. Poorly controlled diabetes mellitus type 2 #8. Morbid obesity #9. Anxiety #10. GERD #11. Postoperative acute blood loss anemia, and expected outcome bypass surgery #12. Postoperative paroxysmal atrial fibrillation, an unexpected outcome Plan: Continue breathing treatments, deep breathing and coughing, today's chest x-ray has been reviewed with Dr. Ruvalcaba, shows aerations, with probable trace pleural effusions, patient received another dose of IV Lasix, she is anticoagulated, she remains on amiodarone drip for atrial fibrillation. Encourage ambulation, will continue to follow with the CT surgery. I performed a history & physical examination of the patient and discussed their management with my nurse practitioner, Bryanna Bell. I reviewed the nurse practitioner's note and agree with the documented findings and plan of care. Lung sounds are positive for diminished breath sounds. The findings and the impression was discussed with the patient. I attest to the documentation by the nurse practitioner. Time with Patient: Less than 30
[2019-01-07 11:41] LABS: Glucose,Whole Blood 159 mg/dL (75-99)
--- NOTE | 2019-01-07 12:30 | P.CONS ---
History of Present Illness - Chief Complaint Cardiac debility - History of Present Illness I had the opportunity to see patient for rehab consultation with regard to cardiac debility. She was admitted to [facility] December 27 with some chest discomfort and shortness of breath. Found to have triple-vessel disease and non-STEMI. Patient did undergo 4 vessel bypass. Seen in consultation by Jordon Jarquin and Dez. Did started therapies. PT reports supervision for bed mobility minimal assistance for gait 100 feet, become short of breath. OT reports moderate assistance for upper dressing moderate to maximal assistance for lower dressing, maximal assistance for bathing and toileting. Minimal assistance functional debility. Previous functional history as elicited from patient: 64-year-old right-handed white female who is lives in first-floor room. Describes independent with own cooking, laundry, driving, standing shower. Occasional needle standard cane when fatigued. Denies tobacco and perhaps a glass of wine per month. Jaclyn Renteria is PMD. Family history both parents with cancer. Review of Systems Review of systems: ENT: Denies sneezes or discharge. Eyes: Denies discharge or photophobia. Cardiac: Mild sternal discomfort. Pulmonary: Mild shortness of breath. Breast: Denies discharge or lumps. Gastrointestinal: Denies nausea, emesis, constipation, diarrhea. Genitourinary: Denies discharge or frequency. Musculoskeletal: Denies muscle or bone aches. Neurologic: Moderate generalized weakness. Endocrine: Denies shakes or sweats. Oncology: Denies cancers. Dermatologic: Denies rash, itching, pruritus. ALLERGY/immunology: Denies sneezes, rashes. Past Medical History Past Medical History: Asthma, Cancer (Basal cell carcinoma to her left face), Diabetes Mellitus, Hyperlipidemia, Osteoarthritis (OA), Pulmonary Embolus (PE), Renal Disease Additional Past Medical History / Comment(s): pulmonary embolism in 12/2015 and the patient was treated with 6 moths of Eliquis, morbid obesity, DM History of Any Multi-Drug Resistant Organisms: None Reported Past Surgical History: No Surgical Hx Reported Additional Past Surgical History / Comment(s): basal cell carcinoma removed from face and a polyp removed from rectum Past Anesthesia/Blood Transfusion Reactions: No Reported Reaction Past Psychological History: Anxiety, Depression Smoking Status: Never smoker Past Alcohol Use History: Occasional Past Drug Use History: Marijuana Additional Drug Use History / Comment(s): has been over a year since the pt has used marijuana - Past Family History Mother Additional Family Medical History / Comment(s): CANCER WITH METS NOT SURE WHICH ONE Father Family Medical History: Cancer (Lung cancer), Pneumonia Additional Family Medical History / Comment(s): CANCER Medications and Allergies Home Medications Medication Instructions Recorded Confirmed Type metFORMIN HCL 500 mg PO BID 01/07/16 12/26/18 History Lisinopril [Zestril] 10 mg PO DAILY 07/24/16 12/26/18 History sitaGLIPtin [Januvia] 100 mg PO DAILY 07/24/16 12/26/18 History Apixaban [Eliquis] 5 mg PO BID 12/26/18 12/26/18 History Magnesium Oxide [Mag-Ox] 400 mg PO DAILY 12/26/18 12/26/18 History Allergies Allergy/AdvReac Type Severity Reaction Status Date / Time Iodinated Contrast- Oral and Allergy Rash/Hives Verified 03/28/18 12:14 IV Dye Milk Containing Products AdvReac Nausea & Verified 03/28/18 12:14 [Dairy] Vomiting nickel AdvReac Rash/Hives Verified 12/26/18 15:57 Physical Exam Vitals: Vital Signs Temp Pulse Pulse Pulse Resp BP BP 01/07/19 11:41 89 01/07/19 11:32 90 01/07/19 07:50 98.4 F 73 20 151/75 01/07/19 07:27 92 01/07/19 07:16 92 01/07/19 04:00 98.5 F 69 17 117/55 01/07/19 00:00 97.8 F 62 16 121/97 01/06/19 20:55 86 01/06/19 20:40 88 01/06/19 20:00 97.3 F L 69 15 111/59 01/06/19 18:30 124/90 01/06/19 18:00 102 H 23 128/77 01/06/19 17:30 109 H 16 136/83 01/06/19 17:00 112 H 18 134/91 01/06/19 16:30 107 H 20 121/62 01/06/19 16:09 106 H 01/06/19 16:01 104 H 01/06/19 16:00 98.2 F 111 H 20 101/61 01/06/19 15:30 105 H 20 113/74 01/06/19 15:00 93 18 97/72 01/06/19 14:30 104 H 18 125/80 01/06/19 14:00 117 H 25 H 92/61 01/06/19 13:30 121 H 18 119/60 01/06/19 13:00 115 H 16 120/53 01/06/19 12:30 97 21 109/56 Pulse Ox 01/07/19 11:41 01/07/19 11:32 01/07/19 07:50 99 01/07/19 07:27 01/07/19 07:16 01/07/19 04:00 96 01/07/19 00:00 96 01/06/19 20:55 01/06/19 20:40 01/06/19 20:00 01/06/19 18:30 01/06/19 18:00 97 01/06/19 17:30 94 L 01/06/19 17:00 97 01/06/19 16:30 97 01/06/19 16:09 01/06/19 16:01 01/06/19 16:00 97 01/06/19 15:30 96 01/06/19 15:00 97 01/06/19 14:30 96 01/06/19 14:00 96 01/06/19 13:30 97 01/06/19 13:00 96 01/06/19 12:30 96 Intake and Output 01/06/19 01/07/19 01/07/19 22:59 06:59 14:59 Intake Total 476.667 118 Output Total 600 Balance -600 476.667 118 Intake: Intake, IV Titration 236.667 Amount Amiodarone 300 mg In 236.667 Dextrose 5% in Water 250 ml @ 0.5 MG/MIN 25 mls/hr IV .Q10H [facility] Rx#: [id number] Oral 240 118 Output: Urine 600 Other: Voiding Method Toilet Toilet # Voids 0 1 Weight 144.2 kg Results CBC & Chem 7: 01/07/19 06:47 01/07/19 06:47 Labs: Abnormal Lab Results - Last 24 Hours (Table) 01/06/19 01/06/19 01/07/19 Range/Units 17:18 20:47 01:23 RBC (3.80-5.40) m/uL Hgb (11.4-16.0) gm/dL Hct (34.0-46.0) % Plt Count (150-450) k/uL BUN (7-17) mg/dL POC Glucose (mg/dL) 331 H 210 H 101 H (75-99) mg/dL 01/07/19 01/07/19 01/07/19 Range/Units 06:47 06:47 11:34 RBC 3.18 L (3.80-5.40) m/uL Hgb 9.2 L (11.4-16.0) gm/dL Hct 29.4 L (34.0-46.0) % Plt Count 116 L D (150-450) k/uL BUN 20 H (7-17) mg/dL POC Glucose (mg/dL) 159 H (75-99) mg/dL Assessment and Plan (1) Unstable angina pectoris Current Visit: Yes Status: Acute Code(s): I20.0 - UNSTABLE ANGINA SNOMED Code(s): 0597900 Plan: Impression: 1. Cardiac debility. 2. Non-STEMI. 3. Coronary disease with recent 4 vessel bypass. 4. Diabetes. 5. Chronic kidney disease. 6. History of PE and cancer. 7. Asthma. 8. History of arthritis. Plan: At this time PT and OT are ongoing. Current safety concerns. We'll review patient's case, Thursday a.m. determine if patient requires inpatient rehab. She reports that her current home may be losing its electricity. She is anticipating help from sister, perhaps moving into sister's
[2019-01-07 13:34] VITALS: BMI 54.6
--- NOTE | 2019-01-07 15:34 | P.DS ---
Providers Date of admission: 12/27/18 11:20 Expected date of discharge: 01/07/19 Attending physician: William Bowers Consults: 12/26/18 16:52 Consult Physician Urgent Consulting Provider: [facility] Consult Reason/Comments: Unstable angina Do you want consulting provider notified?: Yes 12/27/18 14:54 Consult Physician Routine Consulting Provider: William Bowers Consult Reason/Comments: triple vessel disease Do you want consulting provider notified?: Already Contacted 12/31/18 12:05 Consult Physician Routine Consulting Provider: Bismark Cleveland Consult Reason/Comments: preop cabg Do you want consulting provider notified?: Yes Consult to Anesthesia Routine Consulting Provider: Anesthesia,Services Consult Reason/Comments: Cardiac Surgery Pre-Op 01/03/19 15:36 Consult Physician Routine Consulting Provider: Bashir Palacios Consult Reason/Comments: Medical Management Do you want consulting provider notified?: Yes 01/07/19 10:16 Consult Physician Routine Consulting Provider: Erik Duncan Consult Reason/Comments: Therapy, D/C [facility]. Do you want consulting provider notified?: Yes Primary care physician: Stated None Hospital Course: FINAL DIAGNOSIS: 1. Severe triple-vessel coronary artery disease, with preserved LV function 2. Non-Q-wave myocardial infarction this admission 3. Hyperlipidemia untreated 4. Hypertension 5. History of bilateral pulmonary embolism on Eliis, last PE 2 years ago 6. Uncontrolled diabetes mellitus type 2 with preop Hgb A1c 9.1% 7. Osteoarthritis 8. History of basal cell skin cancer to her left face 9. Gastroesophageal reflux disease 10. History of urinary stress incontinence 11. Asthma with a preoperative FEV1 87% of predicted value 12. Morbid obesity 13. Anxiety 14. Preoperative thrombocytopenia 15. Postoperative acute blood loss anemia, an expected outcome due to cardiopulmonary bypass and hemodilution 16. Postoperative paroxysmal atrial fibrillation, an unexpected outcome PRINCIPAL PROCEDURE: 1. Selective right and left coronary angiogram performed by Dr. Greer. 2. Urgent quadruple coronary artery bypass grafting using the left internal mammary artery to the left anterior descending coronary artery, a reverse greater saphenous vein graft from the aorta to the first obtuse marginal coronary artery, a reverse greater saphenous vein graft from the aorta to the posterior descending coronary artery in a [id number] fashion, then the left ventricular branch to the right coronary artery in an end-to-side fashion. 3. Endoscopic harvesting of the left greater saphenous vein. 4.Intraoperative transesophageal echocardiogram, epi-aortic scanning. 5.Intraoperative graft flow measurements using the [employer] system. 6.Sternal plating using the Tritium system along with the Peapack cables. HISTORY OF PRESENT ILLNESS: This is 63-year-old female patient who is followed on an outpatient basis by Dr. Jaclyn Renteria. She has a past medical history significant for bilateral pulmonary embolism and is on Eliquis, hyperlipidemia untreated, hypertension, uncontrolled diabetes mellitus type 2, osteoarthritis, history of basal cell skin cancer to her left face, gastroesophageal reflux disease, history of urinary stress incontinence, asthma, morbid obesity, and anxiety. The patient has been experiencing some episodes of shortness of breath, chest pain radiating to her jaw, nausea and complaints of diaphoresis. Subsequently she presented to the emergency department at [facility] and was found to have elevated troponins as high as 4.380. She underwent a CTA of her chest which did not demonstrate any evidence for pulmonary embolism. A 12-lead EKG was completed which showed normal sinus rhythm with some nonspecific ST abnormalities and a heart rate of 62 BPM. Due to the patient's presenting symptoms and elevation in her troponins she was seen by Dr. Greer from cardiology. A cardiac catheterization was completed which demonstrated a 30% ostial stenosis of her right coronary artery, a 70-80% stenosis to her PLV branch, a 50% stenosis to her left main coronary artery, an 80% stenosis to her proximal circumflex coronary artery, a 50% stenosis to her obtuse marginal coronary artery, an 80% stenosis to her proximal left anterior ascending coronary artery and a 50% stenosis to her mid left anterior descending coronary artery. A 2-D echocardiogram was also completed which showed an overall left ventricular function low normal with an ejection fraction between 50 and 55%, mild mitral valve regurgitation and mild tricuspid valve regurgitation. Due to the patient's presenting symptoms, elevation in troponins and cardiac catheterization she was seen by Dr. William Bowers from cardiothoracic surgery. Dr. Bowers reviewed the cardiac catheterization findings with the patient and after reviewing the risks and benefits of myocardial revascularization surgery including the STS risk score the patient wished to proceed with an urgent myocardial revascularization surgery. HOSPITAL COURSE: The patient was admitted to the hospital and after obtaining consent was taken to the operating room where Dr. William Bowers performed an urgent quadruple coronary artery bypass grafting using the left internal mammary artery to left anterior descending coronary artery, a reverse greater saphenous vein graft from the aorta to the first obtuse marginal coronary artery, a reverse greater saphenous vein graft from the aorta to the posterior descending coronary artery in a side to side fashion, then the left ventricular branch to the right coronary artery in an end-to-side fashion. She also underwent endoscopic harvesting of the left greater saphenous vein, intraoperative transesophageal echocardiogram, epi-aortic scanning, graft flow measurements using the [employer] system and sternal plating using the Tritium system with the Pe[place]ack cables. Upon completion of the surgery the patient was transferred to the cardiovascular intensive care unit where she was recovered, monitored hemodynamically and where she progressed cardiac rehabilitation phase 1. She was extubated, all lines, tubes and supportive drips were discontinued and appropriate. She was transferred to the 3 S. cardiac stepdown unit for further rehabilitation needs. Her oxygen was titrated down, she continued to work with physical and occupational therapy, was tolerating a normal diet, her pain was well controlled and she was ready to be discharged to [facility] on postop day #4 for further rehabilitation needs. She has received written and verbal instructions regarding her medications, activity restrictions, signs and symptoms requiring physician notification and her follow-up appointments. COMPLICATIONS: Postoperative period was complicated by some paroxysmal atrial fibrillation which was treated accordingly. CONSULTATIONS: 1. Dr. Greer for cardiology management. 2. Dr. Cleveland performed and ventilator management. 3. Dr. Palacios medical management. 4. Dr. Duncan for rehab management. DISCHARGE INSTRUCTIONS: 1. No driving for 4 weeks, or until physician gives their ok. 2. The patient should sleep in their own bed, no medical bed needed. 3. Stairs are not an issue. If the bedroom is upstairs, it is advised that the patient go up at night and down in the morning for the first week. Go slowly, using handrail and take 1 step at a time. 4. SARAH hose are to be worn for 30 days or until physician discontinues. 5. Heart hugger is to be worn 100% of the time until physician discontinues.(except when showering) 6. No lifting, pushing, or pulling more than 10 pounds for 12 weeks. The physician will advise of any restriction changes. 7. The patient is expected to continue the prescribed walking program. 8. Continue pain control per as needed orders. 9. Continue with incentive spirometry and splinting/heart hugger until otherwise directed by the physician. 10. Must shower daily using liquid antibacterial soap and a separate white washcloth for each individual incision. 11. Routine sternal incision care, no ointments, lotions or powders on the incisions. 12. Please notify surgeon/nurse practitioner for temperature greater than 101F or purulent drainage from incisions 13. Prescriptions for first 30 days given per cardiac surgery service. After 30 days, all prescription refills obtained through cardiology/primary care physician. 14. A red arm and has been placed on this patient it should be worn for 30 days post surgery and will be removed by the cardiothoracic surgeons. If an ER visit is necessary, please make sure the number on the red arm band is called. 15. Physical therapy and occupational therapy to evaluate and treat. REHAB/ NURSING SERVICES TO PROVIDE: RN SKILLED HOME CARE SERVICES FOR POST-OP SURGICAL PATIENTS WITH THE FOLLOWING: Coronary Artery Bypass Surgery (CABG), Mitral Valve Replacement/Repair ( MVR), Aortic Valve Replacement/Repair (AVR) RN TO CONTINUE EDUCATION FROM ``ROAD TO A HEALTH HEART PATIENT EDUCATION MANUAL" (GIVEN TO PATIENT IN THE HOSPITAL) MEDICATION RECONCILIATION WITH EDUCATION NEEDED ON FIRST HOME VISIT EMPHASIZE IMPORTANCE OF WEARING BREAST SUPPORT/HEART HUGGER ENCOURAGE USE OF INCENTIVE SPIROMETER 10 X EVERY HOUR WHILE AWAKE ENCOURAGE UTILIZATION OF LOWER EXTREMITY COMPRESSION STOCKINGS/SARAH HOSE and ELEVATE LEGS ABOVE LEVEL OF HEART WHILE AT REST. ENCOURAGE AMBULATION 3-5x/day INCREASING TOLERATES, WHILE AVOID EXTREMES IN TEMPERATURE LABORATORY: CBC, CMP TO BE DRAWN ON THE THIRD DAY Thursday01/10/2019 (RAN STAT) FAX RESULTS TO [phone]. TELEHEALTH PARAMETERS: WEIGHT: NOTIFY MD OF WEIGHT GAIN OF 2 LBS IN 24 HOURS OR 5 LBS IN ONE WEEK HR: NOTIFY MD OF HR <55 BPM OR HR>100 BPM BP: NOTIFY MD IF BP <90/55 OR BP>140/100 O2 SAT: NOTIFY MD IF PO2<93% ON ROOM AIR ONCE DISCHARGED HOME SEND TELEHEALTH REPORT TO INDUSTRIAL RENDERER AND CARDIOVASCULAR SURGEON THE FIRST WEEK OF CARE AND THEN BI-WEEKLY. PLEASE ADDITIONALLY COMMUNICATE ANY ABNORMALS AND NEW FINDINGS TO THE SURGEONS OFFICE. Amiodarone discharge instructions: 01/07/2019- amiodarone 400 mg by mouth twice a day 1 week, then decrease amiodarone to 200 mg by mouth twice a day 1 week, then decrease to amiodarone 200 mg by mouth daily 1 week. Plan - Discharge Summary Discharge Rx Participant: No New Discharge Prescriptions: New Amiodarone [Cordarone] 400 mg PO BID tab Bisacodyl [Dulcolax] 10 mg RECTAL DAILY PRN supp PRN Reason: Constipation Insulin NPH [humuLIN N] 15 unit SQ HS vial Furosemide [Lasix] 20 mg PO DAILY tab Atorvastatin [Lipitor] 40 mg PO DAILY tab Metoprolol Tartrate [Lopressor] 25 mg PO BID tab INSULIN ASPART (NovoLOG) [NovoLOG (formulary)] 15 unit SQ AC-SUPPER vial INSULIN ASPART (NovoLOG) [NovoLOG (formulary)] 0 unit SQ ACHS vial Pantoprazole [Protonix] 40 mg PO AC-BRKFST tablet.dr Telles-Docusate Sodium [Senokot-S] 2 each PO HS tab Acetaminophen Tab [Tylenol] 1,000 mg PO Q6HR PRN tab PRN Reason: Fever And/ Or Pain Lisinopril [Zestril] 5 mg PO DAILY tab Aspirin 81 mg PO DAILY chew Continue Apixaban [Eliquis] 5 mg PO BID Discontinued metFORMIN HCL 500 mg PO BID sitaGLIPtin [Januvia] 100 mg PO DAILY Lisinopril [Zestril] 10 mg PO DAILY Magnesium Oxide [Mag-Ox] 400 mg PO DAILY Discharge Medication List Apixaban [Eliquis] 5 mg PO BID 12/26/18 [History] Acetaminophen Tab [Tylenol] 1,000 mg PO Q6HR PRN tab 01/07/19 [Rx] Amiodarone [Cordarone] 400 mg PO BID tab 01/07/19 [Rx] Aspirin 81 mg PO DAILY chew 01/07/19 [Rx] Atorvastatin [Lipitor] 40 mg PO DAILY tab 01/07/19 [Rx] Bisacodyl [Dulcolax] 10 mg RECTAL DAILY PRN supp 01/07/19 [Rx] Furosemide [Lasix] 20 mg PO DAILY tab 01/07/19 [Rx] INSULIN ASPART (NovoLOG) [NovoLOG (formulary)] 0 unit SQ ACHS vial 05/17/19 [Rx] INSULIN ASPART (NovoLOG) [NovoLOG (formulary)] 15 unit SQ AC-SUPPER vial 01/07/19 [Rx] Insulin NPH [humuLIN N] 15 unit SQ HS vial 01/07/19 [Rx] Lisinopril [Zestril] 5 mg PO DAILY tab 01/07/19 [Rx] Metoprolol Tartrate [Lopressor] 25 mg PO BID tab 01/07/19 [Rx] Pantoprazole [Protonix] 40 mg PO AC-BRKFST tablet. 01/07/19 [Rx] Sennosides-Docusate Sodium [Senokot-S] 2 each PO HS tab 01/07/19 [Rx] Follow up Appointment(s)/Referral(s): William Bowers MD [STAFF PHYSICIAN] - 02/04/19 10:30 am Jaclyn Renteria DO [REFERRING] - 1 Week (Please follow-up with primary care physician upon discharge from rehab) Luis Greer MD [STAFF PHYSICIAN] - 1 Week (Please follow-up with Dr. Greer from cardiology upon discharge from rehab) Bismark Cleveland MD [STAFF PHYSICIAN] - 1 Week (Please follow-up with Dr. Cleveland from pulmonary medicine in 1 week post discharge from rehab) Ambulatory/Diagnostic Orders: Complete Blood Count w/diff [LAB.AMB] Time Frame: 12/27/18, Facility: [facility], Location: [facility] Comprehensive Metabolic Panel [LAB.AMB] Time Frame: 01/10/19, Facility: [facility], Location: [facility] Patient Instructions/Handouts: *Surgery [facility] - After Heart Catheterization - Pharmacy Graduate Intern Instructions, Hypertension (DC), Diabetic Hyperglycemia (DC), Coronary Artery Bypass Graft (GEN) Discharge Disposition: TRANSFER TO SNF/ECF
[2019-01-07 16:44] LABS: Glucose,Whole Blood 216 mg/dL (75-99)
[2019-01-07 17:18] VITALS: BP 160/65; PULSE 84
[2019-01-08] MEDS ORDERED: ASPIRIN 81 MG PO SCH (09:00)
[2019-01-08] MEDS ORDERED: FUROSEMIDE 20 MG TAB PO SCH (09:00)
[2019-01-08] MEDS ORDERED: ASPIRIN 325 MG TAB PO SCH (09:00)
== END 2019-01-07 17:56 | DRG 234 ==
LOC: EC 14:49 → 3SCARD 16:52 → OBSVTOIN 12-27 11:20 → 2SICU 01-03 07:51 → 3SCARD 01-06 18:51
PROVIDERS: ADMIT Surgery; ATTEND Surgery
PROC: 4A023N7 Measurement of Cardiac Sampling and Pressure, Left Heart, Percutaneous Approach (ICD-10-PCS; 2018-12-27)
PROC: B2111ZZ Fluoroscopy of Multiple Coronary Arteries using Low Osmolar Contrast (ICD-10-PCS; 2018-12-27)
PROC: B54DZZZ Ultrasonography of Bilateral Lower Extremity Veins (ICD-10-PCS; 2018-12-29)
PROC: 02100Z9 Bypass Coronary Artery, One Artery from Left Internal Mammary, Open Approach (ICD-10-PCS; 2019-01-03)
PROC: 06BQ4ZZ Excision of Left Saphenous Vein, Percutaneous Endoscopic Approach (ICD-10-PCS; 2019-01-03)
PROC: 5A1221Z Performance of Cardiac Output, Continuous (ICD-10-PCS; 2019-01-03)
PROC: 4A033BC Measurement of Arterial Pressure, Coronary, Percutaneous Approach (ICD-10-PCS; 2019-01-03)
PROC: B24BZZ4 Ultrasonography of Heart with Aorta, Transesophageal (ICD-10-PCS; 2019-01-03)
PROC: 021109W Bypass Coronary Artery, Two Arteries from Aorta with Autologous Venous Tissue, Open Approach (ICD-10-PCS; principal; 2019-01-03 08:00)
DX: I21.4 Non-ST elevation (NSTEMI) myocardial infarction (principal); D62 Acute posthemorrhagic anemia; J90 Pleural effusion, not elsewhere classified; J98.11 Atelectasis; Z68.43 Body mass index [BMI] 50.0-59.9, adult; I48.0 Paroxysmal atrial fibrillation; D69.59 Other secondary thrombocytopenia; E66.01 Morbid (severe) obesity due to excess calories; E11.65 Type 2 diabetes mellitus with hyperglycemia; E83.42 Hypomagnesemia; E87.5 Hyperkalemia; I08.1 Rheumatic disorders of both mitral and tricuspid valves; I11.9 Hypertensive heart disease without heart failure; E78.5 Hyperlipidemia, unspecified; F32.9 Major depressive disorder, single episode, unspecified; F41.0 Panic disorder [episodic paroxysmal anxiety]; J45.20 Mild intermittent asthma, uncomplicated; K21.9 Gastro-esophageal reflux disease without esophagitis; M19.90 Unspecified osteoarthritis, unspecified site; M81.0 Age-related osteoporosis without current pathological fracture; N39.3 Stress incontinence (female) (male); R74.0 Nonspecific elevation of levels of transaminase and lactic acid dehydrogenase [LDH]; I25.10 Atherosclerotic heart disease of native coronary artery without angina pectoris; Z79.01 Long term (current) use of anticoagulants; Z79.899 Other long term (current) drug therapy; Z79.84 Long term (current) use of oral hypoglycemic drugs; Z85.828 Personal history of other malignant neoplasm of skin; Z86.711 Personal history of pulmonary embolism; Z86.718 Personal history of other venous thrombosis and embolism; Z91.041 Radiographic dye allergy status; Z91.011 Allergy to milk products; Z91.048 Other nonmedicinal substance allergy status; Z86.010 Personal history of colon polyps; Z80.1 Family history of malignant neoplasm of trachea, bronchus and lung
CPT/HCPCS: 36415; 71045; 71046; 71275; 80048; 80053; 80061; 81003; 82330; 82805; 83036; 83735; 83880; 84443; 84484; 85025; 85027; 85520; 85610; 85730; 86022; 86850; 86891; 86900; 86901; 86920; 87070; 87086; 93005; 93306; 93458; 93880; 93923; 93970; 94002; 94150; 94640; 94760; 99291

== ENCOUNTER 2019-01-08 03:32 | Observation (INO) | payer MEDICARE ==
[2019-01-08] MEDS ORDERED: DILTIAZEM DRIP BOLUS FROM BAG 1 MG SOLN IV ONE (03:53)
[2019-01-08] MEDS ORDERED: DILTIAZEM 125 MG in SODIUM CHLORIDE 0.9% 100 ML IV SCH (04:00)
--- NOTE | 2019-01-08 04:05 | ED ---
Arrhythmia/Palpitations HPI <Zhen Walters - Last Filed: 01/08/19 10:59> - General Source: patient, EMS Mode of arrival: EMS Limitations: no limitations - History of Present Illness MD Complaint: "heart racing" Onset/Timin -: hour(s) Context: occurred during exertion Associated Symptoms: shortness of breath <LilliejulianoEsvin - Last Filed: 01/09/19 08:32> - General Chief Complaint: Chest Pain Stated Complaint: Chest Pain Time Seen by Provider: 01/08/19 03:52 - History of Present Illness Initial Comments: This patient is 63-year-old woman arriving from custodial where she is having rehabilitation following CABG operation. The patient states that she had gotten up to use the bathroom at approximately 9 PM, and then felt that her heart began to race. She also was experiencing shortness of breath. The patient states that symptoms were very similar to an episode of atrial fibrillation that she had developed following the surgery. The patient states that she does not believe that she is chronically in atrial fibrillation. Patient is denying ches t pain. No nausea or vomiting. No diaphoresis. (Esvin Durán) - Related Data Home Medications Medication Instructions Recorded Confirmed Apixaban [Eliquis] 5 mg PO BID 12/26/18 01/08/19 Furosemide [Lasix] 20 mg PO HS 01/08/19 01/08/19 INSULIN ASPART (NovoLOG) [NovoLOG See Protocol SQ ACHS 01/08/19 01/08/19 (formulary)] Sennosides-Docusate Sodium 2 tab PO HS 01/08/19 01/08/19 [Senokot-S] Previous Rx's Medication Instructions Recorded Acetaminophen Tab [Tylenol] 1,000 mg PO Q6HR PRN tab 01/07/19 Amiodarone [Cordarone] 400 mg PO BID tab 01/07/19 Aspirin 81 mg PO DAILY chew 01/07/19 Atorvastatin [Lipitor] 40 mg PO DAILY tab 01/07/19 Bisacodyl [Dulcolax] 10 mg RECTAL DAILY PRN supp 01/07/19 INSULIN ASPART (NovoLOG) [NovoLOG 15 unit SQ AC-SUPPER vial 01/07/19 (formulary)] Insulin NPH [humuLIN N] 15 unit SQ HS vial 01/07/19 Lisinopril [Zestril] 5 mg PO DAILY tab 01/07/19 Metoprolol Tartrate [Lopressor] 25 mg PO BID tab 01/07/19 Pantoprazole [Protonix] 40 mg PO AC-BRKFST tablet. 01/07/19 Allergies Allergy/AdvReac Type Severity Reaction Status Date / Time Iodinated Contrast- Oral and Allergy Rash/Hives Verified 01/08/19 09:15 IV Dye Milk Containing Products AdvReac Nausea & Verified 01/08/19 09:15 [Dairy] Vomiting nickel AdvReac Rash/Hives Verified 01/08/19 09:15 Review of Systems ROS Other: All systems not noted in ROS Statement are negative. <Zhen Walters - Last Filed: 01/08/19 10:59> ROS Other: All systems not noted in ROS Statement are negative. Constitutional: Denies: fever, chills, weakness Respiratory: Reports: dyspnea. Denies: cough Cardiovascular: Reports: palpitations. Denies: chest pain, orthopnea, edema, syncope Gastrointestinal: Denies: abdominal pain, nausea, vomiting Genitourinary: Denies: dysuria, hematuria Musculoskeletal: Denies: back pain Skin: Denies: rash Neurological: Denies: headache, weakness <Esvin Durán - Last Filed: 01/09/19 08:32> ROS Statement: Those systems with pertinent positive or pertinent negative responses have been documented in the HPI. Past Medical History Past Medical History: Asthma, Cancer, Diabetes Mellitus, Hyperlipidemia, Osteoarthritis (OA), Pulmonary Embolus (PE), Renal Disease Additional Past Medical History / Comment(s): pulmonary embolism in 12/2015 and the patient was treated with 6 moths of Eliquis, morbid obesity, DM History of Any Multi-Drug Resistant Organisms: None Reported Past Surgical History: Coronary Bypass/CABG Additional Past Surgical History / Comment(s): CABGX4 .basal cell carcinoma removed from face and a polyp removed from rectum Past Anesthesia/Blood Transfusion Reactions: No Reported Reaction Past Psychological History: Anxiety, Depression Smoking Status: Never smoker Past Alcohol Use History: Occasional Past Drug Use History: Marijuana - Past Family History Mother Additional Family Medical History / Comment(s): CANCER WITH METS NOT SURE WHICH ONE Father Family Medical History: Cancer (Lung cancer), Pneumonia Additional Family Medical History / Comment(s): CANCER <Esvin Durán - Last Filed: 01/09/19 08:32> General Exam General appearance: alert, in no apparent distress Head exam: Present: atraumatic, normocephalic Eye exam: Present: normal appearance. Absent: scleral icterus, conjunctival injection ENT exam: Present: normal oropharynx Neck exam: Present: normal inspection Respiratory exam: Present: normal lung sounds bilaterally. Absent: respiratory distress, wheezes, rales, rhonchi, stridor Cardiovascular Exam: Present: tachycardia, irregular rhythm, normal heart sounds. Absent: systolic murmur, diastolic murmur, rubs, gallop GI/Abdominal exam: Present: soft. Absent: distended, tenderness, guarding, rebound, rigid, mass Extremities exam: Present: normal inspection, normal capillary refill, other (Patient wearing compression stockings). Absent: pedal edema, calf tenderness Back exam: Present: normal inspection. Absent: CVA tenderness (R), CVA tenderness (L) Neurological exam: Present: alert Skin exam: Present: warm, dry, intact, normal color. Absent: rash <Esvin Durán - Last Filed: 01/09/19 08:32> Course <Zhen Walters - Last Filed: 01/08/19 10:59> Vital Signs 01/08/19 01/08/19 01/08/19 03:34 04:23 05:43 Temperature 98.3 F Pulse Rate 125 H 121 H 107 H Respiratory 20 18 18 Rate Blood Pressure 157/102 120/82 139/89 O2 Sat by Pulse 97 99 98 Oximetry 01/08/19 01/08/19 01/08/19 07:04 08:00 11:53 Temperature Pulse Rate 101 H 77 88 Respiratory 18 18 18 Rate Blood Pressure 123/63 128/64 158/67 O2 Sat by Pulse 98 99 98 Oximetry - Reevaluation(s) Reevaluation #1: 01/08/19 08:13 The patient was noted on a monitor to convert to what appear to be a normal sinus rhythm EKG was performed showing normal sinus rhythm a 73 MI interval 168 QRS 88 QT since QTC 390/429 low-voltage QRS no acute ST-T wave changes are seen. (Zhen Walters) Reevaluation #2: 01/08/19 08:13 The patient is pending an evaluation by (Zhen Walters) EKG Findings - EKG Comments: EKG Findings:: Rhythm appears to be atrial fibrillation with rapid ventricular rate approximately 120 bpm. Low-voltage QRS complexes. - EKG Results: EKG: interpreted by ERMD - VA, Pacemaker, Normal: Myocardial infarction: inferior VA (old age indeterminate), anterior VA (old age or indeterminate) <Esvin Durán - Last Filed: 01/09/19 08:32> Medical Decision Making - Lab Data Result diagrams: 01/08/19 03:46 01/08/19 03:46 <Zhen Walters - Last Filed: 01/08/19 10:59> - Lab Data Result diagrams: 01/08/19 03:46 01/08/19 03:46 <Esvin Durán - Last Filed: 01/09/19 08:32> - Medical Decision Making Patient was endorsed me at shift change pending evaluation by Dr. Bowers. Patient is subsequently convert to normal sinus rhythm. Christopher Lucas did come to the emergency department see the patient she will be admitted for observation Dr. Bradford is already notified Dr. Gonsalez will be consulted he is also notified by his LAB DIRECTOR Arlene (Zhen Walters) - Lab Data Lab Results 01/08/19 01/08/19 01/08/19 Range/Units 03:46 03:46 03:46 WBC 6.4 (3.8-10.6) k/uL RBC 3.36 L (3.80-5.40) m/uL Hgb 9.7 L (11.4-16.0) gm/dL Hct 30.3 L (34.0-46.0) % MCV 90.2 (80.0-100.0) fL MCH 28.9 (25.0-35.0) pg MCHC 32.0 (31.0-37.0) g/dL RDW 14.2 (11.5-15.5) % Plt Count 128 L (150-450) k/uL Neutrophils % 67 % Lymphocytes % 22 % Monocytes % 7 % Eosinophils % 3 % Basophils % 0 % Neutrophils # 4.3 (1.3-7.7) k/uL Lymphocytes # 1.4 (1.0-4.8) k/uL Monocytes # 0.4 (0-1.0) k/uL Eosinophils # 0.2 (0-0.7) k/uL Basophils # 0.0 (0-0.2) k/uL PT 11.0 (9.0-12.0) sec INR 1.0 (<1.2) APTT 22.5 (22.0-30.0) sec Sodium 140 (137-145) mmol/L Potassium 4.1 (3.5-5.1) mmol/L Chloride 110 H (98-107) mmol/L Carbon Dioxide 23 (22-30) mmol/L Anion Gap 7 mmol/L BUN 17 (7-17) mg/dL Creatinine 0.85 (0.52-1.04) mg/dL Est GFR (CKD-EPI)AfAm 84 (>60 ml/min/1.73 sqM) Est GFR (CKD-EPI)NonAf 72 (>60 ml/min/1.73 sqM) Glucose 122 H (74-99) mg/dL Calcium 9.0 (8.4-10.2) mg/dL Magnesium 2.0 (1.6-2.3) mg/dL Total Bilirubin 1.2 (0.2-1.3) mg/dL AST 21 (14-36) U/L ALT 25 (9-52) U/L Alkaline Phosphatase 58 (38-126) U/L Troponin I (0.000-0.034) ng/mL Total Protein 5.4 L (6.3-8.2) g/dL Albumin 3.0 L (3.5-5.0) g/dL 01/08/ Range/Units 03:46 WBC (3.8-10.6) k/uL RBC (3.80-5.40) m/uL Hgb (11.4-16.0) gm/dL Hct (34.0-46.0) % MCV (80.0-100.0) fL MCH (25.0-35.0) pg MCHC (31.0-37.0) g/dL RDW (11.5-15.5) % Plt Count (150-450) k/uL Neutrophils % % Lymphocytes % % Monocytes % % Eosinophils % % Basophils % % Neutrophils # (1.3-7.7) k/uL Lymphocytes # (1.0-4.8) k/uL Monocytes # (0-1.0) k/uL Eosinophils # (0-0.7) k/uL Basophils # (0-0.2) k/uL PT (9.0-12.0) sec INR (<1.2) APTT (22.0-30.0) sec Sodium (137-145) mmol/L Potassium (3.5-5.1) mmol/L Chloride (98-107) mmol/L Carbon Dioxide (22-30) mmol/L Anion Gap mmol/L BUN (7-17) mg/dL Creatinine (0.52-1.04) mg/dL Est GFR (CKD-EPI)AfAm (>60 ml/min/1.73 sqM) Est GFR (CKD-EPI)NonAf (>60 ml/min/1.73 sqM) Glucose (74-99) mg/dL Calcium (8.4-10.2) mg/dL Magnesium (1.6-2.3) mg/dL Total Bilirubin (0.2-1.3) mg/dL AST (14-36) U/L ALT (9-52) U/L Alkaline Phosphatase (38-126) U/L Troponin I 0.380 H* (0.000-0.034) ng/mL Total Protein (6.3-8.2) g/dL Albumin (3.5-5.0) g/dL Critical Care Time Critical Care Time: Yes (35 minutes) <Esvin Durán - Last Filed: 01/09/19 08:32> Disposition <Zhen Walters - Last Filed: 01/08/19 10:59> <Esvin Durán - Last Filed: 01/09/19 08:32> Clinical Impression: Paroxysmal atrial fibrillation, Coronary artery disease involving coronary bypass graft Disposition: ADMITTED IP TO THIS HOSP Condition: Stable
[2019-01-08 04:22] LABS: Basophils % (A) 0 %; Eosinophils # (A) 0.2 k/uL (0-0.7); Eosinophils % (A) 3 %; HCT 30.3 % (34.0-46.0); HGB 9.7 gm/dL (11.4-16.0); Lymphocytes # (A) 1.4 k/uL (1.0-4.8); Lymphocytes % (A) 22 %; MCH 28.9 pg (25.0-35.0); MCV 90.2 fL (80.0-100.0); Mean Platelet Volume 9.3; Monocytes # (A) 0.4 k/uL (0-1.0); Monocytes % (A) 7 %; Neutrophils # (A) 4.3 k/uL (1.3-7.7); Neutrophils % (A) 67 %; Platelet Count 128 k/uL (150-450); RBC 3.36 m/uL (3.80-5.40); RDW 14.2 % (11.5-15.5); WBC 6.4 k/uL (3.8-10.6)
[2019-01-08 04:25] LABS: Partial Thromboplastin Time 22.5 sec (22.0-30.0)
--- NOTE | 2019-01-08 04:26 | XR ---
EXAM: XR Chest, 1 View CLINICAL HISTORY: ITS.REASON XR Reason: chest pain TECHNIQUE: Frontal view of the chest. COMPARISON: 01/07/19 x-ray IMPRESSION: Cardiomegaly. Trace left pleural effusion.
[2019-01-08 04:35] LABS: Potassium 4.1 mmol/L (3.5-5.1); Total Bilirubin 1.2 mg/dL (0.2-1.3); Total Protein 5.4 g/dL (6.3-8.2)
[2019-01-08] MEDS ORDERED: ACETAMINOPHEN TAB 325 MG TAB PO STA (05:04)
[2019-01-08] MEDS ORDERED: DEXTROSE 5% IN WATER 250 ML with AMIODARONE 300 MG IV ONE (06:17)
[2019-01-08] MEDS ORDERED: METOPROLOL TARTRATE 25 MG TAB PO STA (09:59)
[2019-01-08] MEDS ORDERED: AMIODARONE 200 MG TAB PO STA (10:00)
[2019-01-08] MEDS ORDERED: LISINOPRIL 5 MG TAB PO STA (10:00)
[2019-01-08] MEDS ORDERED: ASPIRIN 81 MG PO STA (10:01)
[2019-01-08] MEDS ORDERED: NALOXONE 0.4 MG/ML 1 ML VIAL IV PRN (11:05)
[2019-01-08] MEDS ORDERED: BISACODYL 10 MG SUPP RECTAL PRN (11:09)
[2019-01-08] MEDS ORDERED: ACETAMINOPHEN TAB 500 MG TAB PO PRN (11:09)
[2019-01-08] MEDS: APIXABAN 5 MG TAB PO SCH ×2 (12:02→20:52)
[2019-01-08] MEDS: SODIUM CHLORIDE 0.9% 1,000 ML IV SCH (12:05)
[2019-01-08 13:06] LABS: Glucose,Whole Blood 154 mg/dL (75-99)
[2019-01-08] MEDS ORDERED: MELATONIN 3 MG TABLET PO PRN (14:48)
[2019-01-08] MEDS ORDERED: KETOROLAC 30 MG/ML 1 ML VIAL IVP PRN (14:48)
[2019-01-08] MEDS: INSULIN ASPART (NovoLOG) 100 UNIT/ML VIAL SQ SCH ×3 (14:51→20:52)
--- NOTE | 2019-01-08 15:02 | P.HPIM ---
History of Present Illness H&P Date: 01/08/19 Chief Complaint: palpitations Patient is a 63-year-old female past medical history of acute non-ST segment elevated myocardial infarction with severe triple vessel disease resulting in three-vessel coronary artery bypass grafting on 01/03/19, diabetes mellitus type 2 poorly controlled with hemoglobin A1c 9.1, obesity, hypertension, and dyslipidemia who presented to the ER from [facility] with complaints of palpitations. Patient was recently hospitalized here from 12/27 through 01/07/19 for her recent myocardial infarction and coronary artery bypass grafting. During hospitalization here she did have some episodes of A. fib necessitating amiodarone. These were well-controlled and she was subsequently discharged to [facility]. On arrival to the ER she underwent an extensive evaluation. Her initial vital signs showed tachycardia with heart rate of 125 and blood pressure of 157/102. Initial laboratory analysis showed a hemoglobin of 9.7, platelets of 128, and glucose of 122. All of which are improved from last hospital stay. The cardiovascular team was consulted and recommended an additional dose of amiodarone and giving her morning metoprolol. She was subsequently placed in observation on the cardiac floor for further monitoring. Patient seen and examined at bedside. She states that at 9 PM last evening she was in the bathroom having a bowel movement and felt sudden onset of palpitations. She laid back down but they did not gemini. She subsequently began feeling short of breath. From 9 PM to 1 AM she describes palpitations, shortness of breath, slight dizziness, and intermittent stinging sensation in the center of her chest. She was at [facility] and states the nurses checked on her multiple times at 1 AM they then contacted the physician who recommended transport to the hospital. She denies any overt chest pain. She is not having any diaphoresis, nausea, or unusual arm pain. She has been having loose stools for the last 2 days. She denies any dysuria. She states her sugars have been around the 150s at [facility]. She denies any cough, cold, fever, flu, or strokelike symptoms. Review of Systems Pertinent positives and negatives as discussed in HPI, a complete review of sys tems was performed and all other systems are negative. Past Medical History Past Medical History: Atrial Fibrillation, Asthma, Coronary Artery Disease (CAD), Cancer, Diabetes Mellitus, GERD/Reflux, Hyperlipidemia, Myocardial Infarction (non Q-wave), Osteoarthritis (OA), Pulmonary Embolus (PE), Renal Disease Additional Past Medical History / Comment(s): pulmonary embolism in 12/2015 and the patient was treated with 6 moths of Eliquis, morbid obesity, DM History of Any Multi-Drug Resistant Organisms: None Reported Past Surgical History: Coronary Bypass/CABG Additional Past Surgical History / Comment(s): CABGX4 .basal cell carcinoma removed from face and a polyp removed from rectum Past Anesthesia/Blood Transfusion Reactions: No Reported Reaction Smoking Status: Never smoker Past Alcohol Use History: None Reported Past Drug Use History: None Reported Additional History: Lives alone, no assistive devices at baseline - Past Family History Mother Additional Family Medical History / Comment(s): CANCER WITH METS NOT SURE WHICH ONE Father Family Medical History: Cancer, Pneumonia Additional Family Medical History / Comment(s): CANCER Medications and Allergies Home Medications Medication Instructions Recorded Confirmed Type Apixaban [Eliquis] 5 mg PO BID 12/26/18 01/08/19 History Acetaminophen Tab [Tylenol] 1,000 mg PO Q6HR PRN tab 01/07/19 01/08/19 Rx Amiodarone [Cordarone] 400 mg PO BID tab 01/07/19 01/08/19 Rx Aspirin 81 mg PO DAILY chew 01/07/19 01/08/19 Rx Atorvastatin [Lipitor] 40 mg PO DAILY tab 01/07/19 01/08/19 Rx Bisacodyl [Dulcolax] 10 mg RECTAL DAILY PRN supp 01/07/19 01/08/19 Rx INSULIN ASPART (NovoLOG) [NovoLOG 15 unit SQ AC-SUPPER vial 01/07/19 01/08/19 Rx (formulary)] Insulin NPH [humuLIN N] 15 unit SQ HS vial 01/07/19 01/08/19 Rx Lisinopril [Zestril] 5 mg PO DAILY tab 01/07/19 01/08/19 Rx Metoprolol Tartrate [Lopressor] 25 mg PO BID tab 01/07/19 01/08/19 Rx Pantoprazole [Protonix] 40 mg PO AC-BRKFST tablet. 01/07/19 01/08/19 Rx Furosemide [Lasix] 20 mg PO HS 01/08/19 01/08/19 History INSULIN ASPART (NovoLOG) [NovoLOG See Protocol SQ ACHS 01/08/19 01/08/19 History (formulary)] Sennosides-Docusate Sodium 2 tab PO HS 01/08/19 01/08/19 History [Senokot-S] Allergies Allergy/AdvReac Type Severity Reaction Status Date / Time Iodinated Contrast- Oral and Allergy Rash/Hives Verified 01/08/19 09:15 IV Dye Milk Containing Products AdvReac Nausea & Verified 01/08/19 09:15 [Dairy] Vomiting nickel AdvReac Rash/Hives Verified 01/08/19 09:15 Physical Exam Osteopathic Statement: *. No significant issues noted on an osteopathic structural exam other than those noted in the History and Physical/Consult. Vitals: Vital Signs Temp Pulse Pulse Resp BP BP Pulse Ox 01/08/19 13:06 97.5 F L 80 20 132/61 100 01/08/19 11:53 88 18 158/67 98 01/08/19 08:00 77 18 128/64 99 01/08/19 07:04 101 H 18 123/63 98 01/08/19 05:43 107 H 18 139/89 98 01/08/19 04:23 121 H 18 120/82 99 01/08/19 03:34 98.3 F 125 H 20 157/102 97 Intake and Output 01/07/19 01/08/19 01/08/19 22:59 06:59 14:59 Other: # Voids 1 Weight 143.789 kg 141.4 kg General: non toxic, mild distress, appears older than stated age], Obese Derm: no unusual rashes/lesions multiple areas of ecchymoses, warm, dry Head: atraumatic, normocephalic, symmetric Eyes: EOMI, no lid lag, anicteric sclera, pupils equal round reactive to light ENT: Nose and ears atraumatic, no thrush, no pharyngeal erythema Neck: No thyromegaly, no cervical lymphadenopathy, trachea midline, supple, healing laceration from cordis right neck - no erythema/drainage, tender to palpation Mouth: no lip lesion, mucus membranes moist Cardiovascular: S1S2 irreg, no murmur, positive posterior tibial pulse bilateral, 2 + edema, capillary refill less than 2 seconds Lungs: CTA bilateral, no rhonchi, no rales , no accessory muscle use Abdominal: soft, nontender to palpation, no guarding, no appreciable organomegaly, normal bowel sounds Ext: no gross muscle atrophy, muscle strength 4 out of 5 in all 4 extremities grossly, no contractures, Neuro: CN II-XI grossly intact, light touch intact all 4 extremities, finger to nose within normal limits, Psych: Alert, oriented, appropriate affect Results CBC & Chem 7: 01/08/19 03:46 01/08/19 03:46 Labs: Abnormal Lab Results - Last 24 Hours (Table) 01/08/19 01/08/19 01/08/19 Range/Units 03:46 03:46 03:46 RBC 3.36 L (3.80-5.40) m/uL Hgb 9.7 L (11.4-16.0) gm/dL Hct 30.3 L (34.0-46.0) % Plt Count 128 L (150-450) k/uL Chloride 110 H (98-107) mmol/L Glucose 122 H (74-99) mg/dL POC Glucose (mg/dL) (75-99) mg/dL Troponin I 0.380 H* (0.000-0.034) ng/mL Total Protein 5.4 L (6.3-8.2) g/dL Albumin 3.0 L (3.5-5.0) g/dL 01/08/19 Range/Units 13:04 RBC (3.80-5.40) m/uL Hgb (11.4-16.0) gm/dL Hct (34.0-46.0) % Plt Count (150-450) k/uL Chloride (98-107) mmol/L Glucose (74-99) mg/dL POC Glucose (mg/dL) 154 H (75-99) mg/dL Troponin I (0.000-0.034) ng/mL Total Protein (6.3-8.2) g/dL Albumin (3.5-5.0) g/dL Chest x-ray: report reviewed Thrombosis Risk Factor Assmnt - DVT/VTE Prophylaxis DVT/VTE Prophylaxis: Pharmacologic Prophylaxis ordered - Choose All That Apply Each Risk Factor Represents 2 Points: Age 61-74 years Thrombosis Risk Factor Assessment Total Risk Factor Score: 2 Thrombosis Risk Factor Assessment Level: Low Risk Assessment and Plan Assessment: Atrial Fib with RVR - started on cardizem gtt, given dose of amio per cardiothorasic, continue metoprolol - on eliquis - tele - if unable to come off cardizem by AM consult cardio - cardiothorsic surgery recs DM 2 - SSI, transition from Humulin N to levemir (if need humalin N for insurnanve reasons should be BID) - follow BS - Last A1C 9.1 HTN, controlled - continue metoprolol, lisinopril - follow BP HLD - lipitor Acute blood loss anemia with thrombocytopenia - anemia expected outcome of surgery - both improving - follow CBC - no over signs of bleeding Morbid obesity BMI 53.5 - out patient structured weight loss GERD Chronic: urinary incontinence osteoarthritis anxiety DVT prophylaxis: Kaye Discussed with: Patient, family, nursing Anticipated discharge: 24-[address]: return to [facility] A total of 65 minutes was spent on the care of this complex patient more than 50% of the time was spent in counseling and care coordination.
[2019-01-08 17:00] LABS: Glucose,Whole Blood 235 mg/dL (75-99)
[2019-01-08] MEDS ORDERED: INSULIN ASPART (NovoLOG) 100 UNIT/ML VIAL SQ SCH (17:30)
--- NOTE | 2019-01-08 19:30 | CONS ---
CONSULTATION Mrs. Lua is a 63-year-old female who was recently discharged from the hospital after undergoing coronary artery bypass grafting. She presented to the hospital on December 27, underwent cardiac catheterization, was found to have severe triple-vessel coronary disease and subsequently underwent coronary bypass grafting. She received a ROLDAN to LAD, saphenous vein graft, 1st obtuse marginal branch, PDA as [id number] and to the PLV. During her initial presentation, she had an echocardiogram that showed a preserved left ventricular size with ejection fraction of 50% to 55%. She was discharged to rehab yesterday and had an episode of atrial fibrillation, came back to the emergency room and converted back to sinus mechanism. She is in sinus mechanism at this time. She felt the palpitation, felt somewhat dizzy, but no syncope. She had no anginal symptoms. She has a prior history of pulmonary embolism and has been anticoagulated. She had an episode of paroxysmal atrial fibrillation but was discharged home in sinus mechanism. She denies any syncope. No clear PND. No orthopnea. She has minimal peripheral edema. MEDICATION: At the time of presentation included Protonix, Lopressor 25 mg twice a day, Zestril 5 mg daily, insulin, Lasix 20 mg daily, Lipitor 40 mg daily, aspirin 81 mg daily, Eliquis 5 mg twice a day, Cordarone 400 mg twice a day. Coronary risk factors are remarkable for hypertension, hyperlipidemia, diabetes mellitus. REVIEW OF SYSTEMS: RESPIRATORY system: She had dyspnea on exertion. No recent wheezing or cough. GI system: No recent GI bleeding. No peptic ulcer disease. system: No dysuria or hematuria. NERVOUS SYSTEM: No stroke or seizure. PHYSICAL EXAMINATION: She is a 63-year-old female, alert, oriented, in no apparent distress. Blood pressure 132/60 with a heart rate in the 80s. HEAD: Normocephalic. EYES: Sclerae anicteric. NECK: Good upstroke. No bruit. No jugular venous distention. LUNGS: Clear lungs with mild crackles at the bases. HEART: Regular rate and rhythm S1, S2. No S3. No rub with a systolic murmur. ABDOMEN: Soft, obese, nontender. Positive bowel sounds. No organomegaly. EXTREMITIES : +1 edema bilaterally. LAB DATA: Revealed BUN and creatinine 17 and 0.85. Potassium 4.1, hemoglobin of 9.7. Troponin 0.380. Initial EKG revealed atrial fibrillation with rapid ventricular response and nonspecific ST-T wave changes. Subsequently her EKG reveals sinus mechanism with poor R-wave progression and no acute changes. Chest x-ray shows no acute infiltrate with trace left pleural effusion. IMPRESSION: 1. Paroxysmal fibrillation, status post coronary artery bypass grafting, stable. 2. Status post coronary artery bypass grafting. 3. Hypertension. 4. Diabetes mellitus. 5. Hyperlipidemia. RECOMMENDATION: I will increase the dose of beta kaycee. Continue rest of her medical regimen. Increase her level of activity. If she remains stable. I expect she should be able to be transferred back tomorrow. Thank you for this consult. We will follow with you. MMXIOMARAL / IJN: [id number] /
[2019-01-08] MEDS: METOPROLOL TARTRATE 50 MG TAB PO SCH (20:52)
[2019-01-08] MEDS: AMIODARONE 200 MG TAB PO SCH (20:52)
[2019-01-08] MEDS: FUROSEMIDE 20 MG TAB PO SCH (20:52)
[2019-01-08] MEDS: SENNOSIDES-DOCUSATE SODIUM 1 EACH TAB PO SCH (20:52)
[2019-01-08 21:00] LABS: Glucose,Whole Blood 249 mg/dL (75-99)
[2019-01-08] MEDS ORDERED: INSULIN NPH 300 UNIT/3 ML VIAL SQ SCH (21:00)
[2019-01-08] MEDS ORDERED: INSULIN DETEMIR (LEVEMIR) 100 UNIT/ML SYR SQ SCH (21:00)
[2019-01-08] MEDS ORDERED: METOPROLOL TARTRATE 25 MG TAB PO SCH (21:00)
[2019-01-08] MEDS ORDERED: APIXABAN 5 MG TAB PO SCH (21:00)
[2019-01-09 02:40] LABS: Glucose,Whole Blood 137 mg/dL (75-99)
[2019-01-09 06:40] LABS: Glucose,Whole Blood 141 mg/dL (75-99)
[2019-01-09] MEDS: PANTOPRAZOLE 40 MG TABLET PO SCH (06:46)
[2019-01-09] MEDS: INSULIN ASPART (NovoLOG) 100 UNIT/ML VIAL SQ SCH ×4 (06:47→21:39)
[2019-01-09] MEDS ORDERED: LISINOPRIL 5 MG TAB PO SCH (09:00)
[2019-01-09] MEDS: APIXABAN 5 MG TAB PO SCH ×2 (09:03→20:25)
[2019-01-09] MEDS: AMIODARONE 200 MG TAB PO SCH ×2 (09:04→20:25)
[2019-01-09] MEDS: ATORVASTATIN 40 MG TAB PO SCH (09:04)
[2019-01-09] MEDS: ASPIRIN 81 MG PO SCH (09:04)
[2019-01-09] MEDS: METOPROLOL TARTRATE 50 MG TAB PO SCH ×2 (09:04→20:25)
[2019-01-09] MEDS ORDERED: LISINOPRIL 10 MG TAB PO SCH (09:12)
[2019-01-09] MEDS ORDERED: LISINOPRIL 5 MG TAB PO ONE (09:15)
--- NOTE | 2019-01-09 10:50 | PN ---
PROGRESS NOTE Mrs. Lua is a 63-year-old female with a history of recent coronary artery bypass grafting who presented with episode of atrial fibrillation. She is back in sinus mechanism and staying in sinus mechanism. She is having mild dyspnea at this time, but no chest pain. She denies any dizziness or palpitations. She denies any nausea. She has continued to be on amiodarone 400 mg twice a day, Eliquis 5 mg twice a day, aspirin 81 mg daily, Lipitor 40 mg daily, furosemide 20 mg daily, lisinopril 10 mg daily, metoprolol tartrate 50 mg twice a day. PHYSICAL EXAMINATION: Blood pressure 142/60 with a heart rate in the 70s. LUNGS: Clear with mild decrease in breath sounds at the bases. HEART: Regular rate and rhythm S1, S2. No S3. No rub. ABDOMEN: Soft, nontender. Obese. EXTREMITIES: Trace edema. IMPRESSION: 1. Paroxysmal atrial fibrillation remains in sinus mechanism. 2. Status post coronary artery bypass grafting. 3. Hypertension. 4. Obesity. 5. Hyperlipidemia. RECOMMENDATION: I will continue present therapy. I will increase the dose of her Zestril to 10 mg twice a day, continue increasing her level of activity. From the cardiac standpoint, she is stable to be discharged and follow up as an outpatient on the amiodarone as well as the anticoagulation. MMODL / IJN: [id number] /
[2019-01-09 11:58] LABS: Glucose,Whole Blood 188 mg/dL (75-99)
--- NOTE | 2019-01-09 12:07 | P.GSCN ---
History of Present Illness Consult date: 01/09/19 Reason for Consult: Recent myocardial revascularization surgery. Requesting physician: Peri Rubalcava History of present illness: This is a 63-year-old female patient who is followed by on an outpatient basis by Dr. Jaclyn Renteria. She is a past medical history significant for severe triple vessel coronary artery disease, with preserved LV function status post myocardial revascularization surgery on 01/03/2019 with postoperative paroxysmal atrial fibrillation, non-ST elevated myocardial infarction on 12/27/2018, h istory of bilateral pulmonary embolism and is on Eliquis, hyperlipidemia, hypertension, uncontrolled diabetes mellitus type 2 with a recent hemoglobin A1c of 9.1%, osteoarthritis, gastroesophageal reflux disease, history of urinary stress incontinence, asthma with a recent FEV1 87% of predicted value, morbid obesity, and anxiety. The patient was discharged to [facility] after her coronary artery bypass grafting surgery for further rehabilitation needs. Due to her postoperative paroxysmal atrial fibrillation she was also discharged with an amiodarone taper and Eliquis. While she was at the [facility] care facility she developed some sudden onset of palpitations, feeling like her heart was racing, dyspnea and some lightheadedness. She denied any nausea, vomiting, fever, chills, diaphoresis, near-syncope or syncope. Subsequently, due to her recent history of coronary artery bypass grafting surgery and her above-mentioned symptoms she presented to the emergency department here at [facility] for further evaluation. Upon arrival to the emergency department a 12-lead EKG was completed which showed atrial fibrillation with rapid ventricular response with a heart rate of 120 bpm. Her blood pressure on presentation was 157/102 mmHg. Also while in the emergency department she did have lab work which showed a WBC count of 6.4, Hgb 9.7, platelets 128, BUN 17 and creatinine 0.85. Due to the patient's recent history of coronary artery bypass grafting surgery and her presenting symptoms a consult was placed to Dr. William Bowers for further evaluation and treatment recommendations. Review of Systems A 14 point review of systems was completed and was negative except as mentioned in the HPI. Past Medical History Past Medical History: Atrial Fibrillation (Postoperative paroxysmal atrial fibrillation), Asthma, Cancer (Basal cell carcinoma to her left face), Diabetes Mellitus, Hyperlipidemia, Hypertension, Osteoarthritis (OA), Pulmonary Embolus (PE), Renal Disease Additional Past Medical History / Comment(s): pulmonary embolism in 12/2015 and the patient was treated with 6 moths of Eliquis, morbid obesity, DM History of Any Multi-Drug Resistant Organisms: None Reported Past Surgical History: Coronary Bypass/CABG Additional Past Surgical History / Comment(s): CABGX4 .basal cell carcinoma removed from face and a polyp removed from rectum Past Anesthesia/Blood Transfusion Reactions: No Reported Reaction Past Psychological History: Anxiety, Depression Smoking Status: Never smoker Past Alcohol Use History: Occasional Past Drug Use History: Marijuana - Past Family History Mother Additional Family Medical History / Comment(s): CANCER WITH METS NOT SURE WHICH ONE Father Family Medical History: Cancer (Lung cancer), Pneumonia Additional Family Medical History / Comment(s): CANCER Medications and Allergies Home Medications Medication Instructions Recorded Confirmed Type Apixaban [Eliquis] 5 mg PO BID 12/26/18 01/08/19 History Acetaminophen Tab [Tylenol] 1,000 mg PO Q6HR PRN tab 01/07/19 01/08/19 Rx Amiodarone [Cordarone] 400 mg PO BID tab 01/07/19 01/08/19 Rx Aspirin 81 mg PO DAILY chew 01/07/19 01/08/19 Rx Atorvastatin [Lipitor] 40 mg PO DAILY tab 01/07/19 01/08/19 Rx Bisacodyl [Dulcolax] 10 mg RECTAL DAILY PRN supp 01/07/19 01/08/19 Rx INSULIN ASPART (NovoLOG) [NovoLOG 15 unit SQ AC-SUPPER vial 01/07/19 01/08/19 Rx (formulary)] Insulin NPH [humuLIN N] 15 unit SQ HS vial 01/07/19 01/08/19 Rx Lisinopril [Zestril] 5 mg PO DAILY tab 01/07/19 01/08/19 Rx Metoprolol Tartrate [Lopressor] 25 mg PO BID tab 01/07/19 01/08/19 Rx Pantoprazole [Protonix] 40 mg PO AC-BRKFST tablet.dr 01/07/19 01/08/19 Rx Furosemide [Lasix] 20 mg PO HS 01/08/19 01/08/19 History INSULIN ASPART (NovoLOG) [NovoLOG See Protocol SQ ACHS 01/08/19 01/08/19 History (formulary)] Sennosides-Docusate Sodium 2 tab PO HS 01/08/19 01/08/19 History [Senokot-S] Allergies Allergy/AdvReac Type Severity Reaction Status Date / Time Iodinated Contrast- Oral and Allergy Rash/Hives Verified 01/08/19 09:15 IV Dye Milk Containing Products AdvReac Nausea & Verified 01/08/19 09:15 [Dairy] Vomiting nickel AdvReac Rash/Hives Verified 01/08/19 09:15 Surgical - Exam Vital Signs Temp Pulse Resp BP Pulse Ox 98.3 F 125 H 20 157/102 97 01/08/19 03:34 01/08/19 03:34 01/08/19 03:34 01/08/19 03:34 01/08/19 03:34 - General Morbidly obese. well developed, well nourished, no distress, no pain - Eyes PERRL, normal ocular movement - ENT normal pinna, normal nares, normal mucosa, no hearing loss, no congestion, poor half-way - Neck No lymphadenopathy, neck is supple. no masses, no bruits, trachea midline, no venous distension - Respiratory Lung sounds are essentially clear throughout. Respirations are symmetrical and nonlabored. No wheezing no rhonchi. - Cardiovascular Regular rhythm and rate. S1 and S2 present, negative for S3, gallop or murmur. +1 edema to her bilateral lower extremities. Knee-high SARAH hose in place to bilateral lower extremities. Sternum is stable. Heart hugger is in place and she is demonstrating appropriate use. - Abdomen Abdomen soft, nontender nondistended. No guarding or rigidity. No organomegaly. Active bowel sounds all 4 abdominal quadrants. - Genitourinary Deferred - Rectum Deferred - Integumentary Skin is warm and dry. her cyanosis is present. Midline sternal incision is clean, dry and approximated. No drainage or redness is present. Exofin dressing is clean, dry and in place. Left lower extremity EVH site is clean, dry and approximated. No drainage or redness is present. no rash, no growths, no abnormal pigmentation - Neurologic normal coordination, normal sensation - Musculoskeletal Generalized postoperative weakness. normal gait, normal posture - Psychiatric oriented to time, oriented to person, oriented to place, speech is normal, m julia intact Results - Labs 01/08/19 03:46 01/08/19 03:46 Abnormal Lab Results - Last 24 Hours (Table) 01/08/19 01/08/19 01/08/19 Range/Units 13:04 16:55 20:49 POC Glucose (mg/dL) 154 H 235 H 249 H (75-99) mg/dL 01/09/19 01/09/19 Range/Units 02:39 06:39 POC Glucose (mg/dL) 137 H 141 H (75-99) mg/dL - Imaging Chest x-ray: report reviewed, image reviewed EKG: image reviewed Assessment and Plan Assessment: 1. Atrial fibrillation with rapid ventricular response 1. Severe triple-vessel coronary artery disease, with preserved LV function, status post coronary artery bypass grafting surgery 4 vessels 2. History of Non-Q-wave myocardial infarction 3. Hyperlipidemia untreated 4. Hypertension 5. History of bilateral pulmonary embolism on Eliquis, last PE 2 years ago 6. Uncontrolled diabetes mellitus type 2 with a recent Hgb A1c 9.1% 7. Osteoarthritis 8. History of basal cell skin cancer to her left face 9. Gastroesophageal reflux disease 10. History of urinary stress incontinence 11. Asthma with a recent FEV1 87% of predicted value 12. Morbid obesity 13. Anxiety 14. Postoperative acute blood loss anemia and thrombocytopenia Plan: The patient was seen and examined on the 3 S. cardiac stepdown unit. She is in no acute distress. Her chart and diagnostics were reviewed. Her case was discussed with Dr. William Bowers from cardiothoracic surgery. Remote telemetry currently shows normal sinus rhythm heart rate 69. Oxygen saturations are 96% on room air. Her blood pressure at 4 AM this morning with documented 165/71, we will increase her lisinopril to 10 mg by mouth daily. Per the cardiothoracic surgery standpoint she can be discharged to [facility] today when okay with primary care service. Recommendations are to discharge on an amiodarone taper 400 mg by mouth twice a day 1 week, then decrease to amiodarone 200 mg by mouth twice a day 1 week, then decrease to amiodarone 200 mg by mouth daily 1 week. Continue Eliquis 5 mg by mouth twice a day. Continue low dose aspirin, statin, ALIZA inhibitor and beta kaycee. Thank you Dr. Rubalcava for this consult and we look forward in working with you in the care of your patient. Time with Patient: Greater than 30
--- NOTE | 2019-01-09 14:29 | P.PN ---
Subjective Progress Note Date: 01/09/19 Principal diagnosis: A fib with RVR Patient is a 63-year-old female past medical history of acute non-ST segment elevated myocardial infarction with severe triple vessel disease resulting in three-vessel coronary artery bypass grafting on 01/03/19, diabetes mellitus type 2 poorly controlled with hemoglobin A1c 9.1, obesity, hypertension, and dyslipidemia who presented to the ER from [facility] with complaints of palpitations. Patient was recently hospitalized here from 12/27 through 01/07/19 for her recent myocardial infarction and coronary artery bypass grafting. During hospitalization here she did have some episodes of A. fib necessitating amiodarone. These were well-controlled and she was subsequently discharged to [facility]. On arrival to the ER she underwent an extensive evaluation. Her initial vital signs showed tachycardia with heart rate of 125 and blood pressure of 157/102. Initial laboratory analysis showed a hemoglobin of 9.7, platelets of 128, and glucose of 122. All of which are improved from last hospital stay. The cardiovascular surgery team was consulted and recommended an additional dose of amiodarone and giving her morning metoprolol. She was subsequently placed in observation on the cardiac floor for further monitoring. Her blood pressure was elevated on the evening of 01/08 cardiology was contacted and her metoprolol dose was increased. Her insulin was also transitioned to levemir at night plus sliding scale to help with compliance at discharge. Patient seen and examined at bedside. Palpitations have resolved. Having some shortness of breath and chest discomfort when moving, but getting better every day after surgery. No nausea or vomiting. Had bowel movement yesterday. No other complaints currently. Anxious about going back to [facility] as her roommate was loud and the room was very hot. Objective - Vital Signs Vital signs: Vital Signs Temp 98 F 01/09/19 12:00 Pulse 55 L 01/09/19 12:00 Resp 20 01/09/19 12:00 BP 121/61 01/09/19 12:00 Pulse Ox 97 01/09/19 12:00 Intake & Output 01/08/19 01/09/19 01/09/19 18:59 06:59 18:59 Intake Total 360 400 Balance 360 400 Weight 141.4 kg 140 kg Intake: Intake, IV Titration 160 Amount Sodium Chloride 0.9% 1, 160 000 ml @ 20 mls/hr IV . Q24H [facility] Rx#:[id number] Oral 360 240 Other: # Voids 2 1 # Bowel Movements 1 - Exam General: non toxic, no distress, appears at stated age, Obese Derm: warm, dry Head: atraumatic, normocephalic, symmetric Eyes: EOMI, no lid lag, anicteric sclera Mouth: no lip lesion, mucus membranes moist Cardiovascular: S1S2 reg, no murmur, positive posterior tibial pulse bilateral, Lungs: CTA bilateral, no rhonchi, no rales , no accessory muscle use Abdominal: soft, nontender to palpation, no guarding, no appreciable orga nomegaly Ext: no gross muscle atrophy, 2+ edema, no contractures Neuro: CN II-XI grossly intact, no focal neuro deficits Psych: Alert, oriented, appropriate affect - Labs CBC & Chem 7: 01/08/19 03:46 01/08/19 03:46 Labs: Abnormal Lab Results - Last 24 Hours (Table) 01/08/19 01/08/19 01/09/19 Range/Units 16:55 20:49 02:39 POC Glucose (mg/dL) 235 H 249 H 137 H (75-99) mg/dL 01/09/19 01/09/19 Range/Units 06:39 11:47 POC Glucose (mg/dL) 141 H 188 H (75-99) mg/dL Assessment and Plan Assessment: Atrial Fib with RVR - on oral amio and metoprolol - on eliquis - tele -cardio recs - cardiothorsic surgery recs DM 2 - SSI and levemir (dose increased) - follow BS - Last A1C 9.1 HTN, urgency overnight - continue metoprolol, lisinopril - follow BP HLD - lipitor Acute blood loss anemia with thrombocytopenia - anemia expected outcome of surgery - both improving - follow CBC - no over signs of bleeding Morbid obesity BMI 53.5 - out patient structured weight loss GERD - PPI Chronic: urinary incontinence osteoarthritis anxiety DVT prophylaxis: Eliquis Discussed with: Patient, nursing, case management Anticipated discharge: [address]: return to [facility], would not accept patient back today A total of 25 minutes was spent on the care of this complex patient more than 50% of the time was spent in counseling and care coordination.
[2019-01-09] MEDS: SODIUM CHLORIDE 0.9% 1,000 ML IV SCH (16:54)
[2019-01-09 17:09] LABS: Glucose,Whole Blood 238 mg/dL (75-99)
[2019-01-09] MEDS: SENNOSIDES-DOCUSATE SODIUM 1 EACH TAB PO SCH (20:25)
[2019-01-09] MEDS: FUROSEMIDE 20 MG TAB PO SCH (20:25)
[2019-01-09] MEDS: LISINOPRIL 10 MG TAB PO SCH (20:25)
[2019-01-09 20:27] VITALS: RESP 18
[2019-01-09 20:41] LABS: Glucose,Whole Blood 268 mg/dL (75-99)
[2019-01-09] MEDS ORDERED: INSULIN DETEMIR (LEVEMIR) 100 UNIT/ML SYR SQ SCH (21:00)
[2019-01-10] MEDS ORDERED: METOPROLOL TARTRATE 50 MG TAB PO STA (00:09)
[2019-01-10 02:11] LABS: Glucose,Whole Blood 184 mg/dL (75-99)
[2019-01-10] MEDS: INSULIN ASPART (NovoLOG) 100 UNIT/ML VIAL SQ SCH ×2 (06:09→12:31)
[2019-01-10] MEDS: PANTOPRAZOLE 40 MG TABLET PO SCH (06:10)
[2019-01-10 06:14] LABS: Glucose,Whole Blood 138 mg/dL (75-99)
[2019-01-10] MEDS: ASPIRIN 81 MG PO SCH (08:41)
[2019-01-10] MEDS: AMIODARONE 200 MG TAB PO SCH (08:41)
[2019-01-10] MEDS: ATORVASTATIN 40 MG TAB PO SCH (08:41)
[2019-01-10] MEDS: APIXABAN 5 MG TAB PO SCH (08:41)
[2019-01-10] MEDS: METOPROLOL TARTRATE 50 MG TAB PO SCH (08:41)
[2019-01-10] MEDS: LISINOPRIL 10 MG TAB PO SCH (08:42)
[2019-01-10] MEDS ORDERED: LISINOPRIL 10 MG TAB PO SCH (09:00)
[2019-01-10 09:21] VITALS: TEMP 98.1
--- NOTE | 2019-01-10 10:17 | PN ---
PROGRESS NOTE Mrs. Lua is a 63-year-old female who recently underwent coronary artery bypass grafting. After transfer to [facility], she had an episode of atrial fibrillation was readmitted. She subsequently converted to sinus mechanism. She had an episode of atrial fibrillation yesterday, but she is back in sinus. Otherwise, she is feeling well. She is doing better with the incentive spirometry. She has no chest pain. Her breathing is improving. She is ambulating without difficulty. She continued be on amiodarone 400 mg twice a day, Eliquis 5 mg twice a day, aspirin 81 mg daily, Lasix 20 mg daily, lisinopril 10 mg twice a day, metoprolol tartrate 50 mg twice a day. PHYSICAL EXAMINATION: Blood pressure 139/70 with the heart rate in the 90s. LUNGS: No wheezes. HEART: Regular rate and rhythm. S1, S2. No S3. No rub. ABDOMEN: Soft, obese, nontender. EXTREMITIES: No significant edema. IMPRESSION: 1. Paroxysmal atrial fibrillation, remains in sinus mechanism. 2. Status post coronary artery bypass grafting. 3. Hypertension. 4. Hyperlipidemia. RECOMMENDATION: I have discussed with the patient the issue with the atrial fibrillation. I discussed with her that she may have recurrence, but as long as she is anticoagulated, that I am hopeful that it will resolve in the next few weeks. From the cardiac standpoint, she may be able to be transferred to [facility] today and increase her physical activity and subsequently she will follow up as an outpatient. MMODL / ELOISAN: [id number] /
--- NOTE | 2019-01-10 10:39 | P.PN ---
Subjective Progress Note Date: 01/10/19 Principal diagnosis: Atrial fibrillation with rapid ventricular response. Previous medical history of severe triple vessel coronary artery disease with preserved left ventricular function status post CABG on 01/03/2019 with postoperative paroxysmal atrial fibrillation, non-ST elevation myocardial infarction, bilateral pulmonary embolism on chronic Eliquis for anticoagulation, hypertension, hyperlipidemia, type 2 diabetes mellitus with recent hemoglobin A1c 9.1%, morbid obesity, basal cell skin carcinoma to her face, asthma with recent FEV1 87% of predicted, osteoarthritis, GERD, anxiety, occasional marijuana use. The patient is currently sitting up in a recliner in no acute distress although she is a bit teary-eyed and fearful over her symptomatology and treatment. D enies pain, does endorse occasional shortness of breath as well as occasional palpitations. Patient did have a repeat of atrial fibrillation early this morning upon my initial assessment, however was back in normal sinus rhythm by the end of my assessment. States she is worried about being transferred back to [facility] as she did not feel they took her seriously when she complained of palpitations and was quite worried about her heart rate. Objective - Vital Signs Vital signs: Vital Signs Temp 98.1 F 01/10/19 08:00 Pulse 94 01/10/19 08:00 Resp 18 01/10/19 08:00 BP 139/74 01/10/19 08:00 Pulse Ox 98 01/10/19 08:00 Intake & Output 01/09/19 01/10/19 01/10/19 18:59 06:59 18:59 Intake Total 880 240 Balance 880 240 Weight 139.3 kg Intake: Intake, IV Titration 160 Amount Sodium Chloride 0.9% 1, 160 000 ml @ 20 mls/hr IV . Q24H [facility] Rx#:[id number] Oral 720 240 Other: # Voids 1 # Bowel Movements 1 - Constitutional General appearance: Present: cooperative, morbidly obese, no acute distress - Respiratory Details: Lungs sounds clear bilaterally. Respirations even, nonlabored. Currently on room air with oxygen saturation 98%. - Cardiovascular Details: S1, S2 present. Currently a regular rate and rhythm, was irregular this morning, sinus rhythm but was in A. fib upon initial examination this morning. Sternum is stable. Palpable peripheral pulses bilaterally. No edema present. No calf pain or tenderness noted. Antiembolism stockings, SCDs present. Heart hugger in place with patient demonstrating appropriate use. - Gastrointestinal Gastrointestinal Comment(s): Abdomen soft, nontender, nondistended, obese. Active bowel sounds present 4 quadrants. Tolerating diet. Positive bowel movement. - Genitourinary Genitourinary Comment(s): continues to void clear, yellow urine. - Integumentary Integumentary Comment(s): Skin is warm and dry with evidence of good perfusion. Anterior chest incision well approximated, left lower extremity EVH site well approximated, no drainage present. - Neurologic Neurologic: Present: CNII-XII intact - Musculoskeletal Musculoskeletal: Present: gait normal, strength equal bilaterally - Psychiatric Psychiatric Comment(s): patient is anxious and a bit teary-eyed. Psychiatric: Present: A&O x's 3, intact judgment & insight - Allied health notes Allied health notes reviewed: nursing - Labs CBC & Chem 7: 01/08/19 03:46 01/08/19 03:46 Labs: Abnormal Lab Results - Last 24 Hours (Table) 01/09/19 01/09/19 01/09/19 Range/Units 11:47 16:38 20:40 POC Glucose (mg/dL) 188 H 238 H 268 H (75-99) mg/dL 01/10/19 01/10/19 Range/Units 02:08 06:06 POC Glucose (mg/dL) 184 H 138 H (75-99) mg/dL Assessment and Plan Assessment: 1. Atrial fibrillation with rapid ventricular response this admission 2. Triple-vessel coronary artery disease with preserved left ventricular function, status post CABG 01/03/2019, with postoperative paroxysmal atrial fibrillation 3. Recent non-STEMI 4. History of bilateral PEs on chronic Eliquis for anticoagulation, last PE 2 years ago 5. Hypertension 6. Hyperlipidemia 7. Type 2 diabetes mellitus with recent hemoglobin A1c 9.1% 8. Morbid obesity 9. Basal cell skin carcinoma to her face with resection 10. Asthma with recent FEV1 87% of predicted 11. Osteoarthritis 12. GERD 13. Anxiety 14. Occasional marijuana use Plan: 1. Continue aspirin, statin, lisinopril, beta kaycee therapy. Increase beta kaycee therapy as tolerated. 2. Continue amiodarone with weekly taper. 3. Continue Eliquis for anticoagulation. 4. Incentive spirometry ordered, encourage use 10 times every hour while awake. 5. Increase activity, ambulate in hallway. 6. Patient should shower daily. 7.medical management per primary care service. 8. Patient may be discharged back to rehab when okay with other services. Contact information for CV surgery given to patient for any questions or concerns, patient reassured regarding treatment of atrial fibrillation after open heart surgery. 9. Will continue to monitor while hospitalized Time with Patient: Greater than 30
[2019-01-10] MEDS: SODIUM CHLORIDE 0.9% 1,000 ML IV SCH (11:25)
[2019-01-10 11:54] VITALS: BP 127/51; PULSE 64
[2019-01-10 11:56] LABS: Glucose,Whole Blood 254 mg/dL (75-99)
--- NOTE | 2019-01-10 12:02 | P.DS ---
Providers Date of admission: 01/08/19 11:07 Expected date of discharge: 01/10/19 Attending physician: Peri Rubalcava DO Consults: 01/08/19 11:08 Consult Physician Routine Consulting Provider: William Bowers Consult Reason/Comments: Atrial fibrillation post CABG Do you want consulting provider notified?: Already Contacted Consult Physician Routine Consulting Provider: Alfredo Gonsalez Consult Reason/Comments: Post CABG atrial fibrillation Do you want consulting provider notified?: Already Contacted Primary care physician: William Bowers Hospital Course: Discharge Diagnosis: A fib with RVR DM2 HTN, urgency HLD Acute blood loss anemia Morbid Obesity 52.7 GERD Urinary incontinence Osteoarthritis Anxiety Hospital Course: Patient is a 63-year-old female past medical history of acute non-ST segment elevated myocardial infarction with severe triple vessel disease resulting in three-vessel coronary artery bypass grafting on 01/03/19, diabetes mellitus type 2 poorly controlled with hemoglobin A1c 9.1, obesity, hypertension, and dyslipidemia who presented to the ER from [facility] [place] with complaints of palpitations. Patient was recently hospitalized here from 12/27 through 01/07/19 for her recent myocardial infarction and coronary artery bypass grafting. During hospitalization here she did have some episodes of A. fib necessitating amiodarone. These were well-controlled and she was subsequently discharged to [facility]. On arrival to the ER she underwent an extensive evaluation. Her initial vital signs showed tachycardia with heart rate of 125 and blood pressure of 157/102. Initial laboratory analysis showed a hemoglobin of 9.7, platelets of 128, and glucose of 122. All of which are improved from last hospital stay. The cardiovascular surgery team was consulted and recommended an additional dose of amiodarone and giving her morning metoprolol. She was subsequently placed in observation on the cardiac floor for further monitoring. Her blood pressure was elevated on the evening of 01/08 cardiology was contacted and her metoprolol dose was increased. Her insulin was also transitioned to levemir at night plus sliding scale to help with compliance at discharge. On the mornig of 01/10 she was in sinus rhythm and doing well. She was determined stable for discharge. Patient seen and examined at bedside. Pain controlled, shortness of breath at baseline. No nausea. Having bowel movements. Vital signs reviewed and stable. General: non toxic, no distress, appears older than stated age, obese Derm: warm, dry Head: atraumatic, normocephalic, symmetric Eyes: EOMI, no lid lag, anicteric sclera Mouth: no lip lesion, mucus membranes moist Cardiovascular: S1S2 reg, no murmur, positive posterior tibial pulse bilateral, Lungs: CTA bilateral, no rhonchi, no rales , no accessory muscle use Abdominal: soft, nontender to palpation, no guarding, no appreciable o rganomegaly Ext: no gross muscle atrophy, 1+ edema, no contractures Neuro: CN II-XI grossly intact, no focal neuro deficits Psych: Alert, oriented, appropriate affect A total of 25 minutes of time were spent preparing this complex discharge summary . Patient Condition at Discharge: Stable Plan - Discharge Summary New Discharge Prescriptions: New metFORMIN HCL [Glucophage] 500 mg PO BID #60 tab Insulin Detemir (Levemir) [Levemir] 12 unit SQ HS syr Metoprolol Tartrate [Lopressor] 50 mg PO BID tab Lisinopril [Zestril] 10 mg PO BID tab Continue Apixaban [Eliquis] 5 mg PO BID Amiodarone [Cordarone] 400 mg PO BID tab Atorvastatin [Lipitor] 40 mg PO DAILY tab Pantoprazole [Protonix] 40 mg PO AC-BRKFST tablet. Acetaminophen Tab [Tylenol] 1,000 mg PO Q6HR PRN tab PRN Reason: Fever And/ Or Pain Aspirin 81 mg PO DAILY chew Furosemide [Lasix] 20 mg PO HS INSULIN ASPART (NovoLOG) [NovoLOG (formulary)] See Protocol SQ ACHS Discontinued Bisacodyl [Dulcolax] 10 mg RECTAL DAILY PRN supp PRN Reason: Constipation Insulin NPH [humuLIN N] 15 unit SQ HS vial Metoprolol Tartrate [Lopressor] 25 mg PO BID tab INSULIN ASPART (NovoLOG) [NovoLOG (formulary)] 15 unit SQ AC-SUPPER vial Lisinopril [Zestril] 5 mg PO DAILY tab Sennosides-Docusate Sodium [Senokot-S] 2 tab PO HS Discharge Medication List Apixaban [Eliquis] 5 mg PO BID 12/26/18 [History] Acetaminophen Tab [Tylenol] 1,000 mg PO Q6HR PRN tab 01/07/19 [Rx] Amiodarone [Cordarone] 400 mg PO BID tab 01/07/19 [Rx] Aspirin 81 mg PO DAILY chew 01/07/19 [Rx] Atorvastatin [Lipitor] 40 mg PO DAILY tab 01/07/19 [Rx] Pantoprazole [Protonix] 40 mg PO AC-BRKFST tablet. 01/07/19 [Rx] Furosemide [Lasix] 20 mg PO HS 01/08/19 [History] INSULIN ASPART (NovoLOG) [NovoLOG (formulary)] See Protocol SQ ACHS 01/08/19 [History] Insulin Detemir (Levemir) [Levemir] 12 unit SQ HS syr 01/10/19 [Rx] Lisinopril [Zestril] 10 mg PO BID tab 01/10/19 [Rx] Metoprolol Tartrate [Lopressor] 50 mg PO BID tab 01/10/19 [Rx] metFORMIN HCL [Glucophage] 500 mg PO BID #60 tab 01/10/19 [Rx] Follow up Appointment(s)/Referral(s): Luis Greer MD [STAFF PHYSICIAN] - 2 Weeks (upon discharge from rehab) William Bowers MD [Primary Care Provider] - 02/04/19 10:30 am Jaclyn Renteria DO [REFERRING] - 3 Weeks (on discharge from [facility]) [facility] [NON-STAFF] - Activity/Diet/Wound Care/Special Instructions: DISCHARGE INSTRUCTIONS: 1. No driving for 4 weeks, or until physician gives their ok. 2. The patient should sleep in their own bed, no medical bed needed. 3. Stairs are not an issue. If the bedroom is upstairs, it is advised that the patient go up at night and down in the morning for the first week. Go slowly, using handrail and take 1 step at a time. 4. SARAH hose are to be worn for 30 days or until physician discontinues. 5. Heart hugger is to be worn 100% of the time until physician discontinues.(except when showering) 6. No lifting, pushing, or pulling more than 10 pounds for 12 weeks. The physician will advise of any restriction changes. 7. The patient is expected to continue the prescribed walking program. 8. Continue pain control per as needed orders. 9. Continue with incentive spirometry and splinting/heart hugger until otherwise directed by the physician. 10. Must shower daily using liquid antibacterial soap and a separate white washcloth for each individual incision. 11. Routine sternal incision care, no ointments, lotions or powders on the incisions. 12. Please notify surgeon/nurse practitioner for temperature greater than 101F or purulent drainage from incisions 13. All prescription refills obtained through cardiology/primary care physician. 14. A red arm and has been placed on this patient it should be worn for 30 days post surgery and will be removed by the cardiothoracic surgeons. If an ER visit is necessary, please make sure the number on the red arm band is called. 15. Physical therapy and occupational therapy to evaluate and treat. REHAB/ NURSING SERVICES TO PROVIDE: RN SKILLED HOME CARE SERVICES FOR POST-OP SURGICAL PATIENTS WITH THE FOLLOWING: Coronary Artery Bypass Surgery (CABG), Mitral Valve Replacement/Repair ( MVR), Aortic Valve Replacement/Repair (AVR) RN TO CONTINUE EDUCATION FROM ``ROAD TO A HEALTH HEART PATIENT EDUCATION MANUAL" (GIVEN TO PATIENT IN THE HOSPITAL) MEDICATION RECONCILIATION WITH EDUCATION NEEDED ON FIRST HOME VISIT EMPHASIZE IMPORTANCE OF WEARING BREAST SUPPORT/HEART HUGGER ENCOURAGE USE OF INCENTIVE SPIROMETER 10 X EVERY HOUR WHILE AWAKE ENCOURAGE UTILIZATION OF LOWER EXTREMITY COMPRESSION STOCKINGS/SARAH HOSE and ELEVATE LEGS ABOVE LEVEL OF HEART WHILE AT REST. ENCOURAGE AMBULATION 3-5x/day INCREASING TOLERATES, WHILE AVOID EXTREMES IN TEMPERATURE TELEHEALTH PARAMETERS: WEIGHT: NOTIFY MD OF WEIGHT GAIN OF 2 LBS IN 24 HOURS OR 5 LBS IN ONE WEEK HR: NOTIFY MD OF HR <55 BPM OR HR>100 BPM BP: NOTIFY MD IF BP <90/55 OR BP>140/100 O2 SAT: NOTIFY MD IF PO2<93% ON ROOM AIR ONCE DISCHARGED HOME SEND TELEHEALTH REPORT TO AIR BRAKES INSPECTOR AND CARDIOVASCULAR SURGEON THE FIRST WEEK OF CARE AND THEN BI-WEEKLY. PLEASE ADDITIONALLY COMMUNICATE ANY ABNORMALS AND NEW FINDINGS TO THE SURGEONS OFFICE heart healthy diet activity as tolerated Oxygen at 2L as needed for comfort Check blood sugar qAC and HS Discharge Disposition: TRANSFER TO SNF/ECF
== END 2019-01-10 14:35 ==
LOC: EC 03:32 → 3SCARD 11:07
PROVIDERS: ADMIT Internal Medicine; ATTEND Internal Medicine
DX: I48.0 Paroxysmal atrial fibrillation (principal); I16.0 Hypertensive urgency; I25.10 Atherosclerotic heart disease of native coronary artery without angina pectoris; I22.2 Subsequent non-ST elevation (NSTEMI) myocardial infarction; I10 Essential (primary) hypertension; E78.5 Hyperlipidemia, unspecified; E11.65 Type 2 diabetes mellitus with hyperglycemia; D62 Acute posthemorrhagic anemia; D69.6 Thrombocytopenia, unspecified; E66.01 Morbid (severe) obesity due to excess calories; Z68.43 Body mass index [BMI] 50.0-59.9, adult; N39.3 Stress incontinence (female) (male); K21.9 Gastro-esophageal reflux disease without esophagitis; M19.90 Unspecified osteoarthritis, unspecified site; J45.909 Unspecified asthma, uncomplicated; F32.9 Major depressive disorder, single episode, unspecified; F12.90 Cannabis use, unspecified, uncomplicated; F41.9 Anxiety disorder, unspecified; Z79.01 Long term (current) use of anticoagulants; Z79.82 Long term (current) use of aspirin; Z79.4 Long term (current) use of insulin; Z79.899 Other long term (current) drug therapy; Z91.041 Radiographic dye allergy status; Z91.011 Allergy to milk products; Z91.048 Other nonmedicinal substance allergy status; Z87.19 Personal history of other diseases of the digestive system; Z95.1 Presence of aortocoronary bypass graft; Z86.711 Personal history of pulmonary embolism; Z87.448 Personal history of other diseases of urinary system; Z85.828 Personal history of other malignant neoplasm of skin; Z80.1 Family history of malignant neoplasm of trachea, bronchus and lung; Z80.9 Family history of malignant neoplasm, unspecified; Z83.6 Family history of other diseases of the respiratory system
CPT/HCPCS: 96365; 96366; 96375; 99291; 36415; 94760; 93005; 97116; 97162; 97166; 80053; 83735; 84484; 85025; 85610; 85730; 71045; G0378 ×3; J0282

== ENCOUNTER 2019-05-25 13:26 | Observation (INO) | payer MEDICARE ==
[2019-05-25] MEDS ORDERED: SODIUM CHLORIDE 0.9% 500 ML 500 ML IV STA (13:53)
--- NOTE | 2019-05-25 13:55 | ED ---
General Adult HPI - General Chief complaint: Arrhythmia/Palpitations Stated complaint: palpitations/weakness Time Seen by Provider: 05/25/19 13:30 Source: patient, RN notes reviewed Mode of arrival: wheelchair Limitations: no limitations - History of Present Illness Initial comments: This is a 64-year-old female with a past medical history significant for high blood pressure, diabetes, high cholesterol, pulmonary embolism history and history of palpitations. Patient states she occasionally will get some palpitations but is not long lasting. Patient states since 4 AM she has been having increasing palpitations with some discomfort in her neck. Patient states she normally does not have this discomfort. Patient states she's no more short of breath than normal. Patient denies any abdominal pain patient denies any nausea vomiting. Patient denies any lightheadedness dizziness or near syncopal episode. Patient states when these palpitations occur she feels as though she has to take a deep breath. Patient denies any fever chills or cough recently. - Related Data Home Medications Medication Instructions Recorded Confirmed Apixaban [Eliquis] 5 mg PO BID 12/26/18 05/25/19 INSULIN ASPART (NovoLOG) [NovoLOG See Protocol SQ ACHS 01/08/19 05/25/19 (formulary)] Lisinopril [Zestril] 10 mg PO DAILY 05/25/19 05/25/19 Previous Rx's Medication Instructions Recorded Acetaminophen Tab [Tylenol] 1,000 mg PO Q6HR PRN tab 01/07/19 Aspirin 81 mg PO DAILY chew 01/07/19 Atorvastatin [Lipitor] 40 mg PO DAILY tab 01/07/19 Insulin Detemir (Levemir) [Levemir] 12 unit SQ HS syr 01/10/19 Metoprolol Tartrate [Lopressor] 50 mg PO BID tab 01/10/19 metFORMIN HCL [Glucophage] 500 mg PO BID #60 tab 01/10/19 Allergies Allergy/AdvReac Type Severity Reaction Status Date / Time Iodinated Contrast Media Allergy Rash/Hives Verified 05/25/19 14:15 [Iodinated Contrast- Oral and IV Dye] nickel Allergy Rash/Hives Verified 05/25/19 14:15 Milk Containing Products AdvReac Nausea & Verified 05/25/19 14:15 [Dairy] Vomiting Review of Systems ROS Statement: Those systems with pertinent positive or pertinent negative responses have been documented in the HPI. ROS Other: All systems not noted in ROS Statement are negative. Past Medical History Past Medical History: Atrial Fibrillation, Asthma, Cancer, Diabetes Mellitus, Hyperlipidemia, Hypertension, Osteoarthritis (OA), Pulmonary Embolus (PE), Renal Disease Additional Past Medical History / Comment(s): pulmonary embolism in 12/2015 and the patient was treated with 6 moths of Eliquis, morbid obesity, DM History of Any Multi-Drug Resistant Organisms: None Reported Past Surgical History: Coronary Bypass/CABG Additional Past Surgical History / Comment(s): CABGX4 .basal cell carcinoma removed from face and a polyp removed from rectum Past Anesthesia/Blood Transfusion Reactions: No Reported Reaction Past Psychological History: Anxiety, Depression Smoking Status: Never smoker Past Alcohol Use History: Occasional Past Drug Use History: Marijuana - Past Family History Mother Additional Family Medical History / Comment(s): CANCER WITH METS NOT SURE WHICH ONE Father Family Medical History: Cancer (Lung cancer), Pneumonia Additional Family Medical History / Comment(s): CANCER General Exam - General Exam Comments Initial Comments: GENERAL: Patient is well-developed and well-nourished. Patient is nontoxic and well- hydrated and is in mild distress. ENT: Neck is soft and supple. No significant lymphadenopathy is noted. Oropharynx is clear. Moist mucous membranes. Neck has full range of motion without eliciting any pain. EYES: The sclera were anicteric and conjunctiva were pink and moist. Extraocular movements were intact and pupils were equal round and reactive to light. Eyelids were unremarkable. PULMONARY: Unlabored respirations. Good breath sounds bilaterally. No audible rales rhonchi or wheezing was noted. CARDIOVASCULAR: There is a regular rate and rhythm without any murmurs gallops or rubs. ABDOMEN: Soft and nontender with normal bowel sounds. SKIN: Skin is clear with no lesions or rashes and otherwise unremarkable. NEUROLOGIC: Patient is alert and oriented x3. Cranial nerves II through XII are grossly intact. Motor and sensory are also intact. Normal speech, volume and content. Symmetrical smile. MUSCULOSKELETAL: Normal extremities with adequate strength and full range of motion. LYMPHATICS: No significant lymphadenopathy is noted PSYCHIATRIC: Normal psychiatric evaluation. Limitations: no limitations Course Vital Signs 05/25/19 05/25/19 05/25/19 13:26 14:10 15:00 Temperature 98.2 F Pulse Rate 61 48 L Respiratory 18 18 Rate Blood Pressure 230/88 180/60 171/66 O2 Sat by Pulse 98 98 Oximetry 05/25/19 05/25/19 17:06 18:07 Temperature Pulse Rate 48 L 51 L Respiratory 18 18 Rate Blood Pressure 187/68 150/55 O2 Sat by Pulse 100 100 Oximetry Medical Decision Making - Medical Decision Making EKG shows sinus bradycardia 56 bpm UT interval 196 QRS is 84 QTC is 450 QTC is 434. Patient's EKG shows no ST segment elevation or depression. Chest x-ray shows no acute abnormality. Patient's blood pressure continues to be high gave the patient some hydralazine that did not break down so I'm going to give any increased dose at 10 mg. Patient continues to have occasional neck pain and that was her biggest concern because when she gets the neck pain she also feels a little nauseated and lightheaded. This is atypical angina so I think I will be admitting the patient because of this. I spoke with Dr. Logan he agreed to admit the patient admitted the patient wrote admitting orders. I wrote admitting orders I consult cardiology. - Lab Data Result diagrams: 05/25/19 14:30 05/25/19 14:30 Lab Results 05/25/19 05/25/19 05/25/19 Range/Units 14:30 14:30 14:30 WBC 6.4 (3.8-10.6) k/uL RBC 4.58 (3.80-5.40) m/uL Hgb 12.9 (11.4-16.0) gm/dL Hct 38.3 (34.0-46.0) % MCV 83.6 (80.0-100.0) fL MCH 28.2 (25.0-35.0) pg MCHC 33.8 (31.0-37.0) g/dL RDW 14.8 (11.5-15.5) % Plt Count 131 L (150-450) k/uL Neutrophils % 72 % Lymphocytes % 21 % Monocytes % 4 % Eosinophils % 2 % Basophils % 1 % Neutrophils # 4.6 (1.3-7.7) k/uL Lymphocytes # 1.3 (1.0-4.8) k/uL Monocytes # 0.3 (0-1.0) k/uL Eosinophils # 0.1 (0-0.7) k/uL Basophils # 0.0 (0-0.2) k/uL PT 10.5 (9.0-12.0) sec INR 1.0 (<1.2) APTT 24.8 (22.0-30.0) sec D-Dimer 0.24 (<0.60) mg/L FEU Sodium 139 (137-145) mmol/L Potassium 4.5 (3.5-5.1) mmol/L Chloride 107 (98-107) mmol/L Carbon Dioxide 23 (22-30) mmol/L Anion Gap 9 mmol/L BUN 17 (7-17) mg/dL Creatinine 0.78 (0.52-1.04) mg/dL Est GFR (CKD-EPI)AfAm >90 (>60 ml/min/1.73 sqM) Est GFR (CKD-EPI)NonAf 80 (>60 ml/min/1.73 sqM) Glucose 288 H (74-99) mg/dL Calcium 9.4 (8.4-10.2) mg/dL Magnesium 1.3 L (1.6-2.3) mg/dL Total Bilirubin 0.7 (0.2-1.3) mg/dL AST 21 (14-36) U/L ALT 21 (9-52) U/L Alkaline Phosphatase 88 (38-126) U/L Troponin I (0.000-0.034) ng/mL Total Protein 6.5 (6.3-8.2) g/dL Albumin 3.7 (3.5-5.0) g/dL TSH 4.260 (0.465-4.680) mIU/L 05/25/19 Range/Units 14:30 WBC (3.8-10.6) k/uL RBC (3.80-5.40) m/uL Hgb (11.4-16.0) gm/dL Hct (34.0-46.0) % MCV (80.0-100.0) fL MCH (25.0-35.0) pg MCHC (31.0-37.0) g/dL RDW (11.5-15.5) % Plt Count (150-450) k/uL Neutrophils % % Lymphocytes % % Monocytes % % Eosinophils % % Basophils % % Neutrophils # (1.3-7.7) k/uL Lymphocytes # (1.0-4.8) k/uL Monocytes # (0-1.0) k/uL Eosinophils # (0-0.7) k/uL Basophils # (0-0.2) k/uL PT (9.0-12.0) sec INR (<1.2) APTT (22.0-30.0) sec D-Dimer (<0.60) mg/L FEU Sodium (137-145) mmol/L Potassium (3.5-5.1) mmol/L Chloride (98-107) mmol/L Carbon Dioxide (22-30) mmol/L Anion Gap mmol/L BUN (7-17) mg/dL Creatinine (0.52-1.04) mg/dL Est GFR (CKD-EPI)AfAm (>60 ml/min/1.73 sqM) Est GFR (CKD-EPI)NonAf (>60 ml/min/1.73 sqM) Glucose (74-99) mg/dL Calcium (8.4-10.2) mg/dL Magnesium (1.6-2.3) mg/dL Total Bilirubin (0.2-1.3) mg/dL AST (14-36) U/L ALT (9-52) U/L Alkaline Phosphatase (38-126) U/L Troponin I <0.012 (0.000-0.034) ng/mL Total Protein (6.3-8.2) g/dL Albumin (3.5-5.0) g/dL TSH (0.465-4.680) mIU/L Disposition Clinical Impression: Atypical angina, Hypertensive urgency Disposition: ADMITTED IP TO THIS [facility] Time of Disposition: 16:45
--- NOTE | 2019-05-25 14:28 | XR ---
EXAMINATION TYPE: XR chest 2V DATE OF EXAM: 05/25/2019 COMPARISON: 01/08/19 HISTORY: Shortness of breath TECHNIQUE: Frontal and lateral views of the chest are obtained. FINDINGS: Scattered senescent parenchymal changes noted. No evidence for infiltrate. No evidence for atelectasis. Heart size is stable. Mediastinal structures are stable and grossly unremarkable. No evidence for hilar prominence. Degenerative changes dorsal spine. IMPRESSION: 1. No evidence for acute pulmonary disease.
[2019-05-25 14:47] LABS: Basophils % (A) 1 %; Eosinophils # (A) 0.1 k/uL (0-0.7); Eosinophils % (A) 2 %; HCT 38.3 % (34.0-46.0); HGB 12.9 gm/dL (11.4-16.0); Lymphocytes # (A) 1.3 k/uL (1.0-4.8); Lymphocytes % (A) 21 %; MCH 28.2 pg (25.0-35.0); MCHC 33.8 g/dL (31.0-37.0); MCV 83.6 fL (80.0-100.0); Mean Platelet Volume 8.1; Monocytes # (A) 0.3 k/uL (0-1.0); Monocytes % (A) 4 %; Neutrophils # (A) 4.6 k/uL (1.3-7.7); Neutrophils % (A) 72 %; Platelet Count 131 k/uL (150-450); RBC 4.58 m/uL (3.80-5.40); RDW 14.8 % (11.5-15.5); WBC 6.4 k/uL (3.8-10.6)
[2019-05-25 14:54] LABS: ALT 21 U/L (9-52); AST 21 U/L (14-36); African American GFR (CKD) >90 (>60 ml/min/1.73 sqM); Albumin 3.7 g/dL (3.5-5.0); Alkaline Phosphatase 88 U/L (38-126); Anion Gap 9 mmol/L; Blood Urea Nitrogen 17 mg/dL (7-17); Calcium 9.4 mg/dL (8.4-10.2); Carbon Dioxide 23 mmol/L (22-30); Chloride 107 mmol/L (98-107); Glucose 288 mg/dL (74-99); Magnesium 1.3 mg/dL (1.6-2.3); Potassium 4.5 mmol/L (3.5-5.1); Sodium 139 mmol/L (137-145); Total Bilirubin 0.7 mg/dL (0.2-1.3); Total Protein 6.5 g/dL (6.3-8.2)
[2019-05-25] MEDS: LABETALOL 5 MG/ML VIAL MDV IVP STA ×2 (14:57→15:11)
[2019-05-25 14:59] LABS: D-Dimer 0.24 mg/L FEU (<0.60); Partial Thromboplastin Time 24.8 sec (22.0-30.0); Prothrombin Time 10.5 sec (9.0-12.0)
[2019-05-25] MEDS ORDERED: hydrALAZINE HCL 20 MG/ML 1 ML VIAL IVP STA ×2 (15:12→16:47)
[2019-05-25] MEDS ORDERED: ASPIRIN 81 MG PO STA (16:47)
[2019-05-25] MEDS ORDERED: NITROGLYCERIN SL TABS 0.4 MG TAB SUBLINGUAL PRN (16:47)
[2019-05-25] MEDS ORDERED: amLODIPine 5 MG TAB PO STA (16:53)
[2019-05-25] MEDS ORDERED: ACETAMINOPHEN TAB 500 MG TAB PO PRN (19:07)
[2019-05-25] MEDS: NITROGLYCERIN OINT 1 INCH/GM PACKET TOPICAL SCH ×2 (19:25→23:06)
[2019-05-25 20:54] LABS: Glucose,Whole Blood 182 mg/dL (75-99)
[2019-05-25] MEDS ORDERED: INSULIN DETEMIR (LEVEMIR) 100 UNIT/ML SYR SQ SCH (21:00)
[2019-05-25] MEDS: MAGNESIUM OXIDE 400 MG TAB PO SCH (22:22)
[2019-05-25] MEDS: METOPROLOL TARTRATE 50 MG TAB PO SCH (22:22)
[2019-05-25] MEDS: APIXABAN 5 MG TAB PO SCH (22:22)
[2019-05-25] MEDS: metFORMIN 500 MG TAB PO SCH (22:22)
[2019-05-25] MEDS: INSULIN ASPART (NovoLOG) 100 UNIT/ML VIAL SQ SCH (22:22)
[2019-05-26] MEDS: NITROGLYCERIN OINT 1 INCH/GM PACKET TOPICAL SCH (02:42)
[2019-05-26 07:03] LABS: Glucose,Whole Blood 139 mg/dL (75-99)
[2019-05-26] MEDS: INSULIN ASPART (NovoLOG) 100 UNIT/ML VIAL SQ SCH ×2 (08:16→13:15)
[2019-05-26 08:21] LABS: Cholesterol 124 mg/dL (<200); HDL Cholesterol 62 mg/dL (40-60); LDL Cholesterol,Calculated 45 mg/dL (0-99); Triglycerides 83 mg/dL (<150)
[2019-05-26] MEDS ORDERED: ASPIRIN 325 MG TAB PO SCH (09:00)
[2019-05-26] MEDS ORDERED: ATORVASTATIN 40 MG TAB PO SCH (09:00)
[2019-05-26] MEDS ORDERED: LISINOPRIL 10 MG TAB PO SCH ×2 (09:00→09:30)
[2019-05-26] MEDS ORDERED: amLODIPine 5 MG TAB PO SCH (09:45)
[2019-05-26] MEDS: APIXABAN 5 MG TAB PO SCH (09:48)
[2019-05-26] MEDS: MAGNESIUM OXIDE 400 MG TAB PO SCH (09:48)
[2019-05-26] MEDS: metFORMIN 500 MG TAB PO SCH (10:32)
[2019-05-26] MEDS: METOPROLOL TARTRATE 50 MG TAB PO SCH (10:32)
--- NOTE | 2019-05-26 10:35 | P.CRDCN ---
History of Present Illness History of present illness: This is a pleasant 64-year-old female past medical history significant for coronary artery disease status post bypass grafting with ROLDAN to LAD, SVG to first OM branch, PDA as a side to side and to the PLV. She also has paroxysmal atrial fibrillation on long-term anticoagulation, hypertension, dyslipidemia, diabetes mellitus, pulmonary embolism in the past and morbid obesity with a BMI of 50. She follows in the office with Dr. Gonsalez. We have been asked to see her in consultation secondary to elevated blood pressure. She states on Thursday night while she was in bed sleeping she was having a particularly stressful evening and was thinking about different things going on in her life and she started feeling intermittent palpitations. She denies feeling her heart racing or fluttering like atrial fibrillation but just that it was skipping a beat every 5 or 6 beats. This persisted for quite a while through the night. When she woke up on Thursday she continued to feel these intermittent palpitations and she started noticing nausea. The nausea persisted with no vomiting and then she started feeling which she describes as a "buzzing" on both sides of her neck. She denies any chest discomfort, shortness of breath, dizziness, vomiting or diaphoresis. She is seen and examined sitting up in no acute distress. Her symptoms have subsided since coming to the hospital. Blood pressure on arrival was 230/88. She was given IV hydralazine, IV labetalol and oral Norvasc. Blood Pressure this morning 161/71. EKG reveals sinus bradycardia heart rate of 56, poor R-wave progression with no acute ST or T wave abnormalities noted. Telemetry tracings reviewed and reveals significant artifact with underlying sinus mechanism consistently since admission. Chest x- ray is negative for an acute cardiopulmonary process. Laboratory data reviewed, WBC 6.4, hemoglobin 12.9, platelets 131, d-dimer 0.24, sodium 139, potassium 4.5, creatinine 0.78, magnesium 1. 3 repeat this morning 1.6, cardiac enzymes negative 3, LDL 45, TSH 4.26. Current daily cardiac medications include Lopressor 50 mg twice a day, lisinopril 10 mg daily, atorvastatin 40 mg daily, aspirin 81 mg daily and Eliquis 5 mg twice a day. Echocardiogram obtained December 2018 prior to bypass surgery revealed preserved LV systolic function with ejection fraction 50-55%, mild MR and mild TR. At the time of my exam: CONSTITUTIONAL: Denies fever. Denies chills. EYES: Denies blurred vision. Denies vision changes. Denies eye pain. EARS, NOSE, MOUTH & THROAT: Denies headache. Denies sore throat. Denies ear pain. CARDIOVASCULAR: Denies chest pain. Denies shortness of breath. Denies orthopnea. Denies PND. Denies palpitations. RESPIRATORY: Denies cough. GASTROINTESTINAL: Denies abdominal pain. Denies diarrhea. Denies constipation. Denies nausea. Denies vomiting. MUSCULOSKELETAL: Denies myalgias. INTEGUMENTARY: Denies pruitis. Denies rash. NEUROLOGIC: Denies numbness. Denies tingling. Denies weakness. PSYCHIATRIC: Denies anxiety. Denies depression. ENDOCRINE: Denies fatigue. Denies weight change. Denies polydipsia. Denies polyurina. GENITOURINARY: Denies burning, hematuria or urgency with micturation. HEMATOLOGIC: Denies history of anemia. Denies bleeding. GENERAL: This is a 64-year-old female in no apparent distress at the time of my examination. Morbidly obese. HEENT: Head is atraumatic, normocephalic. Pupils are equal, round. Sclerae anicteric. Conjunctivae are clear. Mucous membranes of the mouth are moist. Neck is supple. There is no jugular venous distention. No carotid bruit is heard. LUNGS: Clear to auscultation no wheezes, rales or rhonchi. No chest wall te nderness is noted on palpation or with deep breathing. HEART: Regular rate and rhythm with systolic ejection murmur at the left sternal border, no rubs or gallops. S1 and S2 heard. ABDOMEN: Soft, nontender. Bowel sounds are heard. No organomegaly noted. EXTREMITIES: No evidence of peripheral edema and no calf tenderness noted. VASCULAR: Radial and dorsalis pedis pulses palpated, no evidence of clubbing. NEUROLOGIC: Patient is awake, alert and oriented x3. ASSESSMENT Palpitations, resolved Hypomagnesemia Hypertension, uncontrolled Paroxysmal atrial fibrillation on long-term anticoagulation, currently maintaining sinus mechanism History of coronary artery disease status post bypass grafting Diabetes mellitus Dyslipidemia History of pulmonary embolism in the past on long-term anticoagulation Morbid obesity, BMI 51 PLAN An acute coronary event has been ruled out. Increase lisinopril to 30 mg daily and initiate amlodipine 5 mg daily. Continue Lopressor, atorvastatin, Eliquis and aspirin as previously ordered. Repeat 2-D echocardiogram and Doppler study to assess cardiac structure and function. Thank you kindly for this consultation. Nurse Practitioner note has been reviewed, I agree with a documented findings and plan of care. Patient was seen and examined. Past Medical History Past Medical History: Atrial Fibrillation, Asthma, Cancer, Diabetes Mellitus, Hyperlipidemia, Hypertension, Osteoarthritis (OA), Pulmonary Embolus (PE), Renal Disease Additional Past Medical History / Comment(s): pulmonary embolism in 12/2015 and the patient was treated with 6 moths of Eliquis, morbid obesity, DM History of Any Multi-Drug Resistant Organisms: None Reported Past Surgical History: Coronary Bypass/CABG Additional Past Surgical History / Comment(s): CABGX4 .basal cell carcinoma removed from face and a polyp removed from rectum Past Anesthesia/Blood Transfusion Reactions: No Reported Reaction Past Psychological History: Anxiety, Depression Smoking Status: Never smoker Past Alcohol Use History: Occasional Past Drug Use History: Marijuana Additional Drug Use History / Comment(s): has been over a year since the pt has used marijuana - Past Family History Mother Additional Family Medical History / Comment(s): CANCER WITH METS NOT SURE WHICH ONE Father Family Medical History: Cancer, Pneumonia Additional Family Medical History / Comment(s): CANCER Medications and Allergies Home Medications Medication Instructions Recorded Confirmed Type Apixaban [Eliquis] 5 mg PO BID 12/26/18 05/25/19 History Acetaminophen Tab [Tylenol] 1,000 mg PO Q6HR PRN tab 01/07/19 05/25/19 Rx Aspirin 81 mg PO DAILY chew 01/07/19 05/25/19 Rx Atorvastatin [Lipitor] 40 mg PO DAILY tab 01/07/19 05/25/19 Rx INSULIN ASPART (NovoLOG) [NovoLOG See Protocol SQ ACHS 01/08/19 05/25/19 History (formulary)] Insulin Detemir (Levemir) [Levemir] 12 unit SQ HS syr 01/10/19 05/25/19 Rx Metoprolol Tartrate [Lopressor] 50 mg PO BID tab 01/10/19 05/25/19 Rx metFORMIN HCL [Glucophage] 500 mg PO BID #60 tab 01/10/19 05/25/19 Rx Lisinopril [Zestril] 10 mg PO DAILY 05/25/19 05/25/19 History Allergies Allergy/AdvReac Type Severity Reaction Status Date / Time Iodinated Contrast Media Allergy Rash/Hives Verified 05/25/19 14:15 [Iodinated Contrast- Oral and IV Dye] nickel Allergy Rash/Hives Verified 05/25/19 14:15 Milk Containing Products AdvReac Nausea & Verified 05/25/19 14:15 [Dairy] Vomiting Physical Exam Vitals: Vital Signs Temp Pulse Pulse Resp BP BP BP 05/26/19 07:44 98.1 F 66 17 161/71 05/26/19 04:00 97.7 F 53 L 18 160/65 05/26/19 03:44 46 L 18 05/25/19 23:40 46 L 18 05/25/19 23:31 98.4 F 46 L 18 151/70 05/25/19 20:00 65 18 05/25/19 19:46 97.7 F 65 18 165/86 05/25/19 19:28 49 L 18 154/57 05/25/19 18:07 51 L 18 150/55 05/25/19 17:06 48 L 18 187/68 05/25/19 15:00 48 L 18 171/66 05/25/19 14:10 180/60 05/25/19 13:26 98.2 F 61 18 230/88 Pulse Ox 05/26/19 07:44 97 05/26/19 04:00 98 05/26/19 03:44 05/25/19 23:40 05/25/19 23:31 97 05/25/19 20:00 05/25/19 19:46 98 05/25/19 19:28 99 05/25/19 18:07 100 05/25/19 17:06 100 05/25/19 15:00 98 05/25/19 14:10 05/25/19 13:26 98 Intake and Output 05/25/19 05/26/19 05/26/19 22:59 06:59 14:59 Intake Total 400 Balance 400 Intake: Oral 400 Other: # Voids 1 Results 05/25/19 14:30 05/25/19 14:30 Cardiac Enzymes 10/02/19 10/02/19 10/02/19 Range/Units 14:30 14:30 20:51 AST 21 (14-36) U/L Troponin I <0.012 <0.012 (0.000-0.034) ng/mL 05/26/19 Range/Units 01:26 AST (14-36) U/L Troponin I <0.012 (0.000-0.034) ng/mL Coagulation 05/25/19 Range/Units 14:30 PT 10.5 (9.0-12.0) sec APTT 24.8 (22.0-30.0) sec Lipids 05/26/19 Range/Units 07:23 Triglycerides 83 (<150) mg/dL Cholesterol 124 (<200) mg/dL HDL Cholesterol 62 H (40-60) mg/dL CBC 05/25/19 Range/Units 14:30 WBC 6.4 (3.8-10.6) k/uL RBC 4.58 (3.80-5.40) m/uL Hgb 12.9 (11.4-16.0) gm/dL Hct 38.3 (34.0-46.0) % Plt Count 131 L (150-450) k/uL Comprehensive Metabolic Panel 05/25/19 Range/Units 14:30 Sodium 139 (137-145) mmol/L Potassium 4.5 (3.5-5.1) mmol/L Chloride 107 (98-107) mmol/L Carbon Dioxide 23 (22-30) mmol/L BUN 17 (7-17) mg/dL Creatinine 0.78 (0.52-1.04) mg/dL Glucose 288 H (74-99) mg/dL Calcium 9.4 (8.4-10.2) mg/dL AST 21 (14-36) U/L ALT 21 (9-52) U/L Alkaline Phosphatase 88 (38-126) U/L Total Protein 6.5 (6.3-8.2) g/dL Albumin 3.7 (3.5-5.0) g/dL Current Medications Generic Name Dose Route Start Last Admin Trade Name Freq PRN Reason Stop Dose Admin Acetaminophen 1,000 mg 05/25/19 19:07 Tylenol Tab PO Q6HR PRN Fever and/ or MILD Pain Apixaban 5 mg 05/25/19 21:00 05/25/19 22:22 Eliquis PO 5 mg BID OZZY Administration Aspirin 81 mg 05/27/19 09:00 Aspirin PO DAILY [facility] Atorvastatin Calcium 40 mg 05/26/19 09:00 Lipitor PO DAILY [facility] Insulin Aspart 0 unit 05/25/19 21:00 05/26/19 08:16 Novolog SQ Not Given ACHS [facility] Protocol Insulin Detemir 12 unit 05/25/19 21:00 05/25/19 22:22 Levemir SQ 12 unit HS [facility] Administration Lisinopril 10 mg 05/26/19 09:00 Zestril PO DAILY [facility] Magnesium Oxide 400 mg 05/25/19 21:00 05/25/19 22:22 Mag-Ox PO 400 mg BID [facility] Administration Metformin HCl 500 mg 05/25/19 21:00 05/25/19 22:22 Glucophage PO 500 mg BID [facility] Administration Metoprolol Tartrate 50 mg 05/25/19 21:00 05/25/19 22:22 Lopressor PO 50 mg BID [facility] Administration Nitroglycerin 0.4 mg 05/25/19 16:47 Nitrostat SUBLINGUAL Q5M PRN Chest Pain Intake and Output 05/25/19 05/26/19 05/26/19 22:59 06:59 14:59 Intake Total 400 Balance 400 Intake: Oral 400 Other: # Voids 1 05/25/19 14:30 05/25/19 14:30
[2019-05-26 11:48] LABS: Glucose,Whole Blood 166 mg/dL (75-99)
[2019-05-26 15:32] VITALS: PULSE 55; RESP 18; TEMP 99
[2019-05-26 17:08] VITALS: BP 168/65
[2019-05-26 17:10] LABS: Glucose,Whole Blood 175 mg/dL (75-99)
[2019-05-27] MEDS ORDERED: ASPIRIN 81 MG PO SCH (09:00)
--- NOTE | 2019-05-27 12:32 | ECHOF ---
Referral Reason: MEASUREMENTS -------- HEIGHT: 162.6 cm WEIGHT: 134.3 kg BP: 161/71 IVSd: 1.6 cm (0.6 - 1.1) LVIDd: 3.6 cm (3.9 - 5.3) LVPWd: 1.8 cm (0.6 - 1.1) IVSs: 1.9 cm LVIDs: 2.6 cm LVPWs: 2.2 cm LAESV Index (A-L): 22.57 ml/m Ao Diam: 3.1 cm (2.0 - 3.7) AV Cusp: 2.3 cm (1.5 - 2.6) LA Diam: 5.1 cm (2.7 - 3.8) MV EXCURSION: 14.924 mm (> 18.000) MV EF SLOPE: 70 mm/s (70 - 150) EPSS: 0.3 cm MV E Austyn: 0.88 m/s MV DecT: 272 ms MV A Austyn: 0.67 m/s MV E/A Ratio: 1.32 RAP: 5.00 mmHg RVSP: 19.16 mmHg FINDINGS -------- Sinus rhythm with extra systolic beats. This was a technically difficult study with suboptimal apical views. There is moderate concentric left ventricular hypertrophy. Overall left ventricular systolic functi on is normal with, an EF between 55 - 60 %. The diastolic filling pattern is normal for the age of the patient {E/E'}. Septal wall motion is delayed and consistent with prior cardiac surgery. The right ventricle is normal in size. Normal LA size by volume 22+/-6 ml/m2. The right atrium was not well visualized. 5.0mg of Lumason was utilized for enhancement of images Interatrial and interventricular septum intact. The aortic valve was not well visualized. There is no evidence of aortic regurgitation. There is no evidence of aortic stenosis. There is trace mitral regurgitation. Mild tricuspid regurgitation present. There is no evidence of pulmonary hypertension. The right v entricular systolic pressure, as measured by Doppler, is 19.16mmHg. There is no pulmonic regurgitation present. The aortic root size is normal. IVC Not well visulized. There is no pericardial effusion. CONCLUSIONS -------- 1. Sinus rhythm with extra systolic beats. 2. This was a technically difficult study with suboptimal apical views. 3. There is moderate concentric left ventricular hypertrophy. 4. Overall left ventricular systolic function is normal with, an EF between 55 - 60 %. 5. The diastolic filling pattern is normal for the age of the patient {E/E'} 6. Septal wall motion is delayed and consistent with prior cardiac surgery. 7. The right ventricle is normal in size. 8. Normal LA size by volume 22+/-6 ml/m2. 9. The right atrium was not well visualized. 10. 5.0mg of Lumason was utilized for enhancement of images 11. Interatrial and interventricular septum intact. 12. The aortic valve was not well visualized. 13. There is no evidence of aortic regurgitation. 14. There is no evidence of aortic stenosis. 15. There is trace mitral regurgitation. 16. Mild tricuspid regurgitation present. 17. There is no evidence of pulmonary hypertension. 18. The right ventricular systolic pressure, as measured by Doppler, is 19.16mmHg. 19. There is no pulmonic regurgitation present. 20. The aortic root size is normal. 21. IVC Not well visulized. 22. There is no pericardial effusion. [employer]ING [employer] BLENDER: Nereyda Escalante RDCS
--- NOTE | 2019-05-28 22:23 | P.HPIM ---
History of Present Illness H&P Date: 05/26/19 Chief Complaint: Palpitations History of presenting complaint: This is a pleasant 64-year-old patient of Dr. Jaclyn Renteria. 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 Chronic stable medical conditions include diabetes, hypertension, hyperlipidemia, GERD, Amina arthritis, anxiety, urinary incontinence, and coronary artery disease. Resented with 24 hours history of skipping beats every fifth or sixth beat. [place] a bit lightheaded and weak some nausea symptoms lasted for about an hour. Did feel a bit tired and rundown. Has decided to come in. Was put on telemetry. Serial cardiac enzymes were done. Cardiology was consulted. Review of systems: GEN.: Tired EYES: None HEENT: None NECK: None RESPIRATORY: None CARDIOVASCULAR: As above GASTROINTESTINAL: None GENITOURINARY: None MUSCULOSKELETAL: Joint pains LYMPHATICS: None HEMATOLOGICAL: None PSYCHIATRY: Anxious NEUROLOGICAL: None Social history: Does not smoke. Alcohol occasionally. Daughter lives with her. Physical examination: VITAL SIGNS: 98.2, 61, 18, 230/88, repeat 180/60, 98% room air GENERAL: BMI 50.8, sitting up at the edge of the bed, tired. EYES: Pupils equal. Conjunctiva normal. HEENT: External appearance of nose and ears normal, oral cavity grossly normal. NECK: JVD not raised; masses not palpable. HEART: First and second heart sounds are normal; no edema. LUNGS: Respiratory rate normal; clear to auscultation. ABDOMEN: Soft, nontender, liver spleen not palpable, no masses palpable. PSYCH: Alert and oriented x3; mood and affect normal. NEUROLOGICAL: Cranial nerves grossly intact; no facial asymmetry, power and sensation grossly intact. LYMPHATICS: No lymph nodes palpable in the axilla and neck INVESTIGATIONS, reviewed in the clinical context: White count 6.4 hemoglobin 12.9 platelets 131 potassium 4.5 creatinine 0.78 Troponin I 3 negative TSH normal EKG tracing personally reviewed by me shows PVC Chest x-ray film personally reviewed by me-borderline cardiomegaly, lung gross clear Assessment: -This patient presented palpitations found perhaps PVCs on the EKG telemetry, symptomatic -Paroxysmal atrial fibrillation currently in sinus rhythm -Diabetes mellitus type 2 -Hyperlipidemia -Essential hypertension, with urgency -Primary osteoarthritis -Morbid obesity BMI 50.8 -Coronary artery disease and history of bypass - Plan: Serial cardiac enzymes were ordered that was negative. Cartilage was consulted. 2-D echo was ordered. Home medications resumed. Accu-Cheks were followed. Past Medical History Past Medical History: Atrial Fibrillation, Asthma, Cancer, Diabetes Mellitus, Hyperlipidemia, Hypertension, Osteoarthritis (OA), Pulmonary Embolus (PE), Renal Disease Additional Past Medical History / Comment(s): pulmonary embolism in 12/2015 and the patient was treated with 6 moths of Eliquis, morbid obesity, DM History of Any Multi-Drug Resistant Organisms: None Reported Past Surgical History: Coronary Bypass/CABG Additional Past Surgical History / Comment(s): CABGX4 .basal cell carcinoma removed from face and a polyp removed from rectum Past Anesthesia/Blood Transfusion Reactions: No Reported Reaction Past Psychological History: Anxiety, Depression Smoking Status: Never smoker Past Alcohol Use History: Occasional Past Drug Use History: Marijuana Additional Drug Use History / Comment(s): has been over a year since the pt has used marijuana - Past Family History Mother Additional Family Medical History / Comment(s): CANCER WITH METS NOT SURE WHICH ONE Father Family Medical History: Cancer, Pneumonia Additional Family Medical History / Comment(s): CANCER Medications and Allergies Home Medications Medication Instructions Recorded Confirmed Type Apixaban [Eliquis] 5 mg PO BID 12/26/18 05/25/19 History Acetaminophen Tab [Tylenol] 1,000 mg PO Q6HR PRN tab 01/07/19 05/25/19 Rx Aspirin 81 mg PO DAILY chew 01/07/19 05/25/19 Rx Atorvastatin [Lipitor] 40 mg PO DAILY tab 01/07/19 05/25/19 Rx INSULIN ASPART (NovoLOG) [NovoLOG See Protocol SQ ACHS 01/08/19 05/25/19 History (formulary)] Insulin Detemir (Levemir) [Levemir] 12 unit SQ HS syr 01/10/19 05/25/19 Rx Metoprolol Tartrate [Lopressor] 50 mg PO BID tab 01/10/19 05/25/19 Rx metFORMIN HCL [Glucophage] 500 mg PO BID #60 tab 01/10/19 05/25/19 Rx Lisinopril-Hctz 10-12.5 mg 1 tab PO BID #60 tab 05/26/19 Rx [Zestoretic 10-12.5] Magnesium Oxide [Mag-Ox] 400 mg PO DAILY #30 tab 05/26/19 Rx amLODIPine [Norvasc] 5 mg PO DAILY #30 tab 05/26/19 Rx Allergies Allergy/AdvReac Type Severity Reaction Status Date / Time Iodinated Contrast Media Allergy Rash/Hives Verified 05/25/19 14:15 [Iodinated Contrast- Oral and IV Dye] nickel Allergy Rash/Hives Verified 05/25/19 14:15 Milk Containing Products AdvReac Nausea & Verified 05/25/19 14:15 [Dairy] Vomiting Physical Exam Vitals: Vital Signs Temp Pulse Pulse Resp BP BP BP 05/26/19 07:44 98.1 F 66 17 161/71 05/26/19 04:00 97.7 F 53 L 18 160/65 05/26/19 03:44 46 L 18 05/25/19 23:40 46 L 18 05/25/19 23:31 98.4 F 46 L 18 151/70 05/25/19 20:00 65 18 05/25/19 19:46 97.7 F 65 18 165/86 05/25/19 19:28 49 L 18 154/57 05/25/19 18:07 51 L 18 150/55 05/25/19 17:06 48 L 18 187/68 05/25/19 15:00 48 L 18 171/66 05/25/19 14:10 180/60 05/25/19 13:26 98.2 F 61 18 230/88 Pulse Ox 05/26/19 07:44 97 05/26/19 04:00 98 05/26/19 03:44 05/25/19 23:40 05/25/19 23:31 97 05/25/19 20:00 05/25/19 19:46 98 05/25/19 19:28 99 05/25/19 18:07 100 05/25/19 17:06 100 05/25/19 15:00 98 05/25/19 14:10 05/25/19 13:26 98 Intake and Output 05/25/19 05/26/19 05/26/19 22:59 06:59 14:59 Intake Total 400 Balance 400 Intake: Oral 400 Other: # Voids 1 Results CBC & Chem 7: 05/25/19 14:30 05/25/19 14:30 Labs: Abnormal Lab Results - Last 24 Hours (Table) 05/25/19 05/25/19 05/25/19 Range/Units 14:30 14:30 20:53 Plt Count 131 L (150-450) k/uL Glucose 288 H (74-99) mg/dL POC Glucose (mg/dL) 182 H (75-99) mg/dL Magnesium 1.3 L (1.6-2.3) mg/dL HDL Cholesterol (40-60) mg/dL 05/26/19 05/26/19 Range/Units 07:02 07:23 Plt Count (150-450) k/uL Glucose (74-99) mg/dL POC Glucose (mg/dL) 139 H (75-99) mg/dL Magnesium (1.6-2.3) mg/dL HDL Cholesterol 62 H (40-60) mg/dL Thrombosis Risk Factor Assmnt - Choose All That Apply Any of the Below Risk Factors Present?: Yes Each Factor Represents 1 point: Acute MA, Obesity (BMI >25), Swollen legs (current) Other Risk Factors: Yes Each Risk Factor Represents 2 Points: Age 61-74 years Other congenital or acquired thrombophilia - If yes, enter type in comment: No Thrombosis Risk Factor Assessment Total Risk Factor Score: 5 Thrombosis Risk Factor Assessment Level: High Risk
--- NOTE | 2019-05-28 22:26 | P.DS ---
Providers Date of admission: 05/25/19 16:48 Expected date of discharge: 05/26/19 Attending physician: Santos Logan Consults: 05/25/19 16:48 Consult Physician Urgent Consulting Provider: [facility] Consult Reason/Comments: Atypical angina, hypertensive urgency Do you want consulting provider notified?: Yes Primary care physician: Jaclyn Renteria [facility] Course: Chief Complaint: Palpitations Hospital course: This is a pleasant 64-year-old patient of Dr. Jaclyn Renteria. 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 Chronic stable medical conditions include diabetes, hypertension, hyperlipidemia, GERD, Amina arthritis, anxiety, urinary incontinence, and coronary artery disease. Resented with 24 hours history of skipping beats every fifth or sixth beat. [place] a bit lightheaded and weak some nausea symptoms lasted for about an hour. Did feel a bit tired and rundown. Has decided to come in. Was put on telemetry. Serial cardiac enzymes were done. Cardiology was consulted. Patient was found was a dramatic PVCs. Accelerated hypertension. Blood pressure medication adjusted. Patient doing much better by the time of discharge. No further symptoms. Cleared by cardiology. Consultations: Dr. VC Lazo from cardiology Physical examination: VITAL SIGNS: 99, 55, 18, 160-65, 96% room air GENERAL: Sitting up, comfortable. EYES: Pupils equal. Conjunctiva normal. HEENT: External appearance of nose and ears normal, oral cavity grossly normal. NECK: JVD not raised; masses not palpable. HEART: First and second heart sounds are normal; no edema. LUNGS: Respiratory rate normal; clear to auscultation. ABDOMEN: Soft, nontender, liver spleen not palpable, no masses palpable. PSYCH: Alert and oriented x3; mood and affect normal. INVESTIGATIONS, reviewed in the clinical context: White count 6.4 hemoglobin 12.9 platelets 131 potassium 4.5 creatinine 0.78 Troponin I 3 negative TSH normal EKG tracing personally reviewed by me shows PVC Chest x-ray film personally reviewed by me-borderline cardiomegaly, lung gross clear 2-D echo-EF 55-60%, wall motion abnormality. Moderate concentric left medical hypertrophy Discharge diagnosis: -Symptomatic PVCs -Paroxysmal atrial fibrillation currently in sinus rhythm, POA -Diabetes mellitus type 2 -Hyperlipidemia -Essential hypertension, accelerated, POA -Primary osteoarthritis -Morbid obesity BMI 50.8 -Coronary artery disease and history of bypass - Disposition: Home Patient Condition at Discharge: Stable Plan - Discharge Summary Discharge Rx Participant: No New Discharge Prescriptions: New Magnesium Oxide [Mag-Ox] 400 mg PO DAILY #30 tab amLODIPine [Norvasc] 5 mg PO DAILY #30 tab Lisinopril-Hctz 10-12.5 mg [Zestoretic 10-12.5] 1 tab PO BID #60 tab Continue Apixaban [Eliquis] 5 mg PO BID Atorvastatin [Lipitor] 40 mg PO DAILY tab Acetaminophen Tab [Tylenol] 1,000 mg PO Q6HR PRN tab PRN Reason: Fever And/ Or Pain Aspirin 81 mg PO DAILY chew INSULIN ASPART (NovoLOG) [NovoLOG (formulary)] See Protocol SQ ACHS metFORMIN HCL [Glucophage] 500 mg PO BID #60 tab Insulin Detemir (Levemir) [Levemir] 12 unit SQ HS syr Metoprolol Tartrate [Lopressor] 50 mg PO BID tab Discontinued Lisinopril [Zestril] 10 mg PO DAILY Discharge Medication List Apixaban [Eliquis] 5 mg PO BID 12/26/18 [History] Acetaminophen Tab [Tylenol] 1,000 mg PO Q6HR PRN tab 01/07/19 [Rx] Aspirin 81 mg PO DAILY chew 01/07/19 [Rx] Atorvastatin [Lipitor] 40 mg PO DAILY tab 01/07/19 [Rx] INSULIN ASPART (NovoLOG) [NovoLOG (formulary)] See Protocol SQ ACHS 01/08/19 [History] Insulin Detemir (Levemir) [Levemir] 12 unit SQ HS syr 01/10/19 [Rx] Metoprolol Tartrate [Lopressor] 50 mg PO BID tab 01/10/19 [Rx] metFORMIN HCL [Glucophage] 500 mg PO BID #60 tab 01/10/19 [Rx] Lisinopril-Hctz 10-12.5 mg [Zestoretic 10-12.5] 1 tab PO BID #60 tab 05/26/19 [Rx] Magnesium Oxide [Mag-Ox] 400 mg PO DAILY #30 tab 05/26/19 [Rx] amLODIPine [Norvasc] 5 mg PO DAILY #30 tab 05/26/19 [Rx] Follow up Appointment(s)/Referral(s): Alfredo Gonsalez MD [STAFF PHYSICIAN] - 06/09/19 10:15 am (follow up with Arlene post hospitalization.) Jaclyn Renteria DO [Primary Care Provider] - 1-2 days Patient Instructions/Handouts: Chest Pain (DC)
== END 2019-05-26 18:55 ==
LOC: EC 13:26 → 3SCARD 16:48 → 1SOBS 18:17
PROVIDERS: ADMIT Hospitalist; ATTEND Hospitalist
DX: I49.3 Ventricular premature depolarization (principal); I48.0 Paroxysmal atrial fibrillation; E11.9 Type 2 diabetes mellitus without complications; E78.5 Hyperlipidemia, unspecified; I10 Essential (primary) hypertension; M19.91 Primary osteoarthritis, unspecified site; E66.01 Morbid (severe) obesity due to excess calories; Z68.43 Body mass index [BMI] 50.0-59.9, adult; I25.10 Atherosclerotic heart disease of native coronary artery without angina pectoris; I16.0 Hypertensive urgency; R32 Unspecified urinary incontinence; K21.9 Gastro-esophageal reflux disease without esophagitis; F41.9 Anxiety disorder, unspecified; R11.0 Nausea; J45.909 Unspecified asthma, uncomplicated; N28.9 Disorder of kidney and ureter, unspecified; M54.2 Cervicalgia; F32.9 Major depressive disorder, single episode, unspecified; M79.89 Other specified soft tissue disorders; E83.42 Hypomagnesemia; E78.00 Pure hypercholesterolemia, unspecified; I25.2 Old myocardial infarction; Z86.711 Personal history of pulmonary embolism; Z95.1 Presence of aortocoronary bypass graft; Z85.828 Personal history of other malignant neoplasm of skin; Z87.19 Personal history of other diseases of the digestive system; Z79.82 Long term (current) use of aspirin; Z79.899 Other long term (current) drug therapy; Z79.01 Long term (current) use of anticoagulants; Z79.4 Long term (current) use of insulin; Z88.8 Allergy status to other drugs, medicaments and biological substances; Z91.041 Radiographic dye allergy status; Z91.011 Allergy to milk products; Z80.9 Family history of malignant neoplasm, unspecified; Z83.6 Family history of other diseases of the respiratory system; Z80.1 Family history of malignant neoplasm of trachea, bronchus and lung
CPT/HCPCS: 96376; 96374; 99285; 36415; 85379; 80061; 80053; 83735 ×2; 84443; 84484 ×2; 85025; 85610; 85730; 71046; G0378 ×2; C8929; J0360; Q9950; 93306

== ENCOUNTER → 2021-04-06 | Outpatient (CLI) | payer MEDICARE ==
[2021-04-06 12:03] LABS: HCT 39.4 % (34.0-46.0); MCH 31.2 pg (25.0-35.0); MCHC 32.9 g/dL (31.0-37.0); MCV 94.8 fL (80.0-100.0); Mean Platelet Volume 10.6; Platelet Count 154 k/uL (150-450); RBC 4.16 m/uL (3.80-5.40); RDW 13.1 % (11.5-15.5); WBC 6.8 k/uL (3.8-10.6)
[2021-04-06 12:19] LABS: Potassium 4.7 mmol/L (3.5-5.1)
== END | disposition home or self-care (01) ==
LOC: LABPAT 11:27
PROVIDERS: ATTEND Internal Medicine Interventional Cardiology
DX: Z01.812 Encounter for preprocedural laboratory examination (principal); R94.39 Abnormal result of other cardiovascular function study
CPT/HCPCS: 36415; 80051; 82565; 84520; 85027

== ENCOUNTER → 2021-04-09 | Day surgery (SDC) | payer MEDICARE ==
[2021-04-08 13:30] VITALS: BMI 48.6
[~2021-04-09] MED LIST: ALPRAZolam 0.25 MG TAB PO PRN; ALPRAZolam 0.5 MG TAB PO PRN; ASPIRIN 325 MG TAB PO STA; ASPIRIN 81 MG PO SCH; ATORVASTATIN 40 MG TAB PO SCH; HEPARIN SODIUM 1,000 UN/ML (10ML VL) IV ONE; HEPARIN SODIUM,PORCINE 10,000 UNIT in SODIUM CHLORIDE 0.9% 1,000 ML IRRIGATION PRN; HEPARIN SODIUM,PORCINE 2,500 UNIT in SODIUM CHLORIDE 0.9% 250 ML IRRIGATION PRN; INSULIN ASPART (NovoLOG) 100 UNIT/ML VIAL SQ ONE; IOPAMIDOL-370 100ML BTL INJ ONE; IOPAMIDOL-370 125ML BTL INJ ONE; LIDOCAINE 1% INJ 10MG/ML (20 ML MDV) ONE; LIDOCAINE 1% INJ 10MG/ML (20 ML MDV) SQ ONE; LINAGLIPTIN 5 MG TABLET PO SCH; LISINOPRIL-HCTZ 10-12.5 MG 1 EACH TAB PO SCH; METOPROLOL TARTRATE 50 MG TAB PO SCH; NITROGLYCERIN SL TABS 0.4 MG TAB SUBLINGUAL PRN; RX INFO: IV CONTRAST WAS GIVEN 1 EACH MISC MISCELLANE PRN; SODIUM CHLORIDE 0.9% 1,000 ML IV ONE; SODIUM CHLORIDE 0.9% 1,000 ML IV SCH; SODIUM CHLORIDE 0.9% 1,000 ML in EMPTY BAG 1 BAG IV ONE; VERAPAMIL 2.5 MG/ML 2 ML AMP ONE; VERAPAMIL SYRINGE (5 MG/10 ML) INTRAARTER ONE; amLODIPine 5 MG TAB PO SCH; fentaNYL (PF) 50 MCG/ML 2 ML AMP IV ONE; fentaNYL (PF) 50 MCG/ML 2 ML AMP ONE
[2021-04-09 07:18] LABS: Glucose,Whole Blood 360 mg/dL (75-99)
[2021-04-09 07:19] LABS: Basophils % (A) 0 %; Eosinophils % (A) 0 %; HCT 40.8 % (34.0-46.0); HGB 13.2 gm/dL (11.4-16.0); Lymphocytes % (A) 10 %; MCH 30.1 pg (25.0-35.0); MCHC 32.3 g/dL (31.0-37.0); MCV 93.3 fL (80.0-100.0); Mean Platelet Volume 10.6; Monocytes # (A) 0.4 k/uL (0-1.0); Monocytes % (A) 3 %; Neutrophils # (A) 9.4 k/uL (1.3-7.7); Neutrophils % (A) 86 %; Platelet Count 172 k/uL (150-450); RBC 4.38 m/uL (3.80-5.40); WBC 10.9 k/uL (3.8-10.6)
[2021-04-09 07:20] VITALS: RESP 16; TEMP 98
[2021-04-09] MEDS: MIDAZOLAM 2 MG/2 ML VIAL IV ONE ×2 (07:32→07:45)
[2021-04-09] MEDS: LIDOCAINE 1% INJ 10MG/ML (20 ML MDV) SQ ONE ×2 (07:38→08:03)
[2021-04-09 07:40] LABS: Potassium 4.6 mmol/L (3.5-5.1)
[2021-04-09 07:41] LABS: Calcium 9.8 mg/dL (8.4-10.2)
[2021-04-09 09:04] LABS: Glucose,Whole Blood 344 mg/dL (75-99)
--- NOTE | 2021-04-09 10:07 | CC ---
CARDIAC CATHETERIZATION REPORT Mrs. Lua is a 66-year-old female with known history of hypertension, hyperlipidemia, diabetes mellitus, underwent coronary artery bypass grafting in 2019 who has been complaining of symptoms of progressive dyspnea and fatigue, had myocardial perfusion imaging that revealed partial reversible anterior wall defect. In view of that, recommendation made regarding cardiac catheterization. The procedure as well as the risks and the complications were discussed with the patient who is in full understanding and agreement. PROCEDURE PERFORMED: Patient was brought to prosthetics lab technician in a fasting semisedated state. After receiving fentanyl and Benadryl and achieving moderate conscious sedated state, using Seldinger technique, a 6-Vincentian sheath was introduced in the left radial artery. Because of mechanical failure of the prosthetics lab technician room at that time, the patient was transferred to another room and using a guidewire exchange technique, the 6 Vincentian sheath was exchanged for a new 6 Vincentian sheath. Following that, selective right and left coronary angiography performed using 5-Vincentian 4 bend right [place] and 3 and a half bend left [place] catheter. Multiple views of the coronary artery including hemiaxial views obtained. Selective angiography of the right coronary artery saphenous vein graft bypass was done using the 6-Vincentian right coronary bypass graft catheter. Images of the grafts were obtained. Following that, a 6-Vincentian left coronary bypass graft catheter was used to cannulate the saphenous vein graft to the obtuse marginal branch and images of the grafts were obtained. That catheter was used to cross the aortic valve. Left ventricular end-diastolic pressure was calculated. An VISHNU catheter was used to cannulate the ROLDAN to LAD. Images of the grafts were obtained. Following that, the catheter and sheath were removed. Hemostasis was obtained with deployment of TR band. There was no immediate complication. Patient is returned to her room in stable condition. Of note, the patient received 5000 units of intravenous heparin as well as intra-arterial verapamil. FINDINGS: LEFT MAIN: This is a large-sized vessel, bifurcating into left circumflex artery,left anterior descending coronary artery, left main coronary artery has a 70% stenosis distally. LAD: this vessel is totally occluded after the takeoff of the first septal perforators. There is a 1st diagonal branch prior to the septal senior center manager that has diffuse intimal disease with area of stenosis up to 70%. LEFT CIRCUMFLEX: This is a nondominant vessel giving rise to 2 obtuse marginal branches. The first one is larger in caliber. The proximal left circumflex has 60-70% stenosis. There is diffuse intimal disease in the distal left circumflex. There is competitive flow in the first obtuse marginal branch. RIGHT CORONARY ARTERY: This vessel is dominant, bifurcating distally PDA and posterolateral segment and branches. Diffuse disease in the mid segment. At the distal segment, there is a 90% stenosis. There is flow into the PDA and PLV. SAPHENOUS VEIN GRAFT TO THE RIGHT CORONARY ARTERY: This is a jump graft to the PDA and PLV. There is good flow in both branches. The proximal and distal anastomotic sites are patent. There is no evidence of significant obstructive disease. SAPHENOUS VEIN GRAFT TO THE OBTUSE MARGINAL BRANCH: The proximal and distal anastomotic sites are patent. The flow into the obtuse marginal branch is brisk. There is retrograde flow into the left main and the LAD. The distal segment of the graft is aneurysmal. ROLDAN to LAD: The distal anastomotic site is patent. The flow into the LAD is brisk. There is no evidence of high-grade stenosis. LEFT VENTRICULOGRAM: The left ventriculogram was not performed. HEMODYNAMICS: There was no gradient across the aortic valve. The left ventricular end- diastolic pressure was 10-14 mmHg. CONCLUSION: 1. Severe triple-vessel coronary disease and left main disease. 2. Patent ROLDAN to LAD. 3. Patent saphenous vein graft to the obtuse marginal branch. 4. Patent saphenous vein graft to the PDA and posterolateral branch. RECOMMENDATIONS: In view of findings and anatomy, I recommend continued medical therapy with aggressive coronary risk modifications that have been initiated. Those findings and recommendations were discussed with the patient who is in full understanding and agreement. Duration of sedation is 26 minutes. MMODL / IJN: [id number] / MTDD
[2021-04-09 14:42] VITALS: BP 127/69; PULSE 56
== END | disposition home or self-care (01) ==
LOC: CATHCVL 06:38
PROVIDERS: ATTEND Internal Medicine Interventional Cardiology
DX: I25.10 Atherosclerotic heart disease of native coronary artery without angina pectoris (principal)
CPT/HCPCS: 93459; 80048; 85025; J2250; J2001; J3010; J1644; Q9967 ×2

== ENCOUNTER 2024-06-21 00:23 | Emergency (ER) | payer MEDICARE ==
[2024-06-21 00:29] VITALS: TEMP 98.4
--- NOTE | 2024-06-21 01:12 | ED ---
Chest Pain HPI - General Chief Complaint: Chest Pain Stated Complaint: chest pressure Time Seen by Provider: 06/21/24 00:32 Source: patient Mode of arrival: ambulatory Limitations: no limitations - History of Present Illness Initial Comments: This patient is a 69-year-old woman who presents to have evaluation for an episode of chest pressure that developed tonight approximately 10 PM while she was sitting and watching television. She describes it being present across the entire chest. She states that it was accompanied by feeling very warm and flu shed. She states that the symptoms lasted probably 15 to 30 seconds and resolved. She did not have dyspnea, diaphoresis, nausea or vomiting. Patient has history of having three-vessel CABG previously. She states that this did not feel like the pain she was having at that point. Patient states that she is back at her baseline currently. MD Complaint: chest pain Onset/Timin -: hour(s) Onset: during rest Pain Location: left chest, right chest Pain Radiation: none Severity: moderate Quality: other (Pressure) Consistency: now resolved Improves With: nothing Worsens With: nothing Anginal Symptoms: other ([place] warm) Treatments Prior to Arrival: none - Related Data Home Medications Medication Instructions Recorded Confirmed Apixaban [Eliquis] 5 mg PO BID 12/26/18 04/14/22 Cyanocobalamin [Vitamin B-12] 500 mcg PO DAILY@119904/08/21 04/14/22 Lisinopril-Hctz 10-12.5 mg 1 tab PO DAILY 04/08/21 04/14/22 [Zestoretic 10-12.5] sitaGLIPtin [Januvia] 100 mg PO DAILY 04/08/21 04/14/22 Calcium Carbonate [Calcium] 600 mg PO DAILY@119904/14/22 04/14/22 Magnesium Oxide [Mag-Ox] 400 mg PO DAILY@119904/14/22 04/14/22 hydrOXYzine pamoate [Vistaril] 50 mg PO TID PRN 04/14/22 04/14/22 metFORMIN HCL [metFORMIN HCL ER 1,000 mg PO DAILY 04/14/22 04/14/22 Osmotic] Previous Rx's Medication Instructions Recorded Atorvastatin [Lipitor] 40 mg PO DAILY tab 01/07/19 Metoprolol Tartrate [Lopressor] 50 mg PO BID tab 01/10/19 amLODIPine [Norvasc] 5 mg PO DAILY #30 tab 05/26/19 Allergies Allergy/AdvReac Type Severity Reaction Status Date / Time Iodinated Contrast Media Allergy Rash/Hives Verified 06/21/24 00:29 [Iodinated Contrast- Oral and IV Dye] magnesium Allergy Rash/Hives Verified 06/21/24 00:29 nickel Allergy Rash/Hives Verified 06/21/24 00:29 Milk Containing Products AdvReac Nausea & Verified 06/21/24 00:29 (Dairy) Vomiting & [Dairy] Diarrhea Review of Systems ROS Statement: Those systems with pertinent positive or pertinent negative responses have been documented in the HPI. ROS Other: All systems not noted in ROS Statement are negative. Constitutional: Denies: fever, chills, weakness Respiratory: Denies: cough, dyspnea Cardiovascular: Reports: as per HPI, chest pain. Denies: palpitations, orthopnea, edema, syncope Gastrointestinal: Denies: abdominal pain, nausea, vomiting Genitourinary: Denies: dysuria, hematuria Musculoskeletal: Denies: back pain Skin: Denies: rash Neurological: Denies: headache, weakness EKG Findings - EKG Comments: EKG Findings:: Possible old anterior infarct. - EKG Results: EKG: interpreted by ERMLeanne, sinus rhythm (Rate 70 bpm), normal axis, normal ST/T - Blocks, [place], Hypertrophy, ST Abn: QRS axis and voltage: low voltage (<0.5 MV total QRS and <1.0 MV in each precordial lead) Past Medical History Past Medical History: Atrial Fibrillation, Asthma, Cancer, Diabetes Mellitus, Hyperlipidemia, Hypertension, Osteoarthritis (OA), Pulmonary Embolus (PE), Renal Disease Additional Past Medical History / Comment(s): pulmonary embolism in 12/2015 and the patient was treated with 6 moths of Eliquis, morbid obesity, DM History of Any Multi-Drug Resistant Organisms: None Reported Past Surgical History: Coronary Bypass/CABG Additional Past Surgical History / Comment(s): CABGX4 .basal cell carcinoma removed from face and a polyp removed from rectum Past Anesthesia/Blood Transfusion Reactions: No Reported Reaction Past Psychological History: Anxiety, Depression Smoking Status: Never smoker Past Alcohol Use History: Occasional Past Drug Use History: Marijuana - Past Family History Mother Additional Family Medical History / Comment(s): CANCER WITH METS NOT SURE WHICH ONE Father Family Medical History: Cancer, Pneumonia Additional Family Medical History / Comment(s): CANCER General Exam Limitations: no limitations General appearance: alert, in no apparent distress Head exam: Present: atraumatic, normocephalic Eye exam: Present: normal appearance. Absent: scleral icterus, conjunctival injection ENT exam: Present: normal oropharynx Neck exam: Present: normal inspection Respiratory exam: Present: normal lung sounds bilaterally. Absent: respiratory distress, wheezes, rales, rhonchi, stridor, chest wall tenderness, accessory muscle use Cardiovascular Exam: Present: regular rate, normal rhythm, normal heart sounds. Absent: systolic murmur, diastolic murmur, rubs, gallop GI/Abdominal exam: Present: soft. Absent: distended, tenderness, guarding, rebound, rigid, mass Extremities exam: Present: normal inspection, normal capillary refill. Absent: pedal edema, calf tenderness Back exam: Present: normal inspection. Absent: CVA tenderness (R), CVA tenderness (L) Neurological exam: Present: alert Skin exam: Present: warm, dry, intact, normal color. Absent: rash Course Vital Signs 06/21/24 06/21/24 06/21/24 00:25 02:43 03:14 Temperature 98.4 F Pulse Rate 76 51 L 57 L Respiratory 20 17 18 Rate Blood Pressure 142/62 130/62 147/79 O2 Sat by Pulse 96 98 Oximetry Chest Pain MDM - MDM On reevaluation, the patient remains symptom-free. I discussed the results and recommend admission to have further telemetry monitoring, serial cardiac enzymes, cardiology consultation. The patient states that she does feel well and she wants to go home. She will have close follow-up with cardiology. She will return should any symptoms recur or if she is not feeling right in any way. The patient had a chest x-ray as part of the workup which I interpreted as being negative for infiltrate, congestive heart failure and pneumothorax. Was pt. sent in by a medical professional or institution (, PA, FIELD STAFF, urgent care, hospital, or [facility]...) When possible be specific @ -[No] Did you speak to anyone other than the patient for history (EMS, parent, family, police, friend...)? What history was obtained from this source @ -[No] Did you review nursing and triage notes (agree or disagree)? Why? @ -[I reviewed and agree with nursing and triage notes] Were old charts reviewed (outside hosp., previous admission, EMS record, old EKG, old radiological studies, urgent care reports/EKG's, [facility] records)? Report findings @ -[No old charts were reviewed] Differential Diagnosis (chest pain, altered mental status, abdominal pain women, abdominal pain men, vaginal bleeding, weakness, fever, dyspnea, syncope, headache, dizziness, GI bleed, back pain, seizure, CVA, palpatations, mental health, musculoskeletal)? @ -[Differential Chest Pain: Stable Angina, Unstable Angina, STEMI, NSTEMI Aortic Dissection, Pneumothorax, Musculoskeletal, Esophageal Spasm GERD, Cholecystitis, Pancreatitis, Zoster, this is not meant to be an all-inclusive list. EKG interpreted by me (3pts min.). @ -[I interpreted as above] X-rays interpreted by me (1pt min.). @ -[I interpreted as above CT interpreted by me (1pt min.). @ -[None done] U/S interpreted by me (1pt. min.). @ -[None done] What testing was considered but not performed or refused? (CT, X-rays, U/S, labs)? Why? @ -[None] What meds were considered but not given or refused? Why? @ -[None] Did you discuss the management of the patient with other professionals (professionals i.e. , PA, FIELD STAFF, lab, RT, psych nurse, health and social care teacher, pattern room attendant, teacher, president and chief executive officer, case fitter)? Give summary @ -[No] Was smoking cessation discussed for >3mins.? @ -[No] Was critical care preformed (if so, how long)? @ -[No] Were there social determinants of health that impacted care today? How? (Homelessness, low income, unemployed, alcoholism, drug addiction, transportation, low edu. Level, literacy, decrease access to med. care, group home, rehab)? @ -[No] Was there de-escalation of care discussed even if they declined (Discuss DNR or withdrawal of care, Hospice)? DNR status @ -[No] What co-morbidities impacted this encounter? (DM, HTN, Smoking, COPD, CAD, Cancer, CVA, ARF, Chemo, Hep., AIDS, mental health diagnosis, sleep apnea, morbid obesity)? @ -[Diabetes, hypertension Was patient admitted / discharged? Hospital course, mention meds given and route, prescriptions, significant lab abnormalities, going to OR and other pert inent info. @ -[See above Undiagnosed new problem with uncertain prognosis? @ -[No] Drug Therapy requiring intensive monitoring for toxicity (Heparin, Nitro, Insulin, Cardizem)? @ -[No] Were any procedures done? @ -[No] Diagnosis/symptom? @ -[Acute chest pain Acute, or Chronic, or Acute on Chronic? @ -[Acute Uncomplicated (without systemic symptoms) or Complicated (systemic symptoms)? @ -[Uncomplicated Side effects of treatment? @ -[No] Exacerbation, Progression, or Severe Exacerbation? @ -[No] Poses a threat to life or bodily function? How? (Chest pain, [place], [place], pneumonia, PE, COPD, DKA, ARF, appy, cholecystitis, CVA, Diverticulitis, Homicidal, Suicidal, threat to staff... and all critical care pts) @ -[Low risk but requires close follow-up Disposition Clinical Impression: Chest pain Disposition: HOME SELF-CARE Condition: Good Instructions (If sedation given, give patient instructions): Chest Pain (ED) Is patient prescribed a controlled substance at d/c from ED?: No Referrals: Jaclyn Renteria DO [Primary Care Provider] - 1-2 days Saroj Regalado MD [Medical Doctor] - 1-2 days
[2024-06-21 01:33] LABS: Basophils % (A) 1 %; Eosinophils # (A) 0.3 k/uL (0-0.7); Eosinophils % (A) 4 %; HCT 42.7 % (34.0-46.0); HGB 13.9 gm/dL (11.4-16.0); Lymphocytes # (A) 2.1 k/uL (1.0-4.8); Lymphocytes % (A) 32 %; MCH 30.2 pg (25.0-35.0); MCHC 32.4 g/dL (31.0-37.0); MCV 93.3 fL (80.0-100.0); Mean Platelet Volume 9.1; Monocytes # (A) 0.3 k/uL (0-1.0); Monocytes % (A) 5 %; Neutrophils # (A) 3.7 k/uL (1.3-7.7); Neutrophils % (A) 58 %; Platelet Count 114 k/uL (150-450); RBC 4.58 m/uL (3.80-5.40); WBC 6.5 k/uL (3.8-10.6)
--- NOTE | 2024-06-21 01:41 | XR ---
EXAM: XR Chest, 2 Views CLINICAL HISTORY: ITS.REASON XR Reason: Chest Pain TECHNIQUE: Frontal and lateral views of the chest. COMPARISON: No relevant prior studies available. FINDINGS: Lungs: No consolidation or mass. Pleural space: No effusion. Heart: No cardiomegaly. Bones/joints: No acute findings. IMPRESSION: No acute cardiopulmonary process.
[2024-06-21 01:42] LABS: Partial Thromboplastin Time 24.2 sec (22.0-30.0); Prothrombin Time 10.9 sec (10.0-12.5)
[2024-06-21 01:47] LABS: ALT 25 U/L (4-34); AST 25 U/L (14-36); African American GFR (CKD) 51 (>60 ml/min/1.73 sqM); Albumin 3.6 g/dL (3.5-5.0); Alkaline Phosphatase 84 U/L (38-126); Anion Gap 7 mmol/L; Blood Urea Nitrogen 26 mg/dL (7-17); Carbon Dioxide 21 mmol/L (22-30); Chloride 109 mmol/L (98-107); Glucose 262 mg/dL (74-99); Magnesium 1.6 mg/dL (1.6-2.3); Non-African American GFR(CKD) 44 (>60 ml/min/1.73 sqM); Potassium 4.4 mmol/L (3.5-5.1); Sodium 137 mmol/L (137-145); Total Bilirubin 0.7 mg/dL (0.2-1.3); Total Protein 6.2 g/dL (6.3-8.2)
[2024-06-21 03:15] VITALS: BP 147/79; PULSE 57; RESP 18
== END 2024-06-21 03:27 | disposition home or self-care (01) ==
LOC: EC 00:23
DX: R07.89 Other chest pain (principal); E66.01 Morbid (severe) obesity due to excess calories; G47.30 Sleep apnea, unspecified; Z91.011 Allergy to milk products; Z91.041 Radiographic dye allergy status; Z88.8 Allergy status to other drugs, medicaments and biological substances; Z95.1 Presence of aortocoronary bypass graft; Z68.42 Body mass index [BMI] 45.0-49.9, adult
CPT/HCPCS: 36415; 71046; 80053; 83735; 84484; 85025; 85610; 85730; 93005; 99285